=== PATIENT | female | born 1945 | race Caucasian/White ===

== ENCOUNTER 2016-04-01 20:46 | Inpatient (IN) | payer MEDICARE, MEDICAID ==
--- NOTE | 2016-04-01 21:03 | ED Physician Chart ---
Chief Complaint/HPI - Patient Information Date Seen:: 04/01/16 Time Seen:: 20:58 Chief Complaint:: Low grade fever this afternoon. History of Present Illness:: Brought in by ambulance from nursing facility for the above reason. Pt denies any bodily pain. No cough, dyspnea, or lightheadedness. Pt has h/o dementia and does not cooperate fully to provide adequate and reliable info. Thus, H & P are limited. Allergies:: Allergies Allergy/AdvReac Type Severity Reaction Status Date / Time Penicillins Allergy Verified 09/30/15 02:52 Vitals:: see Nurse Note. Historian:: Patient, Medical Records (from transferring facility.) Family MD/PCP:: Dr. Ch LMP:: Postmenopausal. Review:: Nurse's Note Reviewed, Transfer documents Reviewed Review of Systems - Review of Systems General/Constitutional: Fever, Other (Pt does not cooperate fully for ROS.) Past Medical History - Past Medical History Past Medical History: HTN, DM, Asthma/COPD, Dyslipidemia, Dementia, Other ( Chronic anemia) Family History: Other (Pt does not cooperate to provide reliable info on FHx.) Social History: Non Smoker, No Alcohol, No Drug Use, Care Facility, Other (Pt does not cooperate to provide reliable info on SHx.) Employment:: Retired. Surgical History: other (Pt does not cooperate to provide info on Surgical Hx.) Psychiatricy History: Depression, Dementia Medication: Reviewed Family Medical History - Family Member Father History Unknown: Yes Ethnicity: Non- Living Status: Hx Family Cancer: No Hx Family Coronary Artery Disease: Yes Hx Family Congestive Heart Failure: Yes Hx Family Hypertension: Yes Hx Family Stroke: No Hx Family Diabetes: No Hx Family Seizures: No Hx Family Dementia: No Hx Family AIDS: No Hx Family HIV: No Hx Family COPD: No Hx Family Hepatitis: No Hx Family Psychiatric Problems: (migraines) Hx Family Tuberculosis: No Mother History Unknown: Yes Ethnicity: Non- Living Status: Still Living Hx Family Cancer: No Hx Family Coronary Artery Disease: No Hx Family Congestive Heart Failure: No Hx Family Hypertension: Yes Hx Family Stroke: No Hx Family Diabetes: No Hx Family Seizures: No Hx Family Dementia: No Hx Family AIDS: No Hx Family HIV: No Hx Family COPD: No Hx Family Hepatitis: No Hx Family Psychiatric Problems: No Hx Family Tuberculosis: No Physical Exam - Physical Examination General/Constitutional: Awake, Well-developed, well-nourished, Alert, No distress, Non-toxic appearing Other Gen/Cons comments:: Breathes comfortably, speaks clearly, but is not fully cooperative. Head: Atraumatic Eyes: Lids, conjuctiva normal, PERRL, EOMI Skin: No rash, No ecchymosis, No lymphadenopathy Other Skin comments:: slight decrease in skin turgor. ENMT: External ears, nose nl, TM canals nl, Nasal exam nl, Oropharynx nl, Tonsils nl Other ENMT comments:: Mucous membrane is dry. Neck: Nontender, Full ROM w/o pain, No JVD, No nuchal rigidity, No bruit, No mass, No stridor Respiratory: Nl effort/Exclusion, Clear to Auscultation, No Wheeze/Rhonchi/Rales Cardio Vascular: RRR, No murmur, gallop, rubs GI: No tenderness/rebounding/guarding, No organomegaly, No hernia, Normal BS's, Nondistended, No mass/bruits, No McBurney tenderness Other GI comments:: Obese but soft. : No CVA tenderness Extremities: No edema Neuro/Psych: Alert/oriented (knows her name, that she is in hospital, and it is Saturday.) Other Neuro/Psych comments:: Spontaneous movements noticed in all 4 extremities. Pt does not cooperate for full neurological exam. Labs/Radiology/EKG Results - Lab Results Results: Laboratory Tests 04/01/16 04/01/16 04/01/16 21:25 21:25 21:25 WBC 5.2 RBC 3.42 L Hgb 8.7 L D Hct 25.6 L D MCV 74.8 L MCH 25.3 L MCHC Differential 33.9 RDW 16.9 Plt Count 117 L MPV 9.0 Neutrophils % 72.7 Lymphocytes % 12.8 L Monocytes % 14.2 H Eosinophils % 0.1 Basophils % 0.2 PT 11.8 H INR 1.18 PTT (Actin FS) 25.9 L Sodium 129 L Potassium 3.7 Chloride 100 Carbon Dioxide 20.9 L Anion Gap 11.8 BUN 28 H Creatinine 1.6 H Est GFR ( Amer) 41.0 Est GFR (Non-Af Amer) 33.9 BUN/Creatinine Ratio 17.5 Glucose 281 H Whole Bld Lactic Acid Calcium 8.9 Total Bilirubin 1.1 H AST 14 ALT 12 Alkaline Phosphatase 73 Creatine Kinase 166 Troponin I Total Protein 6.2 Albumin 3.5 L Globulin 2.7 Albumin/Globulin Ratio 1.3 Serum Ketones SMALL H 04/01/16 04/01/16 21:25 21:25 WBC RBC Hgb Hct MCV MCH MCHC Differential RDW Plt Count MPV Neutrophils % Lymphocytes % Monocytes % Eosinophils % Basophils % PT INR PTT (Actin FS) Sodium Potassium Chloride Carbon Dioxide Anion Gap BUN Creatinine Est GFR ( Amer) Est GFR (Non-Af Amer) BUN/Creatinine Ratio Glucose Whole Bld Lactic Acid 0.92 Calcium Total Bilirubin AST ALT Alkaline Phosphatase Creatine Kinase Troponin I 0.01 Total Protein Albumin Globulin Albumin/Globulin Ratio Serum Ketones Urinalysis is pending. - Radiology Results Results: PCXR: Based on my interpretation, poor inspiration; otherwise, no acute disease. Official report is pending. - EKG Interpretations EKG Time:: 22:36 Rhythm: NSR Rate: 97 Comments:: NSSTT changes. ED Septic Shock - . Is Septic Shock (SBP<90, OR Lactate>4 mmol\L) present?: No Reassessment (Disposition) - Reassessment Reassessment:: 2315 Pt remains stable. EKG, CXR, and available lab findings have been reviewed with pt. Management plan has been discussed. Nursing staff related that Dr. Ch had called earlier and reviewed lab findings, etc. He decided to admit pt to [facility] under his care. He already put in admission orders, including antibiotic therapy. He will follow on pending lab results. Reassessment Condition:: Improved - Diagnosis Diagnosis:: Fever by hx. Diabetes mellitus, poorly controlled. Dehydration with prerenal azotemia, stable. Chronic anemia. - Patient Disposition Admitting Medical Physician:: Leon Ch Time:: 23:20 Condition at Disposition:: Stable, Improved
[2016-04-01] MEDS ORDERED: Sodium Chloride 0.9% 500 ML IV ONE (21:11)
[2016-04-01 21:42] LABS: % BASOPHILS 0.2 % (0.0-2.0); % EOSINOPHILS 0.1 % (0.0-5.0); % LYMPHOCYTES 12.8 % (20.0-50.0); % MONOCYTES 14.2 % (2.0-10.0); % NEUTROPHILS 72.7 % (40.0-80.0); MEAN CELL VOLUME 74.8 fl (81-100); MEAN CORPUSCULAR HEMOGLOBIN 25.3 pg (27.0-31.0); MEAN CORPUSCULAR HGB CONC 33.9 pg (28.0-36.0); NEUTROPHILE ABSOLUTE 3.8 Th/cmm (1.8-8.0); PLATELET COUNT 117 Th/cmm (150-400); RED BLOOD COUNT 3.42 Mil/cmm (3.80-5.20); RED CELL DISTRIBUTION WIDTH 16.9 % (11.5-20.0); WHITE BLOOD COUNT 5.2 Th/cmm (4.8-10.8)
[2016-04-01 21:49] LABS: HEMATOCRIT 25.6 % (35.0-45.0); HEMOGLOBIN 8.7 gm/dL (11.7-16.1)
[2016-04-01 21:50] LABS: INR 1.18 (0.5-1.4); PROTHROMBIN TIME (TEST) 11.8 SECONDS (9.5-11.5)
[2016-04-01 21:53] LABS: ALB/GLOB RATIO 1.3 (1.0-1.8); ALKALINE PHOSPHATASE 73 U/L (34-104); ANION GAP 11.8 (7.0-16.0); BILIRUBIN,TOTAL 1.1 mg/dL (0.3-1.0); BUN - UREA NITROGEN 28 mg/dL (7-25); BUN/CREATININE RATIO 17.5; CALCIUM SERUM 8.9 mg/dL (8.6-10.3); CARBON DIOXIDE 20.9 mEq/L (21.0-31.0); CHLORIDE 100 mEq/L (98-107); CREATININE - SERUM 1.6 mg/dL (0.6-1.2); GLUCOSE 281 mg/dL (70-105); POTASSIUM SERUM 3.7 mEq/L (3.5-5.1); SGOT 14 U/L (13-39); SGPT/ALT 12 U/L (7-52); SODIUM SERUM 129 mEq/L (136-145)
[2016-04-01] MEDS ORDERED: Magnesium Hydroxide (MOM) 30 mL UDC PO PRN (23:04)
[2016-04-01] MEDS ORDERED: Maalox 30 mL Cup PO PRN (23:04)
[2016-04-01] MEDS ORDERED: Hydrocodone/APAP 5mg/325mg Tab PO PRN (23:04)
[2016-04-01] MEDS ORDERED: Albuterol/Ipratropium Neb 3 ML AERS HHN PRN (23:04)
[2016-04-01] MEDS ORDERED: guaiFENesin 200 MG/10 ML UDC PO PRN (23:09)
[2016-04-01] MEDS ORDERED: Albuterol Nebulizer 2.5mg/3mL HHN PRN (23:09)
[2016-04-01] MEDS ORDERED: Sodium Chloride 0.45% 1,000 ML IV SCH (23:15)
[2016-04-01] MEDS: Sodium Chloride 0.9% 1,000 ML IV SCH (23:27)
[2016-04-02 01:35] LABS: URINE BILIRUBIN SMALL (NEGATIVE); URINE BLOOD SMALL (NEGATIVE); URINE COLOR YELLOW; URINE GLUCOSE (UA) NEGATIVE (NEGATIVE); URINE KETONE TRACE mg/dL (NEGATIVE); URINE PROTEIN 100 mg/dL (NEGATIVE); URINE UROBILINOGEN 0.2 E.U./dL (0.2 - 1.0)
[2016-04-02 01:37] LABS: URINE BACTERIA MANY /hpf (NONE SEEN); URINE EPITHELIAL CELLS MODERATE /lpf (FEW); URINE WBC >100 /hpf (0-5)
[2016-04-02] MEDS ORDERED: INSULIN ASPART, RECOMBINANT 100 UNITS/ML SUBQ ONE (09:03)
[2016-04-02] MEDS: INSULIN ASPART SLIDING SCALE 100 UNITS/ML UNIT SUBQ SCH ×5 (09:08→23:01)
--- NOTE | 2016-04-02 12:08 | Diagnostic Imaging Report ---
Portable chest x-ray HISTORY: Fever The heart size is difficult to assess with portable technique in a poor inspiration, but appears generous. No acute focal pulmonary processes. No hilar or mediastinal abnormalities. IMPRESSION: 1. No acute focal pulmonary processes
--- NOTE | 2016-04-02 12:46 | Internal Medicine Prog Note ---
Internal Medicine Subjective - Subjective Service Date: 04/02/16 ([facility] [id number]) Internal Medicine Objective - Results Result Diagrams: 04/01/16 21:25 04/01/16 21: Recent Labs: Laboratory Last Values WBC 5.2 Th/cmm (4.8-10.8) 04/01/16 21: RBC 3.42 Mil/cmm (3.80-5.20) L 04/01/16 21:25 Hgb 8.7 gm/dL (11.7-16.1) L D 04/01/16 21:25 Hct 25.6 % (35.0-45.0) L D 04/01/16: MCV 74.8 fl (81-100) L 04/01/16: MCH 25.3 pg (27.0-31.0) L 04/01/16: MCHC Differential 33.9 pg (28.0-36.0) 04/01/16: RDW 16.9 % (11.5-20.0) 04/01/16: Plt Count 117 Th/cmm (150-400) L 04/01/16 21:25 MPV 9.0 fl 04/01/16 21:25 Neutrophils % 72.7 % (40.0-80.0) 04/01/16: Lymphocytes % 12.8 % (20.0-50.0) L 04/01/16: Monocytes % 14.2 % (2.0-10.0) H 04/01/16: Eosinophils % 0.1 % (0.0-5.0) 04/01/16: Basophils % 0.2 % (0.0-2.0) 04/01/16 21: PT 11.8 SECONDS (9.5-11.5) H 04/01/16 21: INR 1.18 (0.5-1.4) 04/01/16: PTT (Actin FS) 25.9 SECONDS (26.0-38.0) L 04/01/16 21:25 Sodium 129 mEq/L (136-145) L 04/01/16 21:25 Potassium 3.7 mEq/L (3.5-5.1) 04/01/16 21:25 Chloride 100 mEq/L (98-107) 04/01/16 21:25 Carbon Dioxide 20.9 mEq/L (21.0-31.0) L 04/01/16 21:25 Anion Gap 11.8 (7.0-16.0) 04/01/16 21:25 BUN 28 mg/dL (7-25) H 04/01/16 21:25 Creatinine 1.6 mg/dL (0.6-1.2) H 04/01/16 21:25 Est GFR ( Amer) 41.0 ml/min (>90) 04/01/16 21:25 Est GFR (Non-Af Amer) 33.9 ml/min 04/01/16 21:25 BUN/Creatinine Ratio 17.5 04/01/16 21:25 Glucose 281 mg/dL (70-105) H 04/01/16 21:25 POC Glucose 145 MG/DL (70 - 105) H 04/02/16 12:30 Hemoglobin A1c % 7.9 % (4.0-6.0) H 04/01/16 21:25 Whole Bld Lactic Acid 0.92 mmol/L (0.60-2.00) 04/01/16 21:25 Calcium 8.9 mg/dL (8.6-10.3) 04/01/16 21:25 Total Bilirubin 1.1 mg/dL (0.3-1.0) H 04/01/16 21:25 AST 14 U/L (13-39) 04/01/16 21:25 ALT 12 U/L (7-52) 04/01/16 21:25 Alkaline Phosphatase 73 U/L (34-104) 04/01/16 21:25 Creatine Kinase 166 U/L (30-223) 04/01/16 21:25 Troponin I 0.01 ng/mL (0.01-0.05) 04/01/16 21:25 Total Protein 6.2 gm/dL (6.0-8.3) 04/01/16 21:25 Albumin 3.5 gm/dL (3.7-5.3) L 04/01/16 21:25 Globulin 2.7 gm/dL 04/01/16 21:25 Albumin/Globulin Ratio 1.3 (1.0-1.8) 04/01/16 21:25 Urine Source CATH 04/02/16 01:15 Urine Color YELLOW 04/02/16 01:15 Urine Clarity HAZY (CLEAR) 04/02/16 01:15 Urine pH 5.0 04/02/16 01:15 Ur Specific [place] 1.59676 (1.005-1.030) H 04/02/16 01:15 Urine Protein 100 mg/dL (NEGATIVE) H 04/02/16 01:15 Urine Glucose (UA) NEGATIVE mg/dL (NEGATIVE) 04/02/16 01:15 Urine Ketones TRACE mg/dL (NEGATIVE) 04/02/16 01:15 Urine Blood SMALL (NEGATIVE) H 04/02/16 01:15 Urine Nitrate POSITIVE (NEGATIVE) H 04/02/16 01:15 Urine Bilirubin SMALL (NEGATIVE) H 04/02/16 01:15 Urine Ictotest NEGATIVE (NEGATIVE) 04/02/16 01:15 Urine Urobilinogen 0.2 E.U./dL (0.2 - 1.0) 04/02/16 01:15 Ur Leukocyte Esterase SMALL (NEGATIVE) H 04/02/16 01:15 Urine RBC 2-5 /hpf (0-5) 04/02/16 01:15 Urine WBC >100 /hpf (0-5) H 04/02/16 01:15 Ur Epithelial Cells MODERATE /lpf (FEW) 04/02/16 01:15 Urine Bacteria MANY /hpf (NONE SEEN) 04/02/16 01:15 Serum Ketones SMALL (NEGATIVE) H 04/01/16 21:25 - Physical Exam Vitals and I&O: Vital Signs Temp 99.1 F 04/02/16 12:26 Pulse 91 04/02/16 12:26 Resp 18 04/02/16 12:26 BP 109/47 04/02/16 12:26 Pulse Ox 93 04/02/16 12:26 Intake & Output 04/01/16 04/02/16 04/02/16 18:59 06:59 18:59 Intake Total 550 Balance 550 Intake: Intake, IV Amount 550 Cefepime 1 gm In Dextrose 50 5% 50 ml @ 100 mls/hr IV Q12H [facility] Rx#:[id number] Sodium Chloride 0.9% 500 500 ml @ Wide Open IV .Q0M ONE Rx#:[id number] Active Medications: Current Medications Acetaminophen (Tylenol) 650 mg PO Q4HR PRN PRN Reason: Pain or Fever >101 Stop: 05/31/16 23:03 Last Admin: 04/02/16 04:50 Dose: 650 mg Acetaminophen/Hydrocodone Bitart (Trufant 5mg/325mg) 1 tab PO DAILY PRN PRN Reason: Pain (Severe) Stop: 05/31/16 23:03 Al Hydrox/Mg Hydrox/Simethicone (Maalox) 30 ml PO Q4H PRN PRN Reason: GI DISTRESS Stop: 05/31/16 23:03 Albuterol Sulfate (Albuterol 2.5mg/3ml Neb Ud) 2.5 mg HHN Q2HR PRN PRN Reason: Shortness of Breath or Wheeze Stop: 05/31/16 23:08 Albuterol/Ipratropium (Duoneb Neb) 3 ml HHN Q6HR PRN PRN Reason: Shortness of Breath or Wheeze Stop: 05/31/16 23:03 Atorvastatin Calcium (Lipitor) 10 mg PO HS [facility] Stop: 06/01/16 20:59 Clonidine HCl (Catapres) 0.1 mg PO Q6HR PRN PRN Reason: SBP GREATER THAN 160 Stop: 05/31/16 23:08 Donepezil HCl (Aricept) 10 mg PO HS [facility] Stop: 06/01/16 20:59 Glipizide (Glucotrol) 10 mg PO BIDAC [facility] Stop: 06/01/16 07:29 Last Admin: 04/02/16 09:11 Dose: 10 mg Guaifenesin (Robitussin) 200 mg PO Q4HR PRN PRN Reason: Cough or Congestion Stop: 05/31/16 23:08 Heparin Sodium (Porcine) (Heparin) 5,000 units SUBQ Q12HR [facility] Stop: 06/01/16 08:59 Last Admin: 04/02/16 09:09 Dose: 5,000 units Sodium Chloride (Nacl 0.9%) 1,000 mls @ 80 mls/hr IV .[id number] [facility] Stop: 05/31/16 23:14 Last Admin: 04/01/16 23:27 Dose: 80 mls/hr Cefepime HCl 1 gm/ Dextrose 50 mls @ 100 mls/hr IV Q12H [facility] Stop: 05/31/16 23:14 Last Admin: 04/02/16 10:41 Dose: 100 mls/hr Insulin Aspart (Novolog Insulin Sliding Scale) 0 units SUBQ QPM [facility] PRN Reason: Protocol Stop: 06/01/16 16:59 Insulin Aspart (Novolog Insulin Sliding Scale) 0 units SUBQ ACHS [facility] PRN Reason: Protocol Stop: 06/01/16 07:29 Last Admin: 04/02/16 09:08 Dose: 6 units Lorazepam (Ativan) 1 mg PO Q12HR PRN; Protocol PRN Reason: Anxiety Stop: 05/31/16 23:03 Last Admin: 04/02/16 12:25 Dose: 1 mg Magnesium Hydroxide (Milk Of Magnesia) 30 ml PO HS PRN PRN Reason: Constipation Stop: 05/31/16 23:03 Metformin HCl (Glucophage) 500 mg PO BID [facility] Stop: 06/01/16 08:59 Ondansetron HCl (Zofran) 4 mg IV Q8H PRN PRN Reason: Nausea / Vomiting Stop: 05/31/16 23:08 Oxybutynin Chloride (Ditropan) 5 mg PO BID [facility] Stop: 06/01/16 08:59 Last Admin: 04/02/16 09:25 Dose: 5 mg Quetiapine Fumarate (Seroquel) 200 mg PO HS [facility] PRN Reason: Protocol Stop: 06/01/16 20:59 Temazepam (Restoril) 15 mg PO HS PRN; Protocol PRN Reason: Insomnia Stop: 05/31/16 23:03 - Procedures Procedures: Procedures Procedure Code Date INDIVID PSYCHOTHERAP NEC 94.39 07/05/04 INJECT/INFUSE NEC 99.29 03/18/13 OTHER GROUP THERAPY 94.44 12/18/13 RECREATIONAL THERAPY 93.81 07/05/04 Internal Medicine Assmt/Plan - Assessment Assessment: FEVER UTI HYPONATREMIA DM DEMENTIA COPD
--- NOTE | 2016-04-02 14:20 | History & Physical ---
CHIEF COMPLAINT: Clemente grade fever. HISTORY OF PRESENT ILLNESS: This is a 70-year-old female who is a resident of [facility] who was brought here to [facility] for low-grade fever. The patient denied any productive cough or any shortness of breath or any dizziness or any abdominal pain. The patient is a very poor historian. PAST MEDICAL HISTORY: Hypertension, diabetes, asthma, dyslipidemia, dementia, chronic anemia. FAMILY HISTORY: Noncontributory. SOCIAL HISTORY: The patient resides at [facility], requiring 24-hour nursing care. SURGICAL HISTORY: None per patient. MEDICATIONS: Please see medication reconciliation sheet. REVIEW OF SYSTEMS: GENERAL: Denies any fevers, any chills. CARDIOVASCULAR: Denies any chest pain. RESPIRATORY: Denies any shortness of breath. GASTROINTESTINAL: Denies any nausea, vomiting. GENITOURINARY: Denies any dysuria. All other systems are reviewed by me and are negative. PHYSICAL EXAMINATION: GENERAL: The patient is well developed, well nourished in no apparent distress. VITAL SIGNS: Temperature 99.1, heart rate 91, blood pressure 109/47, respirations 18, O2 93%. HEENT: Head; normocephalic, atraumatic. NECK: Supple. No mass. LUNGS: Few rhonchi bilaterally upon auscultation. HEART: Regular rate and rhythm. No murmurs or gallops. SKIN: Intact, warm and dry to touch. ABDOMEN: Soft, nontender, nondistended. Positive bowel sounds in all 4 quadrants. LABORATORY DATA: WBC 5.2, H and H 8.7 and 25.6, platelet of 117. Sodium 129, potassium 3.7, chloride 100, carbon dioxide 28.9, BUN 20, creatinine 1.6, hemoglobin A1c is 7.9%. The patient had a urinalysis done and it was positive for UTI. DIAGNOSTICS: The patient had a chest x-ray done and the impression is no acute pulmonary process. ASSESSMENT: Fever, urinary tract infection, hyponatremia, diabetes, dyslipidemia and dementia. PLAN: The patient will be admitted to the med/surg unit. The patient will be receiving IV antibiotics of Maxipime 1 gram, also IV fluids for hydration. We will monitor the patient's blood glucose level. We will continue to monitor the patient. JOB# [id number]
--- NOTE | 2016-04-02 17:45 | Admit Criteria Form ---
Admit Criteria Forms - Admit Criteria Diagnosis: FEVER Clinical Indications for Inpatient Care (Place 'X' for any and all applicable criteria): Ongoing inpatient care may be indicated for fever with ANY ONE of the following[ D] (5)(27)(28)(29)(30)(31): [ ]I. Bacteremia [X]II. Evidence of significant systemic illness as indicated by ANY ONE of the following: [ ]a) Persistently high temperatures greater than 103.1 degrees F ( 39.5 degrees C) (oral) [ ]b) New-onset hypoxia [ ]c) Hemodynamic instability [ ]d) Mental status changes [X]e) Decreased urine output due to developing renal insufficiency [ ]f) New focal neurologic deficit (eg, stroke) [ ]g) Seizures [ ]h) Rigors [X]i) Dehydration or hypovolemia [ ]j) Inadequate oral intake [ ]III. Patient in the immediate postoperative period with ANY ONE of the following (E)(23)(24): [ ]a) Evidence of specific localizing infection requiring ongoing inpatient evaluation or treatment (eg,abscess, severe pneumonia, wound infection ) [ ]b) Known or suspected cause of fever requiring ongoing inpatient evaluation or treatment (eg, DVT) [ ]c) Evidence of malignant hyperthermia (eg, unexplained tachycardia and muscle rigidity after depolarizing muscular blocking agent or inhaled anesthetic agent) [ ]IV. Suspected cause requiring acute care (eg, endocarditis, meningitis) [ ]V. High suspicion of bacteremia as indicated by severe constitutional symptoms in patient at high risk as indicated by ANY ONE of the following: [ ]a) Immunocompromised state [D](22) [ ]b) Age <3 years or >65 years [ ]c) Severe comorbidities (eg, poorly controlled diabetes, severe COPD) [ ]. High suspicion for fungal infection as indicated by ANY ONE of the following (22)(25): [ ]a) Febrile neutropenia (WBC <500/mm3 (0.5 X 109/L)) for >4 days despite broad spectrum antibiotics [ ]b) Imaging findings suggestive of fungal infection [ ]c) Immunocompromised state [ ]d) Immunocompromised patient colonized with Aspergillus species [ ]VII. Evidence of infection of medical devices such as implanted catheters or exposed hardware [ ]VIII. Suspected neuroleptic malignant syndrome as evidenced by ALL of the following (15): [ ]a) Recent use of neuroleptic medication (eg, haloperidol, prochlorperazine, metoclopramide) [ ]b) New-onset muscle rigidity Extended stay beyond goal length of stay for primary condition may be needed until ALL of the following are present(16)(17)(18)(19)(20)(21): [ ]a) Temperature status acceptable as indicated by ANY ONE of the following: [ ]i) Temp <38.1C (100.5 F) (oral) [ ]ii) Temp as expected for disease process and care performable at next level of care [ ]b) Hemodynamic stability [ ]c) Cultures negative or infection identified and under adequate treatment [ ]d) Behavior or mental status abnormalities absent or manageable at lower level of care (Also use Mental Status Change Criteria Form) for further information. [ ]e) Medical comorbidities absent or manageable at a lower level of care The original [facility] content created by [employer] has been revised. The portions of the content which have been revised are identified through the use of italic text or in bold, and [facility] has neither reviewed nor approved the modified material. All other unmodified content is copyright [facility] [employer]. Please see references footnoted in the original [facility] edition 2016 Admit Criteria Met?: Yes
[2016-04-02] MEDS: Sodium Chloride 0.9% 1,000 ML IV SCH (22:31)
[2016-04-02] MEDS: Atorvastatin Calcium 10 MG TAB PO SCH (22:32)
[2016-04-03 01:52] VITALS: BP 124/68
--- NOTE | 2016-04-03 05:19 | Consultation ---
The patient was seen, chart reviewed, discussed with staff. HISTORY OF PRESENT ILLNESS: The patient is a 70-year-old female known to myself on treatment during past hospitalization, also at her [facility] facility, has a history of schizoaffective disorder, has been somewhat anxious, restless, has been ____ isolative, now in the ER, she has been treated for infection. The patient has some confusion episodes, but she has been passively cooperative, over the past couple of months that she has been decompensated from psychiatric point of view and she has been refusing care at times and she tends to stay in her room often. PAST PSYCHIATRIC HISTORY: Multiple hospitalizations, chronic history of schizoaffective disorder, and dementia. PAST MEDICAL HISTORY: COPD, hypertension, hyperlipidemia, diabetes and sepsis, UTI. PSYCHOSOCIAL HISTORY: The patient resides at [facility]. She requires complete care. MENTAL STATUS EXAMINATION: The patient is cooperative for the most part, says she is disheveled, appears to be older than her stated age. Her speech is fluent, slightly fast. Affect is slightly guarded. The patient is oriented to person, knew she was in the hospital and knew her age, did not know the exact date. Some memory and calculation impairment. ASSESSMENT AND PLAN: Schizoaffective disorder and dementia, Alzheimer's type, mild. Medical as per medical history. At this time, would recommend continuation of medical supportive measures. We will follow the patient closely while in the hospital. Consider psychiatric hospitalization given the level of psychosis and decline in function. We will follow closely while in the hospital. Thank you for the consultation. [facility]# [id number]
[2016-04-03 06:26] LABS: HEMATOCRIT 24.3 % (35.0-45.0); HEMOGLOBIN 8.1 gm/dL (11.7-16.1); MEAN CELL VOLUME 75.6 fl (81-100); MEAN CORPUSCULAR HEMOGLOBIN 25.2 pg (27.0-31.0); MEAN CORPUSCULAR HGB CONC 33.3 pg (28.0-36.0); MEAN PLATELET VOLUME 8.5 fl; PLATELET COUNT 130 Th/cmm (150-400); RED BLOOD COUNT 3.21 Mil/cmm (3.80-5.20); RED CELL DISTRIBUTION WIDTH 17.3 % (11.5-20.0); WHITE BLOOD COUNT 3.3 Th/cmm (4.8-10.8)
[2016-04-03 06:44] LABS: ALB/GLOB RATIO 1.2 (1.0-1.8); ALKALINE PHOSPHATASE 64 U/L (34-104); ANION GAP 5.4 (7.0-16.0); BILIRUBIN,TOTAL 0.6 mg/dL (0.3-1.0); BUN - UREA NITROGEN 21 mg/dL (7-25); CALCIUM SERUM 8.5 mg/dL (8.6-10.3); CARBON DIOXIDE 23.2 mEq/L (21.0-31.0); CHLORIDE 109 mEq/L (98-107); GLUCOSE 136 mg/dL (70-105); POTASSIUM SERUM 3.6 mEq/L (3.5-5.1); SGOT 13 U/L (13-39); SGPT/ALT 14 U/L (7-52); SODIUM SERUM 134 mEq/L (136-145)
[2016-04-03] MEDS: INSULIN ASPART SLIDING SCALE 100 UNITS/ML UNIT SUBQ SCH ×5 (07:16→21:30)
[2016-04-03 10:06] LABS: ANISOCYTOSIS 1+; NEUTROPHILS 66 % (40-80); TOTAL CELLS COUNTED 100
[2016-04-03 10:07] LABS: MICROCYTOSIS 2+; PLATELET ESTIMATE DECREASED PLATELETS (NORMAL); PLATELET MORPHOLOGY NORMAL (NORMAL)
--- NOTE | 2016-04-03 11:45 | Internal Medicine Prog Note ---
Internal Medicine Subjective - Subjective Service Date: 04/03/16 Patient seen and examined:: with staff Patient is:: awake Internal Medicine Objective - Results Result Diagrams: 04/03/16 05:51 04/03/16 05:51 Recent Labs: Laboratory Last Values WBC 3.3 Th/cmm (4.8-10.8) L D 04/03/16 05:51 RBC 3.21 Mil/cmm (3.80-5.20) L 04/03/16 05:51 Hgb 8.1 gm/dL (11.7-16.1) L 04/03/16 05:51 Hct 24.3 % (35.0-45.0) L 04/03/16 05:51 MCV 75.6 fl (81-100) L 04/03/16 05:51 MCH 25.2 pg (27.0-31.0) L 04/03/16 05:51 MCHC Differential 33.3 pg (28.0-36.0) 04/03/16 05:51 RDW 17.3 % (11.5-20.0) 04/03/16 05:51 Plt Count 130 Th/cmm (150-400) L 04/03/16 05:51 MPV 8.5 fl 04/03/16 05:51 Neutrophils % 72.7 % (40.0-80.0) 04/01/16 21:25 Lymphocytes % 12.8 % (20.0-50.0) L 04/01/16 21:25 Monocytes % 14.2 % (2.0-10.0) H 04/01/16 21:25 Eosinophils % 0.1 % (0.0-5.0) 04/01/16 21:25 Basophils % 0.2 % (0.0-2.0) 04/01/16 21:25 Neutrophils (Manual) 66 % (40-80) 04/03/16 05:51 Lymphocytes 20 % (20-50) 04/03/16 05:51 Monocytes 14 % (2-10) H 04/03/16 05:51 Platelet Estimate DECREASED PLATELETS (NORMAL) 04/03/16 05:51 Platelet Morphology NORMAL (NORMAL) 04/03/16 05:51 Anisocytosis 1+ 04/03/16 05:51 Microcytosis 2+ 04/03/16 05:51 RBC Morph Micro Appear ABNORMAL (NORMAL) 04/03/16 05:51 PT 11.8 SECONDS (9.5-11.5) H 04/01/16 21:25 INR 1.18 (0.5-1.4) 04/01/16 21:25 PTT (Actin FS) 25.9 SECONDS (26.0-38.0) L 04/01/16 21:25 Sodium 134 mEq/L (136-145) L 04/03/16 05:51 Potassium 3.6 mEq/L (3.5-5.1) 04/03/16 05:51 Chloride 109 mEq/L (98-107) H 04/03/16 05:51 Carbon Dioxide 23.2 mEq/L (21.0-31.0) 04/03/16 05:51 Anion Gap 5.4 (7.0-16.0) L 04/03/16 05:51 BUN 21 mg/dL (7-25) 04/03/16 05:51 Creatinine 1.0 mg/dL (0.6-1.2) 04/03/16 05:51 Est GFR ( Amer) > 60.0 ml/min (>90) 04/03/16 05:51 Est GFR (Non-Af Amer) 58.3 ml/min 04/03/16 05:51 BUN/Creatinine Ratio 21.0 04/03/16 05:51 Glucose 136 mg/dL (70-105) H 04/03/16 05:51 POC Glucose 222 MG/DL (70 - 105) H 04/03/16 11:18 Hemoglobin A1c % 7.9 % (4.0-6.0) H 04/01/16 21:25 Whole Bld Lactic Acid 0.92 mmol/L (0.60-2.00) 04/01/16 21:25 Calcium 8.5 mg/dL (8.6-10.3) L 04/03/16 05:51 Total Bilirubin 0.6 mg/dL (0.3-1.0) 04/03/16 05:51 AST 13 U/L (13-39) 04/03/16 05:51 ALT 14 U/L (7-52) 04/03/16 05:51 Alkaline Phosphatase 64 U/L (34-104) 04/03/16 05:51 Ammonia 37 umol/L (16-53) 04/03/16 05:51 Creatine Kinase 166 U/L (30-223) 04/01/16 21:25 Troponin I 0.01 ng/mL (0.01-0.05) 04/01/16 21:25 B-Natriuretic Peptide 170.0 pg/mL (5.0-100.0) H 04/03/16 05:51 Total Protein 6.0 gm/dL (6.0-8.3) 04/03/16 05:51 Albumin 3.3 gm/dL (3.7-5.3) L 04/03/16 05:51 Globulin 2.7 gm/dL 04/03/16 05:51 Albumin/Globulin Ratio 1.2 (1.0-1.8) 04/03/16 05:51 Urine Source CATH 04/02/16 01:15 Urine Color YELLOW 04/02/16 01:15 Urine Clarity HAZY (CLEAR) 04/02/16 01:15 Urine pH 5.0 04/02/16 01:15 Ur Specific [place] 1.80248 (1.005-1.030) H 04/02/16 01:15 Urine Protein 100 mg/dL (NEGATIVE) H 04/02/16 01:15 Urine Glucose (UA) NEGATIVE mg/dL (NEGATIVE) 04/02/16 01:15 Urine Ketones TRACE mg/dL (NEGATIVE) 04/02/16 01:15 Urine Blood SMALL (NEGATIVE) H 04/02/16 01:15 Urine Nitrate POSITIVE (NEGATIVE) H 04/02/16 01:15 Urine Bilirubin SMALL (NEGATIVE) H 04/02/16 01:15 Urine Ictotest NEGATIVE (NEGATIVE) 04/02/16 01:15 Urine Urobilinogen 0.2 E.U./dL (0.2 - 1.0) 04/02/16 01:15 Ur Leukocyte Esterase SMALL (NEGATIVE) H 04/02/16 01:15 Urine RBC 2-5 /hpf (0-5) 04/02/16 01:15 Urine WBC >100 /hpf (0-5) H 04/02/16 01:15 Ur Epithelial Cells MODERATE /lpf (FEW) 04/02/16 01:15 Urine Bacteria MANY /hpf (NONE SEEN) 04/02/16 01:15 Serum Ketones SMALL (NEGATIVE) H 04/01/16 21:25 - Physical Exam Vitals and I&O: Vital Signs Temp 101.0 F 04/03/16 04:00 Pulse 102 04/03/16 04:00 Resp 19 04/03/16 04:00 BP 111/46 04/03/16 04:00 Pulse Ox 95 04/03/16 04:00 Intake & Output 04/02/16 04/03/16 04/03/16 18:59 06:59 18:59 Intake Total 1050 50 Balance 1050 50 Intake: Intake, IV Amount 1050 Cefepime 1 gm In Dextrose 50 5% 50 ml @ 100 mls/hr IV Q12H [facility] Rx#:[id number] Sodium Chloride 0.9% 1, 1000 000 ml @ 80 mls/hr IV . [id number] [facility] Rx#:[id number] Oral 50 Other: # Voids 2 Stool Characteristics Soft Formed Active Medications: Current Medications Acetaminophen (Tylenol) 650 mg PO Q4HR PRN PRN Reason: Pain or Fever >101 Stop: 05/31/16 23:03 Last Admin: 04/03/16 04:20 Dose: 650 mg Acetaminophen/Hydrocodone Bitart ([place] 5mg/325mg) 1 tab PO DAILY PRN PRN Reason: Pain (Severe) Stop: 05/31/16 23:03 Al Hydrox/Mg Hydrox/Simethicone (Maalox) 30 ml PO Q4H PRN PRN Reason: GI DISTRESS Stop: 05/31/16 23:03 Albuterol Sulfate (Albuterol 2.5mg/3ml Neb Ud) 2.5 mg HHN Q2HR PRN PRN Reason: Shortness of Breath or Wheeze Stop: 05/31/16 23:08 Albuterol/Ipratropium (Duoneb Neb) 3 ml HHN Q6HR PRN PRN Reason: Shortness of Breath or Wheeze Stop: 05/31/16 23:03 Atorvastatin Calcium (Lipitor) 10 mg PO [facility] Stop: 06/01/16 20:59 Last Admin: 04/02/16 22:32 Dose: 10 mg Clonidine HCl (Catapres) 0.1 mg PO Q6HR PRN PRN Reason: SBP GREATER THAN 160 Stop: 05/31/16 23:08 Donepezil HCl (Aricept) 10 mg PO [facility] Stop: 06/01/16 20:59 Last Admin: 04/02/16 22:32 Dose: 10 mg Glipizide (Glucotrol) 10 mg PO BIDAC [facility] Stop: 06/01/16 07:29 Last Admin: 04/03/16 07:18 Dose: 10 mg Guaifenesin (Robitussin) 200 mg PO Q4HR PRN PRN Reason: Cough or Congestion Stop: 05/31/16 23:08 Heparin Sodium (Porcine) (Heparin) 5,000 units SUBQ Q12HR [facility] Stop: 06/01/16 08:59 Last Admin: 04/03/16 08:13 Dose: 5,000 units Sodium Chloride (Nacl 0.9%) 1,000 mls @ 80 mls/hr IV .[id number] [facility] Stop: 05/31/16 23:14 Last Admin: 04/02/16 22:31 Dose: 80 mls/hr Cefepime HCl 1 gm/ Dextrose 50 mls @ 100 mls/hr IV Q12H [facility] Stop: 05/31/16 23:14 Last Admin: 04/02/16 22:32 Dose: 100 mls/hr Insulin Aspart (Novolog Insulin Sliding Scale) 0 units SUBQ QPM [facility] PRN Reason: Protocol Stop: 06/01/16 16:59 Last Admin: 04/02/16 17:54 Dose: Not Given Insulin Aspart (Novolog Insulin Sliding Scale) 0 units SUBQ ACHS [facility] PRN Reason: Protocol Stop: 06/01/16 07:29 Last Admin: 04/03/16 07:16 Dose: Not Given Lorazepam (Ativan) 1 mg PO Q12HR PRN; Protocol PRN Reason: Anxiety Stop: 05/31/16 23:03 Last Admin: 04/02/16 22:49 Dose: 1 mg Magnesium Hydroxide (Milk Of Magnesia) 30 ml PO HS PRN PRN Reason: Constipation Stop: 05/31/16 23:03 Ondansetron HCl (Zofran) 4 mg IV Q8H PRN PRN Reason: Nausea / Vomiting Stop: 05/31/16 23:08 Oxybutynin Chloride (Ditropan) 5 mg PO BID [facility] Stop: 06/01/16 08:59 Last Admin: 04/03/16 08:13 Dose: 5 mg Quetiapine Fumarate (Seroquel) 200 mg PO HS [facility] PRN Reason: Protocol Stop: 06/01/16 20:59 Last Admin: 04/02/16 22:32 Dose: 200 mg Temazepam (Restoril) 15 mg PO HS PRN; Protocol PRN Reason: Insomnia Stop: 05/31/16 23:03 General: alert, other (WITH CONFUSION) Neck: Supple Lungs: CTAB Cardiovascular: RRR, Normal S1, Normal S2, without murmur Abdomen: soft non-tender, non-distended - Procedures Procedures: Procedures Procedure Code Date INDIVID PSYCHOTHERAP NEC 94.39 07/05/04 INJECT/INFUSE NEC 99.29 03/18/13 OTHER GROUP THERAPY 94.44 12/18/13 RECREATIONAL THERAPY 93.81 07/05/04 Internal Medicine Assmt/Plan - Assessment Assessment: FEVER UTI HYPONATREMIA DM DEMENTIA COPD - Plan Plan: IVABX MONITOR FOR FEVER IVF FOR HYDRATION CBC.BMP IN AM
[2016-04-03] MEDS: Sodium Chloride 0.9% 1,000 ML IV SCH (15:15)
[2016-04-03] MEDS: Atorvastatin Calcium 10 MG TAB PO SCH (20:51)
[2016-04-04] MEDS: Sodium Chloride 0.9% 1,000 ML IV SCH (06:10)
[2016-04-04] MEDS: INSULIN ASPART SLIDING SCALE 100 UNITS/ML UNIT SUBQ SCH ×4 (07:00→16:59)
[2016-04-04 07:03] LABS: HEMOGLOBIN 8.1 gm/dL (11.7-16.1); MEAN CELL VOLUME 73.9 fl (81-100); MEAN CORPUSCULAR HEMOGLOBIN 25.3 pg (27.0-31.0); MEAN CORPUSCULAR HGB CONC 34.2 pg (28.0-36.0); MEAN PLATELET VOLUME 8.6 fl; PLATELET COUNT 147 Th/cmm (150-400); RED CELL DISTRIBUTION WIDTH 17.2 % (11.5-20.0); WHITE BLOOD COUNT 2.7 Th/cmm (4.8-10.8)
[2016-04-04 07:21] LABS: ANION GAP 8.6 (7.0-16.0); BUN - UREA NITROGEN 12 mg/dL (7-25); BUN/CREATININE RATIO 13.3; CHLORIDE 112 mEq/L (98-107); CREATININE - SERUM 0.9 mg/dL (0.6-1.2); GLUCOSE 131 mg/dL (70-105); POTASSIUM SERUM 3.6 mEq/L (3.5-5.1); SODIUM SERUM 139 mEq/L (136-145)
[2016-04-04 07:56] LABS: HEMATOCRIT 23.7 % (35.0-45.0)
[2016-04-04 08:36] LABS: TOTAL CELLS COUNTED 100
[2016-04-04 08:39] LABS: BAND NEUTROPHILE 0 % (0-10); NEUTROPHILS 62 % (40-80)
[2016-04-04 08:41] LABS: EOSINOPHIL 3 % (0-5)
[2016-04-04 08:42] LABS: PLATELET ESTIMATE ADEQUATE (NORMAL)
--- NOTE | 2016-04-04 12:18 | Internal Medicine Prog Note ---
Internal Medicine Subjective - Subjective Service Date: 04/04/16 Patient seen and examined:: with staff Patient is:: awake Per staff patient is:: no adverse event Internal Medicine Objective - Results Result Diagrams: 04/04/16 06:26 04/04/16 06:26 Recent Labs: Laboratory Last Values WBC 2.7 Th/cmm (4.8-10.8) L 04/04/16 06:26 RBC 3.20 Mil/cmm (3.80-5.20) L 04/04/16 06:26 Hgb 8.1 gm/dL (11.7-16.1) L 04/04/16 06:26 Hct 23.7 % (35.0-45.0) L* 04/04/16 06:26 MCV 73.9 fl (81-100) L 04/04/16 06:26 MCH 25.3 pg (27.0-31.0) L 04/04/16 06:26 MCHC Differential 34.2 pg (28.0-36.0) 04/04/16 06:26 RDW 17.2 % (11.5-20.0) 04/04/16 06:26 Plt Count 147 Th/cmm (150-400) L 04/04/16 06:26 MPV 8.6 fl 04/04/16 06:26 Neutrophils % 72.7 % (40.0-80.0) 04/01/16 21:25 Band Neutrophils % 0 % (0-10) 04/04/16 06:26 Lymphocytes % 12.8 % (20.0-50.0) L 04/01/16 21:25 Monocytes % 14.2 % (2.0-10.0) H 04/01/16 21:25 Eosinophils % 0.1 % (0.0-5.0) 04/01/16 21:25 Basophils % 0.2 % (0.0-2.0) 04/01/16 21:25 Neutrophils (Manual) 62 % (40-80) 04/04/16 06:26 Lymphocytes 18 % (20-50) L 04/04/16 06:26 Monocytes 17 % (2-10) H 04/04/16 06:26 Eosinophils 3 % (0-5) 04/04/16 06:26 Platelet Estimate ADEQUATE (NORMAL) 04/04/16 06:26 Platelet Morphology NORMAL (NORMAL) 04/03/16 05:51 Anisocytosis 1+ 04/03/16 05:51 Microcytosis 2+ 04/03/16 05:51 RBC Morph Micro Appear ABNORMAL (NORMAL) 04/03/16 05:51 PT 11.8 SECONDS (9.5-11.5) H 04/01/16 21:25 INR 1.18 (0.5-1.4) 04/01/16 21:25 PTT (Actin FS) 25.9 SECONDS (26.0-38.0) L 04/01/16 21:25 Sodium 139 mEq/L (136-145) 04/04/16 06:26 Potassium 3.6 mEq/L (3.5-5.1) 04/04/16 06:26 Chloride 112 mEq/L (98-107) H 04/04/16 06:26 Carbon Dioxide 22.0 mEq/L (21.0-31.0) 04/04/16 06:26 Anion Gap 8.6 (7.0-16.0) 04/04/16 06:26 BUN 12 mg/dL (7-25) 04/04/16 06:26 Creatinine 0.9 mg/dL (0.6-1.2) 04/04/16 06:26 Est GFR ( Amer) > 60.0 ml/min (>90) 04/04/16 06:26 Est GFR (Non-Af Amer) > 60.0 ml/min 04/04/16 06:26 BUN/Creatinine Ratio 13.3 04/04/16 06:26 Glucose 131 mg/dL (70-105) H 04/04/16 06:26 POC Glucose 136 MG/DL (70 - 105) H 04/04/16 06:08 Hemoglobin A1c % 7.9 % (4.0-6.0) H 04/01/16 21:25 Whole Bld Lactic Acid 0.92 mmol/L (0.60-2.00) 04/01/16 21:25 Calcium 8.0 mg/dL (8.6-10.3) L 04/04/16 06:26 Total Bilirubin 0.6 mg/dL (0.3-1.0) 04/03/16 05:51 AST 13 U/L (13-39) 04/03/16 05:51 ALT 14 U/L (7-52) 04/03/16 05:51 Alkaline Phosphatase 64 U/L (34-104) 04/03/16 05:51 Ammonia 37 umol/L (16-53) 04/03/16 05:51 Creatine Kinase 166 U/L (30-223) 04/01/16 21:25 Troponin I 0.01 ng/mL (0.01-0.05) 04/01/16 21:25 B-Natriuretic Peptide 170.0 pg/mL (5.0-100.0) H 04/03/16 05:51 Total Protein 6.0 gm/dL (6.0-8.3) 04/03/16 05:51 Albumin 3.3 gm/dL (3.7-5.3) L 04/03/16 05:51 Globulin 2.7 gm/dL 04/03/16 05:51 Albumin/Globulin Ratio 1.2 (1.0-1.8) 04/03/16 05:51 Urine Source CATH 04/02/16 01:15 Urine Color YELLOW 04/02/16 01:15 Urine Clarity HAZY (CLEAR) 04/02/16 01:15 Urine pH 5.0 04/02/16 01:15 Ur Specific [place] 1.60635 (1.005-1.030) H 04/02/16 01:15 Urine Protein 100 mg/dL (NEGATIVE) H 04/02/16 01:15 Urine Glucose (UA) NEGATIVE mg/dL (NEGATIVE) 04/02/16 01:15 Urine Ketones TRACE mg/dL (NEGATIVE) 04/02/16 01:15 Urine Blood SMALL (NEGATIVE) H 04/02/16 01:15 Urine Nitrate POSITIVE (NEGATIVE) H 04/02/16 01:15 Urine Bilirubin SMALL (NEGATIVE) H 04/02/16 01:15 Urine Ictotest NEGATIVE (NEGATIVE) 04/02/16 01:15 Urine Urobilinogen 0.2 E.U./dL (0.2 - 1.0) 04/02/16 01:15 Ur Leukocyte Esterase SMALL (NEGATIVE) H 04/02/16 01:15 Urine RBC 2-5 /hpf (0-5) 04/02/16 01:15 Urine WBC >100 /hpf (0-5) H 04/02/16 01:15 Ur Epithelial Cells MODERATE /lpf (FEW) 04/02/16 01:15 Urine Bacteria MANY /hpf (NONE SEEN) 04/02/16 01:15 Serum Ketones SMALL (NEGATIVE) H 04/01/16 21:25 - Physical Exam Vitals and I&O: Vital Signs Temp 99.8 F 04/04/16 04:06 Pulse 99 04/04/16 04:06 Resp 18 04/04/16 04:06 BP 133/62 04/04/16 04:06 Pulse Ox 95 04/04/16 04:06 Intake & Output 04/03/16 04/04/16 04/04/16 18:59 06:59 18:59 Intake Total 1300 1100 Balance 1300 1100 Weight (lbs) 191 lb 3.2 oz Intake: Intake, IV Amount 1300 1050 Cefepime 1 gm In Dextrose 50 50 5% 50 ml @ 100 mls/hr IV Q12H [facility] Rx#:[id number] Sodium Chloride 0.9% 1, 1000 1000 000 ml @ 80 mls/hr IV . [id number] [facility] Rx#:[id number] Vancomycin HCl 1.25 gm In 250 Sodium Chloride 0.9% 250 ml @ 165 mls/hr IV Q24HR @0900 [facility] Rx#:[id number] Oral 50 Other: # Voids 3 # Bowel Movements 1 Stool Characteristics Soft Formed Active Medications: Current Medications Acetaminophen (Tylenol) 650 mg PO Q4HR PRN PRN Reason: Pain or Fever >101 Stop: 05/31/16 23:03 Last Admin: 04/03/16 18:10 Dose: 650 mg Acetaminophen/Hydrocodone Bitart ([place] 5mg/325mg) 1 tab PO DAILY PRN PRN Reason: Pain (Severe) Stop: 05/31/16 23:03 Last Admin: 04/04/16 03:42 Dose: 1 tab Al Hydrox/Mg Hydrox/Simethicone (Maalox) 30 ml PO Q4H PRN PRN Reason: GI DISTRESS Stop: 05/31/16 23:03 Albuterol Sulfate (Albuterol 2.5mg/3ml Neb Ud) 2.5 mg HHN Q2HR PRN PRN Reason: Shortness of Breath or Wheeze Stop: 05/31/16 23:08 Albuterol/Ipratropium (Duoneb Neb) 3 ml HHN Q6HR PRN PRN Reason: Shortness of Breath or Wheeze Stop: 05/31/16 23:03 Atorvastatin Calcium (Lipitor) 10 mg PO HS [facility] Stop: 06/01/16 20:59 Last Admin: 04/03/16 20:51 Dose: 10 mg Clonidine HCl (Catapres) 0.1 mg PO Q6HR PRN PRN Reason: SBP GREATER THAN 160 Stop: 05/31/16 23:08 Donepezil HCl (Aricept) 10 mg PO HS [facility] Stop: 06/01/16 20:59 Last Admin: 04/03/16 20:51 Dose: 10 mg Glipizide (Glucotrol) 10 mg PO BIDAC [facility] Stop: 06/01/16 07:29 Last Admin: 04/04/16 06:34 Dose: 10 mg Guaifenesin (Robitussin) 200 mg PO Q4HR PRN PRN Reason: Cough or Congestion Stop: 05/31/16 23:08 Heparin Sodium (Porcine) (Heparin) 5,000 units SUBQ Q12HR [facility] Stop: 06/01/16 08:59 Last Admin: 04/04/16 09:37 Dose: 5,000 units Sodium Chloride (Nacl 0.9%) 1,000 mls @ 80 mls/hr IV .[id number] [facility] Stop: 05/31/16 23:14 Last Admin: 04/04/16 06:10 Dose: 80 mls/hr Cefepime HCl 1 gm/ Dextrose 50 mls @ 100 mls/hr IV Q12H [facility] Stop: 05/31/16 23:14 Last Admin: 04/04/16 11:57 Dose: 100 mls/hr Vancomycin HCl 1.25 gm/ Sodium (Chloride) 250 mls @ 165 mls/hr IV Q24HR@0900 [facility] Stop: 06/02/16 13:59 Last Admin: 04/04/16 10:11 Dose: 165 mls/hr Insulin Aspart (Novolog Insulin Sliding Scale) 0 units SUBQ QPM [facility] PRN Reason: Protocol Stop: 06/01/16 16:59 Last Admin: 04/03/16 18:18 Dose: Not Given Insulin Aspart (Novolog Insulin Sliding Scale) 0 units SUBQ ACHS [facility] PRN Reason: Protocol Stop: 06/01/16 07:29 Last Admin: 04/04/16 07:00 Dose: Not Given Lorazepam (Ativan) 1 mg PO Q12HR PRN; Protocol PRN Reason: Anxiety Stop: 05/31/16 23:03 Last Admin: 04/03/16 20:51 Dose: 1 mg Magnesium Hydroxide (Milk Of Magnesia) 30 ml PO HS PRN PRN Reason: Constipation Stop: 05/31/16 23:03 Miscellaneous (Vancomycin Iv Per Pharmacy) 1 ea [facility] PRN [facility] Stop: 06/02/16 13:14 Ondansetron HCl (Zofran) 4 mg IV Q8H PRN PRN Reason: Nausea / Vomiting Stop: 05/31/16 23:08 Oxybutynin Chloride (Ditropan) 5 mg PO BID [facility] Stop: 06/01/16 08:59 Last Admin: 04/04/16 09:37 Dose: 5 mg Quetiapine Fumarate (Seroquel) 200 mg PO HS [facility] PRN Reason: Protocol Stop: 06/01/16 20:59 Last Admin: 04/03/16 20:51 Dose: 200 mg Temazepam (Restoril) 15 mg PO HS PRN; Protocol PRN Reason: Insomnia Stop: 05/31/16 23:03 General: alert HEENT: NC/AT, PERRLA Neck: Supple Lungs: CTAB Cardiovascular: RRR, Normal S1, Normal S2, without murmur Abdomen: soft non-tender, non-distended, positive bowel sound Neurological: no change - Procedures Procedures: Procedures Procedure Code Date INDIVID PSYCHOTHERAP NEC 94.39 07/05/04 INJECT/INFUSE NEC 99.29 03/18/13 OTHER GROUP THERAPY 94.44 12/18/13 RECREATIONAL THERAPY 93.81 07/05/04 Internal Medicine Assmt/Plan - Assessment Assessment: FEVER UTI HYPONATREMIA DM DEMENTIA COPD - Plan Plan: F/U XR IN AM IVABX dc planning to [facility] tomorrow MONITOR FOR FEVER IVF FOR HYDRATION CBC.BMP IN AM
--- NOTE | 2016-04-04 14:54 | Diagnostic Imaging Report ---
CHEST X-RAY: AP view INDICATION: Cough COMPARISON: Chest x-ray 04/01/2016 FINDINGS: Chronic lung changes are seen with developing mild congestive changes. Cardiomegaly is noted with atherosclerosis. IMPRESSION: Developing mild congestive changes, right greater than left. Note, developing infiltrates of right lung base cannot be excluded. Cardiomegaly and atherosclerotic vascular disease.
[2016-04-04] MEDS: Atorvastatin Calcium 10 MG TAB PO SCH (21:01)
[2016-04-05 06:23] LABS: MEAN CELL VOLUME 75.1 fl (81-100); MEAN CORPUSCULAR HEMOGLOBIN 24.8 pg (27.0-31.0); MEAN PLATELET VOLUME 8.1 fl; PLATELET COUNT 157 Th/cmm (150-400); RED BLOOD COUNT 3.18 Mil/cmm (3.80-5.20); RED CELL DISTRIBUTION WIDTH 17.4 % (11.5-20.0); WHITE BLOOD COUNT 2.9 Th/cmm (4.8-10.8)
[2016-04-05 06:54] LABS: ANION GAP 6.8 (7.0-16.0); BUN - UREA NITROGEN 9 mg/dL (7-25); BUN/CREATININE RATIO 11.3; CALCIUM SERUM 7.9 mg/dL (8.6-10.3); CARBON DIOXIDE 21.8 mEq/L (21.0-31.0); CHLORIDE 113 mEq/L (98-107); CREATININE - SERUM 0.8 mg/dL (0.6-1.2); GLUCOSE 124 mg/dL (70-105); POTASSIUM SERUM 3.6 mEq/L (3.5-5.1); SODIUM SERUM 138 mEq/L (136-145)
[2016-04-05 07:50] LABS: HEMATOCRIT 23.9 % (35.0-45.0); HEMOGLOBIN 7.9 gm/dL (11.7-16.1)
[2016-04-05 08:18] LABS: BAND NEUTROPHILE 1 % (0-10); EOSINOPHIL 3 % (0-5); NEUTROPHILS 64 % (40-80); TOTAL CELLS COUNTED 100
[2016-04-05 08:19] LABS: ANISOCYTOSIS 1+; MICROCYTOSIS 2+; PLATELET ESTIMATE ADEQUATE (NORMAL); PLATELET MORPHOLOGY NORMAL (NORMAL)
[2016-04-05] MEDS: INSULIN ASPART SLIDING SCALE 100 UNITS/ML UNIT SUBQ SCH (08:57)
[2016-04-05] MEDS ORDERED: Vancomycin HCl 1.5 GM in Sodium Chloride 0.9% 500 ML IV SCH (10:00)
--- NOTE | 2016-04-05 12:52 | Internal Medicine Prog Note ---
Internal Medicine Subjective - Subjective Service Date: 04/05/16 (patient awake, noted with audible wheezes. ) Patient seen and examined:: with staff Patient is:: awake Internal Medicine Objective - Results Result Diagrams: 04/05/16 06:10 04/05/16 06:10 Recent Labs: Laboratory Last Values WBC 2.9 Th/cmm (4.8-10.8) L 04/05/16 06:10 RBC 3.18 Mil/cmm (3.80-5.20) L 04/05/16 06:10 Hgb 7.9 gm/dL (11.7-16.1) L* 04/05/16 06:10 Hct 23.9 % (35.0-45.0) L* 04/05/16 06:10 MCV 75.1 fl (81-100) L 04/05/16 06:10 MCH 24.8 pg (27.0-31.0) L 04/05/16 06:10 MCHC Differential 33.0 pg (28.0-36.0) 04/05/16 06:10 RDW 17.4 % (11.5-20.0) 04/05/16 06:10 Plt Count 157 Th/cmm (150-400) 04/05/16 06:10 MPV 8.1 fl 04/05/16 06:10 Neutrophils % 72.7 % (40.0-80.0) 04/01/16 21:25 Band Neutrophils % 1 % (0-10) 04/05/16 06:10 Lymphocytes % 12.8 % (20.0-50.0) L 04/01/16 21:25 Monocytes % 14.2 % (2.0-10.0) H 04/01/16 21:25 Eosinophils % 0.1 % (0.0-5.0) 04/01/16 21:25 Basophils % 0.2 % (0.0-2.0) 04/01/16 21:25 Neutrophils (Manual) 64 % (40-80) 04/05/16 06:10 Lymphocytes 18 % (20-50) L 04/05/16 06:10 Monocytes 14 % (2-10) H 04/05/16 06:10 Eosinophils 3 % (0-5) 04/05/16 06:10 Platelet Estimate ADEQUATE (NORMAL) 04/05/16 06:10 Platelet Morphology NORMAL (NORMAL) 04/05/16 06:10 Anisocytosis 1+ 04/05/16 06:10 Microcytosis 2+ 04/05/16 06:10 RBC Morph Micro Appear ABNORMAL (NORMAL) 04/05/16 06:10 PT 11.8 SECONDS (9.5-11.5) H 04/01/16 21:25 INR 1.18 (0.5-1.4) 04/01/16 21:25 PTT (Actin FS) 25.9 SECONDS (26.0-38.0) L 04/01/16 21:25 Sodium 138 mEq/L (136-145) 04/05/16 06:10 Potassium 3.6 mEq/L (3.5-5.1) 04/05/16 06:10 Chloride 113 mEq/L (98-107) H 04/05/16 06:10 Carbon Dioxide 21.8 mEq/L (21.0-31.0) 04/05/16 06:10 Anion Gap 6.8 (7.0-16.0) L 04/05/16 06:10 BUN 9 mg/dL (7-25) 04/05/16 06:10 Creatinine 0.8 mg/dL (0.6-1.2) 04/05/16 06:10 Est GFR ( Amer) > 60.0 ml/min (>90) 04/05/16 06:10 Est GFR (Non-Af Amer) > 60.0 ml/min 04/05/16 06:10 BUN/Creatinine Ratio 11.3 04/05/16 06:10 Glucose 124 mg/dL (70-105) H 04/05/16 06:10 POC Glucose 154 MG/DL (70 - 105) H 04/05/16 12:12 Hemoglobin A1c % 7.9 % (4.0-6.0) H 04/01/16 21:25 Whole Bld Lactic Acid 0.92 mmol/L (0.60-2.00) 04/01/16 21:25 Calcium 7.9 mg/dL (8.6-10.3) L 04/05/16 06:10 Total Bilirubin 0.6 mg/dL (0.3-1.0) 04/03/16 05:51 AST 13 U/L (13-39) 04/03/16 05:51 ALT 14 U/L (7-52) 04/03/16 05:51 Alkaline Phosphatase 64 U/L (34-104) 04/03/16 05:51 Ammonia 37 umol/L (16-53) 04/03/16 05:51 Creatine Kinase 166 U/L (30-223) 04/01/16 21:25 Troponin I 0.01 ng/mL (0.01-0.05) 04/01/16 21:25 B-Natriuretic Peptide 170.0 pg/mL (5.0-100.0) H 04/03/16 05:51 Total Protein 6.0 gm/dL (6.0-8.3) 04/03/16 05:51 Albumin 3.3 gm/dL (3.7-5.3) L 04/03/16 05:51 Globulin 2.7 gm/dL 04/03/16 05:51 Albumin/Globulin Ratio 1.2 (1.0-1.8) 04/03/16 05:51 Urine Source CATH 04/02/16 01:15 Urine Color YELLOW 04/02/16 01:15 Urine Clarity HAZY (CLEAR) 04/02/16 01:15 Urine pH 5.0 04/02/16 01:15 Ur Specific [place] 1.00219 (1.005-1.030) H 04/02/16 01:15 Urine Protein 100 mg/dL (NEGATIVE) H 04/02/16 01:15 Urine Glucose (UA) NEGATIVE mg/dL (NEGATIVE) 04/02/16 01:15 Urine Ketones TRACE mg/dL (NEGATIVE) 04/02/16 01:15 Urine Blood SMALL (NEGATIVE) H 04/02/16 01:15 Urine Nitrate POSITIVE (NEGATIVE) H 04/02/16 01:15 Urine Bilirubin SMALL (NEGATIVE) H 04/02/16 01:15 Urine Ictotest NEGATIVE (NEGATIVE) 04/02/16 01:15 Urine Urobilinogen 0.2 E.U./dL (0.2 - 1.0) 04/02/16 01:15 Ur Leukocyte Esterase SMALL (NEGATIVE) H 04/02/16 01:15 Urine RBC 2-5 /hpf (0-5) 04/02/16 01:15 Urine WBC >100 /hpf (0-5) H 04/02/16 01:15 Ur Epithelial Cells MODERATE /lpf (FEW) 04/02/16 01:15 Urine Bacteria MANY /hpf (NONE SEEN) 04/02/16 01:15 Vancomycin Trough 7.2 ug/mL (10-20) L 04/05/16 06:10 Serum Ketones SMALL (NEGATIVE) H 04/01/16 21:25 - Physical Exam Vitals and I&O: Vital Signs Temp 97.5 F 04/05/16 08:00 Pulse 93 04/05/16 08:00 Resp 18 04/05/16 08:00 BP 109/42 04/05/16 08:00 Pulse Ox 97 04/05/16 08:00 Intake & Output 04/04/16 04/05/16 04/05/16 18:59 06:59 18:59 Intake Total 265 326 8642 Balance 441 165 1579 Weight (lbs) 191 lb Intake: Intake, IV Amount 300 50 Cefepime 1 gm In Dextrose 50 50 5% 50 ml @ 100 mls/hr IV Q12H [facility] Rx#:[id number] Vancomycin HCl 1.25 gm In 250 Sodium Chloride 0.9% 250 ml @ 165 mls/hr IV Q24HR @0900 [facility] Rx#:[id number] Oral 100 1080 Other: # Voids 4 4 Stool Characteristics Soft Soft Formed Active Medications: Current Medications Acetaminophen (Tylenol) 650 mg PO Q4HR PRN PRN Reason: Pain or Fever >101 Stop: 05/31/16 23:03 Last Admin: 04/04/16 15:13 Dose: 650 mg Acetaminophen/Hydrocodone Bitart ([place] 5mg/325mg) 1 tab PO DAILY PRN PRN Reason: Pain (Severe) Stop: 05/31/16 23:03 Last Admin: 04/04/16 03:42 Dose: 1 tab Al Hydrox/Mg Hydrox/Simethicone (Maalox) 30 ml PO Q4H PRN PRN Reason: GI DISTRESS Stop: 05/31/16 23:03 Albuterol Sulfate (Albuterol 2.5mg/3ml Neb Ud) 2.5 mg HHN Q2HR PRN PRN Reason: Shortness of Breath or Wheeze Stop: 05/31/16 23:08 Albuterol/Ipratropium (Duoneb Neb) 3 ml HHN Q6HR PRN PRN Reason: Shortness of Breath or Wheeze Stop: 05/31/16 23:03 Atorvastatin Calcium (Lipitor) 10 mg PO HS [facility] Stop: 06/01/16 20:59 Last Admin: 04/04/16 21:01 Dose: 10 mg Clonidine HCl (Catapres) 0.1 mg PO Q6HR PRN PRN Reason: SBP GREATER THAN 160 Stop: 05/31/16 23:08 Donepezil HCl (Aricept) 10 mg PO HS [facility] Stop: 06/01/16 20:59 Last Admin: 04/04/16 21:01 Dose: 10 mg Glipizide (Glucotrol) 10 mg PO BIDAC [facility] Stop: 06/01/16 07:29 Last Admin: 04/05/16 08:56 Dose: 10 mg Guaifenesin (Robitussin) 200 mg PO Q4HR PRN PRN Reason: Cough or Congestion Stop: 05/31/16 23:08 Heparin Sodium (Porcine) (Heparin) 5,000 units SUBQ Q12HR [facility] Stop: 06/01/16 08:59 Last Admin: 04/05/16 08:56 Dose: 5,000 units Cefepime HCl 1 gm/ Dextrose 50 mls @ 100 mls/hr IV Q12H [facility] Stop: 05/31/16 23:14 Last Admin: 04/05/16 11:23 Dose: 100 mls/hr Vancomycin HCl 1.5 gm/ Sodium (Chloride) 500 mls @ 250 mls/hr IV Q24H [facility] Stop: 06/04/16 09:59 Insulin Aspart (Novolog Insulin Sliding Scale) 0 units SUBQ QPM [facility] PRN Reason: Protocol Stop: 06/01/16 16:59 Last Admin: 04/04/16 16:59 Dose: Not Given Insulin Aspart (Novolog Insulin Sliding Scale) 0 units SUBQ ACHS [facility] PRN Reason: Protocol Stop: 06/01/16 07:29 Last Admin: 04/05/16 08:57 Dose: Not Given Lorazepam (Ativan) 1 mg PO Q12HR PRN; Protocol PRN Reason: Anxiety Stop: 05/31/16 23:03 Last Admin: 04/05/16 11:42 Dose: 1 mg Magnesium Hydroxide (Milk Of Magnesia) 30 ml PO HS PRN PRN Reason: Constipation Stop: 05/31/16 23:03 Miscellaneous (Vancomycin Iv Per Pharmacy) 1 ea MC PRN [facility] Stop: 06/02/16 13:14 Ondansetron HCl (Zofran) 4 mg IV Q8H PRN PRN Reason: Nausea / Vomiting Stop: 05/31/16 23:08 Oxybutynin Chloride (Ditropan) 5 mg PO BID [facility] Stop: 06/01/16 08:59 Last Admin: 04/05/16 08:56 Dose: 5 mg Quetiapine Fumarate (Seroquel) 200 mg PO HS [facility] PRN Reason: Protocol Stop: 06/01/16 20:59 Last Admin: 04/04/16 21:02 Dose: 200 mg Temazepam (Restoril) 15 mg PO HS PRN; Protocol PRN Reason: Insomnia Stop: 05/31/16 23:03 General: congested, alert HEENT: NC/AT, PERRLA Neck: Supple Lungs: wheezing Cardiovascular: RRR, Normal S1, Normal S2 Abdomen: soft non-tender, non-distended Extremities: clear - Procedures Procedures: Procedures Procedure Code Date INDIVID PSYCHOTHERAP NEC 94.39 07/05/04 INJECT/INFUSE NEC 99.29 03/18/13 OTHER GROUP THERAPY 94.44 12/18/13 RECREATIONAL THERAPY 93.81 07/05/04 Internal Medicine Assmt/Plan - Assessment Assessment: FEVER UTI HYPONATREMIA DM DEMENTIA COPD - Plan Plan: SOLUMEDROL ADDED FALL PRECAUTIONS LTAC EVAL MONITOR FOR FEVER IVF FOR HYDRATION CBC.BMP IN AM
[2016-04-05] MEDS ORDERED: methylPREDNISolone SS 40 mg Vial IVP SCH (21:00)
--- NOTE | 2016-05-27 07:56 | Discharge Summary ---
Dictated for Dr. Leon Ch. FINAL DIAGNOSES: Urinary tract infection, hypernatremia, diabetes, dyslipidemia, and dementia. HISTORY OF PRESENT ILLNESS: This is a 70-year-old female resident of [facility] who was brought to [facility] with a low-grade fever. The patient denied any productive cough or any shortness of breath or any dizziness or any abdominal pain. PHYSICAL EXAMINATION: GENERAL: The patient is well developed, well nourished, in no acute distress. VITAL SIGNS: Stable. HEENT: Head is normocephalic and atraumatic. NECK: Supple. No mass. LUNGS: Clear bilaterally. ABDOMEN: Soft and nontender. HOSPITAL COURSE: During the hospital stay, the patient was admitted to med/surge unit. The patient was on IV antibiotics of Maxipime 1 g and also on IV fluids on admission. The patient had a consultation with Dr. Carey due to psychosis. Repeat chest x-ray was done on 04/04/2016, and the impression is developing mild congestive changes, right greater than left ____, developing right infiltrate. The patient had pneumonia. The patient needed extensive IV therapy. [facility]. CONDITION UPON DISCHARGE: Fair. DISPOSITION: [facility]. JOB# [id number]
== END 2016-04-05 18:40 | DRG 872 ==
LOC: ER 20:46 → MSI 23:07
PROVIDERS: ADMIT Internal Medicine; ATTEND Internal Medicine
DX: A41.9 Sepsis, unspecified organism (principal); N39.0 Urinary tract infection, site not specified; E87.1 Hypo-osmolality and hyponatremia; G30.9 Alzheimer's disease, unspecified; E11.9 Type 2 diabetes mellitus without complications; I10 Essential (primary) hypertension; D64.9 Anemia, unspecified; F02.80 Dementia in other diseases classified elsewhere, unspecified severity, without behavioral disturbance, psychotic disturbance, mood disturbance, and anxiety; J44.9 Chronic obstructive pulmonary disease, unspecified; E78.5 Hyperlipidemia, unspecified; F32.9 Major depressive disorder, single episode, unspecified; E86.0 Dehydration; J45.909 Unspecified asthma, uncomplicated; F25.9 Schizoaffective disorder, unspecified; Z88.0 Allergy status to penicillin; Z82.49 Family history of ischemic heart disease and other diseases of the circulatory system
CPT/HCPCS: 36415-UA; 71010-TC; 80048-TC; 80053-TC; 80202-TC; 81001-TC; 82010-TC; 82140-TC; 82550-TC; 82948-90; 83036-90; 83605; 83880-TC; 84484-TC; 85007-TC; 85025-TC; 85027-TC; 85610-TC; 87086-90; 93005; 94760; J0692; J1644; J1815; J3370; J7030; J7040; Z7610

== ENCOUNTER 2016-09-29 21:37 | Inpatient (IN) | payer MEDICARE, MEDICAID ==
[2016-09-29 22:10] LABS: % BASOPHILS 0.8 % (0.0-2.0); % EOSINOPHILS 1.8 % (0.0-5.0); % LYMPHOCYTES 20.9 % (20.0-50.0); % MONOCYTES 8.2 % (2.0-10.0); % NEUTROPHILS 68.3 % (40.0-80.0); MEAN CELL VOLUME 76.9 fl (81-100); MEAN CORPUSCULAR HEMOGLOBIN 26.5 pg (27.0-31.0); MEAN CORPUSCULAR HGB CONC 34.5 pg (28.0-36.0); MEAN PLATELET VOLUME 7.2 fl; NEUTROPHILE ABSOLUTE 4.2 Th/cmm (1.8-8.0); RED BLOOD COUNT 4.52 Mil/cmm (3.80-5.20)
--- NOTE | 2016-09-29 22:16 | ED Physician Chart ---
Chief Complaint/HPI - Patient Information Date Seen:: 09/29/16 Time Seen:: 22:00 Chief Complaint:: LEFT LEG PAIN History of Present Illness:: THIS IS A 71 YO FEMALE WITH LEFT LEG PAIN AND SWELLING WITH A POSITIVE DVT DOPPLER STUDY DONE YESTERDAY. SHE HAS A PASS HISTORY OF PE AND DVT. THIS IS A CHRONICALLY ILL FEMALE WITH COPD, DIABETES MELLITUS, GERD, ELEVATED LIPIDS, HYPERTENSION AND DEMENTIA. SHE [facility] SENT FROM A [facility] FOR TREATMENT AND EVALUATION. SHE IS A DNR. Allergies:: Allergies Allergy/AdvReac Type Severity Reaction Status Date / Time Penicillins Allergy Verified 09/29/16 21:49 Vitals:: Vital Signs - 8 hr 09/29/16 21:50 Temp 97.9 F HR 94 RR 18 BP 124/60 O2 Sat % 92 Historian:: Patient, Medical Records Review:: Nurse's Note Reviewed, Old Chart Reviewed, Transfer documents Reviewed Review of Systems - Review of Systems General/Constitutional: No fever, No chills, No weight loss, No weakness, No diaphoresis, No edema, No loss of appetite, Other (THIS PATIENT IS NOT ABLE TO GIVE A RELIABLE REVIEW OF SYSTEMS.) Skin: No skin lesions, No rash, No bruising Head: No headache, No light-headedness Eyes: No loss of vision, No pain, No diplopia ENT: No earache, No nasal drainage, No sore throat, No tinnitus Neck: No neck pain, No swelling, No thyromegaly, No stiffness, No mass noted Cardio Vascular: No chest pain, No palpitations, No PND, No orthopnea, No edema Pulmonary: No SOB, No cough, No sputum, No wheezing GI: No nausea, No vomiting, No diarrhea, No pain, No melena, No hematochezia, No constipation, No hematemesis G/U: No dysuria, No frequency, No hematuria Musculoskeletal: Bone or joint pain (RIGHT LEG PAIN), No back pain, No muscle pain Endocrine: No polyuria, No polydipsia Psychiatric: No prior psych history, No depression, No anxiety, No suicidal ideation Hematopoietic: No bruising, No lymphadenopathy Allergic/Immuno: No urticaria, No angioedema Neurological: No syncope, No focal symptoms, No weakness, No paresthesia, No headache, No seizure, No dizziness, No confusion, No vertigo Past Medical History - Past Medical History Obtainable: Yes Family History: None Social History: Non Smoker, No Alcohol, No Drug Use, Care Facility Psychiatricy History: Dementia Medication: Reviewed Family Medical History - Family Member Father History Unknown: Yes Ethnicity: Non- Living Status: Hx Family Cancer: No Hx Family Coronary Artery Disease: Yes Hx Family Congestive Heart Failure: Yes Hx Family Hypertension: Yes Hx Family Stroke: No Hx Family Diabetes: No Hx Family Seizures: No Hx Family Dementia: No Hx Family AIDS: No Hx Family HIV: No Hx Family COPD: No Hx Family Hepatitis: No Hx Family Psychiatric Problems: (migraines) Hx Family Tuberculosis: No Mother History Unknown: Yes Ethnicity: Non- Living Status: Still Living Hx Family Cancer: No Hx Family Coronary Artery Disease: No Hx Family Congestive Heart Failure: No Hx Family Hypertension: Yes Hx Family Stroke: No Hx Family Diabetes: No Hx Family Seizures: No Hx Family Dementia: No Hx Family AIDS: No Hx Family HIV: No Hx Family COPD: No Hx Family Hepatitis: No Hx Family Psychiatric Problems: No Hx Family Tuberculosis: No Physical Exam - Physical Examination General/Constitutional: Awake, Well-developed, well-nourished, Alert, No distress, GCS 15, Non-toxic appearing, Ambulatory Head: Atraumatic Eyes: Lids, conjuctiva normal, PERRL, EOMI Skin: Nl inspection, No rash, No skin lesions, No ecchymosis, Well hydrated, No lymphadenopathy ENMT: External ears, nose nl, Nasal exam nl, Lips, teeth, gums nl Neck: Nontender, Full ROM w/o pain, No JVD, No nuchal rigidity, No bruit, No mass, No stridor Respiratory: Nl effort/Exclusion, Clear to Auscultation, No Wheeze/Rhonchi/Rales Cardio Vascular: RRR, No murmur, gallop, rubs, NL S1 S2 GI: No tenderness/rebounding/guarding, No organomegaly, No hernia, Normal BS's, Nondistended, No mass/bruits, No McBurney tenderness : No CVA tenderness Extremities: No tenderness or effusion (LEFT UPPER AND LOWER LEG IS SWOLLEN AND TENDER TO TOUCH AND ROM), Full ROM, normal strength in all extremities, No edema, Normal digits & nails Neuro/Psych: Alert/oriented, DTR's symmetric, Normal sensory exam, Normal motor strength, Judgement/insight normal, Mood normal, Normal gait, No focal deficits Misc: normal gait, Normal back, No paraspinal tenderness Labs/Radiology/EKG Results - Lab Results Results: Abnormal Lab Results 09/29/16 09/29/16 09/29/16 22:04 22:04 22:04 WBC 6.1 D RBC 4.52 Hgb 12.0 D Hct 34.8 L D MCV 76.9 L MCH 26.5 L MCHC Differential 34.5 RDW 18.0 Plt Count 405 H D MPV 7.2 Neutrophils % 68.3 Lymphocytes % 20.9 Monocytes % 8.2 Eosinophils % 1.8 Basophils % 0.8 PT INR PTT (Actin FS) Sodium 134 L Potassium 3.8 Chloride 100 Carbon Dioxide 27.0 Anion Gap 10.8 BUN 16 Creatinine 0.8 Est GFR ( Amer) TNP Est GFR (Non-Af Amer) TNP BUN/Creatinine Ratio 20.0 Glucose 194 H Calcium 10.4 H Total Bilirubin 0.4 AST 12 L ALT 16 Alkaline Phosphatase 98 Troponin I Total Protein 6.6 Albumin 3.8 Globulin 2.8 Albumin/Globulin Ratio 1.4 Triglycerides 176 H Cholesterol 156 LDL Cholesterol Direct 93 HDL Cholesterol 33 09/29/16 09/29/16 22:04 22:04 WBC RBC Hgb Hct MCV MCH MCHC Differential RDW Plt Count MPV Neutrophils % Lymphocytes % Monocytes % Eosinophils % Basophils % PT 9.2 L INR 0.89 PTT (Actin FS) 22.5 L Sodium Potassium Chloride Carbon Dioxide Anion Gap BUN Creatinine Est GFR ( Amer) Est GFR (Non-Af Amer) BUN/Creatinine Ratio Glucose Calcium Total Bilirubin AST ALT Alkaline Phosphatase Troponin I < 0.01 L Total Protein Albumin Globulin Albumin/Globulin Ratio Triglycerides Cholesterol LDL Cholesterol Direct HDL Cholesterol - EKG Interpretations EKG Time:: 22:15 Rate & Rhythm: RATE =91, SINUS Gustavus: RIGHT AXIS Assessment - Assessment General Assessment: DEEP VEIN THROMBOSIS ED Septic Shock - . Is Septic Shock (SBP<90, OR Lactate>4 mmol\L) present?: No - <6hrs of presentation: Vital Signs: Vital Signs - 8 hr 09/29/16 21:50 Temp 97.9 F HR 94 RR 18 BP 124/60 O2 Sat % 92 Reassessment (Disposition) - Diagnosis Diagnosis:: DEEP VEIN THROMBOSIS OF THE LEFT LOWER LEG - Patient Disposition Discharge/Transfer:: Acute Care w/in this hosp Admitting Medical Physician:: Leon Ch Condition at Disposition:: Improved ED Discharge Plan - Patient Disposition Admit/Discharge/Transfer: Acute Care w/in this hosp Condition at Disposition: Improved
[2016-09-29 22:32] LABS: ALB/GLOB RATIO 1.4 (1.0-1.8); ALKALINE PHOSPHATASE 98 U/L (34-104); ANION GAP 10.8 (7.0-16.0); BILIRUBIN,TOTAL 0.4 mg/dL (0.3-1.0); BUN - UREA NITROGEN 16 mg/dL (7-25); CALCIUM SERUM 10.4 mg/dL (8.6-10.3); CHLORIDE 100 mEq/L (98-107); CREATININE - SERUM 0.8 mg/dL (0.6-1.2); GLUCOSE 194 mg/dL (70-105); POTASSIUM SERUM 3.8 mEq/L (3.5-5.1); SGOT 12 U/L (13-39); SGPT/ALT 16 U/L (7-52); SODIUM SERUM 134 mEq/L (136-145)
[2016-09-29 22:33] LABS: CHOLESTEROL 156 mg/dL (<200); TRIGLYCERIDES 176 mg/dL (<150)
[2016-09-29 22:34] LABS: HEMATOCRIT 34.8 % (35.0-45.0); WHITE BLOOD COUNT 6.1 Th/cmm (4.8-10.8)
[2016-09-29 22:35] LABS: PLATELET COUNT 405 Th/cmm (150-400)
[2016-09-29 22:40] LABS: INR 0.89 (0.5-1.4); PROTHROMBIN TIME (TEST) 9.2 SECONDS (9.5-11.5)
[2016-09-29] MEDS ORDERED: Enoxaparin 80 mg/0.8 mL 0.8mL Syr SUBQ STA (22:46)
[2016-09-29] MEDS ORDERED: Enoxaparin 80 mg/0.8 mL 0.8mL Syr SUBQ ONE (23:48)
[2016-09-30] MEDS ORDERED: Enoxaparin Subq per Pharmacy MC SCH (08:15)
--- NOTE | 2016-09-30 08:15 | Internal Medicine Prog Note ---
Internal Medicine Subjective - Subjective Service Date: 09/30/16 ([facility] dictated [id number]) Internal Medicine Objective - Results Result Diagrams: 09/29/16 22:04 09/29/16 22:04 Recent Labs: Laboratory Last Values WBC 6.1 Th/cmm (4.8-10.8) D 09/29/16 22:04 RBC 4.52 Mil/cmm (3.80-5.20) 09/29/16 22:04 Hgb 12.0 gm/dL (11.7-16.1) D 09/29/16 22:04 Hct 34.8 % (35.0-45.0) L D 09/29/16 22:04 MCV 76.9 fl (81-100) L 09/29/16 22:04 MCH 26.5 pg (27.0-31.0) L 09/29/16 22:04 MCHC Differential 34.5 pg (28.0-36.0) 09/29/16 22:04 RDW 18.0 % (11.5-20.0) 09/29/16 22:04 Plt Count 405 Th/cmm (150-400) H D 09/29/16 22:04 MPV 7.2 fl 09/29/16 22:04 Neutrophils % 68.3 % (40.0-80.0) 09/29/16 22:04 Lymphocytes % 20.9 % (20.0-50.0) 09/29/16 22:04 Monocytes % 8.2 % (2.0-10.0) 09/29/16 22:04 Eosinophils % 1.8 % (0.0-5.0) 09/29/16 22:04 Basophils % 0.8 % (0.0-2.0) 09/29/16 22:04 PT 9.2 SECONDS (9.5-11.5) L 09/29/16 22:04 INR 0.89 (0.5-1.4) 09/29/16 22:04 PTT (Actin FS) 22.5 SECONDS (26.0-38.0) L 09/29/16 22:04 Sodium 134 mEq/L (136-145) L 09/29/16 22:04 Potassium 3.8 mEq/L (3.5-5.1) 09/29/16 22:04 Chloride 100 mEq/L (98-107) 09/29/16 22:04 Carbon Dioxide 27.0 mEq/L (21.0-31.0) 09/29/16 22:04 Anion Gap 10.8 (7.0-16.0) 09/29/16 22:04 BUN 16 mg/dL (7-25) 09/29/16 22:04 Creatinine 0.8 mg/dL (0.6-1.2) 09/29/16 22:04 Est GFR ( Amer) TNP 09/29/16 22:04 Est GFR (Non-Af Amer) TNP 09/29/16 22:04 BUN/Creatinine Ratio 20.0 09/29/16 22:04 Glucose 194 mg/dL (70-105) H 09/29/16 22:04 Hemoglobin A1c % 6.3 % (4.0-6.0) H 09/29/16 22:04 Calcium 10.4 mg/dL (8.6-10.3) H 09/29/16 22:04 Total Bilirubin 0.4 mg/dL (0.3-1.0) 09/29/16 22:04 AST 12 U/L (13-39) L 09/29/16 22:04 ALT 16 U/L (7-52) 09/29/16 22:04 Alkaline Phosphatase 98 U/L (34-104) 09/29/16 22:04 Troponin I < 0.01 ng/mL (0.01-0.05) L 09/29/16 22:04 Total Protein 6.6 gm/dL (6.0-8.3) 09/29/16 22:04 Albumin 3.8 gm/dL (3.7-5.3) 09/29/16 22:04 Globulin 2.8 gm/dL 09/29/16 22:04 Albumin/Globulin Ratio 1.4 (1.0-1.8) 09/29/16 22:04 Triglycerides 176 mg/dL (<150) H 09/29/16 22:04 Cholesterol 156 mg/dL (<200) 09/29/16 22:04 LDL Cholesterol Direct 93 mg/dL (75-193) 09/29/16 22:04 HDL Cholesterol 33 mg/dL (23-92) 09/29/16 22:04 TSH 1.64 uIU/ml (0.34-5.60) 09/29/16 22:04 - Physical Exam Vitals and I&O: Vital Signs Temp 98.0 F 09/30/16 03:58 Pulse 86 09/30/16 03:58 Resp 19 09/30/16 03:58 BP 120/62 09/30/16 03:58 Pulse Ox 98 09/30/16 03:58 Intake & Output 09/29/16 09/30/16 09/30/16 18:59 06:59 18:59 Intake Total 300 Balance 300 Weight (lbs) 162 lb 8 oz Intake: Oral 300 Other: # Voids 2 Active Medications: Current Medications Acetaminophen (Tylenol) 650 mg PO Q4H PRN PRN Reason: pain Stop: 11/29/16 00:44 Last Admin: 09/30/16 05:51 Dose: 650 mg Miscellaneous (Lovenox Subq Per Pharmacy) 1 ea MC PRN CORINA PRN Reason: Protocol Stop: 11/29/16 08:14 Temazepam (Restoril) 15 mg PO HS PRN; Protocol PRN Reason: Insomnia Stop: 11/29/16 00:44 - Procedures Procedures: Procedures Procedure Code Date INDIVID PSYCHOTHERAP NEC 94.39 07/05/04 INJECT/INFUSE NEC 99.29 03/18/13 OTHER GROUP THERAPY 94.44 12/18/13 RECREATIONAL THERAPY 93.81 07/05/04 Internal Medicine Assmt/Plan - Assessment Assessment: left leg dvt asthma htn chronic anemia dyslipidemia dementia hyponatremia dm2
[2016-09-30] MEDS ORDERED: Albuterol/Ipratropium Neb 3 ML AERS HHN PRN (08:16)
[2016-09-30] MEDS ORDERED: GLUCAGON HCl 1 MG KIT IM PRN (08:16)
[2016-09-30] MEDS ORDERED: Maalox 30 mL Cup PO PRN (08:16)
[2016-09-30] MEDS ORDERED: Albuterol Nebulizer 2.5mg/3mL HHN PRN (08:16)
[2016-09-30] MEDS ORDERED: guaiFENesin 200 MG/10 ML UDC PO PRN (08:18)
[2016-09-30] MEDS ORDERED: Ipratropium Neb 0.5 mg/2.5 mL UD IH PRN (08:18)
[2016-09-30] MEDS ORDERED: Albuterol Nebulizer 2.5mg/3mL IH PRN (08:18)
--- NOTE | 2016-09-30 08:44 | Diagnostic Imaging Report ---
CHEST X-RAY: AP view INDICATION: Shortness of breath COMPARISON: 04/04/2016 FINDINGS: Right midlung linear density is noted. Mild chronic lung changes are noted. No focal consolidation or effusions. Heart size normal. Degenerative changes of the spine are noted. IMPRESSION: Right mid lung density favoring subsegmental atelectasis or scarring. Developing infiltrate is less likely. No focal consolidation identified.
[2016-09-30] MEDS ORDERED: Non-Formulary Item 1 EA (Dextran 70/Hypromellose [Artificial Tears] 1 DROP) EACH EYE SCH (09:00)
[2016-09-30] MEDS ORDERED: Non-Formulary Item 1 EA (Fluticasone/Salmeterol [Advair 250-50 Diskus] 1 PUFF) INH SCH (09:00)
[2016-09-30] MEDS: Hydrocodone/APAP 5mg/325mg Tab PO PRN (09:17)
[2016-09-30] MEDS: Sodium Chloride 0.9% 1,000 ML IV SCH (09:17)
[2016-09-30] MEDS: Enoxaparin 80 mg/0.8 mL 0.8mL Syr SUBQ SCH ×2 (09:18→21:22)
--- NOTE | 2016-09-30 09:43 | History & Physical ---
ADMIT DATE: 09/30/2016 CHIEF COMPLAINT: Left lower leg DVT. HISTORY OF PRESENT ILLNESS: This is a 71-year-old female who is a resident of [facility] who was brought here to [facility]. Two days ago, the patient at the long-term was complaining of left lower leg pain now is associated with swelling. I had ordered a stat venous Doppler done and the results are positive for DVT. For this reason, the patient is now admitted to the med/surg unit. PAST MEDICAL HISTORY: Hypertension, diabetes, asthma, dyslipidemia, dementia, chronic anemia. FAMILY HISTORY: Noncontributory. SOCIAL HISTORY: The patient is a long-term resident, requiring 24-hour nursing care. SURGICAL HISTORY: None per patient. MEDICATIONS: Please see medication reconciliation sheet. REVIEW OF SYSTEMS: GENERAL: Denies any fevers, any chills, but complains of left lower leg pain. CARDIOVASCULAR: Denies any chest pain. RESPIRATORY: Denies any shortness of breath. GASTROINTESTINAL: Denies nausea, vomiting, abdominal pain. GENITOURINARY: Denies dysuria. All other systems are reviewed by me and are negative. PHYSICAL EXAMINATION: GENERAL: The patient is well developed, well nourished, no acute distress. VITAL SIGNS: Temperature 98.0, heart rate 86, blood pressure 120/62, respirations 19, O2 98%. HEENT: Head; normocephalic, atraumatic. NECK: Supple. No mass. LUNGS: Clear bilaterally. HEART: Regular rhythm. ABDOMEN: Soft, nontender. LABORATORY DATA: WBC 6.1, H and H of 12.0 and 34.8, platelet of 405. PT 9.2, INR 0.89. PTT 22.5. Sodium 134, potassium 3.8, chloride 100, BUN 16, creatinine 0.8. Hemoglobin A1c of 6.3. Troponin 0.01. ASSESSMENT: Left leg deep venous thrombosis, hypertension, diabetes, asthma, dyslipidemia, dementia, chronic anemia. PLAN: We will get an ultrasound of the bilateral lower extremities. We will also obtain chest x-ray. The patient to receive Lovenox per pharmacy to dose. We will continue to monitor this patient. JOB# [id number]
[2016-09-30] MEDS: Polyvinyl Alcohol Ophth Soln 15 mL Bottle EACH EYE SCH ×2 (12:38→16:51)
[2016-09-30] MEDS: INSULIN ASPART SLIDING SCALE 100 UNITS/ML UNIT SUBQ SCH (16:23)
[2016-09-30] MEDS ORDERED: ATORVASTATIN CALCIUM 10 MG PO SCH (21:00)
[2016-09-30] MEDS: Atorvastatin Calcium 10 MG TAB PO SCH (21:22)
[2016-10-01] MEDS: Sodium Chloride 0.9% 1,000 ML IV SCH ×2 (02:26→23:59)
[2016-10-01 06:47] LABS: ALB/GLOB RATIO 1.3 (1.0-1.8); ALKALINE PHOSPHATASE 89 U/L (34-104); ANION GAP 8.9 (7.0-16.0); BILIRUBIN,TOTAL 0.4 mg/dL (0.3-1.0); BUN - UREA NITROGEN 11 mg/dL (7-25); CALCIUM SERUM 9.8 mg/dL (8.6-10.3); CARBON DIOXIDE 25.8 mEq/L (21.0-31.0); CHLORIDE 104 mEq/L (98-107); CREATININE - SERUM 0.5 mg/dL (0.6-1.2); GLUCOSE 148 mg/dL (70-105); POTASSIUM SERUM 3.7 mEq/L (3.5-5.1); SGOT 9 U/L (13-39); SGPT/ALT 13 U/L (7-52); SODIUM SERUM 135 mEq/L (136-145)
[2016-10-01 07:20] LABS: INR 1.01 (0.5-1.4); PROTHROMBIN TIME (TEST) 10.5 SECONDS (9.5-11.5)
[2016-10-01] MEDS: Polyvinyl Alcohol Ophth Soln 15 mL Bottle EACH EYE SCH ×2 (08:38→17:30)
[2016-10-01] MEDS: Enoxaparin 80 mg/0.8 mL 0.8mL Syr SUBQ SCH ×3 (08:38→20:41)
--- NOTE | 2016-10-01 10:40 | Diagnostic Imaging Report ---
Bilateral lower extremity DVT study HISTORY: Pain rule out DVT COMPARISON: None Technique: Longitudinal and transverse sonographic images of the bilateral lower extremity veins were obtained with doppler analysis. FINDINGS: There is normal compressibility, augmentation and phasicity of the right common femoral, superficial femoral, popliteal, and posterior tibial veins. No thrombus is visualized. Exam of the left side demonstrates diffuse deep venous thrombosis with thrombus visualized within the left common femoral, superficial femoral and popliteal veins. Thrombus is also seen within left greater saphenous vein. IMPRESSION: Diffuse thrombus within left lower extremity venous system. Clinical correlation and follow-up is recommended. Results were administered to the referring team following the examination.
--- NOTE | 2016-10-01 12:33 | Internal Medicine Prog Note ---
Internal Medicine Subjective - Subjective Service Date: 10/01/16 Patient seen and examined:: with staff Patient is:: awake Per staff patient has:: no adverse event Internal Medicine Objective - Results Result Diagrams: 09/29/16 22:04 10/01/16 06:00 Recent Labs: Laboratory Last Values WBC 6.1 Th/cmm (4.8-10.8) D 09/29/16 22:04 RBC 4.52 Mil/cmm (3.80-5.20) 09/29/16 22:04 Hgb 12.0 gm/dL (11.7-16.1) D 09/29/16 22:04 Hct 34.8 % (35.0-45.0) L D 09/29/16 22:04 MCV 76.9 fl (81-100) L 09/29/16 22:04 MCH 26.5 pg (27.0-31.0) L 09/29/16 22:04 MCHC Differential 34.5 pg (28.0-36.0) 09/29/16 22:04 RDW 18.0 % (11.5-20.0) 09/29/16 22:04 Plt Count 405 Th/cmm (150-400) H D 09/29/16 22:04 MPV 7.2 fl 09/29/16 22:04 Neutrophils % 68.3 % (40.0-80.0) 09/29/16 22:04 Lymphocytes % 20.9 % (20.0-50.0) 09/29/16 22:04 Monocytes % 8.2 % (2.0-10.0) 09/29/16 22:04 Eosinophils % 1.8 % (0.0-5.0) 09/29/16 22:04 Basophils % 0.8 % (0.0-2.0) 09/29/16 22:04 PT 10.5 SECONDS (9.5-11.5) 10/01/16 06:00 INR 1.01 (0.5-1.4) 10/01/16 06:00 PTT (Actin FS) 27.6 SECONDS (26.0-38.0) 10/01/16 06:00 D-Dimer 1450 ng/mL (100-400) H 09/30/16 09:13 Sodium 135 mEq/L (136-145) L 10/01/16 06:00 Potassium 3.7 mEq/L (3.5-5.1) 10/01/16 06:00 Chloride 104 mEq/L (98-107) 10/01/16 06:00 Carbon Dioxide 25.8 mEq/L (21.0-31.0) 10/01/16 06:00 Anion Gap 8.9 (7.0-16.0) 10/01/16 06:00 BUN 11 mg/dL (7-25) 10/01/16 06:00 Creatinine 0.5 mg/dL (0.6-1.2) L 10/01/16 06:00 Est GFR ( Amer) TNP 10/01/16 06:00 Est GFR (Non-Af Amer) TNP 10/01/16 06:00 BUN/Creatinine Ratio 22.0 10/01/16 06:00 Glucose 148 mg/dL (70-105) H 10/01/16 06:00 POC Glucose 166 MG/DL (70 - 105) H 09/30/16 16:21 Hemoglobin A1c % 6.3 % (4.0-6.0) H 09/29/16 22:04 Calcium 9.8 mg/dL (8.6-10.3) 10/01/16 06:00 Total Bilirubin 0.4 mg/dL (0.3-1.0) 10/01/16 06:00 AST 9 U/L (13-39) L 10/01/16 06:00 ALT 13 U/L (7-52) 10/01/16 06:00 Alkaline Phosphatase 89 U/L (34-104) 10/01/16 06:00 Troponin I < 0.01 ng/mL (0.01-0.05) L 09/29/16 22:04 Total Protein 6.2 gm/dL (6.0-8.3) 10/01/16 06:00 Albumin 3.5 gm/dL (3.7-5.3) L 10/01/16 06:00 Globulin 2.7 gm/dL 10/01/16 06:00 Albumin/Globulin Ratio 1.3 (1.0-1.8) 10/01/16 06:00 Triglycerides 176 mg/dL (<150) H 09/29/16 22:04 Cholesterol 156 mg/dL (<200) 09/29/16 22:04 LDL Cholesterol Direct 93 mg/dL (75-193) 09/29/16 22:04 HDL Cholesterol 33 mg/dL (23-92) 09/29/16 22:04 TSH 1.64 uIU/ml (0.34-5.60) 09/29/16 22:04 - Physical Exam Vitals and I&O: Vital Signs Temp 97.5 F 10/01/16 08:00 Pulse 76 10/01/16 08:17 Resp 18 10/01/16 08:17 BP 153/67 10/01/16 08:00 Pulse Ox 96 10/01/16 08:17 Intake & Output 09/30/16 10/01/16 10/01/16 18:59 06:59 18:59 Intake Total 1200 1200 Balance 1200 1200 Weight (lbs) 162 lb 8 oz 163 lb Intake: Intake, IV Amount 1000 Sodium Chloride 0.9% 1, 1000 000 ml @ 60 mls/hr IV . [id number] [facility] Rx#:[id number] Oral 1200 200 Other: # Voids 2 3 # Bowel Movements 1 Active Medications: Current Medications Acetaminophen (Tylenol) 650 mg PO Q4H PRN PRN Reason: pain Stop: 11/29/16 00:44 Last Admin: 10/01/16 10:35 Dose: 650 mg Acetaminophen/Hydrocodone Bitart (Christopher 5mg/325mg) 1 tab PO DAILY PRN PRN Reason: Pain (Severe) Stop: 11/29/16 08:15 Last Admin: 09/30/16 09:17 Dose: 1 tab Al Hydrox/Mg Hydrox/Simethicone (Maalox) 30 ml PO Q4H PRN PRN Reason: GI DISTRESS Stop: 11/29/16 08:15 Albuterol Sulfate (Albuterol 2.5mg/3ml Neb Ud) 2.5 mg IH Q2HR PRN PRN Reason: Shortness of Breath or Wheeze Stop: 11/29/16 08:17 Albuterol/Ipratropium (Duoneb Neb) 3 ml HHN Q6HR PRN PRN Reason: Shortness of Breath or Wheeze Stop: 11/29/16 08:15 Artificial Tears (Artificial Tears Ophth Soln) 1 drop EACH EYE BID [facility] Stop: 11/29/16 08:59 Last Admin: 10/01/16 08:38 Dose: 1 drop Ascorbic Acid (Vitamin C) 500 mg PO DAILY CORINA Stop: 11/29/16 08:59 Last Admin: 10/01/16 08:38 Dose: 500 mg Atorvastatin Calcium (Lipitor) 10 mg PO HS CORINA Stop: 11/29/16 20:59 Last Admin: 09/30/16 21:22 Dose: 10 mg Docusate Sodium (Colace) 100 mg PO DAILY CORINA Stop: 11/29/16 08:59 Last Admin: 10/01/16 08:38 Dose: 100 mg Donepezil HCl (Aricept) 10 mg PO HS [facility] Stop: 11/29/16 20:59 Last Admin: 09/30/16 21:22 Dose: 10 mg Enoxaparin Sodium (Lovenox) 70 mg SUBQ Q12HR [facility] PRN Reason: Protocol Stop: 11/29/16 08:59 Last Admin: 10/01/16 12:03 Dose: 70 mg Glucagon (Glucagen) 1 mg IM DAILY PRN PRN Reason: HYPOGLYCEMIA Stop: 11/29/16 08:15 Guaifenesin (Robitussin) 100 mg PO Q4H PRN PRN Reason: Cough or Congestion Stop: 11/29/16 08:17 Sodium Chloride (Nacl 0.9%) 1,000 mls @ 60 mls/hr IV .[id number] [facility] Stop: 11/29/16 08:29 Last Admin: 10/01/16 02:26 Dose: 60 mls/hr Insulin Aspart (Novolog Insulin Sliding Scale) 0 units SUBQ QPM CORINA PRN Reason: Protocol Stop: 11/29/16 16:59 Last Admin: 09/30/16 16:23 Dose: Not Given Ipratropium [place] (Atrovent Neb 0.5mg/2.5ml) 0.5 mg IH Q2HR PRN PRN Reason: Shortness of Breath or Wheeze Stop: 11/29/16 08:17 Miscellaneous (Lovenox Subq Per Pharmacy) 1 ea MC PRN [facility] PRN Reason: Protocol Stop: 11/29/16 08:14 Ondansetron HCl (Zofran) 4 mg IV Q8H PRN PRN Reason: Nausea / Vomiting Stop: 11/29/16 08:17 Temazepam (Restoril) 15 mg PO HS PRN; Protocol PRN Reason: Insomnia Stop: 11/29/16 00:44 Last Admin: 09/30/16 21:22 Dose: 15 mg General: weak, alert HEENT: NC/AT, PERRLA Neck: Supple Lungs: CTAB Cardiovascular: RRR, Normal S1, Normal S2 Abdomen: soft, non-tender, non-distended Extremities: excoriation Neurological: no change - Procedures Procedures: Procedures Procedure Code Date INDIVID PSYCHOTHERAP NEC 94.39 07/05/04 INJECT/INFUSE NEC 99.29 03/18/13 OTHER GROUP THERAPY 94.44 12/18/13 RECREATIONAL THERAPY 93.81 07/05/04 Internal Medicine Assmt/Plan - Assessment Assessment: left leg dvt asthma htn chronic anemia dyslipidemia dementia hyponatremia dm2 - Plan Plan: continue with lovenox am labs
[2016-10-01] MEDS: Hydrocodone/APAP 5mg/325mg Tab PO PRN (17:30)
[2016-10-01] MEDS: INSULIN ASPART SLIDING SCALE 100 UNITS/ML UNIT SUBQ SCH (17:33)
[2016-10-01] MEDS: Atorvastatin Calcium 10 MG TAB PO SCH (20:42)
[2016-10-02] MEDS: Hydrocodone/APAP 5mg/325mg Tab PO PRN ×2 (05:55→14:39)
[2016-10-02 07:09] LABS: % BASOPHILS 0.7 % (0.0-2.0); % EOSINOPHILS 3.7 % (0.0-5.0); % LYMPHOCYTES 26.3 % (20.0-50.0); % MONOCYTES 8.8 % (2.0-10.0); % NEUTROPHILS 60.5 % (40.0-80.0); HEMATOCRIT 35.7 % (35.0-45.0); HEMOGLOBIN 11.8 gm/dL (11.7-16.1); MEAN CELL VOLUME 77.8 fl (81-100); MEAN CORPUSCULAR HEMOGLOBIN 25.7 pg (27.0-31.0); MEAN PLATELET VOLUME 7.2 fl; NEUTROPHILE ABSOLUTE 2.4 Th/cmm (1.8-8.0); PLATELET COUNT 440 Th/cmm (150-400); RED BLOOD COUNT 4.59 Mil/cmm (3.80-5.20); RED CELL DISTRIBUTION WIDTH 17.7 % (11.5-20.0)
[2016-10-02 07:33] LABS: ANION GAP 6.8 (7.0-16.0); BUN - UREA NITROGEN 8 mg/dL (7-25); CALCIUM SERUM 9.7 mg/dL (8.6-10.3); CARBON DIOXIDE 25.8 mEq/L (21.0-31.0); CHLORIDE 107 mEq/L (98-107); CREATININE - SERUM 0.5 mg/dL (0.6-1.2); GLUCOSE 139 mg/dL (70-105); POTASSIUM SERUM 3.6 mEq/L (3.5-5.1); SODIUM SERUM 136 mEq/L (136-145); WHITE BLOOD COUNT 4.1 Th/cmm (4.8-10.8)
[2016-10-02] MEDS: Enoxaparin 80 mg/0.8 mL 0.8mL Syr SUBQ SCH ×2 (08:43→21:10)
[2016-10-02] MEDS: Polyvinyl Alcohol Ophth Soln 15 mL Bottle EACH EYE SCH ×2 (08:44→16:19)
--- NOTE | 2016-10-02 14:31 | Internal Medicine Prog Note ---
Internal Medicine Subjective - Subjective Service Date: 10/02/16 Patient is:: awake Per staff patient has:: no adverse event Internal Medicine Objective - Results Result Diagrams: 10/02/16 06:16 10/02/16 06:16 Recent Labs: Laboratory Last Values WBC 4.1 Th/cmm (4.8-10.8) L D 10/02/16 06:16 RBC 4.59 Mil/cmm (3.80-5.20) 10/02/16 06:16 Hgb 11.8 gm/dL (11.7-16.1) 10/02/16 06:16 Hct 35.7 % (35.0-45.0) 10/02/16 06:16 MCV 77.8 fl (81-100) L 10/02/16 06:16 MCH 25.7 pg (27.0-31.0) L 10/02/16 06:16 MCHC Differential 33.0 pg (28.0-36.0) 10/02/16 06:16 RDW 17.7 % (11.5-20.0) 10/02/16 06:16 Plt Count 440 Th/cmm (150-400) H 10/02/16 06:16 MPV 7.2 fl 10/02/16 06:16 Neutrophils % 60.5 % (40.0-80.0) 10/02/16 06:16 Lymphocytes % 26.3 % (20.0-50.0) 10/02/16 06:16 Monocytes % 8.8 % (2.0-10.0) 10/02/16 06:16 Eosinophils % 3.7 % (0.0-5.0) 10/02/16 06:16 Basophils % 0.7 % (0.0-2.0) 10/02/16 06:16 PT 10.5 SECONDS (9.5-11.5) 10/01/16 06:00 INR 1.01 (0.5-1.4) 10/01/16 06:00 PTT (Actin FS) 27.6 SECONDS (26.0-38.0) 10/01/16 06:00 D-Dimer 1450 ng/mL (100-400) H 09/30/16 09:13 Sodium 136 mEq/L (136-145) 10/02/16 06:16 Potassium 3.6 mEq/L (3.5-5.1) 10/02/16 06:16 Chloride 107 mEq/L (98-107) 10/02/16 06:16 Carbon Dioxide 25.8 mEq/L (21.0-31.0) 10/02/16 06:16 Anion Gap 6.8 (7.0-16.0) L 10/02/16 06:16 BUN 8 mg/dL (7-25) 10/02/16 06:16 Creatinine 0.5 mg/dL (0.6-1.2) L 10/02/16 06:16 Est GFR ( Amer) TNP 10/02/16 06:16 Est GFR (Non-Af Amer) TNP 10/02/16 06:16 BUN/Creatinine Ratio 16.0 10/02/16 06:16 Glucose 139 mg/dL (70-105) H 10/02/16 06:16 POC Glucose 127 MG/DL (70 - 105) H 10/01/16 17:33 Hemoglobin A1c % 6.3 % (4.0-6.0) H 09/29/16 22:04 Calcium 9.7 mg/dL (8.6-10.3) 10/02/16 06:16 Total Bilirubin 0.4 mg/dL (0.3-1.0) 10/01/16 06:00 AST 9 U/L (13-39) L 10/01/16 06:00 ALT 13 U/L (7-52) 10/01/16 06:00 Alkaline Phosphatase 89 U/L (34-104) 10/01/16 06:00 Troponin I < 0.01 ng/mL (0.01-0.05) L 09/29/16 22:04 Total Protein 6.2 gm/dL (6.0-8.3) 10/01/16 06:00 Albumin 3.5 gm/dL (3.7-5.3) L 10/01/16 06:00 Globulin 2.7 gm/dL 10/01/16 06:00 Albumin/Globulin Ratio 1.3 (1.0-1.8) 10/01/16 06:00 Triglycerides 176 mg/dL (<150) H 09/29/16 22:04 Cholesterol 156 mg/dL (<200) 09/29/16 22:04 LDL Cholesterol Direct 93 mg/dL (75-193) 09/29/16 22:04 HDL Cholesterol 33 mg/dL (23-92) 09/29/16 22:04 TSH 1.64 uIU/ml (0.34-5.60) 09/29/16 22:04 RPR NONREACTIVE (NONREACTIVE) 09/29/16 22:04 - Physical Exam Vitals and I&O: Vital Signs Temp 98.2 F 10/02/16 11:57 Pulse 67 10/02/16 11:57 Resp 17 10/02/16 11:57 BP 157/72 10/02/16 11:57 Pulse Ox 94 10/02/16 11:57 Intake & Output 10/01/16 10/02/16 10/02/16 18:59 06:59 18:59 Intake Total 1200 1450 Output Total 3 Balance 1200 1447 Weight (lbs) 163 lb 163 lb 6.4 oz Intake: Intake, IV Amount 1000 Sodium Chloride 0.9% 1, 1000 000 ml @ 60 mls/hr IV . [id number] [facility] Rx#:[id number] Oral 1200 450 Output: Urine 3 Other: # Voids 3 # Bowel Movements 0 Active Medications: Current Medications Acetaminophen (Tylenol) 650 mg PO Q4H PRN PRN Reason: pain Stop: 11/29/16 00:44 Last Admin: 10/02/16 11:46 Dose: 650 mg Acetaminophen/Hydrocodone Bitart ([place] 5mg/325mg) 1 tab PO DAILY PRN PRN Reason: Pain (Severe) Stop: 11/29/16 08:15 Last Admin: 10/02/16 05:55 Dose: 1 tab Al Hydrox/Mg Hydrox/Simethicone (Maalox) 30 ml PO Q4H PRN PRN Reason: GI DISTRESS Stop: 11/29/16 08:15 Albuterol Sulfate (Albuterol 2.5mg/3ml Neb Ud) 2.5 mg IH Q2HR PRN PRN Reason: Shortness of Breath or Wheeze Stop: 11/29/16 08:17 Albuterol/Ipratropium (Duoneb Neb) 3 ml HHN Q6HR PRN PRN Reason: Shortness of Breath or Wheeze Stop: 11/29/16 08:15 Artificial Tears (Artificial Tears Ophth Soln) 1 drop EACH EYE BID [place] Stop: 11/29/16 08:59 Last Admin: 10/02/16 08:44 Dose: 1 drop Ascorbic Acid (Vitamin C) 500 mg PO DAILY [place] Stop: 11/29/16 08:59 Last Admin: 10/02/16 08:44 Dose: 500 mg Atorvastatin Calcium (Lipitor) 10 mg PO HS [place] Stop: 11/29/16 20:59 Last Admin: 10/01/16 20:42 Dose: 10 mg Docusate Sodium (Colace) 100 mg PO DAILY [place] Stop: 11/29/16 08:59 Last Admin: 10/02/16 08:44 Dose: 100 mg Donepezil HCl (Aricept) 10 mg PO HS [facility] Stop: 11/29/16 20:59 Last Admin: 10/01/16 20:42 Dose: 10 mg Enoxaparin Sodium (Lovenox) 70 mg SUBQ Q12HR [place] PRN Reason: Protocol Stop: 11/29/16 08:59 Last Admin: 10/02/16 08:43 Dose: 70 mg Glucagon (Glucagen) 1 mg IM DAILY PRN PRN Reason: HYPOGLYCEMIA Stop: 11/29/16 08:15 Guaifenesin (Robitussin) 100 mg PO Q4H PRN PRN Reason: Cough or Congestion Stop: 11/29/16 08:17 Sodium Chloride (Nacl 0.9%) 1,000 mls @ 60 mls/hr IV .[id number] [facility] Stop: 11/29/16 08:29 Last Admin: 10/01/16 23:59 Dose: 60 mls/hr Insulin Aspart (Novolog Insulin Sliding Scale) 0 units SUBQ QPM [place] PRN Reason: Protocol Stop: 11/29/16 16:59 Last Admin: 10/01/16 17:33 Dose: Not Given Ipratropium [place] (Atrovent Neb 0.5mg/2.5ml) 0.5 mg IH Q2HR PRN PRN Reason: Shortness of Breath or Wheeze Stop: 11/29/16 08:17 Miscellaneous (Lovenox Subq Per Pharmacy) 1 ea MC PRN [place] PRN Reason: Protocol Stop: 11/29/16 08:14 Ondansetron HCl (Zofran) 4 mg IV Q8H PRN PRN Reason: Nausea / Vomiting Stop: 11/29/16 08:17 Temazepam (Restoril) 15 mg PO HS PRN; Protocol PRN Reason: Insomnia Stop: 11/29/16 00:44 Last Admin: 10/01/16 20:41 Dose: 15 mg General: weak, alert HEENT: NC/AT, PERRLA Neck: Supple Lungs: CTAB Cardiovascular: RRR, Normal S1, Normal S2 Abdomen: soft, non-tender, non-distended Extremities: excoriation Neurological: no change - Procedures Procedures: Procedures Procedure Code Date INDIVID PSYCHOTHERAP NEC 94.39 07/05/04 INJECT/INFUSE NEC 99.29 03/18/13 OTHER GROUP THERAPY 94.44 12/18/13 RECREATIONAL THERAPY 93.81 07/05/04 Internal Medicine Assmt/Plan - Assessment Assessment: left leg dvt asthma htn chronic anemia dyslipidemia dementia hyponatremia dm2 - Plan Plan: continue with lovenox am labs Nutritional Asmnt/Malnutr-PDOC - Dietary Evaluation Malnutrition Findings (Please click <Entered> for more info): Nutritional Asmnt/Malnutrition Start: 10/01/16 10: 55 Text: Status: Complete Freq: Document 10/01/16 17:33 [facility] (Rec: 10/01/16 17:51 [facility] [id number]) Nutritional Asmnt/Malnutrition Patient General Information Nutritional Screening Consult Diagnosis Left leg DVT Pertinent Medical Hx/Surgical Hx HTN, DM, asthma, dyslipidemia, dementia, chronic anemia Subjective Information Nutrition Consult for BG 194 received and completed. Pt is a 71-year-old female from [facility] admitted with chief complaint of left lower leg DVT. Pt was awake during time of visit, eating her lunch. Pt reports poor intake for 3 months prior to admit due to lack of hunger. Pt lost 40# as a result. Pt does not like Boost supplements but is willing to try Boost Breeze or pudding. Current Diet Order/ Nutrition Support Mechanical soft chopped, Boost Glucose Control TID Patient / S.O Can Pertinent Medications Vitamin C, Colace, Novolog, NaCl 0.9% Pertinent Labs (09/30) Glucose 194H, A1C 6.3H, Triglyceride 176H Nutritional Hx/Data Height 5 ft 2 in Height (Calculated Centimeters) 157.5 Current Weight (lbs) 163 lb Weight (Calculated Kilograms) 73.9 Weight (Calculated Grams) 13060.6 Usual body Weight (lbs) 203 % Usual Body Weight 80 [place] Body Weight 110 % [place] Body Weight 148 Recent Weight Change Yes Weight Status Overweight GI Symptoms GI Symptoms None Food Allergies No Cultural/Ethnic/Amish Belief Pt reports she does not eat meat, eggs, or any milk ( including soy and almond milk) Usual diet at home Mechanical soft, [place], cut food bite size, nonfat milk, Glucerna 1.2 PO once Skin Integrity/Comment: [place] 17. No skin breakdown. Current %PO Fair (50-74%) Estimated Nutritional Goals BEE in Kcals: Using Current wt Calories/Kcals/Kg Based on current wt 74 kg with consideration of wt loss Kcals Calculated 0640-6294 kcals/day ([place] x 1.3-1.5) Protein: Using Current wt Protein g/kg: Based on current wt 74 kg with consideration of wt loss Protein Calculated 74-96 gm/day (1-1.3 gm/day) Fluid: ml 3751-0336 ml/day (30-35 ml/kg) Nutritional Problem 1. Problem Problem Severe protein-calorie malnutrition related to Etiology lack of hunger cue, poor appetite and intake as evidenced by Signs/Symptoms: pt reports poor oral intake and significant wt loss of 20% body wt in 3 months. Malnutrition Alert Food and Nutrition Intake (Moderate) <75% est energy req 7days Interpretation of weight loss (Severe) >7.5% in 3 months Protein-Calorie Malnutrition Severe Is there a minimum of two criteria Yes selected? Query Text:Check all the applicable criteria. A minimum of two criteria are recommended for diagnosis of either severe or non-severe malnutrition. Malnutrition Related to Morbid Obesity Malnutrition related to morbid obesity No Intervention/Recommendation Recommendations by RD Protein supplementation Comments 1. Recommend mechanical soft chopped, vegetarian (no eggs, milk). 2. Recommend one Boost supplement pudding once daily to promote nutritional intake. Expected Outcomes/Goals Expected Outcomes/Goals Have pt meet at least 75% of estimated nutritional needs for stable wt. Physician Parameters for PEM Serum Albumin (g/dl) 3.5 - 5.0 (Normal)
[2016-10-02] MEDS: INSULIN ASPART SLIDING SCALE 100 UNITS/ML UNIT SUBQ SCH (16:25)
[2016-10-02] MEDS: Sodium Chloride 0.9% 1,000 ML IV SCH (17:34)
[2016-10-02] MEDS: Atorvastatin Calcium 10 MG TAB PO SCH (21:12)
[2016-10-03 07:17] LABS: % BASOPHILS 1.3 % (0.0-2.0); % EOSINOPHILS 2.6 % (0.0-5.0); % LYMPHOCYTES 27.3 % (20.0-50.0); % MONOCYTES 8.8 % (2.0-10.0); HEMATOCRIT 37.2 % (35.0-45.0); HEMOGLOBIN 12.6 gm/dL (11.7-16.1); MEAN CELL VOLUME 77.2 fl (81-100); MEAN CORPUSCULAR HEMOGLOBIN 26.2 pg (27.0-31.0); MEAN CORPUSCULAR HGB CONC 33.9 pg (28.0-36.0); NEUTROPHILE ABSOLUTE 3.1 Th/cmm (1.8-8.0); PLATELET COUNT 442 Th/cmm (150-400); RED BLOOD COUNT 4.81 Mil/cmm (3.80-5.20); RED CELL DISTRIBUTION WIDTH 17.5 % (11.5-20.0)
[2016-10-03 07:43] LABS: ANION GAP 10.1 (7.0-16.0); BUN - UREA NITROGEN 6 mg/dL (7-25); CALCIUM SERUM 9.7 mg/dL (8.6-10.3); CARBON DIOXIDE 25.6 mEq/L (21.0-31.0); CHLORIDE 106 mEq/L (98-107); CREATININE - SERUM 0.4 mg/dL (0.6-1.2); GLUCOSE 131 mg/dL (70-105); POTASSIUM SERUM 3.7 mEq/L (3.5-5.1); SODIUM SERUM 138 mEq/L (136-145)
[2016-10-03 08:09] LABS: WHITE BLOOD COUNT 5.1 Th/cmm (4.8-10.8)
[2016-10-03] MEDS: Enoxaparin 80 mg/0.8 mL 0.8mL Syr SUBQ SCH (08:30)
[2016-10-03] MEDS: Polyvinyl Alcohol Ophth Soln 15 mL Bottle EACH EYE SCH (08:37)
[2016-10-03] MEDS: Hydrocodone/APAP 5mg/325mg Tab PO PRN (12:53)
--- NOTE | 2016-10-03 13:29 | Internal Medicine Prog Note ---
Internal Medicine Subjective - Subjective Service Date: 10/03/16 (dc summary dictated) Patient is:: awake Per staff patient has:: no adverse event Internal Medicine Objective - Results Result Diagrams: 10/03/16 06:15 10/03/16 06:15 Recent Labs: Laboratory Last Values WBC 5.1 Th/cmm (4.8-10.8) D 10/03/16 06:15 RBC 4.81 Mil/cmm (3.80-5.20) 10/03/16 06:15 Hgb 12.6 gm/dL (11.7-16.1) 10/03/16 06:15 Hct 37.2 % (35.0-45.0) 10/03/16 06:15 MCV 77.2 fl (81-100) L 10/03/16 06:15 MCH 26.2 pg (27.0-31.0) L 10/03/16 06:15 MCHC Differential 33.9 pg (28.0-36.0) 10/03/16 06:15 RDW 17.5 % (11.5-20.0) 10/03/16 06:15 Plt Count 442 Th/cmm (150-400) H 10/03/16 06:15 MPV 7.0 fl 10/03/16 06:15 Neutrophils % 60.0 % (40.0-80.0) 10/03/16 06:15 Lymphocytes % 27.3 % (20.0-50.0) 10/03/16 06:15 Monocytes % 8.8 % (2.0-10.0) 10/03/16 06:15 Eosinophils % 2.6 % (0.0-5.0) 10/03/16 06:15 Basophils % 1.3 % (0.0-2.0) 10/03/16 06:15 PT 10.5 SECONDS (9.5-11.5) 10/01/16 06:00 INR 1.01 (0.5-1.4) 10/01/16 06:00 PTT (Actin FS) 27.6 SECONDS (26.0-38.0) 10/01/16 06:00 D-Dimer 1450 ng/mL (100-400) H 09/30/16 09:13 Sodium 138 mEq/L (136-145) 10/03/16 06:15 Potassium 3.7 mEq/L (3.5-5.1) 10/03/16 06:15 Chloride 106 mEq/L (98-107) 10/03/16 06:15 Carbon Dioxide 25.6 mEq/L (21.0-31.0) 10/03/16 06:15 Anion Gap 10.1 (7.0-16.0) 10/03/16 06:15 BUN 6 mg/dL (7-25) L 10/03/16 06:15 Creatinine 0.4 mg/dL (0.6-1.2) L 10/03/16 06:15 Est GFR ( Amer) TNP 10/03/16 06:15 Est GFR (Non-Af Amer) TNP 10/03/16 06:15 BUN/Creatinine Ratio 15.0 10/03/16 06:15 Glucose 131 mg/dL (70-105) H 10/03/16 06:15 POC Glucose 113 MG/DL (70 - 105) H 10/02/16 16:24 Hemoglobin A1c % 6.3 % (4.0-6.0) H 09/29/16 22:04 Calcium 9.7 mg/dL (8.6-10.3) 10/03/16 06:15 Total Bilirubin 0.4 mg/dL (0.3-1.0) 10/01/16 06:00 AST 9 U/L (13-39) L 10/01/16 06:00 ALT 13 U/L (7-52) 10/01/16 06:00 Alkaline Phosphatase 89 U/L (34-104) 10/01/16 06:00 Troponin I < 0.01 ng/mL (0.01-0.05) L 09/29/16 22:04 Total Protein 6.2 gm/dL (6.0-8.3) 10/01/16 06:00 Albumin 3.5 gm/dL (3.7-5.3) L 10/01/16 06:00 Globulin 2.7 gm/dL 10/01/16 06:00 Albumin/Globulin Ratio 1.3 (1.0-1.8) 10/01/16 06:00 Triglycerides 176 mg/dL (<150) H 09/29/16 22:04 Cholesterol 156 mg/dL (<200) 09/29/16 22:04 LDL Cholesterol Direct 93 mg/dL (75-193) 09/29/16 22:04 HDL Cholesterol 33 mg/dL (23-92) 09/29/16 22:04 TSH 1.64 uIU/ml (0.34-5.60) 09/29/16 22:04 RPR NONREACTIVE (NONREACTIVE) 09/29/16 22:04 - Physical Exam Vitals and I&O: Vital Signs Temp 97.5 F 10/03/16 12:20 Pulse 73 10/03/16 12:20 Resp 18 10/03/16 12:20 BP 159/70 10/03/16 12:20 Pulse Ox 94 10/03/16 12:20 Intake & Output 10/02/16 10/03/16 10/03/16 18:59 06:59 18:59 Intake Total 1000 500 Balance 1000 500 Weight (lbs) 164 lb 3.2 oz Intake: Intake, IV Amount 1000 Sodium Chloride 0.9% 1, 1000 000 ml @ 60 mls/hr IV . [id number] [facility] Rx#:[id number] Oral 500 Other: # Voids 3 Active Medications: Current Medications Acetaminophen/Hydrocodone Bitart ([place] 5mg/325mg) 1 tab PO DAILY PRN PRN Reason: Pain (Severe) Stop: 11/29/16 08:15 Last Admin: 10/03/16 12:53 Dose: 1 tab Al Hydrox/Mg Hydrox/Simethicone (Maalox) 30 ml PO Q4H PRN PRN Reason: GI DISTRESS Stop: 11/29/16 08:15 Albuterol/Ipratropium (Duoneb Neb) 3 ml HHN Q6HR PRN PRN Reason: Shortness of Breath or Wheeze Stop: 11/29/16 08:15 Ascorbic Acid (Vitamin C) 500 mg PO DAILY [facility] Stop: 11/29/16 08:59 Last Admin: 10/03/16 08:29 Dose: 500 mg Docusate Sodium (Colace) 100 mg PO DAILY [facility] Stop: 11/29/16 08:59 Last Admin: 10/03/16 08:29 Dose: 100 mg Donepezil HCl (Aricept) 10 mg PO HS [facility] Stop: 11/29/16 20:59 Last Admin: 10/02/16 21:10 Dose: 10 mg Glucagon (Glucagen) 1 mg IM DAILY PRN PRN Reason: HYPOGLYCEMIA Stop: 11/29/16 08:15 Insulin Aspart (Novolog Insulin Sliding Scale) 0 units SUBQ QPM [place] PRN Reason: Protocol Stop: 11/29/16 16:59 Last Admin: 10/02/16 16:25 Dose: Not Given General: weak, alert HEENT: NC/AT, PERRLA Neck: Supple Lungs: CTAB Cardiovascular: RRR, Normal S1, Normal S2 Abdomen: soft, non-tender, non-distended Extremities: excoriation Neurological: no change - Procedures Procedures: Procedures Procedure Code Date INDIVID PSYCHOTHERAP NEC 94.39 07/05/04 INJECT/INFUSE NEC 99.29 03/18/13 OTHER GROUP THERAPY 94.44 12/18/13 RECREATIONAL THERAPY 93.81 07/05/04 Internal Medicine Assmt/Plan - Assessment Assessment: left leg dvt asthma htn chronic anemia dyslipidemia dementia hyponatremia dm2 - Plan Plan: continue with lovenox am labs Nutritional Asmnt/Malnutr-PDOC - Dietary Evaluation Malnutrition Findings (Please click <Entered> for more info): Nutritional Asmnt/Malnutrition Start: 10/01/16 10: 55 Text: Status: Complete Freq: Document 10/01/16 17:33 [facility] (Rec: 10/01/16 17:51 [facility] [id number]) Nutritional Asmnt/Malnutrition Patient General Information Nutritional Screening Consult Diagnosis Left leg DVT Pertinent Medical Hx/Surgical Hx HTN, DM, asthma, dyslipidemia, dementia, chronic anemia Subjective Information Nutrition Consult for BG 194 received and completed. Pt is a 71-year-old female from [facility] admitted with chief complaint of left lower leg DVT. Pt was awake during time of visit, eating her lunch. Pt reports poor intake for 3 months prior to admit due to lack of hunger. Pt lost 40# as a result. Pt does not like Boost supplements but is willing to try Boost Breeze or pudding. Current Diet Order/ Nutrition Support Mechanical soft chopped, Boost Glucose Control TID Patient / S.O Can Pertinent Medications Vitamin C, Colace, Novolog, NaCl 0.9% Pertinent Labs (09/30) Glucose 194H, A1C 6.3H, Triglyceride 176H Nutritional Hx/Data Height 5 ft 2 in Height (Calculated Centimeters) 157.5 Current Weight (lbs) 163 lb Weight (Calculated Kilograms) 73.9 Weight (Calculated Grams) 02168.6 Usual body Weight (lbs) 203 % Usual Body Weight 80 [place] Body Weight 110 % [place] Body Weight 148 Recent Weight Change Yes Weight Status Overweight GI Symptoms GI Symptoms None Food Allergies No Cultural/Ethnic/Christianity Belief Pt reports she does not eat meat, eggs, or any milk ( including soy and almond milk) Usual diet at home Mechanical soft, [place], cut food bite size, nonfat milk, Glucerna 1.2 PO once Skin Integrity/Comment: [place] 17. No skin breakdown. Current %PO Fair (50-74%) Estimated Nutritional Goals BEE in Kcals: Using Current wt Calories/Kcals/Kg Based on current wt 74 kg with consideration of wt loss Kcals Calculated 0036-9058 kcals/day ([place] x 1.3-1.5) Protein: Using Current wt Protein g/kg: Based on current wt 74 kg with consideration of wt loss Protein Calculated 74-96 gm/day (1-1.3 gm/day) Fluid: ml 6195-4033 ml/day (30-35 ml/kg) Nutritional Problem 1. Problem Problem Severe protein-calorie malnutrition related to Etiology lack of hunger cue, poor appetite and intake as evidenced by Signs/Symptoms: pt reports poor oral intake and significant wt loss of 20% body wt in 3 months. Malnutrition Alert Food and Nutrition Intake (Moderate) <75% est energy req 7days Interpretation of weight loss (Severe) >7.5% in 3 months Protein-Calorie Malnutrition Severe Is there a minimum of two criteria Yes selected? Query Text:Check all the applicable criteria. A minimum of two criteria are recommended for diagnosis of either severe or non-severe malnutrition. Malnutrition Related to Morbid Obesity Malnutrition related to morbid obesity No Intervention/Recommendation Recommendations by RD Protein supplementation Comments 1. Recommend mechanical soft chopped, vegetarian (no eggs, milk). 2. Recommend one Boost supplement pudding once daily to promote nutritional intake. Expected Outcomes/Goals Expected Outcomes/Goals Have pt meet at least 75% of estimated nutritional needs for stable wt. Physician Parameters for PEM Serum Albumin (g/dl) 3.5 - 5.0 (Normal)
[2016-10-03] MEDS: INSULIN ASPART SLIDING SCALE 100 UNITS/ML UNIT SUBQ SCH (16:35)
--- NOTE | 2016-10-03 20:18 | Discharge Summary ---
DATE OF DISCHARGE: 10/03/[address] Leon Ch. DISCHARGE DIAGNOSES: Left leg deep venous thrombosis, hypertension, diabetes, asthma, dyslipidemia, dementia, and chronic anemia. HISTORY OF PRESENT ILLNESS: This is a 71-year-old female, a resident of [facility], who was brought to [facility]. Two days ago, the patient was at the alf complaining of left lower leg. The patient had a venous Doppler done and it was positive for DVT. PHYSICAL EXAMINATION: GENERAL: The patient is well developed, well nourished, in no acute distress. VITAL SIGNS: Stable. HEENT: Head is normocephalic and atraumatic. NECK: Supple. No mass. LUNGS: Clear bilaterally. CARDIOVASCULAR: Regular rate and rhythm. ABDOMEN: Soft and nontender. HOSPITAL COURSE: During the hospital stay, the patient was admitted to the Med/Surg unit. The patient was kept on Lovenox 1 mg per kilogram. The patient did not have any episodes of shortness of breath. The patient had a repeat of the lower extremity ultrasound done and the impression is diffuse thrombus within the left lower extremity. The patient was cleared for discharge. CONDITION UPON DISCHARGE: Fair. DISPOSITION: [facility]. JOB# [id number]
== END 2016-10-03 16:44 | disposition home or self-care (01) | DRG 300 ==
LOC: ER 21:37 → MSI 22:50
PROVIDERS: ADMIT Internal Medicine; ATTEND Internal Medicine
DX: I82.412 Acute embolism and thrombosis of left femoral vein (principal); E87.1 Hypo-osmolality and hyponatremia; I82.432 Acute embolism and thrombosis of left popliteal vein; F03.90 Unspecified dementia, unspecified severity, without behavioral disturbance, psychotic disturbance, mood disturbance, and anxiety; E11.9 Type 2 diabetes mellitus without complications; I10 Essential (primary) hypertension; D64.9 Anemia, unspecified; I82.492 Acute embolism and thrombosis of other specified deep vein of left lower extremity; J44.9 Chronic obstructive pulmonary disease, unspecified; K21.9 Gastro-esophageal reflux disease without esophagitis; E78.5 Hyperlipidemia, unspecified; Z66 Do not resuscitate; Z88.0 Allergy status to penicillin; Z86.711 Personal history of pulmonary embolism; Z82.49 Family history of ischemic heart disease and other diseases of the circulatory system
CPT/HCPCS: 36415-UA; 71010-TC; 80048-TC; 80053-TC; 80061-TC; 82948-90; 83036-90; 84443-TC; 84484-TC; 85025-TC; 85379-TC; 85610-TC; 86592-TC; 93005; 93970-TC-50; 94760; J1650; J1815; J7030; Z7610

== ENCOUNTER 2017-04-28 16:38 | Inpatient (IN) | payer MEDICARE, MEDICAID ==
[2017-04-28] MEDS ORDERED: Pantoprazole 80 MG in Sodium Chloride 0.9% 100 ML IV ONE (16:58)
[2017-04-28 17:33] LABS: % EOSINOPHILS 0.2 % (0.0-5.0); % LYMPHOCYTES 8.6 % (20.0-50.0); % MONOCYTES 8.4 % (2.0-10.0); % NEUTROPHILS 82.8 % (40.0-80.0); HEMATOCRIT 51.4 % (41.0-60); HEMOGLOBIN 17.2 gm/dL (12-16); MEAN CELL VOLUME 76.8 fl (81-100); MEAN CORPUSCULAR HEMOGLOBIN 25.8 pg (27.0-31.0); MEAN CORPUSCULAR HGB CONC 33.6 pg (28.0-36.0); MEAN PLATELET VOLUME 7.4 fl; MONOCYTE ABSOLUTE 0.9 Th/cmm (0.3-1.0); NEUTROPHILE ABSOLUTE 9.2 Th/cmm (1.8-8.0); PLATELET COUNT 273 Th/cmm (150-400); RED BLOOD COUNT 6.69 Mil/cmm (3.80-5.20); RED CELL DISTRIBUTION WIDTH 15.9 % (11.5-20.0); WHITE BLOOD COUNT 11.1 Th/cmm (4.8-10.8)
[2017-04-28 17:43] LABS: INR 1.09 (0.5-1.4); PROTHROMBIN TIME (TEST) 11.4 SECONDS (9.5-11.5)
[2017-04-28 17:47] LABS: ALB/GLOB RATIO 1.5 (1.0-1.8); ALBUMIN 4.7 gm/dL (3.7-5.3); ALKALINE PHOSPHATASE 106 U/L (34-104); ANION GAP 12.6 (7.0-16.0); BILIRUBIN,TOTAL 1.5 mg/dL (0.3-1.0); BUN - UREA NITROGEN 25 mg/dL (7-25); CALCIUM SERUM 10.9 mg/dL (8.6-10.3); CHLORIDE 89 mEq/L (98-107); CREATININE - SERUM 0.7 mg/dL (0.6-1.2); GLUCOSE 212 mg/dL (70-105); POTASSIUM SERUM 3.6 mEq/L (3.5-5.1); SGOT 34 U/L (13-39); SGPT/ALT 46 U/L (7-52); SODIUM SERUM 130 mEq/L (136-145); TOTAL PROTEIN,SERUM 7.8 gm/dL (6.0-8.3)
[2017-04-28 17:48] LABS: ALBUMIN 4.7 gm/dL (3.7-5.3); BILIRUBIN,DIRECT 0.29 mg/dL (0.0-0.2); BILIRUBIN,TOTAL 1.5 mg/dL (0.3-1.0); TOTAL PROTEIN,SERUM 7.1 gm/dL (6.0-8.3)
[2017-04-28] MEDS ORDERED: metroNIDAZOLE 500mg/NS 100mL 500 MG/100 ML BAG IV ONE ×2 (18:05→18:27)
[2017-04-28] MEDS ORDERED: GLUCAGON HCl 1 MG KIT IM PRN (19:16)
[2017-04-28] MEDS ORDERED: D5-0.45NS 1,000 ML IV SCH (19:17)
[2017-04-28] MEDS ORDERED: Ipratropium Neb 0.5 mg/2.5 mL UD IH PRN (19:21)
[2017-04-28] MEDS ORDERED: Albuterol Nebulizer 2.5mg/3mL HHN PRN (19:21)
[2017-04-28] MEDS ORDERED: Morphine Sulfate 2 mg/mL 1mL Syr ONE (20:26)
[2017-04-28] MEDS: Morphine Sulfate 2 mg/mL 1mL Syr IVP PRN (20:27)
[2017-04-28] MEDS ORDERED: Theophylline 200 mg ER Tab PO SCH (21:00)
[2017-04-28 21:31] LABS: A1C % 6.5 % (4.0-6.0)
--- NOTE | 2017-04-28 22:31 | ER Physician Documentation ---
DATE OF SERVICE: PATIENT OF: Dr. Ch. A 71-year-old male patient, full code patient. Body surface area is 1.76, 70 square cm, BMI 30.0 kilograms per square meter. This patient was triaged here at 1645 and around 15 minutes after that I saw the patient, the patient came, he is on bed #3, has coffee-ground vomitus, nausea for the past 3 weeks. Abdominal pain in the epigastric area. The patient was seen by the triage nurse who took the vital signs showing temperature to be 98.4, pulse 95, respirations 18, blood pressure 160/60, oxygen saturation 98%. The patient has nausea and vomiting according to the nurse that referred the patient over here and the patient had abdominal pain. Vital signs in the Emergency Room was 98.7, pulse 70, respirations 20, blood pressure 130/86, 97% saturation, height of 62 inches, weight 161 pounds. The patient is a DNR patient. HISTORY OF PRESENT ILLNESS: The patient also gives the same history and the patient has black colored stools and now vomited blood. The patient has been treated for this condition for 3 weeks and it increased today, so the patient was referred over here to be admitted. REVIEW OF SYSTEMS: EYES: No history of double vision, blindness. CONSTITUTIONAL: The patient has no history of any fever, chills or rigors. GI: Essentially has abdominal pain, nausea, vomiting. The patient has history of heavy alcohol intake in the past. She must have drank at least for 30 years and she quit drinking alcohol about 14 years ago. It is very likely the patient may be having cirrhotic liver. We will check it out by getting CT scan of the abdomen to be done tomorrow morning and we can check it out from there. The patient had obstructed colon for which she had surgery. She does not have any gallbladder disease. She has no history of any diarrhea or constipation at the present moment. HEART: The patient denies any angina pectoris, myocardial infarction, rheumatic fever, valvular heart disease, pericardial disease, cardiomyopathy. ENDOCRINE: The patient has diabetes mellitus without any complication. PULMONARY: The patient does not have any shortness of breath. No COPD at the present moment, but she has COPD by default and smoking. So by both ways she has it, but I doubt the patient does not have any lung problem to state for which she has come over here. The patient has acute embolism and thrombus, unspecified and deep vein thrombophlebitis. Otherwise, the patient also has hyperlipidemia that was present. PSYCHIATRIST: Kirit Carey M.D. NURSES DIRECTOR: Wilfredo Lopez DPM OPTOMETRICST: Dr. [facility]. DENTISTRY: [facility]: [facility]. PHYSICAL THERAPY: [facility]. The patient signed CPR for DNR form. The patient is DNR. The patient's other records, she is not a very good historian hence. Heart baeza, the patient has a history of hypertension, deep vein thrombophlebitis, asthma and dyslipidemia history is present. Around few weeks ago, the patient had lab results done. Let us see what date was it done, I believe it was 04/16/2017. White count was 5.29. Other lab results was normal. Hemoglobin was 14, hematocrit is 42.1. So when we compare, will know it how much drop occurred because of the vomiting. Platelet count is 171,000. Granulocyte is 68.9%. Glucose 145, BUN is 116, creatinine 0.5, albumin is 3.7, SGOT 12, SGPT 15, alkaline phosphatase is 87. Glycohemoglobin A1c is 6.9, which is slightly high. Cholesterol was 172, triglyceride 268, LDL is 79, high density lipoprotein 39. Cholesterol to HDL ratio is 4.5. Theophylline is 8.6 which is within normal limits. The patient has been on multiple medications which included Ditropan 5 mg p.o. b.i.d., magnesium oxide, Aricept, Lipitor, theophylline, Colace, multivitamin, vitamin C, Protonix, Cozaar, Eliquis 5 mg p.o. b.i.d. I am not sure that is given because of bleeding problems or not and I think Eliquis should be stopped immediately in view of the patient's bleeding. Seroquel is for depression 50 mg p.o. b.i.d. The patient has schizoaffective disorder M/B paranoid delusions, believing that other are stealing from her belongings. Informed consent obtained by MD for the use of antipsychotic after explanation of risks and benefits to the resident who are responsible constitution party . The patient also has anemia and has hypo-osmolality and hyponatremia. The patient has GERD without esophagitis, essential hypertension, unspecified asthma, type 2 diabetes mellitus, acute embolism and thrombosis, deep veins of the lower extremities, COPD. The patient's other physicians was taking care of. Alternative physician is Dr. Loki Liang. His phone number is [phone]. PHYSICAL EXAMINATION: On physical exam, the patient appears to be awake, alert, oriented, not in any acute distress. General exam benign and negative. Carotids are normal. Eyes are normal. No cyanosis, petechia, ecchymosis seen. CHEST: Clear. Trachea being central. Fairly good air entry in both lungs without any rales, rhonchi, or bronchial breathing. ABDOMEN: Obese, otherwise benign, negative. Mild tenderness noted in the epigastric area. EXTREMITIES: There is no cyanosis. There is no evidence of cirrhotic liver or any ascites is present or any prominent veins over the abdomen or signs of cirrhotic liver. The patient is taking Eliquis, which can give rise to bleeding and that is one thing should be kept in mind and to be stopped immediately. The patient was on [place] that was also stopped before. I am not sure why this was stopped. CHEST: Clear. HEART: Normal heart sounds, so fourth heart sounds. Second heart sounds physiologically split. Third heart sound is absent. CVA: Appears to be within normal limits. CLINICAL IMPRESSION: The patient came with upper GI bleeding for the past 3 weeks' duration. The patient is on Eliquis that should be discontinued. The patient does take Aleve from time to time that should be discontinued or any other nonsteroidal anti-inflammatory medication that should be discontinued. The patient would need GI consultation and upper endoscopy to be done and esophageal varices that might need to be ligated or cryopreservation, etc., that might need to be taken out. Other history why Eliquis has been given where the patient had DVT and for that, I believe the patient is bedbound, then one can easily give the patient heparin or Lovenox as best would be Lovenox if the patient is bedbound, that would be better than giving Eliquis, I believe because one can easily reverse that. The other diagnosis the patient has is: 1. Hypertension. 2. Deep vein thrombophlebitis. When this occurred, I cannot tell for sure. The patient had asthma history and the patient has dyslipidemia history. The patient in the past lab workup that was done showed that hemoglobin and hematocrit was normal, on 04/16/2017 the lab was normal and glucose was 145. Glycohemoglobin A1c 6.9, slightly high. The patient has hypertriglyceridemia for which we will give some medications. Theophylline level is slightly low 8.6, normal being 10-20. The patient has diabetes mellitus. The patient has hypercholesterolemia. The patient has anxiety disorder. The patient has COPD, emphysema. The patient has a history of heavy alcohol ingestion. The patient has depression. The patient is magnesium oxide 400 mg p.o. b.i.d. and that would increase the diarrhea. Aricept 10 mg at bedtime for dementia, Lipitor 10 mg at bedtime, theophylline tablet 24 hours 400 mg at bedtime. COPD, do not crush. Colace has been given. Multivitamin, vitamin C, Protonix. Cozaar for hypertension. Eliquis should be stopped. Seroquel for schizoaffective disorder 50 mg p.o. b.i.d. and will put that in the computer some of the medications. Once we get the results, we will notify Dr. Ch. The patient most likely will need admission. The patient has taken pneumococcal vaccination and theophylline level monthly has been ordered by Dr. Ch. The patient is ordered to get the antipsychotic medication. Other thing not last but not the least is patient is DNR patient. I cannot see what medication was taking for hypertension. Aricept for depression and multivitamin, vitamin C. Protonix was taking, Cozaar 25 mg that is the one the patient is taking. Seroquel 50 mg p.o. b.i.d., so we will give this medication. After he get the lab result, will decide about further . JOB# [id number]
[2017-04-28] MEDS ORDERED: Pneumococcal Vaccine 0.5 mL Vial IM ONE (23:47)
[2017-04-29] MEDS: Sodium Chloride 0.9% 1,000 ML IV SCH (00:34)
[2017-04-29] MEDS: Atorvastatin Calcium 10 MG TAB PO SCH ×2 (00:35→21:47)
[2017-04-29] MEDS: Morphine Sulfate 2 mg/mL 1mL Syr IVP PRN ×2 (01:41→06:01)
[2017-04-29 05:30] LABS: % BASOPHILS 0.7 % (0.0-2.0); % EOSINOPHILS 0.9 % (0.0-5.0); % LYMPHOCYTES 14.8 % (20.0-50.0); % MONOCYTES 11.8 % (2.0-10.0); % NEUTROPHILS 71.8 % (40.0-80.0); BASOPHILE ABSOLUTE 0.1 Th/cumm (0-0.2); EOSINOPHILE ABSOLUTE 0.1 Th/cmm (0.1-0.4); HEMATOCRIT 46.4 % (41.0-60); HEMOGLOBIN 15.8 gm/dL (12-16); LYMPHOCYTE ABSOLUTE 1.2 Th/cmm (1.5-3.0); MEAN CELL VOLUME 74.8 fl (81-100); MEAN CORPUSCULAR HEMOGLOBIN 25.5 pg (27.0-31.0); MEAN CORPUSCULAR HGB CONC 34.1 pg (28.0-36.0); MEAN PLATELET VOLUME 7.7 fl; PLATELET COUNT 264 Th/cmm (150-400); RED CELL DISTRIBUTION WIDTH 15.9 % (11.5-20.0); WHITE BLOOD COUNT 8.4 Th/cmm (4.8-10.8)
[2017-04-29 05:33] LABS: ALB/GLOB RATIO 1.5 (1.0-1.8); ALBUMIN 4.1 gm/dL (3.7-5.3); ALKALINE PHOSPHATASE 86 U/L (34-104); ANION GAP 11.6 (7.0-16.0); BILIRUBIN,TOTAL 1.5 mg/dL (0.3-1.0); BUN - UREA NITROGEN 27 mg/dL (7-25); CARBON DIOXIDE 32.1 mEq/L (21.0-31.0); CHLORIDE 91 mEq/L (98-107); CREATININE - SERUM 0.8 mg/dL (0.6-1.2); GLUCOSE 175 mg/dL (70-105); LIPASE 8 U/L (11-82); POTASSIUM SERUM 3.7 mEq/L (3.5-5.1); SGOT 25 U/L (13-39); SGPT/ALT 47 U/L (7-52); SODIUM SERUM 131 mEq/L (136-145); TOTAL PROTEIN,SERUM 6.8 gm/dL (6.0-8.3)
[2017-04-29] MEDS ORDERED: Pantoprazole 40 mg EC Tab PO SCH (07:30)
[2017-04-29] MEDS: Multivitamin Tab PO SCH (08:20)
[2017-04-29] MEDS: Maalox 30 mL Cup PO PRN ×2 (08:29→14:10)
[2017-04-29] MEDS ORDERED: Non-Formulary Item 1 EA (Fluticasone/Salmeterol [Advair 250-50 Diskus] 1 PUFF) INH SCH (09:00)
[2017-04-29] MEDS ORDERED: Morphine Sulfate 4 mg/mL 1mL Syr ONE (09:56)
--- NOTE | 2017-04-29 14:02 | Internal Medicine Prog Note ---
Internal Medicine Subjective - Subjective Service Date: 04/29/17 ([facility] dictated [id number]) Internal Medicine Objective - Results Result Diagrams: 04/29/17 04:55 04/29/17 04:55 Recent Labs: Laboratory Last Values WBC 8.4 Th/cmm (4.8-10.8) D 04/29/17 04:55 RBC 6.20 Mil/cmm (3.80-5.20) H 04/29/17 04:55 Hgb 15.8 gm/dL (12-16) 04/29/17 04:55 Hct 46.4 % (41.0-60) D 04/29/17 04:55 MCV 74.8 fl (81-100) L 04/29/17 04:55 MCH 25.5 pg (27.0-31.0) L 04/29/17 04:55 MCHC Differential 34.1 pg (28.0-36.0) 04/29/17 04:55 RDW 15.9 % (11.5-20.0) 04/29/17 04:55 Plt Count 264 Th/cmm (150-400) 04/29/17 04:55 MPV 7.7 fl 04/29/17 04:55 Neutrophils % 71.8 % (40.0-80.0) 04/29/17 04:55 Lymphocytes % 14.8 % (20.0-50.0) L 04/29/17 04:55 Monocytes % 11.8 % (2.0-10.0) H 04/29/17 04:55 Eosinophils % 0.9 % (0.0-5.0) 04/29/17 04:55 Basophils % 0.7 % (0.0-2.0) 04/29/17 04:55 PT 11.4 SECONDS (9.5-11.5) 04/28/17 17:22 INR 1.09 (0.5-1.4) 04/28/17 17:22 PTT (Actin FS) 25.1 SECONDS (26.0-38.0) L 04/28/17 17:22 Sodium 131 mEq/L (136-145) L 04/29/17 04:55 Potassium 3.7 mEq/L (3.5-5.1) 04/29/17 04:55 Chloride 91 mEq/L (98-107) L 04/29/17 04:55 Carbon Dioxide 32.1 mEq/L (21.0-31.0) H 04/29/17 04:55 Anion Gap 11.6 (7.0-16.0) 04/29/17 04:55 BUN 27 mg/dL (7-25) H 04/29/17 04:55 Creatinine 0.8 mg/dL (0.6-1.2) 04/29/17 04:55 Est GFR ( Amer) TNP 04/29/17 04:55 Est GFR (Non-Af Amer) TNP 04/29/17 04:55 BUN/Creatinine Ratio 33.8 04/29/17 04:55 Glucose 175 mg/dL (70-105) H 04/29/17 04:55 Hemoglobin A1c % 6.5 % (4.0-6.0) H 04/28/17 17:22 Calcium 10.0 mg/dL (8.6-10.3) 04/29/17 04:55 Total Bilirubin 1.5 mg/dL (0.3-1.0) H 04/29/17 04:55 Direct Bilirubin 0.29 mg/dL (0.0-0.2) H 04/28/17 17:22 AST 25 U/L (13-39) 04/29/17 04:55 ALT 47 U/L (7-52) 04/29/17 04:55 Alkaline Phosphatase 86 U/L (34-104) 04/29/17 04:55 C-Reactive Protein 5.1 mg/dL (0.0-0.9) H 04/28/17 17:22 Total Protein 6.8 gm/dL (6.0-8.3) 04/29/17 04:55 Albumin 4.1 gm/dL (3.7-5.3) 04/29/17 04:55 Globulin 2.7 gm/dL 04/29/17 04:55 Albumin/Globulin Ratio 1.5 (1.0-1.8) 04/29/17 04:55 Lipase 8 U/L (11-82) L 04/29/17 04:55 - Physical Exam Vitals and I&O: Vital Signs Temp 98.6 F 04/29/17 11:44 Pulse 85 04/29/17 11:44 Resp 18 04/29/17 11:44 BP 124/59 04/29/17 11:44 Pulse Ox 98 04/29/17 11:44 Intake & Output 04/28/17 04/29/17 04/29/17 18:59 06:59 18:59 Intake Total 240 Balance 240 Weight (lbs) 164 lb Intake: Oral 240 Other: # Voids 2 Active Medications: Current Medications Acetaminophen (Tylenol) 650 mg PO Q4H PRN PRN Reason: Pain Or Fever above 101 Stop: 06/27/17 19:20 Al Hydrox/Mg Hydrox/Simethicone (Maalox) 30 ml PO Q4H PRN PRN Reason: GI DISTRESS Stop: 06/27/17 19:15 Last Admin: 04/29/17 08:29 Dose: 30 ml Albuterol Sulfate (Albuterol 2.5mg/3ml Neb Ud) 2.5 mg HHN Q2HRT PRN PRN Reason: Shortness of Breath or Wheeze Stop: 06/27/17 19:20 Ascorbic Acid (Vitamin C) 500 mg PO DAILY [facility] Stop: 06/28/17 08:59 Last Admin: 04/29/17 08:20 Dose: 500 mg Atorvastatin Calcium (Lipitor) 10 mg PO HS [facility] PRN Reason: Protocol Stop: 06/27/17 20:59 Last Admin: 04/29/17 00:35 Dose: 10 mg Docusate Sodium (Colace) 100 mg PO DAILY [facility] Stop: 06/28/17 08:59 Last Admin: 04/29/17 08:20 Dose: 100 mg Donepezil HCl (Aricept) 10 mg PO HS [facility] Stop: 06/28/17 20:59 Glucagon (Glucagen) 1 mg IM DAILY PRN PRN Reason: HYPOGLYCEMIA Stop: 06/27/17 19:15 Sodium Chloride (Nacl 0.9%) 1,000 mls @ 80 mls/hr IV .[id number] [facility] Stop: 06/27/17 19:29 Last Admin: 04/29/17 00:34 Dose: 80 mls/hr Ipratropium Angela (Atrovent Neb 0.5mg/2.5ml) 0.5 mg IH Q2HRT PRN PRN Reason: Shortness of Breath or Wheeze Stop: 06/27/17 19:20 Lorazepam (Ativan) 1 mg PO Q6H PRN; Protocol PRN Reason: Anxiety Stop: 06/27/17 19:15 Losartan Potassium (Cozaar) 25 mg PO DAILY [facility] Stop: 06/28/17 08:59 Last Admin: 04/29/17 08:21 Dose: 25 mg Miscellaneous (Fluticasone/Salmeterol [Advair 250-50 Diskus]) 1 puff INH BID [facility] Stop: 06/28/17 08:59 Morphine Sulfate (Morphine) 2 mg IVP Q4H PRN PRN Reason: Abdominal Pain Stop: 06/27/17 19:20 Last Admin: 04/29/17 06:01 Dose: 2 mg Multivitamins/Vitamin C (Theragran) 1 tab PO DAILY [facility] Stop: 06/28/17 08:59 Last Admin: 04/29/17 08:20 Dose: 1 tab Ondansetron HCl (Zofran) 4 mg IV Q8H PRN PRN Reason: Nausea / Vomiting Stop: 06/27/17 19:20 Oxybutynin Chloride (Ditropan) 5 mg PO BID [facility] Stop: 06/28/17 08:59 Last Admin: 04/29/17 08:20 Dose: 5 mg Pantoprazole Sodium (Protonix) 40 mg IVP BID [facility] Stop: 06/28/17 10:59 Last Admin: 04/29/17 12:34 Dose: 40 mg Quetiapine Fumarate (Seroquel) 50 mg PO BID [facility] PRN Reason: Protocol Stop: 06/28/17 10:59 Last Admin: 04/29/17 12:33 Dose: 50 mg Theophylline (Nain-Dur) 400 mg PO HS [facility] Stop: 06/27/17 20:59 Last Admin: 04/29/17 00:35 Dose: Not Given Zolpidem Tartrate (Ambien) 5 mg PO HS PRN PRN Reason: Insomnia Stop: 06/27/17 19:15 - Procedures Procedures: Procedures Procedure Code Date INDIVID PSYCHOTHERAP NEC 94.39 07/05/04 INJECT/INFUSE NEC 99.29 03/18/13 OTHER GROUP THERAPY 94.44 12/18/13 RECREATIONAL THERAPY 93.81 07/05/04
--- NOTE | 2017-04-29 17:08 | History & Physical ---
ADMIT DATE: 04/29/[address] Leon Ch. HISTORY OF PRESENT ILLNESS: This is a 71-year-old female who is well known to me, resident of [facility]. The patient has been having a 1-day history of abdominal distention. Per nursing staff, the patient has had no BM for 3 days and the patient has been complaining of abdominal pain. The patient is now admitted to the MedSurg unit for further management. PAST MEDICAL HISTORY: Hypertension, diabetes, asthma, dyslipidemia, dementia, chronic anemia. FAMILY HISTORY: Noncontributory. SOCIAL HISTORY: The patient is a [facility] resident at [facility]. PAST SURGICAL HISTORY: None per patient. MEDICATIONS: Please see medication reconciliation. REVIEW OF SYSTEMS: GENERAL: Denies any fevers and chills. CARDIOVASCULAR: Denies chest pain. RESPIRATORY: Denies shortness of breath. GASTROINTESTINAL: Denies any nausea or vomiting, but complains of abdominal pain. GENITOURINARY: Denies increase frequency or dysuria. All other systems are reviewed and are negative. PHYSICAL EXAMINATION: GENERAL: This is an elderly female, awake, alert, at times with confusion, no apparent distress. VITAL SIGNS: Temperature 99.6, heart rate 85, blood pressure 124/59, respirations 18, and O2 98%. HEENT: Head; normocephalic, atraumatic. NECK: Supple. No mass. LUNGS: Clear bilaterally. HEART: Regular rhythm. ABDOMEN: Distended, nontender. LABORATORY DATA: WBC 8.4, H and H 15.8 and 46.4, and platelet of 264. Sodium 131, potassium 3.7, chloride 91, BUN 27, and creatinine 0.8. Hemoglobin A1c 6.5. Lipase of 8. ASSESSMENT: Abdominal pain, hyponatremia, hypertension, diabetes, asthma, dyslipidemia, dementia, and chronic anemia. PLAN: The patient to be admitted to the MedSurg unit. Keep the patient on IV fluids for hydration. Keep the patient on fluid, full liquid diet. Abdominal ultrasound and pelvic ultrasound. We will get GI on the case. Get the patient to followup labs for tomorrow. Have the patient on PPIs. Continue to monitor this patient. [facility]# [id number]
[2017-04-29] MEDS: Theophylline 100 mg ER Tab PO SCH (21:47)
[2017-04-30] MEDS: Morphine Sulfate 4 mg/mL 1mL Syr IVP PRN ×3 (03:15→23:53)
[2017-04-30 07:30] LABS: % BASOPHILS 0.6 % (0.0-2.0); % EOSINOPHILS 1.4 % (0.0-5.0); % MONOCYTES 11.9 % (2.0-10.0); % NEUTROPHILS 60.1 % (40.0-80.0); EOSINOPHILE ABSOLUTE 0.1 Th/cmm (0.1-0.4); HEMOGLOBIN 13.5 gm/dL (12-16); LYMPHOCYTE ABSOLUTE 1.4 Th/cmm (1.5-3.0); MEAN CELL VOLUME 75.2 fl (81-100); MEAN CORPUSCULAR HEMOGLOBIN 26.1 pg (27.0-31.0); MEAN CORPUSCULAR HGB CONC 34.7 pg (28.0-36.0); MEAN PLATELET VOLUME 7.3 fl; MONOCYTE ABSOLUTE 0.6 Th/cmm (0.3-1.0); NEUTROPHILE ABSOLUTE 3.2 Th/cmm (1.8-8.0); PLATELET COUNT 224 Th/cmm (150-400); RED BLOOD COUNT 5.19 Mil/cmm (3.80-5.20); WHITE BLOOD COUNT 5.3 Th/cmm (4.8-10.8)
[2017-04-30 07:39] LABS: ANION GAP 9.3 (7.0-16.0); BUN - UREA NITROGEN 24 mg/dL (7-25); CALCIUM SERUM 8.8 mg/dL (8.6-10.3); CARBON DIOXIDE 29.2 mEq/L (21.0-31.0); CHLORIDE 96 mEq/L (98-107); CREATININE - SERUM 0.8 mg/dL (0.6-1.2); GLUCOSE 135 mg/dL (70-105); POTASSIUM SERUM 3.5 mEq/L (3.5-5.1); SODIUM SERUM 131 mEq/L (136-145)
--- NOTE | 2017-04-30 08:05 | Diagnostic Imaging Report ---
Ultrasound pelvis, limited History: Postmenopausal female. Pelvic pain. No vaginal bleeding or spotting. Patient is incontinent. Comparison: None Technique/procedure: Sonography of the pelvis was performed transabdominally. Findings: The uterus and ovaries were not visualized. The urinary bladder is underdistended limiting its evaluation. The urinary bladder wall is borderline prominent. No free fluid identified. IMPRESSION: The ovaries and uterus were not visualized. Please correlate with patient's clinical history. Borderline prominent urinary bladder wall, nonspecific, inflammatory process cannot be excluded.
--- NOTE | 2017-04-30 08:11 | Diagnostic Imaging Report ---
Ultrasound abdomen HISTORY: Abdominal pain COMPARISON: None Technique: Sonography of the abdomen was performed in multiple planes. FINDINGS: Exam is limited due to bowel gas. The liver demonstrates normal echogenicity. The liver margins are not well-defined, however, no evidence of focal lesions. The liver measures 20.7 cm. The gallbladder is suboptimally distended, limiting its evaluation. No obvious gallstones identified. The gallbladder wall measures 3 mm. No pericholecystic fluid. The CBD measures 6 mm. Evaluation of the pancreas is limited due to bowel gas. The right kidney measures 9.6 x 4.3 cm. No evidence of focal lesions or hydronephrosis. The left kidney measures 12.2 x 3.8 cm. No evidence of focal lesions or hydronephrosis. The spleen measures 15.9 cm. The abdominal aorta was not well-visualized due to bowel gas IMPRESSION: Limited exam due to bowel gas. Hepatomegaly. Suboptimally distended gallbladder limiting its evaluation. No obvious gallstones identified. Borderline prominent gallbladder wall is noted which is nonspecific and may be due to a suboptimally distended gallbladder. Splenomegaly. No evidence of hydronephrosis.
[2017-04-30] MEDS: Maalox 30 mL Cup PO PRN (09:20)
[2017-04-30] MEDS: Multivitamin Tab PO SCH (09:20)
[2017-04-30] MEDS: Sodium Chloride 0.9% 1,000 ML IV SCH (11:13)
--- NOTE | 2017-04-30 15:04 | Diagnostic Imaging Report ---
CT abdomen and pelvis without intravenous contrast Indication: Abdominal pain, distention Comparison: Ultrasound abdomen on 04/29/2017, Technique: Axial images were obtained from the lung bases to the bilateral proximal femurs without IV contrast. Oral contrast was administered Coronal reconstructions were made. total DLP: 530, CTDI10.9 FINDINGS: Hypoventilatory changes of the lungs are noted which trace right pleural fluid. Assessment of solid organs is limited due to lack of IV contrast. Mild hepatomegaly is noted. No evidence of focal hepatic or splenic lesions. Mild splenomegaly is also noted. No focal pancreatic or adrenal lesions. No evidence of hydronephrosis or focal renal lesions. There is a moderate amount of stool throughout the colon. Multiple distended loops of bowel are noted with mild inflammatory changes and edema of the mesentery and. There is a small hiatal hernia with mild gastroesophageal reflux. Small free fluid is seen within the pelvis. No free air. Moderate atherosclerosis is noted. Degenerative changes of the spine and pelvis are noted. IMPRESSION: Multiple distended loops of small bowel. Findings are concerning for small bowel obstruction. There are ill-defined areas of small bowel and large bowel loops in the right lower quadrant with inflammatory changes. This may be the area of transition. Areas of edema and inflammatory changes are old seen within the mesentery with mildly prominent mesenteric lymph nodes. Clinical correlation and follow-up is recommended. Small hiatal hernia with mild gastroesophageal reflux noted. Mild hepatosplenomegaly. Atherosclerotic vascular disease.
--- NOTE | 2017-04-30 16:26 | Internal Medicine Prog Note ---
Internal Medicine Subjective - Subjective Service Date: 04/30/17 Patient seen and examined:: with staff Patient is:: awake, non-verbal Per staff patient has:: tolerating meds Internal Medicine Objective - Results Result Diagrams: 04/30/17 07:04 04/30/17 07:04 Recent Labs: Laboratory Last Values WBC 5.3 Th/cmm (4.8-10.8) 04/30/17 07:04 RBC 5.19 Mil/cmm (3.80-5.20) 04/30/17 07:04 Hgb 13.5 gm/dL (12-16) 04/30/17 07:04 Hct 39.0 % (41.0-60) L 04/30/17 07:04 MCV 75.2 fl (81-100) L 04/30/17 07:04 MCH 26.1 pg (27.0-31.0) L 04/30/17 07:04 MCHC Differential 34.7 pg (28.0-36.0) 04/30/17 07:04 RDW 16.0 % (11.5-20.0) 04/30/17 07:04 Plt Count 224 Th/cmm (150-400) 04/30/17 07:04 MPV 7.3 fl 04/30/17 07:04 Neutrophils % 60.1 % (40.0-80.0) 04/30/17 07:04 Lymphocytes % 26.0 % (20.0-50.0) 04/30/17 07:04 Monocytes % 11.9 % (2.0-10.0) H 04/30/17 07:04 Eosinophils % 1.4 % (0.0-5.0) 04/30/17 07:04 Basophils % 0.6 % (0.0-2.0) 04/30/17 07:04 PT 11.4 SECONDS (9.5-11.5) 04/28/17 17:22 INR 1.09 (0.5-1.4) 04/28/17 17:22 PTT (Actin FS) 25.1 SECONDS (26.0-38.0) L 04/28/17 17:22 Sodium 131 mEq/L (136-145) L 04/30/17 07:04 Potassium 3.5 mEq/L (3.5-5.1) 04/30/17 07:04 Chloride 96 mEq/L (98-107) L 04/30/17 07:04 Carbon Dioxide 29.2 mEq/L (21.0-31.0) 04/30/17 07:04 Anion Gap 9.3 (7.0-16.0) 04/30/17 07:04 BUN 24 mg/dL (7-25) 04/30/17 07:04 Creatinine 0.8 mg/dL (0.6-1.2) 04/30/17 07:04 Est GFR ( Amer) TNP 04/30/17 07:04 Est GFR (Non-Af Amer) TNP 04/30/17 07:04 BUN/Creatinine Ratio 30.0 04/30/17 07:04 Glucose 135 mg/dL (70-105) H 04/30/17 07:04 Hemoglobin A1c % 6.5 % (4.0-6.0) H 04/28/17 17:22 Calcium 8.8 mg/dL (8.6-10.3) 04/30/17 07:04 Total Bilirubin 1.5 mg/dL (0.3-1.0) H 04/29/17 04:55 Direct Bilirubin 0.29 mg/dL (0.0-0.2) H 04/28/17 17:22 AST 25 U/L (13-39) 04/29/17 04:55 ALT 47 U/L (7-52) 04/29/17 04:55 Alkaline Phosphatase 86 U/L (34-104) 04/29/17 04:55 C-Reactive Protein 5.1 mg/dL (0.0-0.9) H 04/28/17 17:22 Total Protein 6.8 gm/dL (6.0-8.3) 04/29/17 04:55 Albumin 4.1 gm/dL (3.7-5.3) 04/29/17 04:55 Globulin 2.7 gm/dL 04/29/17 04:55 Albumin/Globulin Ratio 1.5 (1.0-1.8) 04/29/17 04:55 Lipase 8 U/L (11-82) L 04/29/17 04:55 - Physical Exam Vitals and I&O: Vital Signs Temp 97.6 F 04/30/17 11:50 Pulse 65 04/30/17 11:50 Resp 17 04/30/17 11:50 BP 130/73 04/30/17 11:50 Pulse Ox 97 04/30/17 11:50 Intake & Output 04/29/17 04/30/17 04/30/17 18:59 06:59 18:59 Intake Total 1000 1999 Output Total 2 Balance 1000 1997 Weight (lbs) 164 lb Intake: Intake, IV Amount 1000 Sodium Chloride 0.9% 1, 1000 000 ml @ 80 mls/hr IV . [id number] [facility] Rx#:[id number] Oral 2000 Output: Urine 2 Other: # Voids 1 # Bowel Movements 1 Active Medications: Current Medications Acetaminophen (Tylenol) 650 mg PO Q4H PRN PRN Reason: Pain Or Fever above 101 Stop: 06/27/17 19:20 Al Hydrox/Mg Hydrox/Simethicone (Maalox) 30 ml PO Q4H PRN PRN Reason: GI DISTRESS Stop: 06/27/17 19:15 Last Admin: 04/30/17 09:20 Dose: 30 ml Albuterol Sulfate (Albuterol 2.5mg/3ml Neb Ud) 2.5 mg HHN Q2HRT PRN PRN Reason: Shortness of Breath or Wheeze Stop: 06/27/17 19:20 Ascorbic Acid (Vitamin C) 500 mg PO DAILY [facility] Stop: 06/28/17 08:59 Last Admin: 04/30/17 09:20 Dose: 500 mg Atorvastatin Calcium (Lipitor) 10 mg PO HS [facility] PRN Reason: Protocol Stop: 06/27/17 20:59 Last Admin: 04/29/17 21:47 Dose: 10 mg Docusate Sodium (Colace) 100 mg PO DAILY [facility] Stop: 06/28/17 08:59 Last Admin: 04/30/17 09:20 Dose: 100 mg Donepezil HCl (Aricept) 10 mg PO HS [facility] Stop: 06/28/17 20:59 Last Admin: 04/29/17 21:47 Dose: 10 mg Glucagon (Glucagen) 1 mg IM DAILY PRN PRN Reason: HYPOGLYCEMIA Stop: 06/27/17 19:15 Heparin Sodium (Porcine) (Heparin) 5,000 units SUBQ Q12HR [facility] Stop: 06/28/17 20:59 Last Admin: 04/30/17 09:19 Dose: 5,000 units Sodium Chloride (Nacl 0.9%) 1,000 mls @ 80 mls/hr IV .[id number] [facility] Stop: 06/27/17 19:29 Last Admin: 04/30/17 11:13 Dose: 80 mls/hr Ipratropium [place] (Atrovent Neb 0.5mg/2.5ml) 0.5 mg IH Q2HRT PRN PRN Reason: Shortness of Breath or Wheeze Stop: 06/27/17 19:20 Lorazepam (Ativan) 1 mg PO Q6H PRN; Protocol PRN Reason: Anxiety Stop: 06/27/17 19:15 Losartan Potassium (Cozaar) 25 mg PO DAILY [facility] Stop: 06/28/17 08:59 Last Admin: 04/30/17 09:28 Dose: Not Given Mineral Oil (Mineral Oil 30 Ml) 30 ml PO DAILY PRN PRN Reason: Constipation Stop: 06/29/17 12:31 Miscellaneous (Fluticasone/Salmeterol [Advair 250-50 Diskus]) 1 puff INH BID [facility] Stop: 06/28/17 08:59 Morphine Sulfate (Morphine) 2 mg IVP Q4H PRN PRN Reason: Abdominal Pain Stop: 06/28/17 16:34 Last Admin: 04/30/17 03:15 Dose: 2 mg Multivitamins/Vitamin C (Theragran) 1 tab PO DAILY [facility] Stop: 06/28/17 08:59 Last Admin: 04/30/17 09:20 Dose: 1 tab Mupirocin (Bactroban Oint) 1 appl TP BID [facility] Stop: 05/07/17 16:59 Ondansetron HCl (Zofran) 4 mg IV Q8H PRN PRN Reason: Nausea / Vomiting Stop: 06/27/17 19:20 Oxybutynin Chloride (Ditropan) 5 mg PO BID [facility] Stop: 06/28/17 08:59 Last Admin: 04/30/17 09:19 Dose: 5 mg Pantoprazole Sodium (Protonix) 40 mg IVP BID [facility] Stop: 06/28/17 10:59 Last Admin: 04/30/17 11:13 Dose: 40 mg Quetiapine Fumarate (Seroquel) 50 mg PO BID [facility] PRN Reason: Protocol Stop: 06/28/17 10:59 Last Admin: 04/30/17 09:19 Dose: 50 mg Theophylline (Nain-Dur) 400 mg PO HS [facility] Stop: 06/28/17 20:59 Last Admin: 04/29/17 21:47 Dose: 400 mg Zolpidem Tartrate (Ambien) 5 mg PO HS PRN PRN Reason: Insomnia Stop: 06/27/17 19:15 Last Admin: 04/29/17 21:50 Dose: 5 mg General: alert HEENT: NC/AT, PERRLA Neck: Supple Lungs: CTAB Cardiovascular: RRR, Normal S1, Normal S2 Abdomen: soft, non-tender, non-distended, positive bowel sound Neurological: alert - Procedures Procedures: Procedures Procedure Code Date INDIVID PSYCHOTHERAP NEC 94.39 07/05/04 INJECT/INFUSE NEC 99.29 03/18/13 OTHER GROUP THERAPY 94.44 12/18/13 RECREATIONAL THERAPY 93.81 07/05/04 Internal Medicine Assmt/Plan - Assessment Assessment: mrsa nares abdominal pain hyponatremia htn dm2 asthma dementia - Plan Plan: will add bactroban cbc/bmp in am continue current orders Nutritional Asmnt/Malnutr-PDOC - Dietary Evaluation Malnutrition Findings (Please click <Entered> for more info): Nutritional Asmnt/Malnutrition Start: 04/29/17 15: 55 Text: Status: Complete Freq: Document 04/29/17 15:55 LCHENG (Rec: 04/29/17 16:15 LCHENG [email or web address]) Nutritional Asmnt/Malnutrition Patient General Information Nutritional Screening High Risk Consult Diagnosis abd pain/vomiting Pertinent Medical Hx/Surgical Hx embolism and thrombus, DVT, hyperlipidemia Subjective Information Pt seen lying in bed at time of visit, denied N/V today but having stomachach. Observed lunch tray finished about 75%. Food preference provided. Current Diet Order/ Nutrition Support Full liquid Pertinent Medications vit C, colace, theragran, protonix, seroquel, nacl 0.9% Pertinent Labs 04/29 Na 131, Cl 91, BUN 27, Glucose 175, 04/28 A1c 6.5 Nutritional Hx/Data Height 5 ft 2 in Height (Calculated Centimeters) 157.5 Current Weight (lbs) 164 lb Weight (Calculated Kilograms) 74.4 Weight (Calculated Grams) 87718.1 [place] Body Weight 110 Body Mass Index (BMI) 29.9 Weight Status Overweight GI Symptoms GI Symptoms None Last BM no record Difficult in: None Skin Integrity/Comment: intact LEFT HAND FATTY TISSUE AND POSTERIOR THIGH FAT TISSUE, PINKISH BUTTOCKS Estimated Nutritional Goals BEE in Kcals: Adj wt of IBW Calories/Kcals/Kg 25-30 Kcals Calculated 5034-9116 Protein: Adj wt of IBW Protein g/k-1.2 Protein Calculated 56-67 Fluid: ml 1400-1680ml (1ml/kcal) Nutritional Problem 1. Problem Problem inadequate energy intake Etiology abd pain, N/V Signs/Symptoms: pt need for full liquid diet Malnutrition Alert Protein-Calorie Malnutrition N/A Is there a minimum of two criteria No selected? Query Text:Check all the applicable criteria. A minimum of two criteria are recommended for diagnosis of either severe or non-severe malnutrition. Intervention/Recommendation Comments 1. Continue with current diet as ordered. Diet profile updated. 2. Monitor PO intake, wt, labs and skin integrity 3. F/U as hig risk in 2-3 days , 05/01-05/02 Expected Outcomes/Goals Expected Outcomes/Goals 1. PO intake to meet at least 75% of nutritional needs. 2. Wt stability, skin to remain intact, labs to approach WNL.
--- NOTE | 2017-04-30 16:53 | Consultation ---
DATE OF CONSULTATION: 04/30/2017 INPATIENT GASTROINTESTINAL CONSULTATION REFERRING PHYSICIAN: Dr. Ch. REASON FOR CONSULTATION: Abdominal distention and constipation. HISTORY OF PRESENT ILLNESS: This is a 71-year-old female who had noticed increasing abdominal girth and distention over the last few days. States that she has not had a good bowel movement in over 2 weeks. She denies having any nausea or vomiting or GI bleeding. PAST MEDICAL HISTORY: Hypertension, diabetes, asthma, hyperlipidemia, dementia, and anemia. PAST SURGICAL HISTORY: None to add recently. The patient had a hysterectomy and colon surgery. FAMILY HISTORY: Noncontributory. SOCIAL HISTORY: Resident of [facility]. ALLERGIES: PENICILLIN. CURRENT MEDICATIONS: Tylenol, Maalox, albuterol, vitamin C, Lipitor, Colace, Aricept, glucagon, heparin, Ativan, Cozaar, morphine, Zofran, Protonix, and Seroquel. REVIEW OF SYSTEMS: Ten point review of system was performed and the pertinent positive was abdominal distention and constipation. All systems were otherwise negative. PHYSICAL EXAMINATION: VITAL SIGNS: Temperature 97.6, breathing 17, pulse 65, blood pressure 130/73, and satting 97%. GENERAL: In no apparent distress. EYES: Anicteric. Normal conjunctivae. HEENT: Normocephalic, atraumatic. Moist mucous membranes. NECK: Soft and supple. CHEST: Clear. No effort. CARDIOVASCULAR: Regular rate and rhythm. ABDOMEN: Soft, distended, nontender. SKIN: Warm and dry. EXTREMITIES: Reveal no cyanosis. PSYCHOLOGIC: Alert and oriented x3. LABORATORY DATA: Show white count 5.3, hemoglobin 13.5, and platelets of 224. INR is 1.09. Creatinine 0.8. DIAGNOSTIC DATA: Abdominal ultrasound showed hepatomegaly, slightly distended gallbladder, no obvious gallstones, splenomegaly. No hydronephrosis. IMPRESSION: A 71-year-old female with abdominal distention, cause could be from constipation, fecal impaction. Ultrasound showed hepatosplenomegaly and a prominent gallbladder. PLAN: 1. Check a CT scan. 2. Check a HIDA scan. 3. Provide the patient with laxatives. Thank you for allowing me to participate. Please call me if any questions. JOB# [id number]
[2017-04-30] MEDS: Atorvastatin Calcium 10 MG TAB PO SCH (21:43)
[2017-04-30] MEDS: Theophylline 100 mg ER Tab PO SCH (21:44)
[2017-05-01] MEDS: Sodium Chloride 0.9% 1,000 ML IV SCH ×2 (00:03)
[2017-05-01 08:11] LABS: ALB/GLOB RATIO 1.4 (1.0-1.8); ALBUMIN 3.3 gm/dL (3.7-5.3); ALKALINE PHOSPHATASE 76 U/L (34-104); ANION GAP 9.1 (7.0-16.0); BILIRUBIN,TOTAL 0.8 mg/dL (0.3-1.0); BUN - UREA NITROGEN 12 mg/dL (7-25); CALCIUM SERUM 8.5 mg/dL (8.6-10.3); CARBON DIOXIDE 24.4 mEq/L (21.0-31.0); CHLORIDE 102 mEq/L (98-107); CREATININE - SERUM 0.6 mg/dL (0.6-1.2); GLUCOSE 146 mg/dL (70-105); MAGNESIUM 2.5 mg/dL (1.9-2.7); POTASSIUM SERUM 3.5 mEq/L (3.5-5.1); SGOT 9 U/L (13-39); SGPT/ALT 18 U/L (7-52); SODIUM SERUM 132 mEq/L (136-145); TOTAL PROTEIN,SERUM 5.6 gm/dL (6.0-8.3)
[2017-05-01 08:16] LABS: % BASOPHILS 0.1 % (0.0-2.0); % EOSINOPHILS 1.1 % (0.0-5.0); % LYMPHOCYTES 22.6 % (20.0-50.0); % MONOCYTES 14.2 % (2.0-10.0); HEMATOCRIT 38.8 % (41.0-60); HEMOGLOBIN 13.3 gm/dL (12-16); LYMPHOCYTE ABSOLUTE 0.9 Th/cmm (1.5-3.0); MEAN CELL VOLUME 75.6 fl (81-100); MEAN CORPUSCULAR HEMOGLOBIN 25.9 pg (27.0-31.0); MEAN CORPUSCULAR HGB CONC 34.3 pg (28.0-36.0); MEAN PLATELET VOLUME 7.4 fl; MONOCYTE ABSOLUTE 0.6 Th/cmm (0.3-1.0); NEUTROPHILE ABSOLUTE 2.7 Th/cmm (1.8-8.0); PLATELET COUNT 221 Th/cmm (150-400); RED BLOOD COUNT 5.14 Mil/cmm (3.80-5.20); RED CELL DISTRIBUTION WIDTH 15.9 % (11.5-20.0); WHITE BLOOD COUNT 4.2 Th/cmm (4.8-10.8)
--- NOTE | 2017-05-01 09:59 | Internal Medicine Prog Note ---
Internal Medicine Subjective - Subjective Service Date: 05/01/17 Patient seen and examined:: with staff Patient is:: awake, non-verbal Per staff patient has:: tolerating meds Internal Medicine Objective - Results Result Diagrams: 05/01/17 07:30 05/01/17 07:30 Recent Labs: Laboratory Last Values WBC 4.2 Th/cmm (4.8-10.8) L 05/01/17 07:30 RBC 5.14 Mil/cmm (3.80-5.20) 05/01/17 07:30 Hgb 13.3 gm/dL (12-16) 05/01/17 07:30 Hct 38.8 % (41.0-60) L 05/01/17 07:30 MCV 75.6 fl (81-100) L 05/01/17 07:30 MCH 25.9 pg (27.0-31.0) L 05/01/17 07:30 MCHC Differential 34.3 pg (28.0-36.0) 05/01/17 07:30 RDW 15.9 % (11.5-20.0) 05/01/17 07:30 Plt Count 221 Th/cmm (150-400) 05/01/17 07:30 MPV 7.4 fl 05/01/17 07:30 Neutrophils % 62.0 % (40.0-80.0) 05/01/17 07:30 Lymphocytes % 22.6 % (20.0-50.0) 05/01/17 07:30 Monocytes % 14.2 % (2.0-10.0) H 05/01/17 07:30 Eosinophils % 1.1 % (0.0-5.0) 05/01/17 07:30 Basophils % 0.1 % (0.0-2.0) 05/01/17 07:30 PT 11.4 SECONDS (9.5-11.5) 04/28/17 17:22 INR 1.09 (0.5-1.4) 04/28/17 17:22 PTT (Actin FS) 25.1 SECONDS (26.0-38.0) L 04/28/17 17:22 Sodium 132 mEq/L (136-145) L 05/01/17 07:30 Potassium 3.5 mEq/L (3.5-5.1) 05/01/17 07:30 Chloride 102 mEq/L (98-107) 05/01/17 07:30 Carbon Dioxide 24.4 mEq/L (21.0-31.0) 05/01/17 07:30 Anion Gap 9.1 (7.0-16.0) 05/01/17 07:30 BUN 12 mg/dL (7-25) 05/01/17 07:30 Creatinine 0.6 mg/dL (0.6-1.2) 05/01/17 07:30 Est GFR ( Amer) TNP 05/01/17 07:30 Est GFR (Non-Af Amer) TNP 05/01/17 07:30 BUN/Creatinine Ratio 20.0 05/01/17 07:30 Glucose 146 mg/dL (70-105) H 05/01/17 07:30 POC Glucose 183 MG/DL (70-105) H 04/29/17 05:58 Hemoglobin A1c % 6.5 % (4.0-6.0) H 04/28/17 17:22 Calcium 8.5 mg/dL (8.6-10.3) L 05/01/17 07:30 Magnesium 2.5 mg/dL (1.9-2.7) 05/01/17 07:30 Total Bilirubin 0.8 mg/dL (0.3-1.0) 05/01/17 07:30 Direct Bilirubin 0.29 mg/dL (0.0-0.2) H 04/28/17 17:22 AST 9 U/L (13-39) L 05/01/17 07:30 ALT 18 U/L (7-52) 05/01/17 07:30 Alkaline Phosphatase 76 U/L (34-104) 05/01/17 07:30 C-Reactive Protein 5.1 mg/dL (0.0-0.9) H 04/28/17 17:22 Total Protein 5.6 gm/dL (6.0-8.3) L 05/01/17 07:30 Albumin 3.3 gm/dL (3.7-5.3) L 05/01/17 07:30 Globulin 2.3 gm/dL 05/01/17 07:30 Albumin/Globulin Ratio 1.4 (1.0-1.8) 05/01/17 07:30 Lipase 8 U/L (11-82) L 04/29/17 04:55 Stool Occult Blood POSITIVE (NEGATIVE) H 04/30/17 16:45 - Physical Exam Vitals and I&O: Vital Signs Temp 96.6 F 05/01/17 00:00 Pulse 85 05/01/17 07:58 Resp 18 05/01/17 09:12 BP 114/42 05/01/17 00:00 Pulse Ox 96 05/01/17 07:58 Intake & Output 04/30/17 05/01/17 05/01/17 18:59 06:59 18:59 Intake Total 500 1004 Balance 500 1004 Weight (lbs) 164 lb Intake: Intake, IV Amount 1004 Sodium Chloride 0.9% 1, 1004 000 ml @ 80 mls/hr IV . [id number] [facility] Rx#:[id number] Oral 500 Other: # Voids 4 # Bowel Movements 2 Stool Characteristics Liquid Liquid [place] Brown Active Medications: Current Medications Acetaminophen (Tylenol) 650 mg PO Q4H PRN PRN Reason: Pain Or Fever above 101 Stop: 06/27/17 19:20 Al Hydrox/Mg Hydrox/Simethicone (Maalox) 30 ml PO Q4H PRN PRN Reason: GI DISTRESS Stop: 06/27/17 19:15 Last Admin: 04/30/17 09:20 Dose: 30 ml Albuterol Sulfate (Albuterol 2.5mg/3ml Neb Ud) 2.5 mg HHN Q2HRT PRN PRN Reason: Shortness of Breath or Wheeze Stop: 06/27/17 19:20 Ascorbic Acid (Vitamin C) 500 mg PO DAILY [facility] Stop: 06/28/17 08:59 Last Admin: 04/30/17 09:20 Dose: 500 mg Atorvastatin Calcium (Lipitor) 10 mg PO [facility] PRN Reason: Protocol Stop: 06/27/17 20:59 Last Admin: 04/30/17 21:43 Dose: 10 mg Docusate Sodium (Colace) 100 mg PO DAILY [facility] Stop: 06/28/17 08:59 Last Admin: 04/30/17 09:20 Dose: 100 mg Donepezil HCl (Aricept) 10 mg PO [facility] Stop: 06/28/17 20:59 Last Admin: 04/30/17 21:43 Dose: 10 mg Glucagon (Glucagen) 1 mg IM DAILY PRN PRN Reason: HYPOGLYCEMIA Stop: 06/27/17 19:15 Heparin Sodium (Porcine) (Heparin) 5,000 units SUBQ Q12HR [facility] Stop: 06/28/17 20:59 Last Admin: 04/30/17 21:44 Dose: 5,000 units Sodium Chloride (Nacl 0.9%) 1,000 mls @ 80 mls/hr IV .[id number] [facility] Stop: 06/27/17 19:29 Last Admin: 05/01/17 00:03 Dose: 80 mls/hr Ipratropium [place] (Atrovent Neb 0.5mg/2.5ml) 0.5 mg IH Q2HRT PRN PRN Reason: Shortness of Breath or Wheeze Stop: 06/27/17 19:20 Lorazepam (Ativan) 1 mg PO Q6H PRN; Protocol PRN Reason: Anxiety Stop: 06/27/17 19:15 Losartan Potassium (Cozaar) 25 mg PO DAILY [facility] Stop: 06/28/17 08:59 Last Admin: 04/30/17 09:28 Dose: Not Given Mineral Oil (Mineral Oil 30 Ml) 30 ml PO DAILY PRN PRN Reason: Constipation Stop: 06/29/17 12:31 Miscellaneous (Fluticasone/Salmeterol [Advair 250-50 Diskus]) 1 puff INH BID [facility] Stop: 06/28/17 08:59 Morphine Sulfate (Morphine) 2 mg IVP Q4H PRN PRN Reason: Abdominal Pain Stop: 06/28/17 16:34 Last Admin: 04/30/17 23:53 Dose: 2 mg Multivitamins/Vitamin C (Theragran) 1 tab PO DAILY [facility] Stop: 06/28/17 08:59 Last Admin: 04/30/17 09:20 Dose: 1 tab Mupirocin (Bactroban Oint) 1 appl TP BID [facility] Stop: 05/07/17 16:59 Last Admin: 04/30/17 19:03 Dose: 1 appl Ondansetron HCl (Zofran) 4 mg IV Q8H PRN PRN Reason: Nausea / Vomiting Stop: 06/27/17 19:20 Oxybutynin Chloride (Ditropan) 5 mg PO BID [facility] Stop: 06/28/17 08:59 Last Admin: 04/30/17 17:13 Dose: 5 mg Pantoprazole Sodium (Protonix) 40 mg IVP BID [facility] Stop: 06/28/17 10:59 Last Admin: 04/30/17 17:13 Dose: 40 mg Quetiapine Fumarate (Seroquel) 50 mg PO BID [facility] PRN Reason: Protocol Stop: 06/28/17 10:59 Last Admin: 04/30/17 17:13 Dose: 50 mg Theophylline (Nain-Dur) 400 mg PO HS [facility] Stop: 06/28/17 20:59 Last Admin: 04/30/17 21:44 Dose: 400 mg Zolpidem Tartrate (Ambien) 5 mg PO HS PRN PRN Reason: Insomnia Stop: 06/27/17 19:15 Last Admin: 04/29/17 21:50 Dose: 5 mg General: alert HEENT: NC/AT, PERRLA Neck: Supple Lungs: CTAB Cardiovascular: RRR, Normal S1, Normal S2 Abdomen: soft, non-tender, non-distended, positive bowel sound Neurological: alert - Procedures Procedures: Procedures Procedure Code Date INDIVID PSYCHOTHERAP NEC 94.39 07/05/04 INJECT/INFUSE NEC 99.29 03/18/13 OTHER GROUP THERAPY 94.44 12/18/13 RECREATIONAL THERAPY 93.81 07/05/04 Internal Medicine Assmt/Plan - Assessment Assessment: mrsa nares abdominal pain hyponatremia htn dm2 asthma dementia - Plan Plan: cbc/bmp in am continue current orders Nutritional Asmnt/Malnutr-PDOC - Dietary Evaluation Malnutrition Findings (Please click <Entered> for more info): Nutritional Asmnt/Malnutrition Start: 04/29/17 15: 55 Text: Status: Complete Freq: Document 04/29/17 15:55 LCHENG (Rec: 04/29/17 16:15 LCHENG [email or web address]) Nutritional Asmnt/Malnutrition Patient General Information Nutritional Screening High Risk Consult Diagnosis abd pain/vomiting Pertinent Medical Hx/Surgical Hx embolism and thrombus, DVT, hyperlipidemia Subjective Information Pt seen lying in bed at time of visit, denied N/V today but having stomachach. Observed lunch tray finished about 75%. Food preference provided. Current Diet Order/ Nutrition Support Full liquid Pertinent Medications vit C, colace, theragran, protonix, seroquel, nacl 0.9% Pertinent Labs 04/29 Na 131, Cl 91, BUN 27, Glucose 175, 04/28 A1c 6.5 Nutritional Hx/Data Height 5 ft 2 in Height (Calculated Centimeters) 157.5 Current Weight (lbs) 164 lb Weight (Calculated Kilograms) 74.4 Weight (Calculated Grams) 54604.1 [place] Body Weight 110 Body Mass Index (BMI) 29.9 Weight Status Overweight GI Symptoms GI Symptoms None Last BM no record Difficult in: None Skin Integrity/Comment: intact LEFT HAND FATTY TISSUE AND POSTERIOR THIGH FAT TISSUE, PINKISH BUTTOCKS Estimated Nutritional Goals BEE in Kcals: Adj wt of IBW Calories/Kcals/Kg 25-30 Kcals Calculated 4330-1762 Protein: Adj wt of IBW Protein g/k-1.2 Protein Calculated 56-67 Fluid: ml 1400-1680ml (1ml/kcal) Nutritional Problem 1. Problem Problem inadequate energy intake Etiology abd pain, N/V Signs/Symptoms: pt need for full liquid diet Malnutrition Alert Protein-Calorie Malnutrition N/A Is there a minimum of two criteria No selected? Query Text:Check all the applicable criteria. A minimum of two criteria are recommended for diagnosis of either severe or non-severe malnutrition. Intervention/Recommendation Comments 1. Continue with current diet as ordered. Diet profile updated. 2. Monitor PO intake, wt, labs and skin integrity 3. F/U as hig risk in 2-3 days , 05/01-05/02 Expected Outcomes/Goals Expected Outcomes/Goals 1. PO intake to meet at least 75% of nutritional needs. 2. Wt stability, skin to remain intact, labs to approach WNL.
[2017-05-01] MEDS: Multivitamin Tab PO SCH (10:24)
--- NOTE | 2017-05-01 11:55 | Diagnostic Imaging Report ---
Nuclear medicine HIDA scan HISTORY: Prominent gallbladder, assess for possible cholecystitis COMPARISON: CT abdomen and pelvis on 04/30/2017 ultrasound abdomen on 04/29/2017 Technique/procedure: 5.2 mCi of technetium labeled Choletec was administered intravenously and multiple scintigraphic images were obtained for up to 1 hour. FINDINGS: Exam is limited due to technical factors. Prompt hepatic uptake is demonstrated. There is suggestion of faint gallbladder uptake at 15 minutes. Small bowel uptake is also seen in within the first hour. IMPRESSION: Limited exam. There is Suggestion of faint uptake in the region of the gallbladder. Suspicion for gallbladder disease/cholecystitis is considered less likely, however, correlation should be made with patient's clinical findings.
--- NOTE | 2017-05-01 13:15 | GI Progress Note ---
Subjective - Review of Systems Subjective: FEELS SAME WITH ABD PAIN AND DISTENSION Objective - Results Result Diagrams: 05/01/17 07:30 05/01/17 07:30 Recent Labs: Laboratory Last Values WBC 4.2 Th/cmm (4.8-10.8) L 05/01/17 07:30 RBC 5.14 Mil/cmm (3.80-5.20) 05/01/17 07:30 Hgb 13.3 gm/dL (12-16) 05/01/17 07:30 Hct 38.8 % (41.0-60) L 05/01/17 07:30 MCV 75.6 fl (81-100) L 05/01/17 07:30 MCH 25.9 pg (27.0-31.0) L 05/01/17 07:30 MCHC Differential 34.3 pg (28.0-36.0) 05/01/17 07:30 RDW 15.9 % (11.5-20.0) 05/01/17 07:30 Plt Count 221 Th/cmm (150-400) 05/01/17 07:30 MPV 7.4 fl 05/01/17 07:30 Neutrophils % 62.0 % (40.0-80.0) 05/01/17 07:30 Lymphocytes % 22.6 % (20.0-50.0) 05/01/17 07:30 Monocytes % 14.2 % (2.0-10.0) H 05/01/17 07:30 Eosinophils % 1.1 % (0.0-5.0) 05/01/17 07:30 Basophils % 0.1 % (0.0-2.0) 05/01/17 07:30 PT 11.4 SECONDS (9.5-11.5) 04/28/17 17:22 INR 1.09 (0.5-1.4) 04/28/17 17:22 PTT (Actin FS) 25.1 SECONDS (26.0-38.0) L 04/28/17 17:22 Sodium 132 mEq/L (136-145) L 05/01/17 07:30 Potassium 3.5 mEq/L (3.5-5.1) 05/01/17 07:30 Chloride 102 mEq/L (98-107) 05/01/17 07:30 Carbon Dioxide 24.4 mEq/L (21.0-31.0) 05/01/17 07:30 Anion Gap 9.1 (7.0-16.0) 05/01/17 07:30 BUN 12 mg/dL (7-25) 05/01/17 07:30 Creatinine 0.6 mg/dL (0.6-1.2) 05/01/17 07:30 Est GFR ( Amer) TNP 05/01/17 07:30 Est GFR (Non-Af Amer) TNP 05/01/17 07:30 BUN/Creatinine Ratio 20.0 05/01/17 07:30 Glucose 146 mg/dL (70-105) H 05/01/17 07:30 POC Glucose 183 MG/DL (70-105) H 04/29/17 05:58 Hemoglobin A1c % 6.5 % (4.0-6.0) H 04/28/17 17:22 Calcium 8.5 mg/dL (8.6-10.3) L 05/01/17 07:30 Magnesium 2.5 mg/dL (1.9-2.7) 05/01/17 07:30 Total Bilirubin 0.8 mg/dL (0.3-1.0) 05/01/17 07:30 Direct Bilirubin 0.29 mg/dL (0.0-0.2) H 04/28/17 17:22 AST 9 U/L (13-39) L 05/01/17 07:30 ALT 18 U/L (7-52) 05/01/17 07:30 Alkaline Phosphatase 76 U/L (34-104) 05/01/17 07:30 C-Reactive Protein 5.1 mg/dL (0.0-0.9) H 04/28/17 17:22 Total Protein 5.6 gm/dL (6.0-8.3) L 05/01/17 07:30 Albumin 3.3 gm/dL (3.7-5.3) L 05/01/17 07:30 Globulin 2.3 gm/dL 05/01/17 07:30 Albumin/Globulin Ratio 1.4 (1.0-1.8) 05/01/17 07:30 Lipase 8 U/L (11-82) L 04/29/17 04:55 Stool Occult Blood POSITIVE (NEGATIVE) H 04/30/17 16:45 - Physical Exam Vitals and I&O: Vital Signs Temp 96.6 F 05/01/17 00:00 Pulse 85 05/01/17 07:58 Resp 18 05/01/17 09:12 BP 114/42 05/01/17 00:00 Pulse Ox 96 05/01/17 07:58 Intake & Output 04/30/17 05/01/17 05/01/17 18:59 06:59 18:59 Intake Total 500 1004 Balance 500 1004 Weight (lbs) 74.389 kg Intake: Intake, IV Amount 1004 Sodium Chloride 0.9% 1, 1004 000 ml @ 80 mls/hr IV . [id number] [facility] Rx#:[id number] Oral 500 Other: # Voids 4 # Bowel Movements 2 Stool Characteristics Liquid Liquid Brown Brown Active Medications: Current Medications Acetaminophen (Tylenol) 650 mg PO Q4H PRN PRN Reason: Pain Or Fever above 101 Stop: 06/27/17 19:20 Al Hydrox/Mg Hydrox/Simethicone (Maalox) 30 ml PO Q4H PRN PRN Reason: GI DISTRESS Stop: 06/27/17 19:15 Last Admin: 04/30/17 09:20 Dose: 30 ml Albuterol Sulfate (Albuterol 2.5mg/3ml Neb Ud) 2.5 mg HHN Q2HRT PRN PRN Reason: Shortness of Breath or Wheeze Stop: 06/27/17 19:20 Ascorbic Acid (Vitamin C) 500 mg PO DAILY [facility] Stop: 06/28/17 08:59 Last Admin: 05/01/17 10:24 Dose: Not Given Atorvastatin Calcium (Lipitor) 10 mg PO [facility] PRN Reason: Protocol Stop: 06/27/17 20:59 Last Admin: 04/30/17 21:43 Dose: 10 mg Docusate Sodium (Colace) 100 mg PO DAILY [facility] Stop: 06/28/17 08:59 Last Admin: 05/01/17 10:24 Dose: Not Given Donepezil HCl (Aricept) 10 mg PO HS [facility] Stop: 06/28/17 20:59 Last Admin: 04/30/17 21:43 Dose: 10 mg Glucagon (Glucagen) 1 mg IM DAILY PRN PRN Reason: HYPOGLYCEMIA Stop: 06/27/17 19:15 Heparin Sodium (Porcine) (Heparin) 5,000 units SUBQ Q12HR [facility] Stop: 06/28/17 20:59 Last Admin: 05/01/17 10:23 Dose: Not Given Sodium Chloride (Nacl 0.9%) 1,000 mls @ 80 mls/hr IV .[id number] [facility] Stop: 06/27/17 19:29 Last Admin: 05/01/17 00:03 Dose: 80 mls/hr Ipratropium [place] (Atrovent Neb 0.5mg/2.5ml) 0.5 mg IH Q2HRT PRN PRN Reason: Shortness of Breath or Wheeze Stop: 06/27/17 19:20 Lorazepam (Ativan) 1 mg PO Q6H PRN; Protocol PRN Reason: Anxiety Stop: 06/27/17 19:15 Losartan Potassium (Cozaar) 25 mg PO DAILY [facility] Stop: 06/28/17 08:59 Last Admin: 04/30/17 09:28 Dose: Not Given Mineral Oil (Mineral Oil 30 Ml) 30 ml PO DAILY PRN PRN Reason: Constipation Stop: 06/29/17 12:31 Miscellaneous (Fluticasone/Salmeterol [Advair 250-50 Diskus]) 1 puff INH BID [facility] Stop: 06/28/17 08:59 Morphine Sulfate (Morphine) 2 mg IVP Q4H PRN PRN Reason: Abdominal Pain Stop: 06/28/17 16:34 Last Admin: 04/30/17 23:53 Dose: 2 mg Multivitamins/Vitamin C (Theragran) 1 tab PO DAILY [facility] Stop: 06/28/17 08:59 Last Admin: 05/01/17 10:24 Dose: Not Given Mupirocin (Bactroban Oint) 1 appl TP BID [facility] Stop: 05/07/17 16:59 Last Admin: 04/30/17 19:03 Dose: 1 appl Ondansetron HCl (Zofran) 4 mg IV Q8H PRN PRN Reason: Nausea / Vomiting Stop: 06/27/17 19:20 Oxybutynin Chloride (Ditropan) 5 mg PO BID [facility] Stop: 06/28/17 08:59 Last Admin: 05/01/17 10:24 Dose: Not Given Pantoprazole Sodium (Protonix) 40 mg IVP BID [facility] Stop: 06/28/17 10:59 Last Admin: 05/01/17 10:24 Dose: Not Given Quetiapine Fumarate (Seroquel) 50 mg PO BID [facility] PRN Reason: Protocol Stop: 06/28/17 10:59 Last Admin: 05/01/17 10:24 Dose: Not Given Theophylline (Nain-Dur) 400 mg PO HS [facility] Stop: 06/28/17 20:59 Last Admin: 04/30/17 21:44 Dose: 400 mg Zolpidem Tartrate (Ambien) 5 mg PO HS PRN PRN Reason: Insomnia Stop: 06/27/17 19:15 Last Admin: 04/29/17 21:50 Dose: 5 mg - Procedures Procedures: Procedures Procedure Code Date INDIVID PSYCHOTHERAP NEC 94.39 07/05/04 INJECT/INFUSE NEC 99.29 03/18/13 OTHER GROUP THERAPY 94.44 12/18/13 RECREATIONAL THERAPY 93.81 07/05/04 Assessment/Plan - Problem List Patient Problems: All Active Problems ABDOMINAL PAIN WITH N/V (Acute) - Assessment Assessment: 71 YO FEMALE WITH PRIOR ABD SURGERIES WITH ABD DISTENSION CT SUGGEST SBO AND SHOWED [place] LFTS NORMAL 1.AWAIT SBFT 2.SURGERY INPUT 3.NGT IF WORSEN 4.CONSIDER HIDA
--- NOTE | 2017-05-01 16:19 | Consultation ---
DATE OF CONSULTATION: 05/01/2017 SURGICAL CONSULTATION REFERRING PHYSICIAN: Dr. Ch. REASON FOR CONSULTATION: Abdominal pain. HISTORY OF PRESENT ILLNESS: This 71-year-old female from [facility] with a 1-day history of abdominal pain prior to admission. The patient apparently had had no bowel movement for 3 days prior and had nausea and vomiting on the day of admission. PAST MEDICAL HISTORY: Includes hypertension, diabetes, asthma, dyslipidemia, dementia and chronic anemia. LABORATORY STUDIES: On admission, the WBC slightly high at 11,100, hemoglobin was 17,200, no bands. Chemistry: Low chloride, glucose 212, bilirubin is elevated to 1.5 with also elevation of the alkaline phosphatase. DIAGNOSTIC DATA: She underwent studies including a CT scan of the abdomen, which showed distended loops of small bowel concerning for small-bowel obstruction. She has a history of colon surgery about 40 years ago if the patient is to be believed for what she said is bowel resection and hysterectomy. Ultrasound of the abdomen did not show any stones in the gallbladder. HIDA scan is indeterminate. PHYSICAL EXAMINATION: The patient is obese. Previous scar in the right paramedian location. There is minimal tenderness in the abdomen. PLAN: Small bowel series is ordered. JOB# [id number]
[2017-05-01] MEDS: Atorvastatin Calcium 10 MG TAB PO SCH (21:15)
[2017-05-01] MEDS: Theophylline 100 mg ER Tab PO SCH (21:15)
[2017-05-02] MEDS: Sodium Chloride 0.9% 1,000 ML IV SCH ×2 (06:48→18:50)
--- NOTE | 2017-05-02 08:38 | General Progress Note ---
Subjective - Review of Systems Service Date: 05/02/17 Events since last encounter: denies pain wants to eat SBO series no obstruction full liquids Objective - Results Result Diagrams: 05/01/17 07:30 05/01/17 07:30 Recent Labs: Laboratory Last Values WBC 4.2 Th/cmm (4.8-10.8) L 05/01/17 07:30 RBC 5.14 Mil/cmm (3.80-5.20) 05/01/17 07:30 Hgb 13.3 gm/dL (12-16) 05/01/17 07:30 Hct 38.8 % (41.0-60) L 05/01/17 07:30 MCV 75.6 fl (81-100) L 05/01/17 07:30 MCH 25.9 pg (27.0-31.0) L 05/01/17 07:30 MCHC Differential 34.3 pg (28.0-36.0) 05/01/17 07:30 RDW 15.9 % (11.5-20.0) 05/01/17 07:30 Plt Count 221 Th/cmm (150-400) 05/01/17 07:30 MPV 7.4 fl 05/01/17 07:30 Neutrophils % 62.0 % (40.0-80.0) 05/01/17 07:30 Lymphocytes % 22.6 % (20.0-50.0) 05/01/17 07:30 Monocytes % 14.2 % (2.0-10.0) H 05/01/17 07:30 Eosinophils % 1.1 % (0.0-5.0) 05/01/17 07:30 Basophils % 0.1 % (0.0-2.0) 05/01/17 07:30 PT 11.4 SECONDS (9.5-11.5) 04/28/17 17:22 INR 1.09 (0.5-1.4) 04/28/17 17:22 PTT (Actin FS) 25.1 SECONDS (26.0-38.0) L 04/28/17 17:22 Sodium 132 mEq/L (136-145) L 05/01/17 07:30 Potassium 3.5 mEq/L (3.5-5.1) 05/01/17 07:30 Chloride 102 mEq/L (98-107) 05/01/17 07:30 Carbon Dioxide 24.4 mEq/L (21.0-31.0) 05/01/17 07:30 Anion Gap 9.1 (7.0-16.0) 05/01/17 07:30 BUN 12 mg/dL (7-25) 05/01/17 07:30 Creatinine 0.6 mg/dL (0.6-1.2) 05/01/17 07:30 Est GFR ( Amer) TNP 05/01/17 07:30 Est GFR (Non-Af Amer) TNP 05/01/17 07:30 BUN/Creatinine Ratio 20.0 05/01/17 07:30 Glucose 146 mg/dL (70-105) H 05/01/17 07:30 POC Glucose 183 MG/DL (70-105) H 04/29/17 05:58 Hemoglobin A1c % 6.5 % (4.0-6.0) H 04/28/17 17:22 Calcium 8.5 mg/dL (8.6-10.3) L 05/01/17 07:30 Magnesium 2.5 mg/dL (1.9-2.7) 05/01/17 07:30 Total Bilirubin 0.8 mg/dL (0.3-1.0) 05/01/17 07:30 Direct Bilirubin 0.29 mg/dL (0.0-0.2) H 04/28/17 17:22 AST 9 U/L (13-39) L 05/01/17 07:30 ALT 18 U/L (7-52) 05/01/17 07:30 Alkaline Phosphatase 76 U/L (34-104) 05/01/17 07:30 C-Reactive Protein 5.1 mg/dL (0.0-0.9) H 04/28/17 17:22 Total Protein 5.6 gm/dL (6.0-8.3) L 05/01/17 07:30 Albumin 3.3 gm/dL (3.7-5.3) L 05/01/17 07:30 Globulin 2.3 gm/dL 05/01/17 07:30 Albumin/Globulin Ratio 1.4 (1.0-1.8) 05/01/17 07:30 Lipase 8 U/L (11-82) L 04/29/17 04:55 Stool Occult Blood POSITIVE (NEGATIVE) H 04/30/17 16:45 - Physical Exam Vitals and I&O: Vital Signs Temp 97.2 F 05/02/17 04:00 Pulse 89 05/02/17 08:10 Resp 18 05/02/17 08:10 BP 132/71 05/02/17 04:00 Pulse Ox 96 05/02/17 08:10 Intake & Output 05/01/17 05/02/17 05/02/17 18:59 06:59 18:59 Intake Total 1250 Output Total 2 Balance 1250 -2 Weight (lbs) 74.389 kg 74.389 kg Intake: Intake, IV Amount 1000 Sodium Chloride 0.9% 1, 1000 000 ml @ 80 mls/hr IV . [id number] [facility] Rx#:[id number] Oral 250 Output: Emesis 2 Other: # Voids 3 4 # Bowel Movements 1 0 Active Medications: Current Medications Acetaminophen (Tylenol) 650 mg PO Q4H PRN PRN Reason: Pain Or Fever above 101 Stop: 06/27/17 19:20 Al Hydrox/Mg Hydrox/Simethicone (Maalox) 30 ml PO Q4H PRN PRN Reason: GI DISTRESS Stop: 06/27/17 19:15 Last Admin: 04/30/17 09:20 Dose: 30 ml Albuterol Sulfate (Albuterol 2.5mg/3ml Neb Ud) 2.5 mg HHN Q2HRT PRN PRN Reason: Shortness of Breath or Wheeze Stop: 06/27/17 19:20 Ascorbic Acid (Vitamin C) 500 mg PO DAILY [facility] Stop: 06/28/17 08:59 Last Admin: 05/01/17 10:24 Dose: Not Given Atorvastatin Calcium (Lipitor) 10 mg PO [facility] PRN Reason: Protocol Stop: 06/27/17 20:59 Last Admin: 05/01/17 21:15 Dose: Not Given Docusate Sodium (Colace) 100 mg PO DAILY [facility] Stop: 06/28/17 08:59 Last Admin: 05/01/17 10:24 Dose: Not Given Donepezil HCl (Aricept) 10 mg PO [facility] Stop: 06/28/17 20:59 Last Admin: 05/01/17 21:15 Dose: Not Given Glucagon (Glucagen) 1 mg IM DAILY PRN PRN Reason: HYPOGLYCEMIA Stop: 06/27/17 19:15 Heparin Sodium (Porcine) (Heparin) 5,000 units SUBQ Q12HR [facility] Stop: 06/28/17 20:59 Last Admin: 05/01/17 21:16 Dose: 5,000 units Sodium Chloride (Nacl 0.9%) 1,000 mls @ 80 mls/hr IV .[id number] [facility] Stop: 06/27/17 19:29 Last Admin: 05/02/17 06:48 Dose: 80 mls/hr Ipratropium [place] (Atrovent Neb 0.5mg/2.5ml) 0.5 mg IH Q2HRT PRN PRN Reason: Shortness of Breath or Wheeze Stop: 06/27/17 19:20 Lorazepam (Ativan) 1 mg PO Q6H PRN; Protocol PRN Reason: Anxiety Stop: 06/27/17 19:15 Losartan Potassium (Cozaar) 25 mg PO DAILY [facility] Stop: 06/28/17 08:59 Last Admin: 05/01/17 15:54 Dose: Not Given Mineral Oil (Mineral Oil 30 Ml) 30 ml PO DAILY PRN PRN Reason: Constipation Stop: 06/29/17 12:31 Morphine Sulfate (Morphine) 2 mg IVP Q4H PRN PRN Reason: Abdominal Pain Stop: 06/28/17 16:34 Last Admin: 04/30/17 23:53 Dose: 2 mg Multivitamins/Vitamin C (Theragran) 1 tab PO DAILY [facility] Stop: 06/28/17 08:59 Last Admin: 05/01/17 10:24 Dose: Not Given Mupirocin (Bactroban Oint) 1 appl TP BID [facility] Stop: 05/07/17 16:59 Last Admin: 05/01/17 16:24 Dose: Not Given Ondansetron HCl (Zofran) 4 mg IV Q8H PRN PRN Reason: Nausea / Vomiting Stop: 06/27/17 19:20 Last Admin: 05/02/17 01:03 Dose: 4 mg Oxybutynin Chloride (Ditropan) 5 mg PO BID [facility] Stop: 06/28/17 08:59 Last Admin: 05/01/17 16:29 Dose: 5 mg Pantoprazole Sodium (Protonix) 40 mg IVP BID [facility] Stop: 06/28/17 10:59 Last Admin: 05/01/17 16:29 Dose: 40 mg Quetiapine Fumarate (Seroquel) 50 mg PO BID [facility] PRN Reason: Protocol Stop: 06/28/17 10:59 Last Admin: 05/01/17 16:29 Dose: 50 mg Theophylline (Nain-Dur) 400 mg PO HS [facility] Stop: 06/28/17 20:59 Last Admin: 05/01/17 21:15 Dose: Not Given Zolpidem Tartrate (Ambien) 5 mg PO HS PRN PRN Reason: Insomnia Stop: 06/27/17 19:15 Last Admin: 04/29/17 21:50 Dose: 5 mg - Procedures Procedures: Procedures Procedure Code Date INDIVID PSYCHOTHERAP NEC 94.39 07/05/04 INJECT/INFUSE NEC 99.29 03/18/13 OTHER GROUP THERAPY 94.44 12/18/13 RECREATIONAL THERAPY 93.81 07/05/04 Assessment/Plan - Problem List Patient Problems: All Active Problems ABDOMINAL PAIN WITH N/V (Acute) Nutritional Asmnt/Malnutr-PDOC - Dietary Evaluation Malnutrition Findings (Please click <Entered> for more info): Nutritional Asmnt/Malnutrition Start: 04/29/17 15: 55 Text: Status: Complete Freq: Document 04/29/17 15:55 LCHENG (Rec: 04/29/17 16:15 [email or web address] [id number]) Nutritional Asmnt/Malnutrition Patient General Information Nutritional Screening High Risk Consult Diagnosis abd pain/vomiting Pertinent Medical Hx/Surgical Hx embolism and thrombus, DVT, hyperlipidemia Subjective Information Pt seen lying in bed at time of visit, denied N/V today but having stomachach. Observed lunch tray finished about 75%. Food preference provided. Current Diet Order/ Nutrition Support Full liquid Pertinent Medications vit C, colace, theragran, protonix, seroquel, nacl 0.9% Pertinent Labs 04/29 Na 131, Cl 91, BUN 27, Glucose 175, 04/28 A1c 6.5 Nutritional Hx/Data Height 1.57 m Height (Calculated Centimeters) 157.5 Current Weight (lbs) 74.389 kg Weight (Calculated Kilograms) 74.4 Weight (Calculated Grams) 63758.1 [place] Body Weight 110 Body Mass Index (BMI) 29.9 Weight Status Overweight GI Symptoms GI Symptoms None Last BM no record Difficult in: None Skin Integrity/Comment: intact LEFT HAND FATTY TISSUE AND POSTERIOR THIGH FAT TISSUE, PINKISH BUTTOCKS Estimated Nutritional Goals BEE in Kcals: Adj wt of IBW Calories/Kcals/Kg 25-30 Kcals Calculated 6044-0970 Protein: Adj wt of IBW Protein g/k-1.2 Protein Calculated 56-67 Fluid: ml 1400-1680ml (1ml/kcal) Nutritional Problem 1. Problem Problem inadequate energy intake Etiology abd pain, N/V Signs/Symptoms: pt need for full liquid diet Malnutrition Alert Protein-Calorie Malnutrition N/A Is there a minimum of two criteria No selected? Query Text:Check all the applicable criteria. A minimum of two criteria are recommended for diagnosis of either severe or non-severe malnutrition. Intervention/Recommendation Comments 1. Continue with current diet as ordered. Diet profile updated. 2. Monitor PO intake, wt, labs and skin integrity 3. F/U as hig risk in 2-3 days , 05/01-05/02 Expected Outcomes/Goals Expected Outcomes/Goals 1. PO intake to meet at least 75% of nutritional needs. 2. Wt stability, skin to remain intact, labs to approach WNL.
--- NOTE | 2017-05-02 09:48 | Diagnostic Imaging Report ---
Small bowel follow-through HISTORY: Abdominal distention, pain The preliminary mandarin teacher radiograph demonstrates several loops of mildly dilated small bowel along with nondilated large bowel. There is delayed transit of radiopaque contrast from the stomach into the small bowel. Initial radiographs demonstrate mild dilatation of the small bowel. There is delayed transit of contrast to the colon which appears to exhibit a normal caliber. Changes associated with a partial small bowel obstruction cannot be excluded. IMPRESSION: 1. Findings as described above. A partial small bowel obstruction cannot be excluded. Clinical correlation is needed.
[2017-05-02 11:37] LABS: % BASOPHILS 0.4 % (0.0-2.0); % EOSINOPHILS 2.1 % (0.0-5.0); % LYMPHOCYTES 19.8 % (20.0-50.0); % MONOCYTES 9.9 % (2.0-10.0); % NEUTROPHILS 67.8 % (40.0-80.0); EOSINOPHILE ABSOLUTE 0.1 Th/cmm (0.1-0.4); HEMATOCRIT 38.3 % (41.0-60); HEMOGLOBIN 13.3 gm/dL (12-16); MEAN CELL VOLUME 74.9 fl (81-100); MEAN CORPUSCULAR HEMOGLOBIN 25.9 pg (27.0-31.0); MEAN CORPUSCULAR HGB CONC 34.6 pg (28.0-36.0); MEAN PLATELET VOLUME 7.2 fl; MONOCYTE ABSOLUTE 0.5 Th/cmm (0.3-1.0); NEUTROPHILE ABSOLUTE 3.3 Th/cmm (1.8-8.0); PLATELET COUNT 239 Th/cmm (150-400); RED BLOOD COUNT 5.11 Mil/cmm (3.80-5.20); RED CELL DISTRIBUTION WIDTH 15.2 % (11.5-20.0); WHITE BLOOD COUNT 4.9 Th/cmm (4.8-10.8)
[2017-05-02 11:48] LABS: ANION GAP 10.6 (7.0-16.0); BUN - UREA NITROGEN 16 mg/dL (7-25); CALCIUM SERUM 8.7 mg/dL (8.6-10.3); CHLORIDE 105 mEq/L (98-107); CREATININE - SERUM 0.6 mg/dL (0.6-1.2); GLUCOSE 146 mg/dL (70-105); POTASSIUM SERUM 3.6 mEq/L (3.5-5.1); SODIUM SERUM 136 mEq/L (136-145)
--- NOTE | 2017-05-02 14:13 | Internal Medicine Prog Note ---
Internal Medicine Subjective - Subjective Service Date: 05/02/17 Patient is:: awake, non-verbal Per staff patient has:: tolerating meds Internal Medicine Objective - Results Result Diagrams: 05/02/17 11:21 05/02/17 11:21 Recent Labs: Laboratory Last Values WBC 4.9 Th/cmm (4.8-10.8) 05/02/17 11:21 RBC 5.11 Mil/cmm (3.80-5.20) 05/02/17 11:21 Hgb 13.3 gm/dL (12-16) 05/02/17 11:21 Hct 38.3 % (41.0-60) L 05/02/17 11:21 MCV 74.9 fl (81-100) L 05/02/17 11:21 MCH 25.9 pg (27.0-31.0) L 05/02/17 11:21 MCHC Differential 34.6 pg (28.0-36.0) 05/02/17 11:21 RDW 15.2 % (11.5-20.0) 05/02/17 11:21 Plt Count 239 Th/cmm (150-400) 05/02/17 11:21 MPV 7.2 fl 05/02/17 11:21 Neutrophils % 67.8 % (40.0-80.0) 05/02/17 11:21 Lymphocytes % 19.8 % (20.0-50.0) L 05/02/17 11:21 Monocytes % 9.9 % (2.0-10.0) 05/02/17 11:21 Eosinophils % 2.1 % (0.0-5.0) 05/02/17 11:21 Basophils % 0.4 % (0.0-2.0) 05/02/17 11:21 PT 11.4 SECONDS (9.5-11.5) 04/28/17 17:22 INR 1.09 (0.5-1.4) 04/28/17 17: PTT (Actin FS) 25.1 SECONDS (26.0-38.0) L 04/28/17 17:22 Sodium 136 mEq/L (136-145) 05/02/17 11:21 Potassium 3.6 mEq/L (3.5-5.1) 05/02/17 11:21 Chloride 105 mEq/L (98-107) 05/02/17 11:21 Carbon Dioxide 24.0 mEq/L (21.0-31.0) 05/02/17 11:21 Anion Gap 10.6 (7.0-16.0) 05/02/17 11:21 BUN 16 mg/dL (7-25) 05/02/17 11:21 Creatinine 0.6 mg/dL (0.6-1.2) 05/02/17 11:21 Est GFR ( Amer) TNP 05/02/17 11:21 Est GFR (Non-Af Amer) TNP 05/02/17 11:21 BUN/Creatinine Ratio 26.7 05/02/17 11:21 Glucose 146 mg/dL (70-105) H 05/02/17 11:21 POC Glucose 183 MG/DL (70-105) H 04/29/17 05:58 Hemoglobin A1c % 6.5 % (4.0-6.0) H 04/28/17 17:22 Calcium 8.7 mg/dL (8.6-10.3) 05/02/17 11:21 Magnesium 2.5 mg/dL (1.9-2.7) 05/01/17 07:30 Total Bilirubin 0.8 mg/dL (0.3-1.0) 05/01/17 07:30 Direct Bilirubin 0.29 mg/dL (0.0-0.2) H 04/28/17 17:22 AST 9 U/L (13-39) L 05/01/17 07:30 ALT 18 U/L (7-52) 05/01/17 07:30 Alkaline Phosphatase 76 U/L (34-104) 05/01/17 07:30 C-Reactive Protein 5.1 mg/dL (0.0-0.9) H 04/28/17 17:22 Total Protein 5.6 gm/dL (6.0-8.3) L 05/01/17 07:30 Albumin 3.3 gm/dL (3.7-5.3) L 05/01/17 07:30 Globulin 2.3 gm/dL 05/01/17 07:30 Albumin/Globulin Ratio 1.4 (1.0-1.8) 05/01/17 07:30 Lipase 8 U/L (11-82) L 04/29/17 04:55 Stool Occult Blood POSITIVE (NEGATIVE) H 04/30/17 16:45 - Physical Exam Vitals and I&O: Vital Signs Temp 96.1 F 05/02/17 08:00 Pulse 89 05/02/17 08:10 Resp 18 05/02/17 08:10 BP 147/61 05/02/17 08:00 Pulse Ox 96 05/02/17 08:10 Intake & Output 05/01/17 05/02/17 05/02/17 18:59 06:59 18:59 Intake Total 1250 Output Total 2 Balance 1250 -2 Weight (lbs) 164 lb 164 lb Intake: Intake, IV Amount 1000 Sodium Chloride 0.9% 1, 1000 000 ml @ 80 mls/hr IV . [id number] [facility] Rx#:[id number] Oral 250 Output: Emesis 2 Other: # Voids 3 4 # Bowel Movements 1 0 Active Medications: Current Medications Acetaminophen (Tylenol) 650 mg PO Q4H PRN PRN Reason: Pain Or Fever above 101 Stop: 06/27/17 19:20 Al Hydrox/Mg Hydrox/Simethicone (Maalox) 30 ml PO Q4H PRN PRN Reason: GI DISTRESS Stop: 06/27/17 19:15 Last Admin: 04/30/17 09:20 Dose: 30 ml Albuterol Sulfate (Albuterol 2.5mg/3ml Neb Ud) 2.5 mg HHN Q2HRT PRN PRN Reason: Shortness of Breath or Wheeze Stop: 06/27/17 19:20 Ascorbic Acid (Vitamin C) 500 mg PO DAILY [facility] Stop: 06/28/17 08:59 Last Admin: 05/01/17 10:24 Dose: Not Given Atorvastatin Calcium (Lipitor) 10 mg PO HS [facility] PRN Reason: Protocol Stop: 06/27/17 20:59 Last Admin: 05/01/17 21:15 Dose: Not Given Docusate Sodium (Colace) 100 mg PO DAILY [facility] Stop: 06/28/17 08:59 Last Admin: 05/01/17 10:24 Dose: Not Given Donepezil HCl (Aricept) 10 mg PO HS [facility] Stop: 06/28/17 20:59 Last Admin: 05/01/17 21:15 Dose: Not Given Glucagon (Glucagen) 1 mg IM DAILY PRN PRN Reason: HYPOGLYCEMIA Stop: 06/27/17 19:15 Heparin Sodium (Porcine) (Heparin) 5,000 units SUBQ Q12HR [facility] Stop: 06/28/17 20:59 Last Admin: 05/01/17 21:16 Dose: 5,000 units Sodium Chloride (Nacl 0.9%) 1,000 mls @ 50 mls/hr IV .Q20H [facility] Stop: 07/01/17 12:06 Ipratropium [place] (Atrovent Neb 0.5mg/2.5ml) 0.5 mg IH Q2HRT PRN PRN Reason: Shortness of Breath or Wheeze Stop: 06/27/17 19:20 Lorazepam (Ativan) 1 mg PO Q6H PRN; Protocol PRN Reason: Anxiety Stop: 06/27/17 19:15 Losartan Potassium (Cozaar) 25 mg PO DAILY [facility] Stop: 06/28/17 08:59 Last Admin: 05/01/17 15:54 Dose: Not Given Mineral Oil (Mineral Oil 30 Ml) 30 ml PO DAILY PRN PRN Reason: Constipation Stop: 06/29/17 12:31 Morphine Sulfate (Morphine) 2 mg IVP Q4H PRN PRN Reason: Abdominal Pain Stop: 06/28/17 16:34 Last Admin: 04/30/17 23:53 Dose: 2 mg Multivitamins/Vitamin C (Theragran) 1 tab PO DAILY [facility] Stop: 06/28/17 08:59 Last Admin: 05/01/17 10:24 Dose: Not Given Mupirocin (Bactroban Oint) 1 appl TP BID [facility] Stop: 05/07/17 16:59 Last Admin: 05/01/17 16:24 Dose: Not Given Ondansetron HCl (Zofran) 4 mg IV Q8H PRN PRN Reason: Nausea / Vomiting Stop: 06/27/17 19:20 Last Admin: 05/02/17 01:03 Dose: 4 mg Oxybutynin Chloride (Ditropan) 5 mg PO BID [facility] Stop: 06/28/17 08:59 Last Admin: 05/01/17 16:29 Dose: 5 mg Pantoprazole Sodium (Protonix) 40 mg IVP BID [facility] Stop: 06/28/17 10:59 Last Admin: 05/01/17 16:29 Dose: 40 mg Quetiapine Fumarate (Seroquel) 50 mg PO BID [facility] PRN Reason: Protocol Stop: 06/28/17 10:59 Last Admin: 05/01/17 16:29 Dose: 50 mg Theophylline (Nain-Dur) 400 mg PO HS [facility] Stop: 06/28/17 20:59 Last Admin: 05/01/17 21:15 Dose: Not Given Zolpidem Tartrate (Ambien) 5 mg PO HS PRN PRN Reason: Insomnia Stop: 06/27/17 19:15 Last Admin: 04/29/17 21:50 Dose: 5 mg General: alert HEENT: NC/AT, PERRLA Neck: Supple Lungs: CTAB Cardiovascular: RRR, Normal S1, Normal S2 Abdomen: soft, non-tender, non-distended, positive bowel sound Neurological: alert - Procedures Procedures: Procedures Procedure Code Date INDIVID PSYCHOTHERAP NEC 94.39 07/05/04 INJECT/INFUSE NEC 99.29 03/18/13 OTHER GROUP THERAPY 94.44 12/18/13 RECREATIONAL THERAPY 93.81 07/05/04 Internal Medicine Assmt/Plan - Assessment Assessment: mrsa nares abdominal pain hyponatremia htn dm2 asthma dementia - Plan Plan: cbc/bmp in am continue current orders Nutritional Asmnt/Malnutr-PDOC - Dietary Evaluation Malnutrition Findings (Please click <Entered> for more info): Nutritional Asmnt/Malnutrition Start: 04/29/17 15: 55 Text: Status: Complete Freq: Document 04/29/17 15:55 ANNA (Rec: 04/29/17 16:15 [place] [id number]) Nutritional Asmnt/Malnutrition Patient General Information Nutritional Screening High Risk Consult Diagnosis abd pain/vomiting Pertinent Medical Hx/Surgical Hx embolism and thrombus, DVT, hyperlipidemia Subjective Information Pt seen lying in bed at time of visit, denied N/V today but having stomachach. Observed lunch tray finished about 75%. Food preference provided. Current Diet Order/ Nutrition Support Full liquid Pertinent Medications vit C, colace, theragran, protonix, seroquel, nacl 0.9% Pertinent Labs 04/29 Na 131, Cl 91, BUN 27, Glucose 175, 04/28 A1c 6.5 Nutritional Hx/Data Height 5 ft 2 in Height (Calculated Centimeters) 157.5 Current Weight (lbs) 164 lb Weight (Calculated Kilograms) 74.4 Weight (Calculated Grams) 82494.1 [place] Body Weight 110 Body Mass Index (BMI) 29.9 Weight Status Overweight GI Symptoms GI Symptoms None Last BM no record Difficult in: None Skin Integrity/Comment: intact LEFT HAND FATTY TISSUE AND POSTERIOR THIGH FAT TISSUE, PINKISH BUTTOCKS Estimated Nutritional Goals BEE in Kcals: Adj wt of IBW Calories/Kcals/Kg 25-30 Kcals Calculated [id number] Protein: Adj wt of IBW Protein g/k-1.2 Protein Calculated 56-67 Fluid: ml 1400-1680ml (1ml/kcal) Nutritional Problem 1. Problem Problem inadequate energy intake Etiology abd pain, N/V Signs/Symptoms: pt need for full liquid diet Malnutrition Alert Protein-Calorie Malnutrition N/A Is there a minimum of two criteria No selected? Query Text:Check all the applicable criteria. A minimum of two criteria are recommended for diagnosis of either severe or non-severe malnutrition. Intervention/Recommendation Comments 1. Continue with current diet as ordered. Diet profile updated. 2. Monitor PO intake, wt, labs and skin integrity 3. F/U as hig risk in 2-3 days , 05/01-05/02 Expected Outcomes/Goals Expected Outcomes/Goals 1. PO intake to meet at least 75% of nutritional needs. 2. Wt stability, skin to remain intact, labs to approach WNL.
--- NOTE | 2017-05-02 16:40 | GI Progress Note ---
Subjective - Review of Systems Subjective: FEELS MUCH BETTER ABLE TO RICKY PO HAD BM Objective - Results Result Diagrams: 05/02/17 11:21 05/02/17 11:21 Recent Labs: Laboratory Last Values WBC 4.9 Th/cmm (4.8-10.8) 05/02/17 11:21 RBC 5.11 Mil/cmm (3.80-5.20) 05/02/17 11:21 Hgb 13.3 gm/dL (12-16) 05/02/17 11:21 Hct 38.3 % (41.0-60) L 05/02/17 11:21 MCV 74.9 fl (81-100) L 05/02/17 11:21 MCH 25.9 pg (27.0-31.0) L 05/02/17 11:21 MCHC Differential 34.6 pg (28.0-36.0) 05/02/17 11:21 RDW 15.2 % (11.5-20.0) 05/02/17 11:21 Plt Count 239 Th/cmm (150-400) 05/02/17 11:21 MPV 7.2 fl 05/02/17 11:21 Neutrophils % 67.8 % (40.0-80.0) 05/02/17 11:21 Lymphocytes % 19.8 % (20.0-50.0) L 05/02/17 11:21 Monocytes % 9.9 % (2.0-10.0) 05/02/17 11:21 Eosinophils % 2.1 % (0.0-5.0) 05/02/17 11:21 Basophils % 0.4 % (0.0-2.0) 05/02/17 11:21 PT 11.4 SECONDS (9.5-11.5) 04/28/17 17:22 INR 1.09 (0.5-1.4) 04/28/17 17:22 PTT (Actin FS) 25.1 SECONDS (26.0-38.0) L 04/28/17 17:22 Sodium 136 mEq/L (136-145) 05/02/17 11:21 Potassium 3.6 mEq/L (3.5-5.1) 05/02/17 11:21 Chloride 105 mEq/L (98-107) 05/02/17 11:21 Carbon Dioxide 24.0 mEq/L (21.0-31.0) 05/02/17 11:21 Anion Gap 10.6 (7.0-16.0) 05/02/17 11:21 BUN 16 mg/dL (7-25) 05/02/17 11:21 Creatinine 0.6 mg/dL (0.6-1.2) 05/02/17 11:21 Est GFR ( Amer) TNP 05/02/17 11:21 Est GFR (Non-Af Amer) TNP 05/02/17 11:21 BUN/Creatinine Ratio 26.7 05/02/17 11:21 Glucose 146 mg/dL (70-105) H 05/02/17 11:21 POC Glucose 183 MG/DL (70-105) H 04/29/17 05:58 Hemoglobin A1c % 6.5 % (4.0-6.0) H 04/28/17 17:22 Calcium 8.7 mg/dL (8.6-10.3) 05/02/17 11:21 Magnesium 2.5 mg/dL (1.9-2.7) 05/01/17 07:30 Total Bilirubin 0.8 mg/dL (0.3-1.0) 05/01/17 07:30 Direct Bilirubin 0.29 mg/dL (0.0-0.2) H 04/28/17 17:22 AST 9 U/L (13-39) L 05/01/17 07:30 ALT 18 U/L (7-52) 05/01/17 07:30 Alkaline Phosphatase 76 U/L (34-104) 05/01/17 07:30 C-Reactive Protein 5.1 mg/dL (0.0-0.9) H 04/28/17 17:22 Total Protein 5.6 gm/dL (6.0-8.3) L 05/01/17 07:30 Albumin 3.3 gm/dL (3.7-5.3) L 05/01/17 07:30 Globulin 2.3 gm/dL 05/01/17 07:30 Albumin/Globulin Ratio 1.4 (1.0-1.8) 05/01/17 07:30 Lipase 8 U/L (11-82) L 04/29/17 04:55 Stool Occult Blood POSITIVE (NEGATIVE) H 04/30/17 16:45 - Physical Exam Vitals and I&O: Vital Signs Temp 96.1 F 05/02/17 08:00 Pulse 89 05/02/17 08:10 Resp 18 05/02/17 08:10 BP 147/61 05/02/17 08:00 Pulse Ox 96 05/02/17 08:10 Intake & Output 05/01/17 05/02/17 05/02/17 18:59 06:59 18:59 Intake Total 1250 Output Total 2 Balance 1250 -2 Weight (lbs) 74.389 kg 74.389 kg Intake: Intake, IV Amount 1000 Sodium Chloride 0.9% 1, 1000 000 ml @ 80 mls/hr IV . [id number] [facility] Rx#:[id number] Oral 250 Output: Emesis 2 Other: # Voids 3 4 # Bowel Movements 1 0 Active Medications: Current Medications Acetaminophen (Tylenol) 650 mg PO Q4H PRN PRN Reason: Pain Or Fever above 101 Stop: 06/27/17 19:20 Al Hydrox/Mg Hydrox/Simethicone (Maalox) 30 ml PO Q4H PRN PRN Reason: GI DISTRESS Stop: 06/27/17 19:15 Last Admin: 04/30/17 09:20 Dose: 30 ml Albuterol Sulfate (Albuterol 2.5mg/3ml Neb Ud) 2.5 mg HHN Q2HRT PRN PRN Reason: Shortness of Breath or Wheeze Stop: 06/27/17 19:20 Ascorbic Acid (Vitamin C) 500 mg PO DAILY [facility] Stop: 06/28/17 08:59 Last Admin: 05/01/17 10:24 Dose: Not Given Atorvastatin Calcium (Lipitor) 10 mg PO [facility] PRN Reason: Protocol Stop: 06/27/17 20:59 Last Admin: 05/01/17 21:15 Dose: Not Given Docusate Sodium (Colace) 100 mg PO DAILY [facility] Stop: 06/28/17 08:59 Last Admin: 05/01/17 10:24 Dose: Not Given Donepezil HCl (Aricept) 10 mg PO [facility] Stop: 06/28/17 20:59 Last Admin: 05/01/17 21:15 Dose: Not Given Glucagon (Glucagen) 1 mg IM DAILY PRN PRN Reason: HYPOGLYCEMIA Stop: 06/27/17 19:15 Heparin Sodium (Porcine) (Heparin) 5,000 units SUBQ Q12HR [facility] Stop: 06/28/17 20:59 Last Admin: 05/01/17 21:16 Dose: 5,000 units Sodium Chloride (Nacl 0.9%) 1,000 mls @ 50 mls/hr IV .Q20H [facility] Stop: 07/01/17 12:06 Ipratropium [place] (Atrovent Neb 0.5mg/2.5ml) 0.5 mg IH Q2HRT PRN PRN Reason: Shortness of Breath or Wheeze Stop: 06/27/17 19:20 Lorazepam (Ativan) 1 mg PO Q6H PRN; Protocol PRN Reason: Anxiety Stop: 06/27/17 19:15 Losartan Potassium (Cozaar) 25 mg PO DAILY [facility] Stop: 06/28/17 08:59 Last Admin: 05/01/17 15:54 Dose: Not Given Mineral Oil (Mineral Oil 30 Ml) 30 ml PO DAILY PRN PRN Reason: Constipation Stop: 06/29/17 12:31 Morphine Sulfate (Morphine) 2 mg IVP Q4H PRN PRN Reason: Abdominal Pain Stop: 06/28/17 16:34 Last Admin: 04/30/17 23:53 Dose: 2 mg Multivitamins/Vitamin C (Theragran) 1 tab PO DAILY [facility] Stop: 06/28/17 08:59 Last Admin: 05/01/17 10:24 Dose: Not Given Mupirocin (Bactroban Oint) 1 appl TP BID [facility] Stop: 05/07/17 16:59 Last Admin: 05/01/17 16:24 Dose: Not Given Ondansetron HCl (Zofran) 4 mg IV Q8H PRN PRN Reason: Nausea / Vomiting Stop: 06/27/17 19:20 Last Admin: 05/02/17 01:03 Dose: 4 mg Oxybutynin Chloride (Ditropan) 5 mg PO BID [facility] Stop: 06/28/17 08:59 Last Admin: 05/01/17 16:29 Dose: 5 mg Pantoprazole Sodium (Protonix) 40 mg IVP BID [facility] Stop: 06/28/17 10:59 Last Admin: 05/01/17 16:29 Dose: 40 mg Quetiapine Fumarate (Seroquel) 50 mg PO BID [facility] PRN Reason: Protocol Stop: 06/28/17 10:59 Last Admin: 05/01/17 16:29 Dose: 50 mg Theophylline (Nain-Dur) 400 mg PO HS [facility] Stop: 06/28/17 20:59 Last Admin: 05/01/17 21:15 Dose: Not Given Zolpidem Tartrate (Ambien) 5 mg PO HS PRN PRN Reason: Insomnia Stop: 06/27/17 19:15 Last Admin: 04/29/17 21:50 Dose: 5 mg - Procedures Procedures: Procedures Procedure Code Date INDIVID PSYCHOTHERAP NEC 94.39 07/05/04 INJECT/INFUSE NEC 99.29 03/18/13 OTHER GROUP THERAPY 94.44 12/18/13 RECREATIONAL THERAPY 93.81 07/05/04 Assessment/Plan - Problem List Patient Problems: All Active Problems ABDOMINAL PAIN WITH N/V (Acute) - Assessment Assessment: 71 YO FEMALE WITH PRIOR ABD SURGERIES WITH ABD DISTENSION CT SUGGEST SBO AND SHOWED [place] LFTS NORMAL HIDA WAS NONDIAGNOSTIC SBFT SUGGEST PARTIAL SBO CLINICALLY IMPROVED 1.SURGERY INPUT 2.CONT SUPP CARE 3.F/U PCP 4.AKHIL IF SYMPTOMATIC
[2017-05-02] MEDS: Multivitamin Tab PO SCH (17:33)
[2017-05-02] MEDS: Theophylline 100 mg ER Tab PO SCH (21:32)
[2017-05-02] MEDS: Atorvastatin Calcium 10 MG TAB PO SCH (21:33)
[2017-05-03] MEDS: Morphine Sulfate 4 mg/mL 1mL Syr IVP PRN (01:25)
--- NOTE | 2017-05-03 09:24 | GI Progress Note ---
Subjective - Review of Systems Service Date: 05/03/17 Subjective: Pt reports tolerating her liquid diet well Objective - Results Result Diagrams: 05/02/17 11:21 05/02/17 11:21 Recent Labs: Laboratory Last Values WBC 4.9 Th/cmm (4.8-10.8) 05/02/17 11:21 RBC 5.11 Mil/cmm (3.80-5.20) 05/02/17 11:21 Hgb 13.3 gm/dL (12-16) 05/02/17 11:21 Hct 38.3 % (41.0-60) L 05/02/17 11:21 MCV 74.9 fl (81-100) L 05/02/17 11:21 MCH 25.9 pg (27.0-31.0) L 05/02/17 11:21 MCHC Differential 34.6 pg (28.0-36.0) 05/02/17 11:21 RDW 15.2 % (11.5-20.0) 05/02/17 11: Plt Count 239 Th/cmm (150-400) 05/02/17 11:21 MPV 7.2 fl 05/02/17 11:21 Neutrophils % 67.8 % (40.0-80.0) 05/02/17 11:21 Lymphocytes % 19.8 % (20.0-50.0) L 05/02/17 11:21 Monocytes % 9.9 % (2.0-10.0) 05/02/17 11:21 Eosinophils % 2.1 % (0.0-5.0) 05/02/17 11: Basophils % 0.4 % (0.0-2.0) 05/02/17 11:21 PT 11.4 SECONDS (9.5-11.5) 04/28/17 17:22 INR 1.09 (0.5-1.4) 04/28/17 17:22 PTT (Actin FS) 25.1 SECONDS (26.0-38.0) L 04/28/17 17:22 Sodium 136 mEq/L (136-145) 05/02/17 11:21 Potassium 3.6 mEq/L (3.5-5.1) 05/02/17 11:21 Chloride 105 mEq/L (98-107) 05/02/17 11:21 Carbon Dioxide 24.0 mEq/L (21.0-31.0) 05/02/17 11:21 Anion Gap 10.6 (7.0-16.0) 05/02/17 11:21 BUN 16 mg/dL (7-25) 05/02/17 11:21 Creatinine 0.6 mg/dL (0.6-1.2) 05/02/17 11:21 Est GFR ( Amer) TNP 05/02/17 11:21 Est GFR (Non-Af Amer) TNP 05/02/17 11:21 BUN/Creatinine Ratio 26.7 05/02/17 11:21 Glucose 146 mg/dL (70-105) H 05/02/17 11:21 POC Glucose 183 MG/DL (70-105) H 04/29/17 05:58 Hemoglobin A1c % 6.5 % (4.0-6.0) H 04/28/17 17:22 Calcium 8.7 mg/dL (8.6-10.3) 05/02/17 11:21 Magnesium 2.5 mg/dL (1.9-2.7) 05/01/17 07:30 Total Bilirubin 0.8 mg/dL (0.3-1.0) 05/01/17 07:30 Direct Bilirubin 0.29 mg/dL (0.0-0.2) H 04/28/17 17:22 AST 9 U/L (13-39) L 05/01/17 07:30 ALT 18 U/L (7-52) 05/01/17 07:30 Alkaline Phosphatase 76 U/L (34-104) 05/01/17 07:30 C-Reactive Protein 5.1 mg/dL (0.0-0.9) H 04/28/17 17:22 Total Protein 5.6 gm/dL (6.0-8.3) L 05/01/17 07:30 Albumin 3.3 gm/dL (3.7-5.3) L 05/01/17 07:30 Globulin 2.3 gm/dL 05/01/17 07:30 Albumin/Globulin Ratio 1.4 (1.0-1.8) 05/01/17 07:30 Lipase 8 U/L (11-82) L 04/29/17 04:55 Stool Occult Blood POSITIVE (NEGATIVE) H 04/30/17 16:45 - Physical Exam Vitals and I&O: Vital Signs Temp 97.6 F 05/03/17 04:00 Pulse 69 05/03/17 04:00 Resp 18 05/03/17 04:00 BP 112/52 05/03/17 04:00 Pulse Ox 97 05/03/17 04:00 Intake & Output 05/02/17 05/03/17 05/03/17 18:59 06:59 18:59 Intake Total 500 557.5 Balance 500 557.5 Weight (lbs) 74.389 kg 74.389 kg Intake: Intake, IV Amount 557.5 Sodium Chloride 0.9% 1, 557.5 000 ml @ 50 mls/hr IV . Q20H [facility] Rx#:[id number] Oral 500 Other: # Voids 3 3 # Bowel Movements 2 3 Active Medications: Current Medications Acetaminophen (Tylenol) 650 mg PO Q4H PRN PRN Reason: Pain Or Fever above 101 Stop: 06/27/17 19:20 Last Admin: 05/03/17 03:40 Dose: 650 mg Al Hydrox/Mg Hydrox/Simethicone (Maalox) 30 ml PO Q4H PRN PRN Reason: GI DISTRESS Stop: 06/27/17 19:15 Last Admin: 04/30/17 09:20 Dose: 30 ml Albuterol Sulfate (Albuterol 2.5mg/3ml Neb Ud) 2.5 mg HHN Q2HRT PRN PRN Reason: Shortness of Breath or Wheeze Stop: 06/27/17 19:20 Ascorbic Acid (Vitamin C) 500 mg PO DAILY [facility] Stop: 06/28/17 08:59 Last Admin: 05/02/17 17:33 Dose: Not Given Atorvastatin Calcium (Lipitor) 10 mg PO HS [facility] PRN Reason: Protocol Stop: 06/27/17 20:59 Last Admin: 05/02/17 21:33 Dose: 10 mg Docusate Sodium (Colace) 100 mg PO DAILY [facility] Stop: 06/28/17 08:59 Last Admin: 05/02/17 17:33 Dose: Not Given Donepezil HCl (Aricept) 10 mg PO HS [facility] Stop: 06/28/17 20:59 Last Admin: 05/02/17 21:33 Dose: 10 mg Glucagon (Glucagen) 1 mg IM DAILY PRN PRN Reason: HYPOGLYCEMIA Stop: 06/27/17 19:15 Heparin Sodium (Porcine) (Heparin) 5,000 units SUBQ Q12HR [facility] Stop: 06/28/17 20:59 Last Admin: 05/02/17 21:33 Dose: 5,000 units Sodium Chloride (Nacl 0.9%) 1,000 mls @ 50 mls/hr IV .Q20H [facility] Stop: 07/01/17 12:06 Last Infusion: 05/03/17 05:59 Dose: 50 mls/hr Ipratropium [place] (Atrovent Neb 0.5mg/2.5ml) 0.5 mg IH Q2HRT PRN PRN Reason: Shortness of Breath or Wheeze Stop: 06/27/17 19:20 Lorazepam (Ativan) 1 mg PO Q6H PRN; Protocol PRN Reason: Anxiety Stop: 06/27/17 19:15 Losartan Potassium (Cozaar) 25 mg PO DAILY [facility] Stop: 06/28/17 08:59 Last Admin: 05/02/17 17:33 Dose: Not Given Mineral Oil (Mineral Oil 30 Ml) 30 ml PO DAILY PRN PRN Reason: Constipation Stop: 06/29/17 12:31 Morphine Sulfate (Morphine) 2 mg IVP Q4H PRN PRN Reason: Abdominal Pain Stop: 06/28/17 16:34 Last Admin: 05/03/17 01:25 Dose: 2 mg Multivitamins/Vitamin C (Theragran) 1 tab PO DAILY CORINA Stop: 06/28/17 08:59 Last Admin: 05/02/17 17:33 Dose: Not Given Mupirocin (Bactroban Oint) 1 appl TP BID CORINA Stop: 05/07/17 16:59 Last Admin: 05/02/17 18:43 Dose: 1 appl Ondansetron HCl (Zofran) 4 mg IV Q8H PRN PRN Reason: Nausea / Vomiting Stop: 06/27/17 19:20 Last Admin: 05/02/17 01:03 Dose: 4 mg Oxybutynin Chloride (Ditropan) 5 mg PO BID CORINA Stop: 06/28/17 08:59 Last Admin: 05/02/17 17:34 Dose: Not Given Pantoprazole Sodium (Protonix) 40 mg IVP BID CORINA Stop: 06/28/17 10:59 Last Admin: 05/02/17 18:46 Dose: 40 mg Quetiapine Fumarate (Seroquel) 50 mg PO BID CORINA PRN Reason: Protocol Stop: 06/28/17 10:59 Last Admin: 05/02/17 18:43 Dose: 50 mg Theophylline (Nain-Dur) 400 mg PO HS CORINA Stop: 06/28/17 20:59 Last Admin: 05/02/17 21:32 Dose: 400 mg Zolpidem Tartrate (Ambien) 5 mg PO HS PRN PRN Reason: Insomnia Stop: 06/27/17 19:15 Last Admin: 04/29/17 21:50 Dose: 5 mg General: Alert, Oriented x3 HEENT: Atraumatic Abdomen: Bowel sounds, Soft, Obese, no Tender, no Distended, no Mass, no Guarding Psych/Mental Status: Mental status NL - Procedures Procedures: Procedures Procedure Code Date INDIVID PSYCHOTHERAP NEC 94.39 07/05/04 INJECT/INFUSE NEC 99.29 03/18/13 OTHER GROUP THERAPY 94.44 12/18/13 RECREATIONAL THERAPY 93.81 07/05/04 Assessment/Plan - Problem List Patient Problems: All Active Problems ABDOMINAL PAIN WITH N/V (Acute) - Assessment Assessment: 71 YO FEMALE WITH PRIOR ABD SURGERIES WITH ABD DISTENSION CT SUGGEST pSBO AND SHOWED [place] LFTS NORMAL HIDA WAS NONDIAGNOSTIC SBFT SUGGEST PARTIAL SBO CLINICALLY IMPROVED 1.Appreciate Dr Sifuentes's recommendations. Diet advancement as per surgery 2.CONT SUPP CARE 3.F/U PCP 4.AKHIL IF SYMPTOMATIC
[2017-05-03] MEDS: Multivitamin Tab PO SCH (09:51)
--- NOTE | 2017-05-03 10:23 | General Progress Note ---
Subjective - Review of Systems Service Date: 05/03/17 Objective - Results Result Diagrams: 05/02/17 11:21 05/02/17 11:21 Recent Labs: Laboratory Last Values WBC 4.9 Th/cmm (4.8-10.8) 05/02/17 11:21 RBC 5.11 Mil/cmm (3.80-5.20) 05/02/17 11:21 Hgb 13.3 gm/dL (12-16) 05/02/17 11:21 Hct 38.3 % (41.0-60) L 05/02/17 11:21 MCV 74.9 fl (81-100) L 05/02/17 11:21 MCH 25.9 pg (27.0-31.0) L 05/02/17 11:21 MCHC Differential 34.6 pg (28.0-36.0) 05/02/17 11:21 RDW 15.2 % (11.5-20.0) 05/02/17 11:21 Plt Count 239 Th/cmm (150-400) 05/02/17 11:21 MPV 7.2 fl 05/02/17 11:21 Neutrophils % 67.8 % (40.0-80.0) 05/02/17 11:21 Lymphocytes % 19.8 % (20.0-50.0) L 05/02/17 11:21 Monocytes % 9.9 % (2.0-10.0) 05/02/17 11:21 Eosinophils % 2.1 % (0.0-5.0) 05/02/17 11:21 Basophils % 0.4 % (0.0-2.0) 05/02/17 11:21 PT 11.4 SECONDS (9.5-11.5) 04/28/17 17:22 INR 1.09 (0.5-1.4) 04/28/17 17:22 PTT (Actin FS) 25.1 SECONDS (26.0-38.0) L 04/28/17 17:22 Sodium 136 mEq/L (136-145) 05/02/17 11:21 Potassium 3.6 mEq/L (3.5-5.1) 05/02/17 11:21 Chloride 105 mEq/L (98-107) 05/02/17 11:21 Carbon Dioxide 24.0 mEq/L (21.0-31.0) 05/02/17 11:21 Anion Gap 10.6 (7.0-16.0) 05/02/17 11:21 BUN 16 mg/dL (7-25) 05/02/17 11:21 Creatinine 0.6 mg/dL (0.6-1.2) 05/02/17 11:21 Est GFR ( Amer) TNP 05/02/17 11:21 Est GFR (Non-Af Amer) TNP 05/02/17 11:21 BUN/Creatinine Ratio 26.7 05/02/17 11:21 Glucose 146 mg/dL (70-105) H 05/02/17 11:21 POC Glucose 183 MG/DL (70-105) H 04/29/17 05:58 Hemoglobin A1c % 6.5 % (4.0-6.0) H 04/28/17 17:22 Calcium 8.7 mg/dL (8.6-10.3) 05/02/17 11:21 Magnesium 2.5 mg/dL (1.9-2.7) 05/01/17 07:30 Total Bilirubin 0.8 mg/dL (0.3-1.0) 05/01/17 07:30 Direct Bilirubin 0.29 mg/dL (0.0-0.2) H 04/28/17 17:22 AST 9 U/L (13-39) L 05/01/17 07:30 ALT 18 U/L (7-52) 05/01/17 07:30 Alkaline Phosphatase 76 U/L (34-104) 05/01/17 07:30 C-Reactive Protein 5.1 mg/dL (0.0-0.9) H 04/28/17 17:22 Total Protein 5.6 gm/dL (6.0-8.3) L 05/01/17 07:30 Albumin 3.3 gm/dL (3.7-5.3) L 05/01/17 07:30 Globulin 2.3 gm/dL 05/01/17 07:30 Albumin/Globulin Ratio 1.4 (1.0-1.8) 05/01/17 07:30 Lipase 8 U/L (11-82) L 04/29/17 04:55 Stool Occult Blood POSITIVE (NEGATIVE) H 04/30/17 16:45 - Physical Exam Vitals and I&O: Vital Signs Temp 97.6 F 05/03/17 04:00 Pulse 73 05/03/17 09:49 Resp 18 05/03/17 04:00 BP 125/54 05/03/17 09:49 Pulse Ox 97 05/03/17 04:00 Intake & Output 05/02/17 05/03/17 05/03/17 18:59 06:59 18:59 Intake Total 500 557.5 Balance 500 557.5 Weight (lbs) 74.389 kg 74.389 kg Intake: Intake, IV Amount 557.5 Sodium Chloride 0.9% 1, 557.5 000 ml @ 50 mls/hr IV . Q20H COUNTS INCLUDE 234 BEDS AT THE [facility] Rx#:[id number] Oral 500 Other: # Voids 3 3 # Bowel Movements 2 3 Active Medications: Current Medications Acetaminophen (Tylenol) 650 mg PO Q4H PRN PRN Reason: Pain Or Fever above 101 Stop: 06/27/17 19:20 Last Admin: 05/03/17 09:48 Dose: 650 mg Al Hydrox/Mg Hydrox/Simethicone (Maalox) 30 ml PO Q4H PRN PRN Reason: GI DISTRESS Stop: 06/27/17 19:15 Last Admin: 04/30/17 09:20 Dose: 30 ml Albuterol Sulfate (Albuterol 2.5mg/3ml Neb Ud) 2.5 mg HHN Q2HRT PRN PRN Reason: Shortness of Breath or Wheeze Stop: 06/27/17 19:20 Ascorbic Acid (Vitamin C) 500 mg PO DAILY COUNTS INCLUDE 234 BEDS AT THE [facility] Stop: 06/28/17 08:59 Last Admin: 05/03/17 09:49 Dose: 500 mg Atorvastatin Calcium (Lipitor) 10 mg PO HS COUNTS INCLUDE 234 BEDS AT THE [facility] PRN Reason: Protocol Stop: 06/27/17 20:59 Last Admin: 05/02/17 21:33 Dose: 10 mg Docusate Sodium (Colace) 100 mg PO DAILY COUNTS INCLUDE 234 BEDS AT THE [facility] Stop: 06/28/17 08:59 Last Admin: 05/02/17 17:33 Dose: Not Given Donepezil HCl (Aricept) 10 mg PO HS COUNTS INCLUDE 234 BEDS AT THE [facility] Stop: 06/28/17 20:59 Last Admin: 05/02/17 21:33 Dose: 10 mg Glucagon (Glucagen) 1 mg IM DAILY PRN PRN Reason: HYPOGLYCEMIA Stop: 06/27/17 19:15 Heparin Sodium (Porcine) (Heparin) 5,000 units SUBQ Q12HR [facility] Stop: 06/28/17 20:59 Last Admin: 05/03/17 09:49 Dose: 5,000 units Sodium Chloride (Nacl 0.9%) 1,000 mls @ 50 mls/hr IV .Q20H [facility] Stop: 07/01/17 12:06 Last Infusion: 05/03/17 05:59 Dose: 50 mls/hr Ipratropium [place] (Atrovent Neb 0.5mg/2.5ml) 0.5 mg IH Q2HRT PRN PRN Reason: Shortness of Breath or Wheeze Stop: 06/27/17 19:20 Lorazepam (Ativan) 1 mg PO Q6H PRN; Protocol PRN Reason: Anxiety Stop: 06/27/17 19:15 Losartan Potassium (Cozaar) 25 mg PO DAILY [facility] Stop: 06/28/17 08:59 Last Admin: 05/03/17 09:49 Dose: 25 mg Mineral Oil (Mineral Oil 30 Ml) 30 ml PO DAILY PRN PRN Reason: Constipation Stop: 06/29/17 12:31 Morphine Sulfate (Morphine) 2 mg IVP Q4H PRN PRN Reason: Abdominal Pain Stop: 06/28/17 16:34 Last Admin: 05/03/17 01:25 Dose: 2 mg Multivitamins/Vitamin C (Theragran) 1 tab PO DAILY [facility] Stop: 06/28/17 08:59 Last Admin: 05/03/17 09:51 Dose: 1 tab Mupirocin (Bactroban Oint) 1 appl TP BID [facility] Stop: 05/07/17 16:59 Last Admin: 05/03/17 09:48 Dose: 1 appl Ondansetron HCl (Zofran) 4 mg IV Q8H PRN PRN Reason: Nausea / Vomiting Stop: 06/27/17 19:20 Last Admin: 05/02/17 01:03 Dose: 4 mg Oxybutynin Chloride (Ditropan) 5 mg PO BID [facility] Stop: 06/28/17 08:59 Last Admin: 05/03/17 09:50 Dose: 5 mg Pantoprazole Sodium (Protonix) 40 mg IVP BID COUNTS INCLUDE 234 BEDS AT THE [facility] Stop: 06/28/17 10:59 Last Admin: 05/03/17 09:52 Dose: 40 mg Quetiapine Fumarate (Seroquel) 50 mg PO BID [facility] PRN Reason: Protocol Stop: 06/28/17 10:59 Last Admin: 05/03/17 09:51 Dose: 50 mg Theophylline (Nain-Dur) 400 mg PO HS [facility] Stop: 06/28/17 20:59 Last Admin: 05/02/17 21:32 Dose: 400 mg Zolpidem Tartrate (Ambien) 5 mg PO HS PRN PRN Reason: Insomnia Stop: 06/27/17 19:15 Last Admin: 04/29/17 21:50 Dose: 5 mg General: Alert, Oriented x3 HEENT: Atraumatic Abdomen: Bowel sounds, Soft, Obese, no Tender, no Distended, no Mass, no Guarding Psych/Mental Status: Mental status NL - Procedures Procedures: Procedures Procedure Code Date INDIVID PSYCHOTHERAP NEC 94.39 07/05/04 INJECT/INFUSE NEC 99.29 03/18/13 OTHER GROUP THERAPY 94.44 12/18/13 RECREATIONAL THERAPY 93.81 07/05/04 Assessment/Plan - Problem List Patient Problems: All Active Problems ABDOMINAL PAIN WITH N/V (Acute) Nutritional Asmnt/Malnutr-PDOC - Dietary Evaluation Malnutrition Findings (Please click <Entered> for more info): Nutritional Asmnt/Malnutrition Start: 04/29/17 15: 55 Text: Status: Complete Freq: Document 04/29/17 15:55 LESLIE (Rec: 04/29/17 16:15 [facility] Nutritional Asmnt/Malnutrition Patient General Information Nutritional Screening High Risk Consult Diagnosis abd pain/vomiting Pertinent Medical Hx/Surgical Hx embolism and thrombus, DVT, hyperlipidemia Subjective Information Pt seen lying in bed at time of visit, denied N/V today but having stomachach. Observed lunch tray finished about 75%. Food preference provided. Current Diet Order/ Nutrition Support Full liquid Pertinent Medications vit C, colace, theragran, protonix, seroquel, nacl 0.9% Pertinent Labs 04/29 Na 131, Cl 91, BUN 27, Glucose 175, 04/28 A1c 6.5 Nutritional Hx/Data Height 1.57 m Height (Calculated Centimeters) 157.5 Current Weight (lbs) 74.389 kg Weight (Calculated Kilograms) 74.4 Weight (Calculated Grams) 60348.1 [place] Body Weight 110 Body Mass Index (BMI) 29.9 Weight Status Overweight GI Symptoms GI Symptoms None Last BM no record Difficult in: None Skin Integrity/Comment: intact LEFT HAND FATTY TISSUE AND POSTERIOR THIGH FAT TISSUE, PINKISH BUTTOCKS Estimated Nutritional Goals BEE in Kcals: Adj wt of IBW Calories/Kcals/Kg 25-30 Kcals Calculated 4570-3409 Protein: Adj wt of IBW Protein g/k-1.2 Protein Calculated 56-67 Fluid: ml 1400-1680ml (1ml/kcal) Nutritional Problem 1. Problem Problem inadequate energy intake Etiology abd pain, N/V Signs/Symptoms: pt need for full liquid diet Malnutrition Alert Protein-Calorie Malnutrition N/A Is there a minimum of two criteria No selected? Query Text:Check all the applicable criteria. A minimum of two criteria are recommended for diagnosis of either severe or non-severe malnutrition. Intervention/Recommendation Comments 1. Continue with current diet as ordered. Diet profile updated. 2. Monitor PO intake, wt, labs and skin integrity 3. F/U as hig risk in 2-3 days , 05/01-05/02 Expected Outcomes/Goals Expected Outcomes/Goals 1. PO intake to meet at least 75% of nutritional needs. 2. Wt stability, skin to remain intact, labs to approach WNL.
[2017-05-03] MEDS: Sodium Chloride 0.9% 1,000 ML IV SCH (10:58)
--- NOTE | 2017-05-03 12:32 | Internal Medicine Prog Note ---
Internal Medicine Subjective - Subjective Service Date: 05/03/17 Patient seen and examined:: with staff Patient is:: awake, non-verbal Per staff patient has:: tolerating meds Internal Medicine Objective - Results Result Diagrams: 05/02/17 11:21 05/02/17 11:21 Recent Labs: Laboratory Last Values WBC 4.9 Th/cmm (4.8-10.8) 05/02/17 11:21 RBC 5.11 Mil/cmm (3.80-5.20) 05/02/17 11:21 Hgb 13.3 gm/dL (12-16) 05/02/17 11:21 Hct 38.3 % (41.0-60) L 05/02/17 11:21 MCV 74.9 fl (81-100) L 05/02/17 11:21 MCH 25.9 pg (27.0-31.0) L 05/02/17 11: MCHC Differential 34.6 pg (28.0-36.0) 05/02/17 11:21 RDW 15.2 % (11.5-20.0) 05/02/17 11:21 Plt Count 239 Th/cmm (150-400) 05/02/17 11:21 MPV 7.2 fl 05/02/17 11:21 Neutrophils % 67.8 % (40.0-80.0) 05/02/17 11:21 Lymphocytes % 19.8 % (20.0-50.0) L 05/02/17 11:21 Monocytes % 9.9 % (2.0-10.0) 05/02/17 11:21 Eosinophils % 2.1 % (0.0-5.0) 05/02/17 11:21 Basophils % 0.4 % (0.0-2.0) 05/02/17 11:21 PT 11.4 SECONDS (9.5-11.5) 04/28/17 17:22 INR 1.09 (0.5-1.4) 04/28/17 17: PTT (Actin FS) 25.1 SECONDS (26.0-38.0) L 04/28/17 17:22 Sodium 136 mEq/L (136-145) 05/02/17 11:21 Potassium 3.6 mEq/L (3.5-5.1) 05/02/17 11:21 Chloride 105 mEq/L (98-107) 05/02/17 11:21 Carbon Dioxide 24.0 mEq/L (21.0-31.0) 05/02/17 11:21 Anion Gap 10.6 (7.0-16.0) 05/02/17 11:21 BUN 16 mg/dL (7-25) 05/02/17 11:21 Creatinine 0.6 mg/dL (0.6-1.2) 05/02/17 11:21 Est GFR ( Amer) TNP 05/02/17 11:21 Est GFR (Non-Af Amer) TNP 05/02/17 11:21 BUN/Creatinine Ratio 26.7 05/02/17 11:21 Glucose 146 mg/dL (70-105) H 05/02/17 11:21 POC Glucose 183 MG/DL (70-105) H 04/29/17 05:58 Hemoglobin A1c % 6.5 % (4.0-6.0) H 04/28/17 17:22 Calcium 8.7 mg/dL (8.6-10.3) 05/02/17 11:21 Magnesium 2.5 mg/dL (1.9-2.7) 05/01/17 07:30 Total Bilirubin 0.8 mg/dL (0.3-1.0) 05/01/17 07:30 Direct Bilirubin 0.29 mg/dL (0.0-0.2) H 04/28/17 17:22 AST 9 U/L (13-39) L 05/01/17 07:30 ALT 18 U/L (7-52) 05/01/17 07:30 Alkaline Phosphatase 76 U/L (34-104) 05/01/17 07:30 C-Reactive Protein 5.1 mg/dL (0.0-0.9) H 04/28/17 17:22 Total Protein 5.6 gm/dL (6.0-8.3) L 05/01/17 07:30 Albumin 3.3 gm/dL (3.7-5.3) L 05/01/17 07:30 Globulin 2.3 gm/dL 05/01/17 07:30 Albumin/Globulin Ratio 1.4 (1.0-1.8) 05/01/17 07:30 Lipase 8 U/L (11-82) L 04/29/17 04:55 Stool Occult Blood POSITIVE (NEGATIVE) H 04/30/17 16:45 - Physical Exam Vitals and I&O: Vital Signs Temp 97.6 F 05/03/17 04:00 Pulse 73 05/03/17 09:49 Resp 18 05/03/17 04:00 BP 125/54 05/03/17 09:49 Pulse Ox 97 05/03/17 04:00 Intake & Output 05/02/17 05/03/17 05/03/17 18:59 06:59 18:59 Intake Total 500 557.5 249.167 Balance 500 557.5 249.167 Weight (lbs) 164 lb 164 lb Intake: Intake, IV Amount 557.5 249.167 Sodium Chloride 0.9% 1, 557.5 249.167 000 ml @ 50 mls/hr IV . Q20H [facility] Rx#:[id number] Oral 500 Other: # Voids 3 3 # Bowel Movements 2 3 Active Medications: Current Medications Acetaminophen (Tylenol) 650 mg PO Q4H PRN PRN Reason: Pain Or Fever above 101 Stop: 06/27/17 19:20 Last Admin: 05/03/17 09:48 Dose: 650 mg Al Hydrox/Mg Hydrox/Simethicone (Maalox) 30 ml PO Q4H PRN PRN Reason: GI DISTRESS Stop: 06/27/17 19:15 Last Admin: 04/30/17 09:20 Dose: 30 ml Albuterol Sulfate (Albuterol 2.5mg/3ml Neb Ud) 2.5 mg HHN Q2HRT PRN PRN Reason: Shortness of Breath or Wheeze Stop: 06/27/17 19:20 Ascorbic Acid (Vitamin C) 500 mg PO DAILY [facility] Stop: 06/28/17 08:59 Last Admin: 05/03/17 09:49 Dose: 500 mg Atorvastatin Calcium (Lipitor) 10 mg PO HS [facility] PRN Reason: Protocol Stop: 06/27/17 20:59 Last Admin: 05/02/17 21:33 Dose: 10 mg Docusate Sodium (Colace) 100 mg PO DAILY [facility] Stop: 06/28/17 08:59 Last Admin: 05/03/17 10:58 Dose: 100 mg Donepezil HCl (Aricept) 10 mg PO HS [facility] Stop: 06/28/17 20:59 Last Admin: 05/02/17 21:33 Dose: 10 mg Glucagon (Glucagen) 1 mg IM DAILY PRN PRN Reason: HYPOGLYCEMIA Stop: 06/27/17 19:15 Heparin Sodium (Porcine) (Heparin) 5,000 units SUBQ Q12HR [facility] Stop: 06/28/17 20:59 Last Admin: 05/03/17 09:49 Dose: 5,000 units Sodium Chloride (Nacl 0.9%) 1,000 mls @ 50 mls/hr IV .Q20H [facility] Stop: 07/01/17 12:06 Last Admin: 05/03/17 10:58 Dose: 50 mls/hr Ipratropium [place] (Atrovent Neb 0.5mg/2.5ml) 0.5 mg IH Q2HRT PRN PRN Reason: Shortness of Breath or Wheeze Stop: 06/27/17 19:20 Lorazepam (Ativan) 1 mg PO Q6H PRN; Protocol PRN Reason: Anxiety Stop: 06/27/17 19:15 Losartan Potassium (Cozaar) 25 mg PO DAILY [facility] Stop: 06/28/17 08:59 Last Admin: 05/03/17 09:49 Dose: 25 mg Mineral Oil (Mineral Oil 30 Ml) 30 ml PO DAILY PRN PRN Reason: Constipation Stop: 06/29/17 12:31 Morphine Sulfate (Morphine) 2 mg IVP Q4H PRN PRN Reason: Abdominal Pain Stop: 06/28/17 16:34 Last Admin: 05/03/17 01:25 Dose: 2 mg Multivitamins/Vitamin C (Theragran) 1 tab PO DAILY [facility] Stop: 06/28/17 08:59 Last Admin: 05/03/17 09:51 Dose: 1 tab Mupirocin (Bactroban Oint) 1 appl TP BID [facility] Stop: 05/07/17 16:59 Last Admin: 05/03/17 09:48 Dose: 1 appl Ondansetron HCl (Zofran) 4 mg IV Q8H PRN PRN Reason: Nausea / Vomiting Stop: 06/27/17 19:20 Last Admin: 05/02/17 01:03 Dose: 4 mg Oxybutynin Chloride (Ditropan) 5 mg PO BID [facility] Stop: 06/28/17 08:59 Last Admin: 05/03/17 09:50 Dose: 5 mg Pantoprazole Sodium (Protonix) 40 mg IVP BID [facility] Stop: 06/28/17 10:59 Last Admin: 05/03/17 09:52 Dose: 40 mg Quetiapine Fumarate (Seroquel) 50 mg PO BID [facility] PRN Reason: Protocol Stop: 06/28/17 10:59 Last Admin: 05/03/17 09:51 Dose: 50 mg Theophylline (Nain-Dur) 400 mg PO HS [facility] Stop: 06/28/17 20:59 Last Admin: 05/02/17 21:32 Dose: 400 mg Zolpidem Tartrate (Ambien) 5 mg PO HS PRN PRN Reason: Insomnia Stop: 06/27/17 19:15 Last Admin: 04/29/17 21:50 Dose: 5 mg General: alert HEENT: NC/AT, PERRLA Neck: Supple Lungs: CTAB Cardiovascular: RRR, Normal S1, Normal S2 Abdomen: soft, non-tender, non-distended, positive bowel sound Neurological: alert - Procedures Procedures: Procedures Procedure Code Date INDIVID PSYCHOTHERAP NEC 94.39 07/05/04 INJECT/INFUSE NEC 99.29 03/18/13 OTHER GROUP THERAPY 94.44 12/18/13 RECREATIONAL THERAPY 93.81 07/05/04 Internal Medicine Assmt/Plan - Assessment Assessment: mrsa nares abdominal pain hyponatremia htn dm2 asthma dementia - Plan Plan: dc planning if cleared by Dr. Sifuentes cbc/bmp in am continue current orders Nutritional Asmnt/Malnutr-PDOC - Dietary Evaluation Malnutrition Findings (Please click <Entered> for more info): Nutritional Asmnt/Malnutrition Start: 04/29/17 15: 55 Text: Status: Complete Freq: Document 04/29/17 15:55 LESLIE (Rec: 04/29/17 16:15 [email or web address]) Nutritional Asmnt/Malnutrition Patient General Information Nutritional Screening High Risk Consult Diagnosis abd pain/vomiting Pertinent Medical Hx/Surgical Hx embolism and thrombus, DVT, hyperlipidemia Subjective Information Pt seen lying in bed at time of visit, denied N/V today but having stomachach. Observed lunch tray finished about 75%. Food preference provided. Current Diet Order/ Nutrition Support Full liquid Pertinent Medications vit C, colace, theragran, protonix, seroquel, nacl 0.9% Pertinent Labs 04/29 Na 131, Cl 91, BUN 27, Glucose 175, 04/28 A1c 6.5 Nutritional Hx/Data Height 5 ft 2 in Height (Calculated Centimeters) 157.5 Current Weight (lbs) 164 lb Weight (Calculated Kilograms) 74.4 Weight (Calculated Grams) 66102.1 [place] Body Weight 110 Body Mass Index (BMI) 29.9 Weight Status Overweight GI Symptoms GI Symptoms None Last BM no record Difficult in: None Skin Integrity/Comment: intact LEFT HAND FATTY TISSUE AND POSTERIOR THIGH FAT TISSUE, PINKISH BUTTOCKS Estimated Nutritional Goals BEE in Kcals: Adj wt of IBW Calories/Kcals/Kg 25-30 Kcals Calculated 2362-7165 Protein: Adj wt of IBW Protein g/k-1.2 Protein Calculated 56-67 Fluid: ml 1400-1680ml (1ml/kcal) Nutritional Problem 1. Problem Problem inadequate energy intake Etiology abd pain, N/V Signs/Symptoms: pt need for full liquid diet Malnutrition Alert Protein-Calorie Malnutrition N/A Is there a minimum of two criteria No selected? Query Text:Check all the applicable criteria. A minimum of two criteria are recommended for diagnosis of either severe or non-severe malnutrition. Intervention/Recommendation Comments 1. Continue with current diet as ordered. Diet profile updated. 2. Monitor PO intake, wt, labs and skin integrity 3. F/U as hig risk in 2-3 days , 05/01-05/02 Expected Outcomes/Goals Expected Outcomes/Goals 1. PO intake to meet at least 75% of nutritional needs. 2. Wt stability, skin to remain intact, labs to approach WNL.
[2017-05-03] MEDS: Theophylline 100 mg ER Tab PO SCH (20:59)
[2017-05-03] MEDS: Atorvastatin Calcium 10 MG TAB PO SCH (21:00)
[2017-05-04] MEDS: Sodium Chloride 0.9% 1,000 ML IV SCH (05:34)
[2017-05-04 07:08] LABS: % BASOPHILS 0.7 % (0.0-2.0); % EOSINOPHILS 4.3 % (0.0-5.0); % LYMPHOCYTES 22.8 % (20.0-50.0); % MONOCYTES 9.2 % (2.0-10.0); EOSINOPHILE ABSOLUTE 0.2 Th/cmm (0.1-0.4); HEMATOCRIT 37.5 % (41.0-60); HEMOGLOBIN 12.8 gm/dL (12-16); MEAN CORPUSCULAR HEMOGLOBIN 25.5 pg (27.0-31.0); MEAN PLATELET VOLUME 7.2 fl; MONOCYTE ABSOLUTE 0.4 Th/cmm (0.3-1.0); NEUTROPHILE ABSOLUTE 2.8 Th/cmm (1.8-8.0); PLATELET COUNT 229 Th/cmm (150-400); RED CELL DISTRIBUTION WIDTH 15.7 % (11.5-20.0); WHITE BLOOD COUNT 4.4 Th/cmm (4.8-10.8)
[2017-05-04 07:31] LABS: ANION GAP 7.7 (7.0-16.0); BUN - UREA NITROGEN 9 mg/dL (7-25); CALCIUM SERUM 8.6 mg/dL (8.6-10.3); CARBON DIOXIDE 23.6 mEq/L (21.0-31.0); CHLORIDE 111 mEq/L (98-107); CREATININE - SERUM 0.5 mg/dL (0.6-1.2); GLUCOSE 116 mg/dL (70-105); POTASSIUM SERUM 3.3 mEq/L (3.5-5.1); SODIUM SERUM 139 mEq/L (136-145)
--- NOTE | 2017-05-04 07:58 | GI Progress Note ---
Subjective - Review of Systems Service Date: 05/04/17 Subjective: No new events, had a BM Objective - Results Result Diagrams: 05/04/17 06:40 05/04/17 06:40 Recent Labs: Laboratory Last Values WBC 4.4 Th/cmm (4.8-10.8) L 05/04/17 06:40 RBC 5.00 Mil/cmm (3.80-5.20) 05/04/17 06:40 Hgb 12.8 gm/dL (12-16) 05/04/17 06:40 Hct 37.5 % (41.0-60) L 05/04/17 06:40 MCV 75.0 fl (81-100) L 05/04/17 06:40 MCH 25.5 pg (27.0-31.0) L 05/04/17 06:40 MCHC Differential 34.0 pg (28.0-36.0) 05/04/17 06:40 RDW 15.7 % (11.5-20.0) 05/04/17 06:40 Plt Count 229 Th/cmm (150-400) 05/04/17 06:40 MPV 7.2 fl 05/04/17 06:40 Neutrophils % 63.0 % (40.0-80.0) 05/04/17 06:40 Lymphocytes % 22.8 % (20.0-50.0) 05/04/17 06:40 Monocytes % 9.2 % (2.0-10.0) 05/04/17 06:40 Eosinophils % 4.3 % (0.0-5.0) 05/04/17 06:40 Basophils % 0.7 % (0.0-2.0) 05/04/17 06:40 PT 11.4 SECONDS (9.5-11.5) 04/28/17 17:22 INR 1.09 (0.5-1.4) 04/28/17 17:22 PTT (Actin FS) 25.1 SECONDS (26.0-38.0) L 04/28/17 17:22 Sodium 139 mEq/L (136-145) 05/04/17 06:40 Potassium 3.3 mEq/L (3.5-5.1) L 05/04/17 06:40 Chloride 111 mEq/L (98-107) H 05/04/17 06:40 Carbon Dioxide 23.6 mEq/L (21.0-31.0) 05/04/17 06:40 Anion Gap 7.7 (7.0-16.0) 05/04/17 06:40 BUN 9 mg/dL (7-25) 05/04/17 06:40 Creatinine 0.5 mg/dL (0.6-1.2) L 05/04/17 06:40 Est GFR ( Amer) TNP 05/04/17 06:40 Est GFR (Non-Af Amer) TNP 05/04/17 06:40 BUN/Creatinine Ratio 18.0 05/04/17 06:40 Glucose 116 mg/dL (70-105) H 05/04/17 06:40 POC Glucose 183 MG/DL (70-105) H 04/29/17 05:58 Hemoglobin A1c % 6.5 % (4.0-6.0) H 04/28/17 17:22 Calcium 8.6 mg/dL (8.6-10.3) 05/04/17 06:40 Magnesium 2.5 mg/dL (1.9-2.7) 05/01/17 07:30 Total Bilirubin 0.8 mg/dL (0.3-1.0) 05/01/17 07:30 Direct Bilirubin 0.29 mg/dL (0.0-0.2) H 04/28/17 17:22 AST 9 U/L (13-39) L 05/01/17 07:30 ALT 18 U/L (7-52) 05/01/17 07:30 Alkaline Phosphatase 76 U/L (34-104) 05/01/17 07:30 C-Reactive Protein 5.1 mg/dL (0.0-0.9) H 04/28/17 17:22 Total Protein 5.6 gm/dL (6.0-8.3) L 05/01/17 07:30 Albumin 3.3 gm/dL (3.7-5.3) L 05/01/17 07:30 Globulin 2.3 gm/dL 05/01/17 07:30 Albumin/Globulin Ratio 1.4 (1.0-1.8) 05/01/17 07:30 Lipase 8 U/L (11-82) L 04/29/17 04:55 Stool Occult Blood POSITIVE (NEGATIVE) H 04/30/17 16:45 - Physical Exam Vitals and I&O: Vital Signs Temp 97.7 F 05/04/17 04:00 Pulse 82 05/04/17 07:42 Resp 18 05/04/17 07:42 BP 123/60 05/04/17 04:00 Pulse Ox 93 05/04/17 07:42 Intake & Output 05/03/17 05/04/17 05/04/17 18:59 06:59 18:59 Intake Total 249.167 930 Balance 249.167 930 Weight (lbs) 74.389 kg Intake: Intake, IV Amount 249.167 930 Sodium Chloride 0.9% 1, 249.167 930 000 ml @ 50 mls/hr IV . Q20H [facility] Rx#:[id number] Other: # Voids 3 # Bowel Movements 1 Stool Characteristics Soft Active Medications: Current Medications Acetaminophen (Tylenol) 650 mg PO Q4H PRN PRN Reason: Pain Or Fever above 101 Stop: 06/27/17 19:20 Last Admin: 05/03/17 09:48 Dose: 650 mg Al Hydrox/Mg Hydrox/Simethicone (Maalox) 30 ml PO Q4H PRN PRN Reason: GI DISTRESS Stop: 06/27/17 19:15 Last Admin: 04/30/17 09:20 Dose: 30 ml Albuterol Sulfate (Albuterol 2.5mg/3ml Neb Ud) 2.5 mg HHN Q2HRT PRN PRN Reason: Shortness of Breath or Wheeze Stop: 06/27/17 19:20 Ascorbic Acid (Vitamin C) 500 mg PO DAILY [facility] Stop: 06/28/17 08:59 Last Admin: 05/03/17 09:49 Dose: 500 mg Atorvastatin Calcium (Lipitor) 10 mg PO [facility] PRN Reason: Protocol Stop: 06/27/17 20:59 Last Admin: 05/03/17 21:00 Dose: 10 mg Docusate Sodium (Colace) 100 mg PO DAILY [facility] Stop: 06/28/17 08:59 Last Admin: 05/03/17 10:58 Dose: 100 mg Donepezil HCl (Aricept) 10 mg PO [facility] Stop: 06/28/17 20:59 Last Admin: 05/03/17 21:00 Dose: 10 mg Glucagon (Glucagen) 1 mg IM DAILY PRN PRN Reason: HYPOGLYCEMIA Stop: 06/27/17 19:15 Heparin Sodium (Porcine) (Heparin) 5,000 units SUBQ Q12HR [facility] Stop: 06/28/17 20:59 Last Admin: 05/03/17 21:00 Dose: 5,000 units Sodium Chloride (Nacl 0.9%) 1,000 mls @ 50 mls/hr IV .Q20H [facility] Stop: 07/01/17 12:06 Last Admin: 05/04/17 05:34 Dose: 50 mls/hr Ipratropium [place] (Atrovent Neb 0.5mg/2.5ml) 0.5 mg IH Q2HRT PRN PRN Reason: Shortness of Breath or Wheeze Stop: 06/27/17 19:20 Lorazepam (Ativan) 1 mg PO Q6H PRN; Protocol PRN Reason: Anxiety Stop: 06/27/17 19:15 Losartan Potassium (Cozaar) 25 mg PO DAILY [facility] Stop: 06/28/17 08:59 Last Admin: 05/03/17 09:49 Dose: 25 mg Mineral Oil (Mineral Oil 30 Ml) 30 ml PO DAILY PRN PRN Reason: Constipation Stop: 06/29/17 12:31 Morphine Sulfate (Morphine) 2 mg IVP Q4H PRN PRN Reason: Abdominal Pain Stop: 06/28/17 16:34 Last Admin: 05/03/17 01:25 Dose: 2 mg Multivitamins/Vitamin C (Theragran) 1 tab PO DAILY [facility] Stop: 06/28/17 08:59 Last Admin: 05/03/17 09:51 Dose: 1 tab Mupirocin (Bactroban Oint) 1 appl TP BID [facility] Stop: 05/07/17 16:59 Last Admin: 05/03/17 18:11 Dose: 1 appl Ondansetron HCl (Zofran) 4 mg IV Q8H PRN PRN Reason: Nausea / Vomiting Stop: 06/27/17 19:20 Last Admin: 05/02/17 01:03 Dose: 4 mg Oxybutynin Chloride (Ditropan) 5 mg PO BID [facility] Stop: 06/28/17 08:59 Last Admin: 05/03/17 18:12 Dose: 5 mg Pantoprazole Sodium (Protonix) 40 mg IVP BID [facility] Stop: 06/28/17 10:59 Last Admin: 05/03/17 18:14 Dose: 40 mg Quetiapine Fumarate (Seroquel) 50 mg PO BID [facility] PRN Reason: Protocol Stop: 06/28/17 10:59 Last Admin: 05/03/17 18:13 Dose: 50 mg Theophylline (Nain-Dur) 400 mg PO HS [facility] Stop: 06/28/17 20:59 Last Admin: 05/03/17 20:59 Dose: 400 mg Zolpidem Tartrate (Ambien) 5 mg PO HS PRN PRN Reason: Insomnia Stop: 06/27/17 19:15 Last Admin: 04/29/17 21:50 Dose: 5 mg General: Alert, Oriented x3 HEENT: Atraumatic Abdomen: Bowel sounds, Soft, Obese, no Tender, no Distended, no Mass, no Guarding Psych/Mental Status: Mental status NL - Procedures Procedures: Procedures Procedure Code Date INDIVID PSYCHOTHERAP NEC 94.39 07/05/04 INJECT/INFUSE NEC 99.29 03/18/13 OTHER GROUP THERAPY 94.44 12/18/13 RECREATIONAL THERAPY 93.81 07/05/04 Assessment/Plan - Problem List Patient Problems: All Active Problems ABDOMINAL PAIN WITH N/V (Acute) - Assessment Assessment: 71 YO FEMALE WITH PRIOR ABD SURGERIES WITH ABD DISTENSION CT SUGGEST pSBO AND SHOWED [place] LFTS NORMAL HIDA WAS NONDIAGNOSTIC SBFT SUGGEST PARTIAL SBO CLINICALLY IMPROVED 1.Appreciate Dr Sifuentes's recommendations. Diet advancement as per surgery 2.CONT SUPP CARE 3.F/U PCP 4.AKHIL IF SYMPTOMATIC 5. Ok for dc planning from a GI standpoint as long as eating and having BMs
[2017-05-04] MEDS: Multivitamin Tab PO SCH (09:38)
--- NOTE | 2017-05-04 10:18 | General Progress Note ---
Subjective - Review of Systems Service Date: 05/04/17 Events since last encounter: tolerating diet, wants solids had BM yesterday Objective - Results Result Diagrams: 05/04/17 06:40 05/04/17 06:40 Recent Labs: Laboratory Last Values WBC 4.4 Th/cmm (4.8-10.8) L 05/04/17 06:40 RBC 5.00 Mil/cmm (3.80-5.20) 05/04/17 06:40 Hgb 12.8 gm/dL (12-16) 05/04/17 06:40 Hct 37.5 % (41.0-60) L 05/04/17 06:40 MCV 75.0 fl (81-100) L 05/04/17 06:40 MCH 25.5 pg (27.0-31.0) L 05/04/17 06:40 MCHC Differential 34.0 pg (28.0-36.0) 05/04/17 06:40 RDW 15.7 % (11.5-20.0) 05/04/17 06:40 Plt Count 229 Th/cmm (150-400) 05/04/17 06:40 MPV 7.2 fl 05/04/17 06:40 Neutrophils % 63.0 % (40.0-80.0) 05/04/17 06:40 Lymphocytes % 22.8 % (20.0-50.0) 05/04/17 06:40 Monocytes % 9.2 % (2.0-10.0) 05/04/17 06:40 Eosinophils % 4.3 % (0.0-5.0) 05/04/17 06:40 Basophils % 0.7 % (0.0-2.0) 05/04/17 06:40 PT 11.4 SECONDS (9.5-11.5) 04/28/17 17:22 INR 1.09 (0.5-1.4) 04/28/17 17:22 PTT (Actin FS) 25.1 SECONDS (26.0-38.0) L 04/28/17 17:22 Sodium 139 mEq/L (136-145) 05/04/17 06:40 Potassium 3.3 mEq/L (3.5-5.1) L 05/04/17 06:40 Chloride 111 mEq/L (98-107) H 05/04/17 06:40 Carbon Dioxide 23.6 mEq/L (21.0-31.0) 05/04/17 06:40 Anion Gap 7.7 (7.0-16.0) 05/04/17 06:40 BUN 9 mg/dL (7-25) 05/04/17 06:40 Creatinine 0.5 mg/dL (0.6-1.2) L 05/04/17 06:40 Est GFR ( Amer) TNP 05/04/17 06:40 Est GFR (Non-Af Amer) TNP 05/04/17 06:40 BUN/Creatinine Ratio 18.0 05/04/17 06:40 Glucose 116 mg/dL (70-105) H 05/04/17 06:40 POC Glucose 183 MG/DL (70-105) H 04/29/17 05:58 Hemoglobin A1c % 6.5 % (4.0-6.0) H 04/28/17 17:22 Calcium 8.6 mg/dL (8.6-10.3) 05/04/17 06:40 Magnesium 2.5 mg/dL (1.9-2.7) 05/01/17 07:30 Total Bilirubin 0.8 mg/dL (0.3-1.0) 05/01/17 07:30 Direct Bilirubin 0.29 mg/dL (0.0-0.2) H 04/28/17 17:22 AST 9 U/L (13-39) L 05/01/17 07:30 ALT 18 U/L (7-52) 05/01/17 07:30 Alkaline Phosphatase 76 U/L (34-104) 05/01/17 07:30 C-Reactive Protein 5.1 mg/dL (0.0-0.9) H 04/28/17 17:22 Total Protein 5.6 gm/dL (6.0-8.3) L 05/01/17 07:30 Albumin 3.3 gm/dL (3.7-5.3) L 05/01/17 07:30 Globulin 2.3 gm/dL 05/01/17 07:30 Albumin/Globulin Ratio 1.4 (1.0-1.8) 05/01/17 07:30 Lipase 8 U/L (11-82) L 04/29/17 04:55 Stool Occult Blood POSITIVE (NEGATIVE) H 04/30/17 16:45 - Physical Exam Vitals and I&O: Vital Signs Temp 97.2 F 05/04/17 08:32 Pulse 70 05/04/17 09:38 Resp 18 05/04/17 08:32 BP 126/51 05/04/17 09:38 Pulse Ox 95 05/04/17 08:32 Intake & Output 05/03/17 05/04/17 05/04/17 18:59 06:59 18:59 Intake Total 249.167 930 Balance 249.167 930 Weight (lbs) 74.389 kg Intake: Intake, IV Amount 249.167 930 Sodium Chloride 0.9% 1, 249.167 930 000 ml @ 50 mls/hr IV . Q20H COUNT INCLUDES THE [facility] Rx#:[id number] Other: # Voids 3 # Bowel Movements 1 Stool Characteristics Soft Active Medications: Current Medications Acetaminophen (Tylenol) 650 mg PO Q4H PRN PRN Reason: Pain Or Fever above 101 Stop: 06/27/17 19:20 Last Admin: 05/03/17 09:48 Dose: 650 mg Al Hydrox/Mg Hydrox/Simethicone (Maalox) 30 ml PO Q4H PRN PRN Reason: GI DISTRESS Stop: 06/27/17 19:15 Last Admin: 04/30/17 09:20 Dose: 30 ml Albuterol Sulfate (Albuterol 2.5mg/3ml Neb Ud) 2.5 mg HHN Q2HRT PRN PRN Reason: Shortness of Breath or Wheeze Stop: 06/27/17 19:20 Ascorbic Acid (Vitamin C) 500 mg PO DAILY [facility] Stop: 06/28/17 08:59 Last Admin: 05/04/17 09:38 Dose: 500 mg Atorvastatin Calcium (Lipitor) 10 mg PO [facility] PRN Reason: Protocol Stop: 06/27/17 20:59 Last Admin: 05/03/17 21:00 Dose: 10 mg Docusate Sodium (Colace) 100 mg PO DAILY [facility] Stop: 06/28/17 08:59 Last Admin: 05/04/17 09:37 Dose: 100 mg Donepezil HCl (Aricept) 10 mg PO [facility] Stop: 06/28/17 20:59 Last Admin: 05/03/17 21:00 Dose: 10 mg Glucagon (Glucagen) 1 mg IM DAILY PRN PRN Reason: HYPOGLYCEMIA Stop: 06/27/17 19:15 Heparin Sodium (Porcine) (Heparin) 5,000 units SUBQ Q12HR [facility] Stop: 06/28/17 20:59 Last Admin: 05/04/17 09:39 Dose: 5,000 units Sodium Chloride (Nacl 0.9%) 1,000 mls @ 50 mls/hr IV .Q20H [facility] Stop: 07/01/17 12:06 Last Admin: 05/04/17 05:34 Dose: 50 mls/hr Ipratropium [place] (Atrovent Neb 0.5mg/2.5ml) 0.5 mg IH Q2HRT PRN PRN Reason: Shortness of Breath or Wheeze Stop: 06/27/17 19:20 Lorazepam (Ativan) 1 mg PO Q6H PRN; Protocol PRN Reason: Anxiety Stop: 06/27/17 19:15 Losartan Potassium (Cozaar) 25 mg PO DAILY [facility] Stop: 06/28/17 08:59 Last Admin: 05/04/17 09:38 Dose: 25 mg Mineral Oil (Mineral Oil 30 Ml) 30 ml PO DAILY PRN PRN Reason: Constipation Stop: 06/29/17 12:31 Morphine Sulfate (Morphine) 2 mg IVP Q4H PRN PRN Reason: Abdominal Pain Stop: 06/28/17 16:34 Last Admin: 05/03/17 01:25 Dose: 2 mg Multivitamins/Vitamin C (Theragran) 1 tab PO DAILY [facility] Stop: 06/28/17 08:59 Last Admin: 05/04/17 09:38 Dose: 1 tab Mupirocin (Bactroban Oint) 1 appl TP BID [facility] Stop: 05/07/17 16:59 Last Admin: 05/04/17 09:37 Dose: 1 appl Ondansetron HCl (Zofran) 4 mg IV Q8H PRN PRN Reason: Nausea / Vomiting Stop: 06/27/17 19:20 Last Admin: 05/02/17 01:03 Dose: 4 mg Oxybutynin Chloride (Ditropan) 5 mg PO BID [facility] Stop: 06/28/17 08:59 Last Admin: 05/04/17 09:39 Dose: 5 mg Pantoprazole Sodium (Protonix) 40 mg IVP BID [facility] Stop: 06/28/17 10:59 Last Admin: 05/04/17 09:37 Dose: 40 mg Quetiapine Fumarate (Seroquel) 50 mg PO BID [facility] PRN Reason: Protocol Stop: 06/28/17 10:59 Last Admin: 05/04/17 09:38 Dose: 50 mg Theophylline (Nain-Dur) 400 mg PO HS [facility] Stop: 06/28/17 20:59 Last Admin: 05/03/17 20:59 Dose: 400 mg Zolpidem Tartrate (Ambien) 5 mg PO HS PRN PRN Reason: Insomnia Stop: 06/27/17 19:15 Last Admin: 04/29/17 21:50 Dose: 5 mg General: Alert, Oriented x3 HEENT: Atraumatic Abdomen: Bowel sounds, Soft, Obese, no Tender, no Distended, no Mass, no Guarding Psych/Mental Status: Mental status NL - Procedures Procedures: Procedures Procedure Code Date INDIVID PSYCHOTHERAP NEC 94.39 07/05/04 INJECT/INFUSE NEC 99.29 03/18/13 OTHER GROUP THERAPY 94.44 12/18/13 RECREATIONAL THERAPY 93.81 07/05/04 Assessment/Plan - Problem List Patient Problems: All Active Problems ABDOMINAL PAIN WITH N/V (Acute) Nutritional Asmnt/Malnutr-PDOC - Dietary Evaluation Malnutrition Findings (Please click <Entered> for more info): Nutritional Asmnt/Malnutrition Start: 04/29/17 15: 55 Text: Status: Complete Freq: Document 04/29/17 15:55 ANNA (Rec: 04/29/17 16:15 [email or web address]) Nutritional Asmnt/Malnutrition Patient General Information Nutritional Screening High Risk Consult Diagnosis abd pain/vomiting Pertinent Medical Hx/Surgical Hx embolism and thrombus, DVT, hyperlipidemia Subjective Information Pt seen lying in bed at time of visit, denied N/V today but having stomachach. Observed lunch tray finished about 75%. Food preference provided. Current Diet Order/ Nutrition Support Full liquid Pertinent Medications vit C, colace, theragran, protonix, seroquel, nacl 0.9% Pertinent Labs 04/29 Na 131, Cl 91, BUN 27, Glucose 175, 04/28 A1c 6.5 Nutritional Hx/Data Height 1.57 m Height (Calculated Centimeters) 157.5 Current Weight (lbs) 74.389 kg Weight (Calculated Kilograms) 74.4 Weight (Calculated Grams) 49467.1 [place] Body Weight 110 Body Mass Index (BMI) 29.9 Weight Status Overweight GI Symptoms GI Symptoms None Last BM no record Difficult in: None Skin Integrity/Comment: intact LEFT HAND FATTY TISSUE AND POSTERIOR THIGH FAT TISSUE, PINKISH BUTTOCKS Estimated Nutritional Goals BEE in Kcals: Adj wt of IBW Calories/Kcals/Kg 25-30 Kcals Calculated 3322-5222 Protein: Adj wt of IBW Protein g/k-1.2 Protein Calculated 56-67 Fluid: ml 1400-1680ml (1ml/kcal) Nutritional Problem 1. Problem Problem inadequate energy intake Etiology abd pain, N/V Signs/Symptoms: pt need for full liquid diet Malnutrition Alert Protein-Calorie Malnutrition N/A Is there a minimum of two criteria No selected? Query Text:Check all the applicable criteria. A minimum of two criteria are recommended for diagnosis of either severe or non-severe malnutrition. Intervention/Recommendation Comments 1. Continue with current diet as ordered. Diet profile updated. 2. Monitor PO intake, wt, labs and skin integrity 3. F/U as hig risk in 2-3 days , 05/01-05/02 Expected Outcomes/Goals Expected Outcomes/Goals 1. PO intake to meet at least 75% of nutritional needs. 2. Wt stability, skin to remain intact, labs to approach WNL.
[2017-05-04] MEDS ORDERED: Potassium Chloride 20 mEq ER Tab PO ONE (13:07)
--- NOTE | 2017-05-04 15:08 | Internal Medicine Prog Note ---
Internal Medicine Subjective - Subjective Patient seen and examined:: with staff, chart reviewed Patient is:: awake, verbal, interactive, in bed Per staff patient has:: no adverse event, poor appetite, poor oral intake, tolerating meds Internal Medicine Objective - Results Result Diagrams: 05/04/17 06:40 05/04/17 06:40 Recent Labs: Laboratory Last Values WBC 4.4 Th/cmm (4.8-10.8) L 05/04/17 06:40 RBC 5.00 Mil/cmm (3.80-5.20) 05/04/17 06:40 Hgb 12.8 gm/dL (12-16) 05/04/17 06:40 Hct 37.5 % (41.0-60) L 05/04/17 06:40 MCV 75.0 fl (81-100) L 05/04/17 06:40 MCH 25.5 pg (27.0-31.0) L 05/04/17 06:40 MCHC Differential 34.0 pg (28.0-36.0) 05/04/17 06:40 RDW 15.7 % (11.5-20.0) 05/04/17 06:40 Plt Count 229 Th/cmm (150-400) 05/04/17 06:40 MPV 7.2 fl 05/04/17 06:40 Neutrophils % 63.0 % (40.0-80.0) 05/04/17 06:40 Lymphocytes % 22.8 % (20.0-50.0) 05/04/17 06:40 Monocytes % 9.2 % (2.0-10.0) 05/04/17 06:40 Eosinophils % 4.3 % (0.0-5.0) 05/04/17 06:40 Basophils % 0.7 % (0.0-2.0) 05/04/17 06:40 PT 11.4 SECONDS (9.5-11.5) 04/28/17 17:22 INR 1.09 (0.5-1.4) 04/28/17 17:22 PTT (Actin FS) 25.1 SECONDS (26.0-38.0) L 04/28/17 17:22 Sodium 139 mEq/L (136-145) 05/04/17 06:40 Potassium 3.3 mEq/L (3.5-5.1) L 05/04/17 06:40 Chloride 111 mEq/L (98-107) H 05/04/17 06:40 Carbon Dioxide 23.6 mEq/L (21.0-31.0) 05/04/17 06:40 Anion Gap 7.7 (7.0-16.0) 05/04/17 06:40 BUN 9 mg/dL (7-25) 05/04/17 06:40 Creatinine 0.5 mg/dL (0.6-1.2) L 05/04/17 06:40 Est GFR ( Amer) TNP 05/04/17 06:40 Est GFR (Non-Af Amer) TNP 05/04/17 06:40 BUN/Creatinine Ratio 18.0 05/04/17 06:40 Glucose 116 mg/dL (70-105) H 05/04/17 06:40 POC Glucose 183 MG/DL (70-105) H 04/29/17 05:58 Hemoglobin A1c % 6.5 % (4.0-6.0) H 04/28/17 17:22 Calcium 8.6 mg/dL (8.6-10.3) 05/04/17 06:40 Magnesium 2.5 mg/dL (1.9-2.7) 05/01/17 07:30 Total Bilirubin 0.8 mg/dL (0.3-1.0) 05/01/17 07:30 Direct Bilirubin 0.29 mg/dL (0.0-0.2) H 04/28/17 17:22 AST 9 U/L (13-39) L 05/01/17 07:30 ALT 18 U/L (7-52) 05/01/17 07:30 Alkaline Phosphatase 76 U/L (34-104) 05/01/17 07:30 C-Reactive Protein 5.1 mg/dL (0.0-0.9) H 04/28/17 17:22 Total Protein 5.6 gm/dL (6.0-8.3) L 05/01/17 07:30 Albumin 3.3 gm/dL (3.7-5.3) L 05/01/17 07:30 Globulin 2.3 gm/dL 05/01/17 07:30 Albumin/Globulin Ratio 1.4 (1.0-1.8) 05/01/17 07:30 Lipase 8 U/L (11-82) L 04/29/17 04:55 Stool Occult Blood POSITIVE (NEGATIVE) H 04/30/17 16:45 - Physical Exam Vitals and I&O: Vital Signs Temp 97.2 F 05/04/17 08:32 Pulse 70 05/04/17 09:38 Resp 18 05/04/17 08:32 BP 126/51 05/04/17 09:38 Pulse Ox 95 05/04/17 08:32 Intake & Output 05/03/17 05/04/17 05/04/17 18:59 06:59 18:59 Intake Total 249.167 930 Balance 249.167 930 Weight (lbs) 74.389 kg Intake: Intake, IV Amount 249.167 930 Sodium Chloride 0.9% 1, 249.167 930 000 ml @ 50 mls/hr IV . Q20H [facility] Rx#:[id number] Other: # Voids 3 # Bowel Movements 1 Stool Characteristics Soft Active Medications: Current Medications Acetaminophen (Tylenol) 650 mg PO Q4H PRN PRN Reason: Pain Or Fever above 101 Stop: 06/27/17 19:20 Last Admin: 05/03/17 09:48 Dose: 650 mg Al Hydrox/Mg Hydrox/Simethicone (Maalox) 30 ml PO Q4H PRN PRN Reason: GI DISTRESS Stop: 06/27/17 19:15 Last Admin: 04/30/17 09:20 Dose: 30 ml Albuterol Sulfate (Albuterol 2.5mg/3ml Neb Ud) 2.5 mg HHN Q2HRT PRN PRN Reason: Shortness of Breath or Wheeze Stop: 06/27/17 19:20 Ascorbic Acid (Vitamin C) 500 mg PO DAILY [facility] Stop: 06/28/17 08:59 Last Admin: 05/04/17 09:38 Dose: 500 mg Atorvastatin Calcium (Lipitor) 10 mg PO HS [facility] PRN Reason: Protocol Stop: 06/27/17 20:59 Last Admin: 05/03/17 21:00 Dose: 10 mg Docusate Sodium (Colace) 100 mg PO DAILY [facility] Stop: 06/28/17 08:59 Last Admin: 05/04/17 09:37 Dose: 100 mg Donepezil HCl (Aricept) 10 mg PO HS [facility] Stop: 06/28/17 20:59 Last Admin: 05/03/17 21:00 Dose: 10 mg Glucagon (Glucagen) 1 mg IM DAILY PRN PRN Reason: HYPOGLYCEMIA Stop: 06/27/17 19:15 Heparin Sodium (Porcine) (Heparin) 5,000 units SUBQ Q12HR [facility] Stop: 06/28/17 20:59 Last Admin: 05/04/17 09:39 Dose: 5,000 units Sodium Chloride (Nacl 0.9%) 1,000 mls @ 50 mls/hr IV .Q20H [facility] Stop: 07/01/17 12:06 Last Admin: 05/04/17 05:34 Dose: 50 mls/hr Ipratropium [place] (Atrovent Neb 0.5mg/2.5ml) 0.5 mg IH Q2HRT PRN PRN Reason: Shortness of Breath or Wheeze Stop: 06/27/17 19:20 Lorazepam (Ativan) 1 mg PO Q6H PRN; Protocol PRN Reason: Anxiety Stop: 06/27/17 19:15 Losartan Potassium (Cozaar) 25 mg PO DAILY [facility] Stop: 06/28/17 08:59 Last Admin: 05/04/17 09:38 Dose: 25 mg Mineral Oil (Mineral Oil 30 Ml) 30 ml PO DAILY PRN PRN Reason: Constipation Stop: 06/29/17 12:31 Morphine Sulfate (Morphine) 2 mg IVP Q4H PRN PRN Reason: Abdominal Pain Stop: 06/28/17 16:34 Last Admin: 05/03/17 01:25 Dose: 2 mg Multivitamins/Vitamin C (Theragran) 1 tab PO DAILY [facility] Stop: 06/28/17 08:59 Last Admin: 05/04/17 09:38 Dose: 1 tab Mupirocin (Bactroban Oint) 1 appl TP BID [facility] Stop: 05/07/17 16:59 Last Admin: 05/04/17 09:37 Dose: 1 appl Ondansetron HCl (Zofran) 4 mg IV Q8H PRN PRN Reason: Nausea / Vomiting Stop: 06/27/17 19:20 Last Admin: 05/02/17 01:03 Dose: 4 mg Oxybutynin Chloride (Ditropan) 5 mg PO BID [facility] Stop: 06/28/17 08:59 Last Admin: 05/04/17 09:39 Dose: 5 mg Pantoprazole Sodium (Protonix) 40 mg IVP BID [facility] Stop: 06/28/17 10:59 Last Admin: 05/04/17 09:37 Dose: 40 mg Quetiapine Fumarate (Seroquel) 50 mg PO BID [facility] PRN Reason: Protocol Stop: 06/28/17 10:59 Last Admin: 05/04/17 09:38 Dose: 50 mg Theophylline (Nain-Dur) 400 mg PO HS [facility] Stop: 06/28/17 20:59 Last Admin: 05/03/17 20:59 Dose: 400 mg Zolpidem Tartrate (Ambien) 5 mg PO HS PRN PRN Reason: Insomnia Stop: 06/27/17 19:15 Last Admin: 04/29/17 21:50 Dose: 5 mg General: alert HEENT: NC/AT, PERRLA Neck: Supple Lungs: CTAB Cardiovascular: RRR, Normal S1, Normal S2 Abdomen: soft, non-tender, non-distended, positive bowel sound Neurological: alert - Procedures Procedures: Procedures Procedure Code Date INDIVID PSYCHOTHERAP NEC 94.39 07/05/04 INJECT/INFUSE NEC 99.29 03/18/13 OTHER GROUP THERAPY 94.44 12/18/13 RECREATIONAL THERAPY 93.81 07/05/04 Internal Medicine Assmt/Plan - Assessment Assessment: - Assessment Assessment: mrsa nares abdominal pain hyponatremia htn dm2 asthma dementia - Plan Plan: will advance diet will confer w gi and surgery ivf and ppi holly rn Nutritional Asmnt/Malnutr-PDOC - Dietary Evaluation Malnutrition Findings (Please click <Entered> for more info): Nutritional Asmnt/Malnutrition Start: 04/29/17 15: 55 Text: Status: Complete Freq: Document 04/29/17 15:55 LESLIE (Rec: 04/29/17 16:15 [email or web address]) Nutritional Asmnt/Malnutrition Patient General Information Nutritional Screening High Risk Consult Diagnosis abd pain/vomiting Pertinent Medical Hx/Surgical Hx embolism and thrombus, DVT, hyperlipidemia Subjective Information Pt seen lying in bed at time of visit, denied N/V today but having stomachach. Observed lunch tray finished about 75%. Food preference provided. Current Diet Order/ Nutrition Support Full liquid Pertinent Medications vit C, colace, theragran, protonix, seroquel, nacl 0.9% Pertinent Labs 04/29 Na 131, Cl 91, BUN 27, Glucose 175, 04/28 A1c 6.5 Nutritional Hx/Data Height 1.57 m Height (Calculated Centimeters) 157.5 Current Weight (lbs) 74.389 kg Weight (Calculated Kilograms) 74.4 Weight (Calculated Grams) 98819.1 [place] Body Weight 110 Body Mass Index (BMI) 29.9 Weight Status Overweight GI Symptoms GI Symptoms None Last BM no record Difficult in: None Skin Integrity/Comment: intact LEFT HAND FATTY TISSUE AND POSTERIOR THIGH FAT TISSUE, PINKISH BUTTOCKS Estimated Nutritional Goals BEE in Kcals: Adj wt of IBW Calories/Kcals/Kg 25-30 Kcals Calculated 1008-6630 Protein: Adj wt of IBW Protein g/k-1.2 Protein Calculated 56-67 Fluid: ml 1400-1680ml (1ml/kcal) Nutritional Problem 1. Problem Problem inadequate energy intake Etiology abd pain, N/V Signs/Symptoms: pt need for full liquid diet Malnutrition Alert Protein-Calorie Malnutrition N/A Is there a minimum of two criteria No selected? Query Text:Check all the applicable criteria. A minimum of two criteria are recommended for diagnosis of either severe or non-severe malnutrition. Intervention/Recommendation Comments 1. Continue with current diet as ordered. Diet profile updated. 2. Monitor PO intake, wt, labs and skin integrity 3. F/U as hig risk in 2-3 days , 05/01-05/02 Expected Outcomes/Goals Expected Outcomes/Goals 1. PO intake to meet at least 75% of nutritional needs. 2. Wt stability, skin to remain intact, labs to approach WNL.
[2017-05-04] MEDS: Theophylline 100 mg ER Tab PO SCH (20:29)
[2017-05-04] MEDS: Atorvastatin Calcium 10 MG TAB PO SCH (20:30)
[2017-05-05 07:48] LABS: ANION GAP 10.7 (7.0-16.0); BUN - UREA NITROGEN 7 mg/dL (7-25); CALCIUM SERUM 8.3 mg/dL (8.6-10.3); CARBON DIOXIDE 19.7 mEq/L (21.0-31.0); CHLORIDE 114 mEq/L (98-107); CREATININE - SERUM 0.7 mg/dL (0.6-1.2); GLUCOSE 137 mg/dL (70-105); MAGNESIUM 1.8 mg/dL (1.9-2.7); POTASSIUM SERUM 3.4 mEq/L (3.5-5.1); SODIUM SERUM 141 mEq/L (136-145)
[2017-05-05] MEDS: Multivitamin Tab PO SCH (09:03)
[2017-05-05] MEDS ORDERED: Mag Sulfate 2gm/50mL Premix 2 GM/50 ML BAG IV ONE (10:14)
[2017-05-05] MEDS ORDERED: Potassium Chloride 20 mEq ER Tab PO ONE (10:14)
--- NOTE | 2017-05-05 11:50 | GI Progress Note ---
Subjective - Review of Systems Service Date: 05/05/17 Subjective: No new events Objective - Results Result Diagrams: 05/04/17 06:40 05/05/17 06:39 Recent Labs: Laboratory Last Values WBC 4.4 Th/cmm (4.8-10.8) L 05/04/17 06:40 RBC 5.00 Mil/cmm (3.80-5.20) 05/04/17 06:40 Hgb 12.8 gm/dL (12-16) 05/04/17 06:40 Hct 37.5 % (41.0-60) L 05/04/17 06:40 MCV 75.0 fl (81-100) L 05/04/17 06:40 MCH 25.5 pg (27.0-31.0) L 05/04/17 06:40 MCHC Differential 34.0 pg (28.0-36.0) 05/04/17 06:40 RDW 15.7 % (11.5-20.0) 05/04/17 06:40 Plt Count 229 Th/cmm (150-400) 05/04/17 06:40 MPV 7.2 fl 05/04/17 06:40 Neutrophils % 63.0 % (40.0-80.0) 05/04/17 06:40 Lymphocytes % 22.8 % (20.0-50.0) 05/04/17 06:40 Monocytes % 9.2 % (2.0-10.0) 05/04/17 06:40 Eosinophils % 4.3 % (0.0-5.0) 05/04/17 06:40 Basophils % 0.7 % (0.0-2.0) 05/04/17 06:40 PT 11.4 SECONDS (9.5-11.5) 04/28/17 17:22 INR 1.09 (0.5-1.4) 04/28/17 17:22 PTT (Actin FS) 25.1 SECONDS (26.0-38.0) L 04/28/17 17:22 Sodium 141 mEq/L (136-145) 05/05/17 06:39 Potassium 3.4 mEq/L (3.5-5.1) L 05/05/17 06:39 Chloride 114 mEq/L (98-107) H 05/05/17 06:39 Carbon Dioxide 19.7 mEq/L (21.0-31.0) L 05/05/17 06:39 Anion Gap 10.7 (7.0-16.0) 05/05/17 06:39 BUN 7 mg/dL (7-25) 05/05/17 06:39 Creatinine 0.7 mg/dL (0.6-1.2) 03 06:39 Est GFR ( Amer) TNP 05/05/17 06:39 Est GFR (Non-Af Amer) TNP 05/05/17 06:39 BUN/Creatinine Ratio 10.0 05/05/17 06:39 Glucose 137 mg/dL (70-105) H 05/05/17 06:39 POC Glucose 183 MG/DL (70-105) H 04/29/17 05:58 Hemoglobin A1c % 6.5 % (4.0-6.0) H 04/28/17 17:22 Calcium 8.3 mg/dL (8.6-10.3) L 05/05/17 06:39 Magnesium 1.8 mg/dL (1.9-2.7) L 05/05/17 06:39 Total Bilirubin 0.8 mg/dL (0.3-1.0) 05/01/17 07:30 Direct Bilirubin 0.29 mg/dL (0.0-0.2) H 04/28/17 17:22 AST 9 U/L (13-39) L 05/01/17 07:30 ALT 18 U/L (7-52) 05/01/17 07:30 Alkaline Phosphatase 76 U/L (34-104) 05/01/17 07:30 C-Reactive Protein 5.1 mg/dL (0.0-0.9) H 04/28/17 17:22 Total Protein 5.6 gm/dL (6.0-8.3) L 05/01/17 07:30 Albumin 3.3 gm/dL (3.7-5.3) L 05/01/17 07:30 Globulin 2.3 gm/dL 05/01/17 07:30 Albumin/Globulin Ratio 1.4 (1.0-1.8) 05/01/17 07:30 Lipase 8 U/L (11-82) L 04/29/17 04:55 Stool Occult Blood POSITIVE (NEGATIVE) H 04/30/17 16:45 - Physical Exam Vitals and I&O: Vital Signs Temp 97.8 F 05/05/17 07:47 Pulse 78 05/05/17 09:04 Resp 17 05/05/17 07:47 BP 117/40 05/05/17 09:04 Pulse Ox 96 05/05/17 07:47 Intake & Output 05/04/17 05/05/17 05/05/17 18:59 06:59 18:59 Intake Total 360 Balance 360 Weight (lbs) 74.389 kg 42.184 kg Intake: Oral 360 Other: # Voids 3 # Bowel Movements 0 Stool Characteristics Soft Soft Soft Active Medications: Current Medications Acetaminophen (Tylenol) 650 mg PO Q4H PRN PRN Reason: Pain Or Fever above 101 Stop: 06/27/17 19:20 Last Admin: 05/03/17 09:48 Dose: 650 mg Al Hydrox/Mg Hydrox/Simethicone (Maalox) 30 ml PO Q4H PRN PRN Reason: GI DISTRESS Stop: 06/27/17 19:15 Last Admin: 04/30/17 09:20 Dose: 30 ml Albuterol Sulfate (Albuterol 2.5mg/3ml Neb Ud) 2.5 mg HHN Q2HRT PRN PRN Reason: Shortness of Breath or Wheeze Stop: 06/27/17 19:20 Ascorbic Acid (Vitamin C) 500 mg PO DAILY [facility] Stop: 06/28/17 08:59 Last Admin: 05/05/17 09:03 Dose: 500 mg Atorvastatin Calcium (Lipitor) 10 mg PO HS [facility] PRN Reason: Protocol Stop: 06/27/17 20:59 Last Admin: 05/04/17 20:30 Dose: 10 mg Docusate Sodium (Colace) 100 mg PO DAILY [facility] Stop: 06/28/17 08:59 Last Admin: 05/05/17 09:04 Dose: 100 mg Donepezil HCl (Aricept) 10 mg PO HS [facility] Stop: 06/28/17 20:59 Last Admin: 05/04/17 20:30 Dose: 10 mg Glucagon (Glucagen) 1 mg IM DAILY PRN PRN Reason: HYPOGLYCEMIA Stop: 06/27/17 19:15 Heparin Sodium (Porcine) (Heparin) 5,000 units SUBQ Q12HR [facility] Stop: 06/28/17 20:59 Last Admin: 05/05/17 09:03 Dose: 5,000 units Magnesium Sulfate (Magnesium Sulfate Premix) 2 gm in 50 mls @ 25 mls/hr IV X1 ONE Stop: 05/05/17 12:13 Last Admin: 05/05/17 11:27 Dose: 25 mls/hr Ipratropium [place] (Atrovent Neb 0.5mg/2.5ml) 0.5 mg IH Q2HRT PRN PRN Reason: Shortness of Breath or Wheeze Stop: 06/27/17 19:20 Lorazepam (Ativan) 1 mg PO Q6H PRN; Protocol PRN Reason: Anxiety Stop: 06/27/17 19:15 Losartan Potassium (Cozaar) 25 mg PO DAILY [facility] Stop: 06/28/17 08:59 Last Admin: 05/05/17 09:04 Dose: Not Given Mineral Oil (Mineral Oil 30 Ml) 30 ml PO DAILY PRN PRN Reason: Constipation Stop: 06/29/17 12:31 Morphine Sulfate (Morphine) 2 mg IVP Q4H PRN PRN Reason: Abdominal Pain Stop: 06/28/17 16:34 Last Admin: 05/03/17 01:25 Dose: 2 mg Multivitamins/Vitamin C (Theragran) 1 tab PO DAILY [facility] Stop: 06/28/17 08:59 Last Admin: 05/05/17 09:03 Dose: 1 tab Mupirocin (Bactroban Oint) 1 appl TP BID [facility] Stop: 05/07/17 16:59 Last Admin: 05/05/17 10:39 Dose: 1 appl Ondansetron HCl (Zofran) 4 mg IV Q8H PRN PRN Reason: Nausea / Vomiting Stop: 06/27/17 19:20 Last Admin: 05/02/17 01:03 Dose: 4 mg Oxybutynin Chloride (Ditropan) 5 mg PO BID [facility] Stop: 06/28/17 08:59 Last Admin: 05/05/17 09:04 Dose: 5 mg Pantoprazole Sodium (Protonix) 40 mg PO BID [facility] Stop: 07/04/17 16:59 Quetiapine Fumarate (Seroquel) 50 mg PO BID [facility] PRN Reason: Protocol Stop: 06/28/17 10:59 Last Admin: 05/05/17 09:04 Dose: 50 mg Theophylline (Nain-Dur) 400 mg PO HS [facility] Stop: 06/28/17 20:59 Last Admin: 05/04/17 20:29 Dose: 400 mg Zolpidem Tartrate (Ambien) 5 mg PO HS PRN PRN Reason: Insomnia Stop: 06/27/17 19:15 Last Admin: 04/29/17 21:50 Dose: 5 mg General: Alert, Oriented x3 HEENT: Atraumatic Abdomen: Bowel sounds, Soft, Obese, no Tender, no Distended, no Mass, no Guarding Psych/Mental Status: Mental status NL - Procedures Procedures: Procedures Procedure Code Date INDIVID PSYCHOTHERAP NEC 94.39 07/05/04 INJECT/INFUSE NEC 99.29 03/18/13 OTHER GROUP THERAPY 94.44 12/18/13 RECREATIONAL THERAPY 93.81 07/05/04 Assessment/Plan - Problem List Patient Problems: All Active Problems ABDOMINAL PAIN WITH N/V (Acute) - Assessment Assessment: 71 YO FEMALE WITH PRIOR ABD SURGERIES WITH ABD DISTENSION CT SUGGEST pSBO AND SHOWED [place] LFTS NORMAL HIDA WAS NONDIAGNOSTIC SBFT SUGGEST PARTIAL SBO CLINICALLY IMPROVED 1.Appreciate Dr Sifuentes's recommendations. Diet advancement as per surgery 2.CONT SUPP CARE 3.F/U PCP 4.AKHIL IF SYMPTOMATIC 5. Ok for dc planning from a GI standpoint as long as eating and having BMs
--- NOTE | 2017-05-05 12:51 | Discharge Summary ---
DATE OF DISCHARGE: 05/05/2017 CHIEF COMPLAINT: Abdominal pain. FINAL DIAGNOSIS: Abdominal pain, partial small bowel obstructions, persistent nausea and vomiting in the last 7 years, diabetes, hypertension, hyponatremia, asthma, dementia, and obesity. HISTORY: This is a 38-gbiiy-oxa [place] female with history of hypertension, diabetes, admitted from ____ secondary to worsening abdominal pain, distention and no movement. The patient was admitted for further management. PHYSICAL EXAMINATION: VITAL SIGNS: Blood pressure 141/40, respirations 17, pulse 75, temperature 97.8. GENERAL: Elderly female, mildly obese. NECK: Supple. No mass. LUNGS: Breath sounds, few rhonchi. HEART: Regular rate and rhythm with systolic ejection murmur. ABDOMEN: Soft, globular. EXTREMITIES: Positive excoriation atrophy. HOSPITAL COURSE: She was admitted to Medical floor, continue IV hydration and IV proton pump inhibitor. CT of the abdomen and pelvis were done, which showed partial and small-bowel obstruction. The patient was seen by, Dr. Hagen, for GI and Dr. Galindo and refer the patient to surgery was in with Dr. Sifuentes. The patient was ____ treated conservatively. The patient's condition improved and tolerating p.o. diet. CONDITION ON DISCHARGE: Fair. DISCHARGE INSTRUCTIONS: The patient to continue from inhibitor and will follow with GI on an outpatient basis. JOB# [id number]
[2017-05-05] MEDS ORDERED: Pantoprazole 40 mg EC Tab PO SCH (17:00)
[2017-05-06 07:32] LABS: HEP DELTA VIRUS AB SEE REF. LAB REPORT
== END 2017-05-05 15:50 | disposition home or self-care (01) | DRG 389 ==
LOC: ER 16:38 → MSI 21:49
PROVIDERS: ADMIT Internal Medicine; ATTEND Internal Medicine
DX: K56.600 Partial intestinal obstruction, unspecified as to cause (principal); E87.1 Hypo-osmolality and hyponatremia; K92.2 Gastrointestinal hemorrhage, unspecified; F25.9 Schizoaffective disorder, unspecified; J43.9 Emphysema, unspecified; R16.2 Hepatomegaly with splenomegaly, not elsewhere classified; B95.61 Methicillin susceptible Staphylococcus aureus infection as the cause of diseases classified elsewhere; D64.9 Anemia, unspecified; E11.9 Type 2 diabetes mellitus without complications; E78.5 Hyperlipidemia, unspecified; F03.90 Unspecified dementia, unspecified severity, without behavioral disturbance, psychotic disturbance, mood disturbance, and anxiety; I10 Essential (primary) hypertension; Z66 Do not resuscitate; F17.210 Nicotine dependence, cigarettes, uncomplicated; E78.00 Pure hypercholesterolemia, unspecified; E78.1 Pure hyperglyceridemia; R14.0 Abdominal distension (gaseous); K80.80 Other cholelithiasis without obstruction; R11.2 Nausea with vomiting, unspecified; Z74.01 Bed confinement status; Z90.710 Acquired absence of both cervix and uterus
CPT/HCPCS: 36415-UA; 74250-TC; 76700-TC; 76856-TC; 78226-TC; 80048-TC; 80053-TC; 80076-TC; 82270-TC; 82948-90; 83036-90; 83690-TC; 83735-TC; 85025-TC; 85610-TC; 86141-TC; 87086-90; 87380-90; 90799; 94760; 96375; A9537; C9113; J0696; J1644; J2270; J2405; J3475; J7030; Z7610

== ENCOUNTER 2017-12-17 11:40 | Inpatient (IN) | payer MEDICARE, MEDICAID ==
[2017-12-17] MEDS ORDERED: Sodium Chloride 0.9% 1,000 ML IV ONE (12:02)
[2017-12-17 12:21] LABS: HEMATOCRIT 44.9 % (41.0-60); HEMOGLOBIN 14.7 gm/dL (12-16); MEAN CELL VOLUME 76.4 fl (81-100); MEAN CORPUSCULAR HEMOGLOBIN 25.1 pg (27.0-31.0); MEAN CORPUSCULAR HGB CONC 32.8 pg (28.0-36.0); MEAN PLATELET VOLUME 7.8 fl; PLATELET COUNT 180 Th/cmm (150-400); RED BLOOD COUNT 5.87 Mil/cmm (3.80-5.20); RED CELL DISTRIBUTION WIDTH 14.7 % (11.5-20.0)
[2017-12-17 12:32] LABS: INR 0.96 (0.5-1.4)
[2017-12-17 12:35] LABS: URINE SOURCE CLEAN C
[2017-12-17 12:37] LABS: URINE BILIRUBIN NEGATIVE (NEGATIVE); URINE BLOOD TRACE (NEGATIVE); URINE GLUCOSE (UA) 500 mg/dL (NEGATIVE); URINE KETONE NEGATIVE (NEGATIVE); URINE LEUKOCYTE ESTERASE NEGATIVE (NEGATIVE); URINE MICROSCOPIC INDICATED? YES; URINE NITRATE NEGATIVE (NEGATIVE); URINE PROTEIN 30 mg/dL (NEGATIVE); URINE UROBILINOGEN 0.2 E.U./dL (0.2 - 1.0)
[2017-12-17 12:38] LABS: ALB/GLOB RATIO 1.8 (1.0-1.8); ALBUMIN 3.9 gm/dL (3.7-5.3); ALKALINE PHOSPHATASE 111 U/L (34-104); AMYLASE SERUM 15 U/L (29-103); ANION GAP 15.8 (7.0-16.0); BILIRUBIN,TOTAL 0.9 mg/dL (0.3-1.0); BUN - UREA NITROGEN 19 mg/dL (7-25); CALCIUM SERUM 9.5 mg/dL (8.6-10.3); CARBON DIOXIDE 25.5 mEq/L (21.0-31.0); CHLORIDE 96 mEq/L (98-107); CHOLESTEROL 184 mg/dL (<200); CREATININE - SERUM 0.6 mg/dL (0.6-1.2); CREATININE KINASE 21 U/L (30-223); GLUCOSE 272 mg/dL (70-105); HDL -HIGH DENSITY LIPOPROTEIN 40 mg/dL (23-92); LIPASE 11 U/L (11-82); POTASSIUM SERUM 4.3 mEq/L (3.5-5.1); SGOT 9 U/L (13-39); SGPT/ALT 16 U/L (7-52); SODIUM SERUM 133 mEq/L (136-145); TOTAL PROTEIN,SERUM 6.1 gm/dL (6.0-8.3); TRIGLYCERIDES 196 mg/dL (<150)
[2017-12-17 12:46] LABS: URINE CLARITY CLEAR (CLEAR); URINE COLOR YELLOW
[2017-12-17 12:47] LABS: URINE EPITHELIAL CELLS MODERATE /lpf (FEW); URINE RBC 0-2 /hpf (0-5)
[2017-12-17 12:48] LABS: URINE BACTERIA MODERATE /hpf (NONE SEEN)
--- NOTE | 2017-12-17 12:53 | Diagnostic Imaging Report ---
CHEST X-RAY: AP view INDICATION: pain COMPARISON: Chest x-ray 09/29/2016 FINDINGS: There is mild thickening and probable minimal fluid in the right minor fissure. Increased left basal lung markings are noted. Chronic lung changes are noted. No pleural effusions. Heart size normal. Degenerative changes spine are noted. IMPRESSION: Density along the minor fissure. This may be due to retained pleural fluid in this region. Infiltrate or other mass lesion is considered less likely. If indicated short-term follow CT would further clarify. Increase left basal lung markings, likely chronic. Faint infiltrate is less likely.
[2017-12-17] MEDS ORDERED: INSULIN HUMAN REGULAR 100 UNITS/ML UNIT SUBQ ONE (12:59)
--- NOTE | 2017-12-17 12:59 | ED Physician Chart ---
ED Chief Complaint/HPI - Patient Information Date Seen:: 12/17/17 Time Seen:: 12:30 Chief Complaint:: Vomiting History of Present Illness:: onset x one day of intermittent, diffuse, crampy abd. pain, N/V, and hematemesis , no report of trauma, H/As, S/T, neck pain, C/P, SOB, A/D/C, melena, hematochezia, fever, chills, or urinary s/s Allergies:: Allergies Allergy/AdvReac Type Severity Reaction Status Date / Time Penicillins Allergy Verified 12/17/17 12:02 Vitals:: Vital Signs - 8 hr 12/17/17 12/17/17 12:30 12:33 Temp 98.6 F 98.6 F HR 89 83 RR 16 18 BP 134/59 133/46 O2 Sat % 98 95 Historian:: Patient, EMS Review:: Nurse's Note Reviewed, Old Chart Reviewed, EMS run form Reviewed ED Review of Systems - Review of Systems General/Constitutional: No fever, No chills, No weight loss, No weakness, No diaphoresis, No edema, No loss of appetite Skin: No skin lesions, No rash, No bruising Head: No headache, No light-headedness Eyes: No loss of vision, No pain, No diplopia ENT: No earache, No nasal drainage, No sore throat, No tinnitus Neck: No neck pain, No swelling, No thyromegaly, No stiffness, No mass noted Cardio Vascular: No chest pain, No palpitations, No PND, No orthopnea, No edema Pulmonary: No SOB, No cough, No sputum, No wheezing GI: Nausea, Vomiting, Diarrhea, Pain, Melena, No hematochezia, No constipation, Hematemesis G/U: No dysuria, No frequency, No hematuria, No nacturia Food Beverage Server: No vaginal discharge, No abnormal vaginal bleed, No contraction Musculoskeletal: No bone or joint pain, No back pain, No muscle pain Endocrine: No polyuria, No polydipsia Psychiatric: No prior psych history, No depression, No anxiety, No suicidal ideation, No homicidal ideation, No auditory hallucination, No visual hallucination Hematopoietic: No bruising, No lymphadenopathy Allergic/Immuno: No urticaria, No angioedema Neurological: No syncope, No focal symptoms, No weakness, No paresthesia, No headache, No seizure, No dizziness, No confusion, No vertigo ED Past Medical History - Past Medical History Obtainable: Yes Past Medical History: HTN, DM, Asthma/COPD, Dyslipidemia, PUD/GERD Family History: Diabetes Melitus, HTN Social History: Non Smoker, No Alcohol, No Drug Use, , Care Facility Surgical History: None Psychiatricy History: None Medication: Reviewed Family Medical History - Family Member Father History Unknown: Yes Ethnicity: Non- Living Status: Hx Family Cancer: No Hx Family Coronary Artery Disease: Yes Hx Family Congestive Heart Failure: Yes Hx Family Hypertension: Yes Hx Family Stroke: No Hx Family Diabetes: No Hx Family Seizures: No Hx Family Dementia: No Hx Family AIDS: No Hx Family HIV: No Hx Family COPD: No Hx Family Hepatitis: No Hx Family Psychiatric Problems: (migraines) Hx Family Tuberculosis: No Mother History Unknown: Yes Ethnicity: Non- Living Status: Hx Family Cancer: No Hx Family Coronary Artery Disease: No Hx Family Congestive Heart Failure: No Hx Family Hypertension: Yes Hx Family Stroke: No Hx Family Diabetes: No Hx Family Seizures: No Hx Family Dementia: No Hx Family AIDS: No Hx Family HIV: No Hx Family COPD: No Hx Family Hepatitis: No Hx Family Psychiatric Problems: No Hx Family Tuberculosis: No ED Physical Exam - Physical Examination General/Constitutional: Awake, Well-developed, well-nourished, Alert, No distress, GCS 15, Non-toxic appearing, Ambulatory Head: Atraumatic Eyes: Lids, conjuctiva normal, PERRL, EOMI Skin: Nl inspection, No rash, No skin lesions, No ecchymosis, Well hydrated, No lymphadenopathy ENMT: External ears, nose nl, TM canals nl, Nasal exam nl, Lips, teeth, gums nl , Oropharynx nl, Tonsils nl Neck: Nontender, Full ROM w/o pain, No JVD, No nuchal rigidity, No bruit, No mass, No stridor Respiratory: Nl effort/Exclusion, Clear to Auscultation, No Wheeze/Rhonchi/Rales Cardio Vascular: RRR, No murmur, gallop, rubs, NL S1 S2, Carotid/Femoral/Distal pulses equal bilaterally GI: No tenderness/rebounding/guarding, No organomegaly, No hernia, Normal BS's, Nondistended, No mass/bruits, No McBurney tenderness : No CVA tenderness Extremities: No tenderness or effusion, Full ROM, normal strength in all extremities, No edema, Normal digits & nails Neuro/Psych: Alert/oriented, DTR's symmetric, Normal sensory exam, Normal motor strength, Judgement/insight normal, Mood normal, Normal gait, No focal deficits Misc: Normal back, No paraspinal tenderness ED Labs/Radiology/EKG Results - Lab Results Results: Laboratory Tests 12/17/17 12/17/17 12/17/17 12:00 12:07 12:07 WBC 6.0 RBC 5.87 H Hgb 14.7 Hct 44.9 MCV 76.4 L MCH 25.1 L MCHC Differential 32.8 RDW 14.7 Plt Count 180 MPV 7.8 Neutrophils % 70.4 Lymphocytes % 16.4 L Monocytes % 12.1 H Eosinophils % 0.8 Basophils % 0.3 PT 10.0 INR 0.96 Sodium Potassium Chloride Carbon Dioxide Anion Gap BUN Creatinine Est GFR ( Amer) Est GFR (Non-Af Amer) BUN/Creatinine Ratio Glucose Calcium Total Bilirubin AST ALT Alkaline Phosphatase Creatine Kinase B-Natriuretic Peptide Total Protein Albumin Globulin Albumin/Globulin Ratio Triglycerides Cholesterol LDL Cholesterol Direct HDL Cholesterol Amylase Lipase Urine Source CLEAN C Urine Color YELLOW Urine Clarity CLEAR Urine pH 6.0 Ur Specific [place] >= 1.030 Urine Protein 30 H Urine Glucose (UA) 500 H Urine Ketones NEGATIVE Urine Blood TRACE Urine Nitrate NEGATIVE Urine Bilirubin NEGATIVE Urine Urobilinogen 0.2 Ur Leukocyte Esterase NEGATIVE Urine RBC 0-2 Urine WBC 6-10 H Ur Epithelial Cells MODERATE Urine Bacteria MODERATE H 12/17/17 12/17/17 12:07 12:07 WBC RBC Hgb Hct MCV MCH MCHC Differential RDW Plt Count MPV Neutrophils % Lymphocytes % Monocytes % Eosinophils % Basophils % PT INR Sodium 133 L Potassium 4.3 Chloride 96 L Carbon Dioxide 25.5 Anion Gap 15.8 BUN 19 Creatinine 0.6 Est GFR ( Amer) TNP Est GFR (Non-Af Amer) TNP BUN/Creatinine Ratio 31.7 Glucose 272 H Calcium 9.5 Total Bilirubin 0.9 AST 9 L ALT 16 Alkaline Phosphatase 111 H Creatine Kinase 21 L B-Natriuretic Peptide 37.2 Total Protein 6.1 Albumin 3.9 Globulin 2.2 Albumin/Globulin Ratio 1.8 Triglycerides 196 H Cholesterol 184 LDL Cholesterol Direct 122 HDL Cholesterol 40 Amylase 15 L Lipase 11 Urine Source Urine Color Urine Clarity Urine pH Ur Specific [place] Urine Protein Urine Glucose (UA) Urine Ketones Urine Blood Urine Nitrate Urine Bilirubin Urine Urobilinogen Ur Leukocyte Esterase Urine RBC Urine WBC Ur Epithelial Cells Urine Bacteria Comments:: Reviewed - Radiology Results Comments:: NAD - EKG Interpretations EKG Time:: 12:29 Rate & Rhythm: 84; NSR Comments:: T-Wave Inversions in V1 and V2; otherwise non-specific st-t changes ED Septic Shock - . Is Septic Shock (SBP<90, OR Lactate>4 mmol\L) present?: No - <6hrs of presentation: Vital Signs: Vital Signs - 8 hr 12/17/17 12/17/17 12:30 12:33 Temp 98.6 F 98.6 F HR 89 83 RR 16 18 BP 134/59 133/46 O2 Sat % 98 95 ED Reassessment (Disposition) - Reassessment Reassessment Condition:: Improved - Diagnosis Diagnosis:: Vomiting; Abdominal Pain; Hematemesis; GI Bleed; UTI; Hyponatremia; DM; Hyperglycemia - Aftercare/Follow up Instructions Aftercare/Follow-Up Instructions:: Counseled pt regarding lab results/diagnosis & need follow up, Counseled pt & family regarding lab results/diagnosis & need follow up - Patient Disposition Discharge/Transfer:: Acute Care w/in this hosp Accepting Physician:: Dr. Ch Time Called:: 1300 Time Responded:: 13:00 Admitted to:: Med/Surg Spoke to:: Dr. Ch Admitting Medical Physician:: Dr. Ch Condition at Disposition:: Stable, Improved
[2017-12-17] MEDS ORDERED: Levofloxacin 500mg/100mL 500 MG/100 ML BAG IV ONE ×2 (13:00→13:15)
[2017-12-17] MEDS ORDERED: INSULIN ASPART, RECOMBINANT 100 UNITS/ML SUBQ ONE ×2 (13:17→13:18)
--- NOTE | 2017-12-17 13:39 | Internal Medicine Prog Note ---
Internal Medicine Subjective - Subjective Service Date: 12/17/17 ([facility] [id number]) Internal Medicine Objective - Results Result Diagrams: 12/17/17 12:07 12/17/17 12:07 Recent Labs: Laboratory Last Values WBC 6.0 Th/cmm (4.8-10.8) 12/17/17 12:07 RBC 5.87 Mil/cmm (3.80-5.20) H 12/17/17 12:07 Hgb 14.7 gm/dL (12-16) 12/17/17 12:07 Hct 44.9 % (41.0-60) 12/17/17 12:07 MCV 76.4 fl (81-100) L 12/17/17 12:07 MCH 25.1 pg (27.0-31.0) L 12/17/17 12:07 MCHC Differential 32.8 pg (28.0-36.0) 12/17/17 12:07 RDW 14.7 % (11.5-20.0) 12/17/17 12:07 Plt Count 180 Th/cmm (150-400) 12/17/17 12:07 MPV 7.8 fl 12/17/17 12:07 Neutrophils % 70.4 % (40.0-80.0) 12/17/17 12:07 Lymphocytes % 16.4 % (20.0-50.0) L 12/17/17 12:07 Monocytes % 12.1 % (2.0-10.0) H 12/17/17 12:07 Eosinophils % 0.8 % (0.0-5.0) 12/17/17 12:07 Basophils % 0.3 % (0.0-2.0) 12/17/17 12:07 PT 10.0 SECONDS (9.5-11.5) 12/17/17 12:07 INR 0.96 (0.5-1.4) 12/17/17 12:07 Sodium 133 mEq/L (136-145) L 12/17/17 12:07 Potassium 4.3 mEq/L (3.5-5.1) 12/17/17 12:07 Chloride 96 mEq/L (98-107) L 12/17/17 12:07 Carbon Dioxide 25.5 mEq/L (21.0-31.0) 12/17/17 12:07 Anion Gap 15.8 (7.0-16.0) 12/17/17 12:07 BUN 19 mg/dL (7-25) 12/17/17 12:07 Creatinine 0.6 mg/dL (0.6-1.2) 12/17/17 12:07 Est GFR ( Amer) TNP 12/17/17 12:07 Est GFR (Non-Af Amer) TNP 12/17/17 12:07 BUN/Creatinine Ratio 31.7 12/17/17 12:07 Glucose 272 mg/dL (70-105) H 12/17/17 12:07 Calcium 9.5 mg/dL (8.6-10.3) 12/17/17 12:07 Total Bilirubin 0.9 mg/dL (0.3-1.0) 12/17/17 12:07 AST 9 U/L (13-39) L 12/17/17 12:07 ALT 16 U/L (7-52) 12/17/17 12:07 Alkaline Phosphatase 111 U/L (34-104) H 12/17/17 12:07 Creatine Kinase 21 U/L (30-223) L 12/17/17 12:07 B-Natriuretic Peptide 37.2 pg/mL (5.0-100.0) 12/17/17 12:07 Total Protein 6.1 gm/dL (6.0-8.3) 12/17/17 12:07 Albumin 3.9 gm/dL (3.7-5.3) 12/17/17 12:07 Globulin 2.2 gm/dL 12/17/17 12:07 Albumin/Globulin Ratio 1.8 (1.0-1.8) 12/17/17 12:07 Triglycerides 196 mg/dL (<150) H 12/17/17 12:07 Cholesterol 184 mg/dL (<200) 12/17/17 12:07 LDL Cholesterol Direct 122 mg/dL (75-193) 12/17/17 12:07 HDL Cholesterol 40 mg/dL (23-92) 12/17/17 12:07 Amylase 15 U/L (29-103) L 12/17/17 12:07 Lipase 11 U/L (11-82) 12/17/17 12:07 Urine Source CLEAN C 12/17/17 12:00 Urine Color YELLOW 12/17/17 12:00 Urine Clarity CLEAR (CLEAR) 12/17/17 12:00 Urine pH 6.0 (4.6 - 8.0) 12/17/17 12:00 Ur Specific [place] >= 1.030 (1.005-1.030) 12/17/17 12:00 Urine Protein 30 mg/dL (NEGATIVE) H 12/17/17 12:00 Urine Glucose (UA) 500 mg/dL (NEGATIVE) H 12/17/17 12:00 Urine Ketones NEGATIVE mg/dL (NEGATIVE) 12/17/17 12:00 Urine Blood TRACE (NEGATIVE) 12/17/17 12:00 Urine Nitrate NEGATIVE (NEGATIVE) 12/17/17 12:00 Urine Bilirubin NEGATIVE (NEGATIVE) 12/17/17 12:00 Urine Urobilinogen 0.2 E.U./dL (0.2 - 1.0) 12/17/17 12:00 Ur Leukocyte Esterase NEGATIVE (NEGATIVE) 12/17/17 12:00 Urine RBC 0-2 /hpf (0-5) 12/17/17 12:00 Urine WBC 6-10 /hpf (0-5) H 12/17/17 12:00 Ur Epithelial Cells MODERATE /lpf (FEW) 12/17/17 12:00 Urine Bacteria MODERATE /hpf (NONE SEEN) H 12/17/17 12:00 - Physical Exam Vitals and I&O: Vital Signs Temp 98.6 F 12/17/17 12:33 Pulse 83 12/17/17 12:33 Resp 18 12/17/17 12:33 BP 133/46 12/17/17 12:33 Pulse Ox 95 12/17/17 12:33 Intake & Output 12/16/17 12/17/17 12/17/17 18:59 06:59 18:59 Weight (lbs) 175 lb Other: Weight Source Patient stated Active Medications: Current Medications Sodium Chloride (Nacl 0.9%) 1,000 mls @ 100 mls/hr IV .Q10H ONE Stop: 12/17/17 22:01 Last Admin: 12/17/17 12:21 Dose: 100 mls/hr Levofloxacin (Levaquin Pb) 500 mg in 100 mls @ 100 mls/hr IV X1 ONE Stop: 12/17/17 13:59 Last Admin: 12/17/17 13:19 Dose: 100 mls/hr - Procedures Procedures: Procedures Procedure Code Date INDIVID PSYCHOTHERAP NEC 94.39 07/05/04 INJECT/INFUSE NEC 99.29 03/18/13 OTHER GROUP THERAPY 94.44 12/18/13 RECREATIONAL THERAPY 93.81 07/05/04
[2017-12-17] MEDS ORDERED: GLUCAGON HCl 1 MG KIT IM PRN (13:40)
[2017-12-17 13:41] LABS: LYMPHOCYTE 23 % (20-50); MONOCYTE 6 % (2-10); NEUTROPHILS 71 % (40-80)
[2017-12-17] MEDS ORDERED: Albuterol Nebulizer 2.5mg/3mL IH PRN (13:41)
[2017-12-17] MEDS ORDERED: Ipratropium Neb 0.5 mg/2.5 mL UD IH PRN (13:41)
[2017-12-17] MEDS ORDERED: guaiFENesin 200 MG/10 ML UDC PO PRN (13:41)
[2017-12-17 16:01] VITALS: BP 105/88
--- NOTE | 2017-12-17 16:06 | History & Physical ---
ADMIT DATE: 12/17/2017 CHIEF COMPLAINT: Vomiting and abdominal pain. HISTORY OF PRESENT ILLNESS: This is a 72-year-old female well known to me from [facility], who will be admitted to the med/surg unit due to 1-day history of intermittent, crampy abdominal pain associated with nausea. Upon examining the patient in the ER, the patient denies any nausea at this time. The patient describes her abdominal pain as more centered towards umbilical area, nonradiating. The patient was also admitted to this hospital on 04/29/2017 for the same reasons. The patient had a surgical consultation done at this hospital. The patient had a HIDA scan, it was indeterminate and abdominal ultrasound did not have any stones in the gallbladder. The patient was also seen and evaluated by GI specialist here at [place] and no further surgical treatment was needed per patient since the patient has been having normal bowel movements. PAST MEDICAL HISTORY: Hypertension, diabetes, asthma, dyslipidemia, dementia, chronic anemia. FAMILY HISTORY: Noncontributory. SOCIAL HISTORY: The patient is a alf resident, requiring 24-hour nursing care. SURGICAL HISTORY: None per patient. MEDICATIONS: Please see medication list. REVIEW OF SYSTEMS: GENERAL: Denies any fever and chills. CARDIOVASCULAR: Denies chest pain. RESPIRATORY: Denies shortness of breath. GASTROINTESTINAL: The patient complains of off and on abdominal pain. Denies any nausea at this time. GENITOURINARY: Denies any dysuria. MUSCULOSKELETAL: Denies any joint pain. All other systems are reviewed and are negative. PHYSICAL EXAMINATION: GENERAL: The patient is an obese female, awake, alert, in no apparent distress. VITAL SIGNS: Temperature 98.6, heart rate 83, blood pressure 133/46, respiration 18 and O2 95%. HEENT: Head; normocephalic and atraumatic. NECK: Supple. No mass. LUNGS: Clear bilaterally. HEART: Regular rhythm. ABDOMEN: Distended and nontender. EXTREMITIES: No edema noted. LABORATORY DATA: WBC 6.0, H and H 14.7 and 44.9 and platelets of 180. Sodium 133, potassium 4.3, chloride 96, BUN 19, creatinine 0.6, glucose 272, AST 9, ALT 16, alkaline phosphatase 111, creatinine kinase 21 and triglycerides 196. The patient had a urinalysis done, positive for UTI. DIAGNOSTICS: The patient had a chest x-ray done, impression is density along the minor fissure. This may be due to retained pleural effusion region, infiltrate or other mass lesion is considered less likely. ASSESSMENT: Abdominal pain with abdominal distention, intractable nausea, hypertension, diabetes, obesity, asthma, dyslipidemia, dementia, chronic anemia and acute urinary tract infection. PLAN: We will admit the patient to the med/surg unit. Again, GI consultation on the case. Keep patient on IV fluids for hydration. We will keep the patient on a clear liquid diet. We will get followup labs for tomorrow morning. We will continue to monitor this patient. JOB# [id number]
[2017-12-17] MEDS ORDERED: Pneumococcal Vaccine 0.5 mL Vial IM ONE (16:21)
[2017-12-17] MEDS ORDERED: Influenza Vaccine (65 yr & older) 0.5 ml Syr IM ONE (16:21)
[2017-12-17] MEDS ORDERED: Non-Formulary Item 1 EA (Apixaban [Eliquis] 2.5 MG) PO SCH (17:00)
[2017-12-17] MEDS ORDERED: Non-Formulary Item 1 EA (Fluticasone/Salmeterol [Advair 250-50 Diskus] 1 PUFF) INH SCH (17:00)
[2017-12-17] MEDS: INSULIN ASPART SLIDING SCALE 100 UNITS/ML UNIT SUBQ SCH ×2 (17:05→20:41)
[2017-12-17] MEDS: Sodium Chloride 0.9% 1,000 ML IV SCH (17:06)
[2017-12-17] MEDS: Budesonide 0.5 Mg/2 mL Ud HHN SCH (19:10)
--- NOTE | 2017-12-17 20:03 | Consultation ---
DATE OF CONSULTATION: 12/17/2017 PSYCHIATRIC CONSULTATION REQUESTING PHYSICIAN: Dr. Ch. REASON FOR CONSULTATION: History of mood swings. HISTORY OF PRESENT ILLNESS: This patient is a 72-year-old known to me from the previous treatments on an outpatient basis. The patient has been diagnosed to have bipolar disorder and was maintained on Depakote and Seroquel, but the patient is reporting that she has gained too much of weight with the Depakote and hence it was stopped. Currently, she is on Seroquel and has been doing fairly well. The patient is reporting that she came in here because of the abdominal pain. She thinks it is the pasta that she ate made all the problems. PAST PSYCHIATRIC HISTORY: The patient had been diagnosed to have the bipolar disorder with psychotic symptoms and has been maintained on Depakote and Seroquel for a long time. Currently, she is on Seroquel. MEDICAL HISTORY: The patient at this time has been admitted for abdominal pain. The patient has a history of abdominal pain and then history of partial bowel obstructions in the past. SOCIAL HISTORY: The patient is a resident of the [facility]. SUBSTANCE ABUSE HISTORY: None. PHYSICAL OR SEXUAL ABUSE HISTORY: None. LEGAL PROBLEMS: None at this time. STRENGTHS AND ASSETS: The patient is motivated. MENTAL EXAMINATION: The patient is a 72-year-old woman, cooperative. Eye contact is fair. Mood is noted to be anxious and depressed. Affect is constricted. The patient's insight and judgment at this time are noted to be fair. Impulse control seems to be fair. The patient is motivated for treatment. The patient is denying any auditory hallucinations. No delusions are noted. The patient is apprehensive about her abdominal condition. The patient is alert and oriented x 3. Short and long-term are noted to be intact. DIAGNOSTIC IMPRESSION: Bipolar disorder, depressed. PLAN: To continue the patient on the Seroquel and follow the patient up. The patient is able to be coping with the stress at this time. Thank you, Dr. Ch for allowing me to participate in the care of the patient. [facility]# [id number]
[2017-12-17] MEDS: Atorvastatin Calcium 10 MG TAB PO SCH (20:43)
[2017-12-18 05:47] LABS: % BASOPHILS 0.6 % (0.0-2.0); % EOSINOPHILS 2.8 % (0.0-5.0); % LYMPHOCYTES 23.6 % (20.0-50.0); % MONOCYTES 12.5 % (2.0-10.0); % NEUTROPHILS 60.5 % (40.0-80.0); EOSINOPHILE ABSOLUTE 0.1 Th/cmm (0.1-0.4); HEMOGLOBIN 13.6 gm/dL (12-16); LYMPHOCYTE ABSOLUTE 0.9 Th/cmm (1.5-3.0); MEAN CELL VOLUME 75.9 fl (81-100); MEAN CORPUSCULAR HGB CONC 34.2 pg (28.0-36.0); MEAN PLATELET VOLUME 7.2 fl; MONOCYTE ABSOLUTE 0.5 Th/cmm (0.3-1.0); NEUTROPHILE ABSOLUTE 2.4 Th/cmm (1.8-8.0); PLATELET COUNT 144 Th/cmm (150-400); RED BLOOD COUNT 5.22 Mil/cmm (3.80-5.20); RED CELL DISTRIBUTION WIDTH 14.9 % (11.5-20.0)
[2017-12-18 05:52] LABS: HEMATOCRIT 39.7 % (41.0-60); WHITE BLOOD COUNT 3.9 Th/cmm (4.8-10.8)
[2017-12-18 05:57] LABS: ANION GAP 12.3 (7.0-16.0); BUN - UREA NITROGEN 13 mg/dL (7-25); CALCIUM SERUM 8.5 mg/dL (8.6-10.3); CARBON DIOXIDE 24.8 mEq/L (21.0-31.0); CHLORIDE 103 mEq/L (98-107); CREATININE - SERUM 0.7 mg/dL (0.6-1.2); GLUCOSE 188 mg/dL (70-105); POTASSIUM SERUM 4.1 mEq/L (3.5-5.1); SODIUM SERUM 136 mEq/L (136-145)
[2017-12-18] MEDS: Pantoprazole 40 mg EC Tab PO SCH (06:35)
[2017-12-18] MEDS: Budesonide 0.5 Mg/2 mL Ud HHN SCH ×2 (06:42→19:07)
[2017-12-18] MEDS: INSULIN ASPART SLIDING SCALE 100 UNITS/ML UNIT SUBQ SCH ×4 (07:47→20:47)
[2017-12-18] MEDS: Multivitamin Tab PO SCH (09:11)
[2017-12-18] MEDS: Levofloxacin 500mg/100mL 500 MG/100 ML BAG IV SCH (09:14)
--- NOTE | 2017-12-18 10:16 | Progress Notes ---
DATE: 12/18/2017 SUBJECTIVE: Staff was spoken to. The patient is interviewed. Mood is noted to be anxious. The patient is stating that she has been trying to sleep and the patient is reporting that she had some pasta past and then did not go well and then that is about the reason why she accounts for her abdominal pain. The patient is stating that when she had vomiting, she was feeling a little bit better, but the patient at this time is being closely monitored for her mood swings at this time. The patient is currently on Seroquel and is able to tolerate. PLAN: To follow the patient up with the supportive therapy. JOB# [id number]
--- NOTE | 2017-12-18 11:48 | Internal Medicine Prog Note ---
Internal Medicine Subjective - Subjective Service Date: 12/18/17 (denies any abdominal pain or nausea states she feels much better) Patient seen and examined:: with staff Patient is:: awake, verbal Per staff patient has:: eating well, tolerating meds Internal Medicine Objective - Results Result Diagrams: 12/18/17 05:20 12/18/17 05:20 Recent Labs: Laboratory Last Values WBC 3.9 Th/cmm (4.8-10.8) L D 12/18/17 05:20 RBC 5.22 Mil/cmm (3.80-5.20) H 12/18/17 05:20 Hgb 13.6 gm/dL (12-16) 12/18/17 05:20 Hct 39.7 % (41.0-60) L D 12/18/17 05:20 MCV 75.9 fl (81-100) L 12/18/17 05:20 MCH 26.0 pg (27.0-31.0) L 12/18/17 05:20 MCHC Differential 34.2 pg (28.0-36.0) 12/18/17 05:20 RDW 14.9 % (11.5-20.0) 12/18/17 05:20 Plt Count 144 Th/cmm (150-400) L 12/18/17 05:20 MPV 7.2 fl 12/18/17 05:20 Add Manual Diff YES 12/17/17 12:07 Neutrophils % 60.5 % (40.0-80.0) 12/18/17 05:20 Lymphocytes % 23.6 % (20.0-50.0) 12/18/17 05:20 Monocytes % 12.5 % (2.0-10.0) H 12/18/17 05:20 Eosinophils % 2.8 % (0.0-5.0) 12/18/17 05:20 Basophils % 0.6 % (0.0-2.0) 12/18/17 05:20 Neutrophils (Manual) 71 % (40-80) 12/17/17 12:07 Lymphocytes 23 % (20-50) 12/17/17 12:07 Monocytes 6 % (2-10) 12/17/17 12:07 PT 10.0 SECONDS (9.5-11.5) 12/17/17 12:07 INR 0.96 (0.5-1.4) 12/17/17 12:07 Sodium 136 mEq/L (136-145) 12/18/17 05:20 Potassium 4.1 mEq/L (3.5-5.1) 12/18/17 05:20 Chloride 103 mEq/L (98-107) 12/18/17 05:20 Carbon Dioxide 24.8 mEq/L (21.0-31.0) 12/18/17 05:20 Anion Gap 12.3 (7.0-16.0) 12/18/17 05:20 BUN 13 mg/dL (7-25) 12/18/17 05:20 Creatinine 0.7 mg/dL (0.6-1.2) 12/18/17 05:20 Est GFR ( Amer) TNP 12/18/17 05:20 Est GFR (Non-Af Amer) TNP 12/18/17 05:20 BUN/Creatinine Ratio 18.6 12/18/17 05:20 Glucose 188 mg/dL (70-105) H 12/18/17 05:20 POC Glucose 187 MG/DL (70 - 105) H 12/18/17 11:16 Calcium 8.5 mg/dL (8.6-10.3) L 12/18/17 05:20 Total Bilirubin 0.9 mg/dL (0.3-1.0) 12/17/17 12:07 AST 9 U/L (13-39) L 12/17/17 12:07 ALT 16 U/L (7-52) 12/17/17 12:07 Alkaline Phosphatase 111 U/L (34-104) H 12/17/17 12:07 Creatine Kinase 21 U/L (30-223) L 12/17/17 12:07 Troponin I 0.01 ng/mL (0.01-0.05) 12/17/17 12:07 B-Natriuretic Peptide 37.2 pg/mL (5.0-100.0) 12/17/17 12:07 Total Protein 6.1 gm/dL (6.0-8.3) 12/17/17 12:07 Albumin 3.9 gm/dL (3.7-5.3) 12/17/17 12:07 Globulin 2.2 gm/dL 12/17/17 12:07 Albumin/Globulin Ratio 1.8 (1.0-1.8) 12/17/17 12:07 Triglycerides 196 mg/dL (<150) H 12/17/17 12:07 Cholesterol 184 mg/dL (<200) 12/17/17 12:07 LDL Cholesterol Direct 122 mg/dL (75-193) 12/17/17 12:07 HDL Cholesterol 40 mg/dL (23-92) 12/17/17 12:07 Amylase 15 U/L (29-103) L 12/17/17 12:07 Lipase 11 U/L (11-82) 12/17/17 12:07 Urine Source CLEAN C 12/17/17 12:00 Urine Color YELLOW 12/17/17 12:00 Urine Clarity CLEAR (CLEAR) 12/17/17 12:00 Urine pH 6.0 (4.6 - 8.0) 12/17/17 12:00 Ur Specific [place] >= 1.030 (1.005-1.030) 12/17/17 12:00 Urine Protein 30 mg/dL (NEGATIVE) H 12/17/17 12:00 Urine Glucose (UA) 500 mg/dL (NEGATIVE) H 12/17/17 12:00 Urine Ketones NEGATIVE mg/dL (NEGATIVE) 12/17/17 12:00 Urine Blood TRACE (NEGATIVE) 12/17/17 12:00 Urine Nitrate NEGATIVE (NEGATIVE) 12/17/17 12:00 Urine Bilirubin NEGATIVE (NEGATIVE) 12/17/17 12:00 Urine Urobilinogen 0.2 E.U./dL (0.2 - 1.0) 12/17/17 12:00 Ur Leukocyte Esterase NEGATIVE (NEGATIVE) 12/17/17 12:00 Urine RBC 0-2 /hpf (0-5) 12/17/17 12:00 Urine WBC 6-10 /hpf (0-5) H 12/17/17 12:00 Ur Epithelial Cells MODERATE /lpf (FEW) 12/17/17 12:00 Urine Bacteria MODERATE /hpf (NONE SEEN) H 12/17/17 12:00 - Physical Exam Vitals and I&O: Vital Signs Temp 97.4 F 12/18/17 07:47 Pulse 82 12/18/17 07:47 Resp 18 12/18/17 08:00 BP 103/47 12/18/17 07:47 Pulse Ox 94 12/18/17 07:47 Intake & Output 12/17/17 12/18/17 12/18/17 18:59 06:59 18:59 Intake Total 1250 800 Balance 1250 800 Weight (lbs) 175 lb 168 lb Intake: Oral 1250 800 Other: # Voids 2 3 # Bowel Movements 0 0 Weight Source Bedscale Bedscale Active Medications: Current Medications Acetaminophen (Tylenol) 650 mg PO Q4HR PRN PRN Reason: Pain Or Fever above 101 Stop: 02/15/18 13:40 Albuterol Sulfate (Albuterol 2.5mg/3ml Neb Ud) 2.5 mg IH Q2HR PRN PRN Reason: Shortness of Breath or Wheeze Stop: 02/15/18 13:40 Ascorbic Acid (Vitamin C) 500 mg PO DAILY [facility] Stop: 02/16/18 08:59 Last Admin: 12/18/17 09:11 Dose: Not Given Atorvastatin Calcium (Lipitor) 10 mg PO HS [facility]; Protocol Stop: 02/15/18 20:59 Last Admin: 12/17/17 20:43 Dose: 10 mg Budesonide (Pulmicort) 0.5 mg HHN BIDRT [facility] Stop: 02/15/18 18:59 Last Admin: 12/18/17 06:42 Dose: Not Given Docusate Sodium (Colace) 100 mg PO DAILY [facility] Stop: 02/16/18 08:59 Last Admin: 12/18/17 09:11 Dose: Not Given Donepezil HCl (Aricept) 10 mg PO HS [facility] Stop: 02/15/18 20:59 Last Admin: 12/17/17 20:43 Dose: 10 mg Glucagon (Glucagen) 1 mg IM DAILY PRN PRN Reason: BELOW 70/NOT TOLERATE PO Stop: 02/15/18 13:39 Guaifenesin (Robitussin) 100 mg PO Q4H PRN PRN Reason: Cough or Congestion Stop: 02/15/18 13:40 Levofloxacin (Levaquin Pb) 500 mg in 100 mls @ 100 mls/hr IV Q24HR [facility] Stop: 02/16/18 08:59 Last Admin: 12/18/17 09:14 Dose: 100 mls/hr Sodium Chloride (Nacl 0.9%) 1,000 mls @ 60 mls/hr IV .[id number] [facility] Stop: 02/15/18 13:44 Last Admin: 12/17/17 17:06 Dose: 60 mls/hr Insulin Aspart (Novolog Insulin Sliding Scale) 0 units SUBQ ACHS [facility]; Protocol Stop: 02/15/18 16:29 Last Admin: 12/18/17 07:47 Dose: 3 units Ipratropium [place] (Atrovent Neb 0.5mg/2.5ml) 0.5 mg IH Q2HR PRN PRN Reason: Shortness of Breath or Wheeze Stop: 02/15/18 13:40 Losartan Potassium (Cozaar) 25 mg PO DAILY [facility] Stop: 02/16/18 08:59 Last Admin: 12/18/17 09:11 Dose: Not Given Magnesium Oxide (Mag-Oxide) 400 mg PO BID [facility] Stop: 02/15/18 16:59 Last Admin: 12/18/17 09:11 Dose: Not Given Multivitamins/Vitamin C (Theragran) 1 tab PO DAILY [facility] Stop: 02/16/18 08:59 Last Admin: 12/18/17 09:11 Dose: Not Given Ondansetron HCl (Zofran) 4 mg IV Q8H PRN PRN Reason: Nausea / Vomiting Stop: 02/15/18 13:40 Oxybutynin Chloride (Ditropan) 5 mg PO BID [facility] Stop: 02/15/18 16:59 Last Admin: 12/18/17 09:11 Dose: Not Given Pantoprazole Sodium (Protonix) 40 mg PO QDAC [facility] Stop: 02/16/18 07:29 Last Admin: 12/18/17 06:35 Dose: 40 mg Quetiapine Fumarate (Seroquel) 50 mg PO BID [facility]; Protocol Stop: 02/15/18 16:59 Last Admin: 12/18/17 09:11 Dose: Not Given Rivaroxaban (Xarelto) 10 mg PO DAILY [facility] Stop: 02/16/18 08:59 Last Admin: 12/18/17 09:11 Dose: Not Given General: weak, alert HEENT: NC/AT, PERRLA Neck: Supple Lungs: CTAB Cardiovascular: RRR, Normal S1, Normal S2, without murmur Abdomen: soft, non-tender, non-distended Neurological: alert - Procedures Procedures: Procedures Procedure Code Date INDIVID PSYCHOTHERAP NEC 94.39 07/05/04 INJECT/INFUSE NEC 99.29 03/18/13 OTHER GROUP THERAPY 94.44 12/18/13 RECREATIONAL THERAPY 93.81 07/05/04 Internal Medicine Assmt/Plan - Assessment Assessment: abdominal pain with abdominal distention-better intractable nausea-improved Acute UTI htn dm obesity asthma dyslipidemia dementia chronic anemia - Plan Plan: abdominal u/s as ordered by gi follow up labs in am ivf for hydration await for urine culture continue ivabx continue current plan of care
[2017-12-18] MEDS: Sodium Chloride 0.9% 1,000 ML IV SCH (16:04)
[2017-12-18] MEDS: Atorvastatin Calcium 10 MG TAB PO SCH (20:40)
--- NOTE | 2017-12-18 23:02 | Consultation ---
DATE OF CONSULTATION: 12/18/2017 REQUESTING PHYSICIAN: Dr. Leon Ch. REASON FOR CONSULTATION: Abdominal pain with nausea and vomiting. HISTORY OF PRESENT ILLNESS: A 72-year-old female with history of diabetes mellitus type 2, hypertension, hyperlipidemia, possible dementia, obesity and previous total abdominal hysterectomy. She may also have chronic atrial fibrillation for which she takes Xarelto. She was admitted for a 1-day history of vague periumbilical and epigastric abdominal pain with nausea and vomiting. She reports eating some bad spaghetti that may have caused these symptoms. Her pain has now subsided. She denies any diarrhea or constipation. She does have chronic constipation, but this is controlled with the stool softeners as an outpatient. She had an upper endoscopy perhaps many years ago. She has never had a previous colonoscopy. She denies any overt GI bleeding. PAST MEDICAL HISTORY: As above. MEDICATIONS: Here are Tylenol, albuterol nebulizer, vitamin C, Lipitor, Pulmicort, Colace, Aricept, Robitussin p.r.n., insulin sliding scale, Atrovent p.r.n., Levaquin, Cozaar, mag oxide, multivitamin with vitamin C, Zofran p.r.n., oxybutynin, Protonix 40 mg once daily, Seroquel, Xarelto and IV fluids. ALLERGIES: PENICILLIN. SOCIAL HISTORY: No recent tobacco, alcohol or drugs. She is a [facility] resident. FAMILY HISTORY: Noncontributory. REVIEW OF SYSTEMS: A comprehensive 12-point review of system was conducted and is only positive for those signs and symptoms present in history of present illness. PHYSICAL EXAMINATION: VITAL SIGNS: Temperature 97.4, blood pressure 103/47, pulse of 82, respirations 18, O2 sat is 94%. GENERAL: The patient is well-developed, well-nourished female in no acute distress. HEENT: Sclerae nonicteric. Oropharynx is clear. CARDIOVASCULAR: Regular rate and rhythm. LUNGS: Clear to auscultation bilaterally. ABDOMEN: Soft, nontender, slightly distended, obese habitus. EXTREMITIES: No clubbing, cyanosis or edema. RECTAL: Deferred. LABORATORY DATA AND IMAGING: WBC 3.9, hemoglobin 13.6, platelet count 144. INR is normal at 0.96, creatinine is normal. Liver enzymes normal. Amylase and lipase normal. Albumin 3.9. Urine shows mild protein, 6-10 wbc's, and moderate bacteria. IMPRESSION: 1. Abdominal pain with nausea and vomiting, rule out acute gastroenteritis versus food poisoning versus urinary tract infection versus gastroesophageal reflux disease or gastroparesis versus constipation or ileus or partial bowel obstruction. Symptoms have not improved. 2. History of diabetes mellitus, hypertension, hyperlipidemia, dementia, obesity and hysterectomy. RECOMMENDATIONS: 1. Upper endoscopy and colonoscopy offered to the patient, but she refuses. 2. Check abdominal ultrasound. 3. Protonix. 4. Zofran. 5. Advance diet as tolerated. 6. Consider CT imaging to rule out bowel obstruction if symptoms persist or recur. 7. Antibiotics for UTI to be continued. Thank you, Dr. Leon Ch for involving us in the care of your patient. If you have any further questions, please call us. JOB# [id number]
[2017-12-19] MEDS: Pantoprazole 40 mg EC Tab PO SCH (06:31)
[2017-12-19 06:50] LABS: % BASOPHILS 0.4 % (0.0-2.0); % EOSINOPHILS 2.2 % (0.0-5.0); % LYMPHOCYTES 21.8 % (20.0-50.0); % NEUTROPHILS 62.6 % (40.0-80.0); EOSINOPHILE ABSOLUTE 0.1 Th/cmm (0.1-0.4); HEMATOCRIT 37.5 % (41.0-60); HEMOGLOBIN 12.3 gm/dL (12-16); LYMPHOCYTE ABSOLUTE 0.8 Th/cmm (1.5-3.0); MEAN CELL VOLUME 77.1 fl (81-100); MEAN CORPUSCULAR HEMOGLOBIN 25.3 pg (27.0-31.0); MEAN CORPUSCULAR HGB CONC 32.8 pg (28.0-36.0); MEAN PLATELET VOLUME 7.3 fl; MONOCYTE ABSOLUTE 0.5 Th/cmm (0.3-1.0); NEUTROPHILE ABSOLUTE 2.3 Th/cmm (1.8-8.0); PLATELET COUNT 138 Th/cmm (150-400); RED BLOOD COUNT 4.87 Mil/cmm (3.80-5.20); RED CELL DISTRIBUTION WIDTH 14.4 % (11.5-20.0)
[2017-12-19] MEDS: Budesonide 0.5 Mg/2 mL Ud HHN SCH ×3 (06:54→18:30)
[2017-12-19 07:02] LABS: ANION GAP 11.6 (7.0-16.0); BUN - UREA NITROGEN 7 mg/dL (7-25); CALCIUM SERUM 8.4 mg/dL (8.6-10.3); CARBON DIOXIDE 27.3 mEq/L (21.0-31.0); CHLORIDE 106 mEq/L (98-107); CREATININE - SERUM 0.6 mg/dL (0.6-1.2); GLUCOSE 194 mg/dL (70-105); POTASSIUM SERUM 3.9 mEq/L (3.5-5.1); SODIUM SERUM 141 mEq/L (136-145)
[2017-12-19 07:04] LABS: WHITE BLOOD COUNT 3.7 Th/cmm (4.8-10.8)
[2017-12-19] MEDS: Sodium Chloride 0.9% 1,000 ML IV SCH (09:11)
--- NOTE | 2017-12-19 10:30 | Diagnostic Imaging Report ---
Ultrasound abdomen HISTORY: Abdominal pain Comparison: ultrasound abdomen on 04/29/2017, nuclear medicine HIDA scan on 05/01/2017, and CT abdomen and pelvis on 04/30/2017 Technique: Sonography of the abdomen was performed in multiple planes. FINDINGS: The liver demonstrates normal echogenicity and measures 18.8 cm. No evidence of focal lesions. Low-level echoes are seen within the gallbladder. The gallbladder wall measures 3 mm. The common bile duct measures 5 mm. No pericholecystic fluid. The right kidney measures 9.2 x 3.4 cm. The left kidney measures 11.9 x 4.1 cm. No hydronephrosis of hydronephrosis of focal lesions. The spleen measures 19.4 cm. The visualized portions of the abdominal aorta within normal limits in size. IMPRESSION: Low level echoes within the gallbladder suggestive of a small amount of gallbladder sludge. Tiny gallstones cannot be excluded. The gallbladder wall is 3 mm at the upper limits of normal. No pericholecystic fluid. Please correlate with clinical findings. Mild hepatomegaly Splenomegaly.
[2017-12-19] MEDS: INSULIN ASPART SLIDING SCALE 100 UNITS/ML UNIT SUBQ SCH ×6 (10:53→22:39)
--- NOTE | 2017-12-19 10:55 | Internal Medicine Prog Note ---
Internal Medicine Subjective - Subjective Service Date: 12/19/17 Patient is:: awake, verbal Per staff patient has:: eating well, tolerating meds Internal Medicine Objective - Results Result Diagrams: 12/19/17 06:05 12/19/17 06:05 Recent Labs: Laboratory Last Values WBC 3.7 Th/cmm (4.8-10.8) L 12/19/17 06:05 RBC 4.87 Mil/cmm (3.80-5.20) 12/19/17 06:05 Hgb 12.3 gm/dL (12-16) 12/19/17 06:05 Hct 37.5 % (41.0-60) L 12/19/17 06:05 MCV 77.1 fl (81-100) L 12/19/17 06:05 MCH 25.3 pg (27.0-31.0) L 12/19/17 06:05 MCHC Differential 32.8 pg (28.0-36.0) 12/19/17 06:05 RDW 14.4 % (11.5-20.0) 12/19/17 06:05 Plt Count 138 Th/cmm (150-400) L 12/19/17 06:05 MPV 7.3 fl 12/19/17 06:05 Add Manual Diff YES 12/17/17 12:07 Neutrophils % 62.6 % (40.0-80.0) 12/19/17 06:05 Lymphocytes % 21.8 % (20.0-50.0) 12/19/17 06:05 Monocytes % 13.0 % (2.0-10.0) H 12/19/17 06:05 Eosinophils % 2.2 % (0.0-5.0) 12/19/17 06:05 Basophils % 0.4 % (0.0-2.0) 12/19/17 06:05 Neutrophils (Manual) 71 % (40-80) 12/17/17 12:07 Lymphocytes 23 % (20-50) 12/17/17 12:07 Monocytes 6 % (2-10) 12/17/17 12:07 PT 10.0 SECONDS (9.5-11.5) 12/17/17 12:07 INR 0.96 (0.5-1.4) 12/17/17 12:07 Sodium 141 mEq/L (136-145) 12/19/17 06:05 Potassium 3.9 mEq/L (3.5-5.1) 12/19/17 06:05 Chloride 106 mEq/L (98-107) 12/19/17 06:05 Carbon Dioxide 27.3 mEq/L (21.0-31.0) 12/19/17 06:05 Anion Gap 11.6 (7.0-16.0) 12/19/17 06:05 BUN 7 mg/dL (7-25) 12/19/17 06:05 Creatinine 0.6 mg/dL (0.6-1.2) 12/19/17 06:05 Est GFR ( Amer) TNP 12/19/17 06:05 Est GFR (Non-Af Amer) TNP 12/19/17 06:05 BUN/Creatinine Ratio 11.7 12/19/17 06:05 Glucose 194 mg/dL (70-105) H 12/19/17 06:05 POC Glucose 185 MG/DL (70 - 105) H 12/19/17 08:20 Calcium 8.4 mg/dL (8.6-10.3) L 12/19/17 06:05 Total Bilirubin 0.9 mg/dL (0.3-1.0) 12/17/17 12:07 AST 9 U/L (13-39) L 12/17/17 12:07 ALT 16 U/L (7-52) 12/17/17 12:07 Alkaline Phosphatase 111 U/L (34-104) H 12/17/17 12:07 Creatine Kinase 21 U/L (30-223) L 12/17/17 12:07 Troponin I 0.01 ng/mL (0.01-0.05) 12/17/17 12:07 B-Natriuretic Peptide 37.2 pg/mL (5.0-100.0) 12/17/17 12:07 Total Protein 6.1 gm/dL (6.0-8.3) 12/17/17 12:07 Albumin 3.9 gm/dL (3.7-5.3) 12/17/17 12:07 Globulin 2.2 gm/dL 12/17/17 12:07 Albumin/Globulin Ratio 1.8 (1.0-1.8) 12/17/17 12:07 Triglycerides 196 mg/dL (<150) H 12/17/17 12:07 Cholesterol 184 mg/dL (<200) 12/17/17 12:07 LDL Cholesterol Direct 122 mg/dL (75-193) 12/17/17 12:07 HDL Cholesterol 40 mg/dL (23-92) 12/17/17 12:07 Amylase 15 U/L (29-103) L 12/17/17 12:07 Lipase 11 U/L (11-82) 12/17/17 12:07 Urine Source CLEAN C 12/17/17 12:00 Urine Color YELLOW 12/17/17 12:00 Urine Clarity CLEAR (CLEAR) 12/17/17 12:00 Urine pH 6.0 (4.6 - 8.0) 12/17/17 12:00 Ur Specific [place] >= 1.030 (1.005-1.030) 12/17/17 12:00 Urine Protein 30 mg/dL (NEGATIVE) H 12/17/17 12:00 Urine Glucose (UA) 500 mg/dL (NEGATIVE) H 12/17/17 12:00 Urine Ketones NEGATIVE mg/dL (NEGATIVE) 12/17/17 12:00 Urine Blood TRACE (NEGATIVE) 12/17/17 12:00 Urine Nitrate NEGATIVE (NEGATIVE) 12/17/17 12:00 Urine Bilirubin NEGATIVE (NEGATIVE) 12/17/17 12:00 Urine Urobilinogen 0.2 E.U./dL (0.2 - 1.0) 12/17/17 12:00 Ur Leukocyte Esterase NEGATIVE (NEGATIVE) 12/17/17 12:00 Urine RBC 0-2 /hpf (0-5) 12/17/17 12:00 Urine WBC 6-10 /hpf (0-5) H 12/17/17 12:00 Ur Epithelial Cells MODERATE /lpf (FEW) 12/17/17 12:00 Urine Bacteria MODERATE /hpf (NONE SEEN) H 12/17/17 12:00 - Physical Exam Vitals and I&O: Vital Signs Temp 96.5 F 12/19/17 08:09 Pulse 80 12/19/17 08:09 Resp 18 12/19/17 08:09 BP 151/38 12/19/17 08:09 Pulse Ox 95 12/19/17 08:09 Intake & Output 12/18/17 12/19/1712/19/18 18:59 06:59 18:59 Intake Total 2926 839 0390 Balance 5012 153 9847 Weight (lbs) 170 lb 165 lb 8 oz Intake: Intake, IV Amount 1000 1000 Sodium Chloride 0.9% 1, 1000 1000 000 ml @ 60 mls/hr IV . [id number] [facility] Rx#:[id number] Oral 800 300 Other: # Voids 4 3 # Bowel Movements 1 1 Weight Source Bedscale Bedscale Active Medications: Current Medications Acetaminophen (Tylenol) 650 mg PO Q4HR PRN PRN Reason: Pain Or Fever above 101 Stop: 02/15/18 13:40 Albuterol Sulfate (Albuterol 2.5mg/3ml Neb Ud) 2.5 mg IH Q2HR PRN PRN Reason: Shortness of Breath or Wheeze Stop: 02/15/18 13:40 Ascorbic Acid (Vitamin C) 500 mg PO DAILY [facility] Stop: 02/16/18 08:59 Last Admin: 12/18/17 09:11 Dose: Not Given Atorvastatin Calcium (Lipitor) 10 mg PO [facility]; Protocol Stop: 02/15/18 20:59 Last Admin: 12/18/17 20:40 Dose: 10 mg Budesonide (Pulmicort) 0.5 mg HHN BIDRT [facility] Stop: 02/15/18 18:59 Last Admin: 12/18/17 19:07 Dose: Not Given Docusate Sodium (Colace) 100 mg PO DAILY [facility] Stop: 02/16/18 08:59 Last Admin: 12/18/17 09:11 Dose: Not Given Donepezil HCl (Aricept) 10 mg PO [facility] Stop: 02/15/18 20:59 Last Admin: 12/18/17 20:40 Dose: 10 mg Glucagon (Glucagen) 1 mg IM DAILY PRN PRN Reason: BELOW 70/NOT TOLERATE PO Stop: 02/15/18 13:39 Guaifenesin (Robitussin) 100 mg PO Q4H PRN PRN Reason: Cough or Congestion Stop: 02/15/18 13:40 Levofloxacin (Levaquin Pb) 500 mg in 100 mls @ 100 mls/hr IV Q24HR [facility] Stop: 02/16/18 08:59 Last Admin: 12/18/17 09:14 Dose: 100 mls/hr Sodium Chloride (Nacl 0.9%) 1,000 mls @ 60 mls/hr IV .[id number] [facility] Stop: 02/15/18 13:44 Last Admin: 12/19/17 09:11 Dose: 60 mls/hr Insulin Aspart (Novolog Insulin Sliding Scale) 0 units SUBQ ACHS [facility]; Protocol Stop: 02/15/18 16:29 Last Admin: 12/18/17 20:47 Dose: 5 units Ipratropium [place] (Atrovent Neb 0.5mg/2.5ml) 0.5 mg IH Q2HR PRN PRN Reason: Shortness of Breath or Wheeze Stop: 02/15/18 13:40 Losartan Potassium (Cozaar) 25 mg PO DAILY [facility] Stop: 02/16/18 08:59 Last Admin: 12/18/17 09:11 Dose: Not Given Magnesium Oxide (Mag-Oxide) 400 mg PO BID [facility] Stop: 02/15/18 16:59 Last Admin: 12/18/17 16:03 Dose: 400 mg Multivitamins/Vitamin C (Theragran) 1 tab PO DAILY [facility] Stop: 02/16/18 08:59 Last Admin: 12/18/17 09:11 Dose: Not Given Ondansetron HCl (Zofran) 4 mg IV Q8H PRN PRN Reason: Nausea / Vomiting Stop: 02/15/18 13:40 Oxybutynin Chloride (Ditropan) 5 mg PO BID [facility] Stop: 02/15/18 16:59 Last Admin: 12/18/17 16:03 Dose: 5 mg Pantoprazole Sodium (Protonix) 40 mg PO QDAC [facility] Stop: 02/16/18 07:29 Last Admin: 12/19/17 06:31 Dose: Not Given Quetiapine Fumarate (Seroquel) 50 mg PO BID [facility]; Protocol Stop: 02/15/18 16:59 Last Admin: 12/18/17 16:03 Dose: 50 mg Rivaroxaban (Xarelto) 10 mg PO DAILY [facility] Stop: 02/16/18 08:59 Last Admin: 12/18/17 09:11 Dose: Not Given General: weak, alert HEENT: NC/AT, PERRLA Neck: Supple Lungs: CTAB Cardiovascular: RRR, Normal S1, Normal S2, without murmur Abdomen: soft, non-tender, non-distended Neurological: alert - Procedures Procedures: Procedures Procedure Code Date INDIVID PSYCHOTHERAP NEC 94.39 07/05/04 INJECT/INFUSE NEC 99.29 03/18/13 OTHER GROUP THERAPY 94.44 12/18/13 RECREATIONAL THERAPY 93.81 07/05/04 Internal Medicine Assmt/Plan - Assessment Assessment: abdominal pain with abdominal distention-better intractable nausea-improved Acute UTI htn dm obesity asthma dyslipidemia dementia chronic anemia - Plan Plan: dc planning to ul[facility]es tomorrow once stable. follow up labs in am continue ivabx continue current plan of care Nutritional Asmnt/Malnutr-PDOC - Dietary Evaluation Malnutrition Findings (Please click <Entered> for more info): Nutritional Asmnt/Malnutrition Start: 12/18/17 14: 28 Text: Status: Complete Freq: Protocol: Document 12/18/17 14:28 SULTANA (Rec: 12/18/17 15:00 SULTANA PATRICIA) Nutritional Asmnt/Malnutrition Patient General Information Nutritional Screening High Risk Consult Diagnosis abdominal pain Pertinent Medical Hx/Surgical Hx HTN, DM, asthma, COPD, dyslipidemia, PUD/GERD, dementia, chronic anemia Subjective Information Received diet consult for bs 272 upon admission. Pt sleeping at time of visit. Per EMR, PO intake 100% of meals yesterday. Pt appears to be on liquid diet d/t pending abdominal u/s per nurse note. Current Diet Order/ Nutrition Support full liquid, ccho Pertinent Medications Vit C, lipitor, colace, glucagen, novolog, levaquin, mag-oxide, theragran, zofran, protonix, seroquel, xarelto, Nacl 0.9% Pertinent Labs 12/18: glucose 188, POC 183- 187, Ca 8.5 12/17: glucose 272, POC 213- 286, triglycerides 196 Nutritional Hx/Data Height 5 ft 2 in Height (Calculated Centimeters) 157.5 Current Weight (lbs) 168 lb Weight (Calculated Kilograms) 76.2 Weight (Calculated Grams) 53028.5 [place] Body Weight 110 lb Body Mass Index (BMI) 30.7 Weight Status Obese GI Symptoms GI Symptoms None Last BM none noted Difficult in: None Food Allergies No Skin Integrity/Comment: potential rash to parietal and left buttocks, hypertropic tisue to left hand, karen 14 Current %PO Good (75-100%) Estimated Nutritional Goals BEE in Kcals: Adj wt of IBW Calories/Kcals/Kg 25-30 (based on adj wt 56.6 kg ) Kcals Calculated 9446-6241 Protein: Adj wt of IBW Protein g/k.0 Protein Calculated 57 g Fluid: ml 7302-1866 (1 ml/kcal) Nutritional Problem 1. Problem Problem Altered nutrition related lab values Etiology hyperglycemia, hx of DM Signs/Symptoms: glucose 188, POC 183-187 Malnutrition Alert Is there a minimum of two criteria No selected? Query Text:Check all the applicable criteria. A minimum of two criteria are recommended for diagnosis of either severe or non-severe malnutrition. Malnutrition Related to Morbid Obesity Malnutrition related to morbid obesity No Intervention/Recommendation Comments 1. Continue with full liquid, ccho diet as ordered. Will provide diabetic education when pt available at next visit. 2. Once pt's able to advance PO intake, recommend to start CCHO 60 g diet with appropriate texture d/t altered bs and hx of DM 3. Monitor PO intake, wt, labs and skin integrity 4. F/U as high risk in 2-3 days, 12/20-12/21 Expected Outcomes/Goals Expected Outcomes/Goals 1. PO intake to continue meet at least 75% of all meals 2. Wt stability, skin to remain intact, labs to approach normal limits Reviewed by Traci Cobian RD
[2017-12-19] MEDS: Multivitamin Tab PO SCH (10:56)
[2017-12-19] MEDS: Levofloxacin 500mg/100mL 500 MG/100 ML BAG IV SCH (10:59)
--- NOTE | 2017-12-19 13:00 | GI Progress Note ---
Subjective - Review of Systems Service Date: 12/19/17 Events since last encounter: Patient screaming at me "you are the devil!" She is happy about diet advancement, no current abdominal pain Objective - Results Result Diagrams: 12/19/17 06:05 12/19/17 06:05 Recent Labs: Laboratory Last Values WBC 3.7 Th/cmm (4.8-10.8) L 12/19/17 06:05 RBC 4.87 Mil/cmm (3.80-5.20) 12/19/17 06:05 Hgb 12.3 gm/dL (12-16) 12/19/17 06:05 Hct 37.5 % (41.0-60) L 12/19/17 06:05 MCV 77.1 fl (81-100) L 12/19/17 06:05 MCH 25.3 pg (27.0-31.0) L 12/19/17 06:05 MCHC Differential 32.8 pg (28.0-36.0) 12/19/17 06:05 RDW 14.4 % (11.5-20.0) 12/19/17 06:05 Plt Count 138 Th/cmm (150-400) L 12/19/17 06:05 MPV 7.3 fl 12/19/17 06:05 Add Manual Diff YES 12/17/17 12:07 Neutrophils % 62.6 % (40.0-80.0) 12/19/17 06:05 Lymphocytes % 21.8 % (20.0-50.0) 12/19/17 06:05 Monocytes % 13.0 % (2.0-10.0) H 12/19/17 06:05 Eosinophils % 2.2 % (0.0-5.0) 12/19/17 06:05 Basophils % 0.4 % (0.0-2.0) 12/19/17 06:05 Neutrophils (Manual) 71 % (40-80) 12/17/17 12:07 Lymphocytes 23 % (20-50) 12/17/17 12:07 Monocytes 6 % (2-10) 12/17/17 12:07 PT 10.0 SECONDS (9.5-11.5) 12/17/17 12:07 INR 0.96 (0.5-1.4) 12/17/17 12:07 Sodium 141 mEq/L (136-145) 12/19/17 06:05 Potassium 3.9 mEq/L (3.5-5.1) 12/19/17 06:05 Chloride 106 mEq/L (98-107) 12/19/17 06:05 Carbon Dioxide 27.3 mEq/L (21.0-31.0) 12/19/17 06:05 Anion Gap 11.6 (7.0-16.0) 12/19/17 06:05 BUN 7 mg/dL (7-25) 12/19/17 06:05 Creatinine 0.6 mg/dL (0.6-1.2) 12/19/17 06:05 Est GFR ( Amer) TNP 12/19/17 06:05 Est GFR (Non-Af Amer) TNP 12/19/17 06:05 BUN/Creatinine Ratio 11.7 12/19/17 06:05 Glucose 194 mg/dL (70-105) H 12/19/17 06:05 POC Glucose 202 MG/DL (70 - 105) H 12/19/17 11:49 Calcium 8.4 mg/dL (8.6-10.3) L 12/19/17 06:05 Total Bilirubin 0.9 mg/dL (0.3-1.0) 12/17/17 12:07 AST 9 U/L (13-39) L 12/17/17 12:07 ALT 16 U/L (7-52) 12/17/17 12:07 Alkaline Phosphatase 111 U/L (34-104) H 12/17/17 12:07 Creatine Kinase 21 U/L (30-223) L 12/17/17 12:07 Troponin I 0.01 ng/mL (0.01-0.05) 12/17/17 12:07 B-Natriuretic Peptide 37.2 pg/mL (5.0-100.0) 12/17/17 12:07 Total Protein 6.1 gm/dL (6.0-8.3) 12/17/17 12:07 Albumin 3.9 gm/dL (3.7-5.3) 12/17/17 12:07 Globulin 2.2 gm/dL 12/17/17 12:07 Albumin/Globulin Ratio 1.8 (1.0-1.8) 12/17/17 12:07 Triglycerides 196 mg/dL (<150) H 12/17/17 12:07 Cholesterol 184 mg/dL (<200) 12/17/17 12:07 LDL Cholesterol Direct 122 mg/dL (75-193) 12/17/17 12:07 HDL Cholesterol 40 mg/dL (23-92) 12/17/17 12:07 Amylase 15 U/L (29-103) L 12/17/17 12:07 Lipase 11 U/L (11-82) 12/17/17 12:07 Urine Source CLEAN C 12/17/17 12:00 Urine Color YELLOW 12/17/17 12:00 Urine Clarity CLEAR (CLEAR) 12/17/17 12:00 Urine pH 6.0 (4.6 - 8.0) 12/17/17 12:00 Ur Specific [place] >= 1.030 (1.005-1.030) 12/17/17 12:00 Urine Protein 30 mg/dL (NEGATIVE) H 12/17/17 12:00 Urine Glucose (UA) 500 mg/dL (NEGATIVE) H 12/17/17 12:00 Urine Ketones NEGATIVE mg/dL (NEGATIVE) 12/17/17 12:00 Urine Blood TRACE (NEGATIVE) 12/17/17 12:00 Urine Nitrate NEGATIVE (NEGATIVE) 12/17/17 12:00 Urine Bilirubin NEGATIVE (NEGATIVE) 12/17/17 12:00 Urine Urobilinogen 0.2 E.U./dL (0.2 - 1.0) 12/17/17 12:00 Ur Leukocyte Esterase NEGATIVE (NEGATIVE) 12/17/17 12:00 Urine RBC 0-2 /hpf (0-5) 12/17/17 12:00 Urine WBC 6-10 /hpf (0-5) H 12/17/17 12:00 Ur Epithelial Cells MODERATE /lpf (FEW) 12/17/17 12:00 Urine Bacteria MODERATE /hpf (NONE SEEN) H 12/17/17 12:00 - Physical Exam Vitals and I&O: Vital Signs Temp 96.5 F 12/19/17 08:09 Pulse 80 12/19/17 08:09 Resp 18 12/19/17 08:09 BP 151/38 12/19/17 08:09 Pulse Ox 95 12/19/17 08:09 Intake & Output 12/18/17 12/19/17 12/19/17 18:59 06:59 18:59 Intake Total 8399 655 2961 Balance 1545 381 5444 Weight (lbs) 77.111 kg 75.07 kg Intake: Intake, IV Amount 1100 1000 Levofloxacin 500mg/100mL 100 500 mg In 100 ml @ 100 mls/hr IV Q24HR COUNTS INCLUDE 234 BEDS AT THE [facility] Rx#: [id number] Sodium Chloride 0.9% 1, 1000 1000 000 ml @ 60 mls/hr IV . [id number] COUNTS INCLUDE 234 BEDS AT THE [facility] Rx#:[id number] Oral 800 300 Other: # Voids 4 3 # Bowel Movements 1 1 Weight Source Bedscale Bedscale Active Medications: Current Medications Acetaminophen (Tylenol) 650 mg PO Q4HR PRN PRN Reason: Pain Or Fever above 101 Stop: 02/15/18 13:40 Albuterol Sulfate (Albuterol 2.5mg/3ml Neb Ud) 2.5 mg IH Q2HR PRN PRN Reason: Shortness of Breath or Wheeze Stop: 02/15/18 13:40 Ascorbic Acid (Vitamin C) 500 mg PO DAILY COUNTS INCLUDE 234 BEDS AT THE [facility] Stop: 02/16/18 08:59 Last Admin: 12/19/17 10:55 Dose: Not Given Atorvastatin Calcium (Lipitor) 10 mg PO HS COUNTS INCLUDE 234 BEDS AT THE [facility]; Protocol Stop: 02/15/18 20:59 Last Admin: 12/18/17 20:40 Dose: 10 mg Budesonide (Pulmicort) 0.5 mg HHN BIDRT COUNTS INCLUDE 234 BEDS AT THE [facility] Stop: 02/15/18 18:59 Last Admin: 12/18/17 19:07 Dose: Not Given Docusate Sodium (Colace) 100 mg PO DAILY COUNTS INCLUDE 234 BEDS AT THE [facility] Stop: 02/16/18 08:59 Last Admin: 12/19/17 10:55 Dose: Not Given Donepezil HCl (Aricept) 10 mg PO HS COUNTS INCLUDE 234 BEDS AT THE [facility] Stop: 02/15/18 20:59 Last Admin: 12/18/17 20:40 Dose: 10 mg Glucagon (Glucagen) 1 mg IM DAILY PRN PRN Reason: BELOW 70/NOT TOLERATE PO Stop: 02/15/18 13:39 Guaifenesin (Robitussin) 100 mg PO Q4H PRN PRN Reason: Cough or Congestion Stop: 02/15/18 13:40 Levofloxacin (Levaquin Pb) 500 mg in 100 mls @ 100 mls/hr IV Q24HR COUNTS INCLUDE 234 BEDS AT THE [facility] Stop: 02/16/18 08:59 Last Admin: 12/19/17 10:59 Dose: 100 mls/hr Sodium Chloride (Nacl 0.9%) 1,000 mls @ 60 mls/hr IV .[id number] COUNTS INCLUDE 234 BEDS AT THE [facility] Stop: 02/15/18 13:44 Last Admin: 12/19/17 09:11 Dose: 60 mls/hr Insulin Aspart (Novolog Insulin Sliding Scale) 0 units SUBQ ACHS COUNTS INCLUDE 234 BEDS AT THE [facility]; Protocol Stop: 02/15/18 16:29 Last Admin: 12/19/17 12:19 Dose: Not Given Ipratropium [place] (Atrovent Neb 0.5mg/2.5ml) 0.5 mg IH Q2HR PRN PRN Reason: Shortness of Breath or Wheeze Stop: 02/15/18 13:40 Losartan Potassium (Cozaar) 25 mg PO DAILY COUNTS INCLUDE 234 BEDS AT THE [facility] Stop: 02/16/18 08:59 Last Admin: 12/19/17 10:55 Dose: Not Given Magnesium Oxide (Mag-Oxide) 400 mg PO BID COUNTS INCLUDE 234 BEDS AT THE [facility] Stop: 02/15/18 16:59 Last Admin: 12/19/17 10:56 Dose: Not Given Multivitamins/Vitamin C (Theragran) 1 tab PO DAILY COUNTS INCLUDE 234 BEDS AT THE [facility] Stop: 02/16/18 08:59 Last Admin: 12/19/17 10:56 Dose: Not Given Ondansetron HCl (Zofran) 4 mg IV Q8H PRN PRN Reason: Nausea / Vomiting Stop: 02/15/18 13:40 Oxybutynin Chloride (Ditropan) 5 mg PO BID COUNTS INCLUDE 234 BEDS AT THE [facility] Stop: 02/15/18 16:59 Last Admin: 12/19/17 10:56 Dose: Not Given Pantoprazole Sodium (Protonix) 40 mg PO QDAC COUNTS INCLUDE 234 BEDS AT THE [facility] Stop: 02/16/18 07:29 Last Admin: 12/19/17 06:31 Dose: Not Given Quetiapine Fumarate (Seroquel) 50 mg PO BID COUNTS INCLUDE 234 BEDS AT THE [facility]; Protocol Stop: 02/15/18 16:59 Last Admin: 12/19/17 10:56 Dose: Not Given Rivaroxaban (Xarelto) 10 mg PO DAILY COUNTS INCLUDE 234 BEDS AT THE [facility] Stop: 02/16/18 08:59 Last Admin: 12/19/17 10:56 Dose: Not Given General: Mild distress HEENT: Atraumatic, PERRLA Neck: Supple Cardiovascular: Regular rate, Normal S1, Normal S2 Lungs: Clear to auscultation Abdomen: Bowel sounds, Soft Extremities: no Clubbing, no Cyanosis, no Edema, no Pulses, no Tender, no Other - Procedures Procedures: Procedures Procedure Code Date INDIVID PSYCHOTHERAP NEC 94.39 07/05/04 INJECT/INFUSE NEC 99.29 03/18/13 OTHER GROUP THERAPY 94.44 12/18/13 RECREATIONAL THERAPY 93.81 07/05/04 Assessment/Plan - Assessment Assessment: 1. Acute nausea and vomiting 2. Abdominal pain transient 3. GB sludge 4. severe psych disorder -Patient refused egd/colonoscopy as advised -Very advanced psych disorder -Okay to advance diet -Will follow
[2017-12-19] MEDS: Atorvastatin Calcium 10 MG TAB PO SCH (21:28)
[2017-12-20] MEDS: Sodium Chloride 0.9% 1,000 ML IV SCH (02:55)
[2017-12-20] MEDS: Budesonide 0.5 Mg/2 mL Ud HHN SCH (06:58)
[2017-12-20] MEDS: INSULIN ASPART SLIDING SCALE 100 UNITS/ML UNIT SUBQ SCH ×3 (06:58→16:48)
[2017-12-20] MEDS: Pantoprazole 40 mg EC Tab PO SCH (06:58)
[2017-12-20] MEDS: Multivitamin Tab PO SCH ×2 (08:35→08:52)
[2017-12-20] MEDS: Levofloxacin 500mg/100mL 500 MG/100 ML BAG IV SCH (08:37)
--- NOTE | 2017-12-20 12:04 | Internal Medicine Prog Note ---
Internal Medicine Subjective - Subjective Service Date: 12/20/17 (patient is awake, alert, confused hallucinating stating the devil is next to her ) Patient is:: awake, verbal Per staff patient has:: eating well, tolerating meds Internal Medicine Objective - Results Result Diagrams: 12/19/17 06:05 12/19/17 06:05 Recent Labs: Laboratory Last Values WBC 3.7 Th/cmm (4.8-10.8) L 12/19/17 06:05 RBC 4.87 Mil/cmm (3.80-5.20) 12/19/17 06:05 Hgb 12.3 gm/dL (12-16) 12/19/17 06:05 Hct 37.5 % (41.0-60) L 12/19/17 06:05 MCV 77.1 fl (81-100) L 12/19/17 06:05 MCH 25.3 pg (27.0-31.0) L 12/19/17 06:05 MCHC Differential 32.8 pg (28.0-36.0) 12/19/17 06:05 RDW 14.4 % (11.5-20.0) 12/19/17 06:05 Plt Count 138 Th/cmm (150-400) L 12/19/17 06:05 MPV 7.3 fl 12/19/17 06:05 Add Manual Diff YES 12/17/17 12:07 Neutrophils % 62.6 % (40.0-80.0) 12/19/17 06:05 Lymphocytes % 21.8 % (20.0-50.0) 12/19/17 06:05 Monocytes % 13.0 % (2.0-10.0) H 12/19/17 06:05 Eosinophils % 2.2 % (0.0-5.0) 12/19/17 06:05 Basophils % 0.4 % (0.0-2.0) 12/19/17 06:05 Neutrophils (Manual) 71 % (40-80) 12/17/17 12:07 Lymphocytes 23 % (20-50) 12/17/17 12:07 Monocytes 6 % (2-10) 12/17/17 12:07 PT 10.0 SECONDS (9.5-11.5) 12/17/17 12:07 INR 0.96 (0.5-1.4) 12/17/17 12:07 Sodium 141 mEq/L (136-145) 12/19/17 06:05 Potassium 3.9 mEq/L (3.5-5.1) 12/19/17 06:05 Chloride 106 mEq/L (98-107) 12/19/17 06:05 Carbon Dioxide 27.3 mEq/L (21.0-31.0) 12/19/17 06:05 Anion Gap 11.6 (7.0-16.0) 12/19/17 06:05 BUN 7 mg/dL (7-25) 12/19/17 06:05 Creatinine 0.6 mg/dL (0.6-1.2) 12/19/17 06:05 Est GFR ( Amer) TNP 12/19/17 06:05 Est GFR (Non-Af Amer) TNP 12/19/17 06:05 BUN/Creatinine Ratio 11.7 12/19/17 06:05 Glucose 194 mg/dL (70-105) H 12/19/17 06:05 POC Glucose 195 MG/DL (70 - 105) H 12/20/17 11:10 Calcium 8.4 mg/dL (8.6-10.3) L 12/19/17 06:05 Total Bilirubin 0.9 mg/dL (0.3-1.0) 12/17/17 12:07 AST 9 U/L (13-39) L 12/17/17 12:07 ALT 16 U/L (7-52) 12/17/17 12:07 Alkaline Phosphatase 111 U/L (34-104) H 12/17/17 12:07 Creatine Kinase 21 U/L (30-223) L 12/17/17 12:07 Troponin I 0.01 ng/mL (0.01-0.05) 12/17/17 12:07 B-Natriuretic Peptide 37.2 pg/mL (5.0-100.0) 12/17/17 12:07 Total Protein 6.1 gm/dL (6.0-8.3) 12/17/17 12:07 Albumin 3.9 gm/dL (3.7-5.3) 12/17/17 12:07 Globulin 2.2 gm/dL 12/17/17 12:07 Albumin/Globulin Ratio 1.8 (1.0-1.8) 12/17/17 12:07 Triglycerides 196 mg/dL (<150) H 12/17/17 12:07 Cholesterol 184 mg/dL (<200) 12/17/17 12:07 LDL Cholesterol Direct 122 mg/dL (75-193) 12/17/17 12:07 HDL Cholesterol 40 mg/dL (23-92) 12/17/17 12:07 Amylase 15 U/L (29-103) L 12/17/17 12:07 Lipase 11 U/L (11-82) 12/17/17 12:07 Urine Source CLEAN C 12/17/17 12:00 Urine Color YELLOW 12/17/17 12:00 Urine Clarity CLEAR (CLEAR) 12/17/17 12:00 Urine pH 6.0 (4.6 - 8.0) 12/17/17 12:00 Ur Specific [place] >= 1.030 (1.005-1.030) 12/17/17 12:00 Urine Protein 30 mg/dL (NEGATIVE) H 12/17/17 12:00 Urine Glucose (UA) 500 mg/dL (NEGATIVE) H 12/17/17 12:00 Urine Ketones NEGATIVE mg/dL (NEGATIVE) 12/17/17 12:00 Urine Blood TRACE (NEGATIVE) 12/17/17 12:00 Urine Nitrate NEGATIVE (NEGATIVE) 12/17/17 12:00 Urine Bilirubin NEGATIVE (NEGATIVE) 12/17/17 12:00 Urine Urobilinogen 0.2 E.U./dL (0.2 - 1.0) 12/17/17 12:00 Ur Leukocyte Esterase NEGATIVE (NEGATIVE) 12/17/17 12:00 Urine RBC 0-2 /hpf (0-5) 12/17/17 12:00 Urine WBC 6-10 /hpf (0-5) H 12/17/17 12:00 Ur Epithelial Cells MODERATE /lpf (FEW) 12/17/17 12:00 Urine Bacteria MODERATE /hpf (NONE SEEN) H 12/17/17 12:00 - Physical Exam Vitals and I&O: Vital Signs Temp 97 F 12/20/17 08:00 Pulse 87 12/20/17 08:51 Resp 18 12/20/17 08:00 BP 145/45 12/20/17 08:51 Pulse Ox 95 12/20/17 08:00 Intake & Output 12/19/17 12/20/17 12/20/17 18:59 06:59 18:59 Intake Total 1100 1720 Balance 1100 1720 Weight (lbs) 165 lb Intake: Intake, IV Amount 1100 1000 Levofloxacin 500mg/100mL 100 500 mg In 100 ml @ 100 mls/hr IV Q24HR [facility] Rx#: [id number] Sodium Chloride 0.9% 1, 1000 1000 000 ml @ 60 mls/hr IV . [id number] [facility] Rx#:[id number] Oral 720 Other: # Voids 3 # Bowel Movements 0 Weight Source Estimated Active Medications: Current Medications Acetaminophen (Tylenol) 650 mg PO Q4HR PRN PRN Reason: Pain Or Fever above 101 Stop: 02/15/18 13:40 Albuterol Sulfate (Albuterol 2.5mg/3ml Neb Ud) 2.5 mg IH Q2HR PRN PRN Reason: Shortness of Breath or Wheeze Stop: 02/15/18 13:40 Ascorbic Acid (Vitamin C) 500 mg PO DAILY [facility] Stop: 02/16/18 08:59 Last Admin: 12/20/17 08:51 Dose: Not Given Atorvastatin Calcium (Lipitor) 10 mg PO [facility]; Protocol Stop: 02/15/18 20:59 Last Admin: 12/19/17 21:28 Dose: Not Given Budesonide (Pulmicort) 0.5 mg HHN BIDRT [facility] Stop: 02/15/18 18:59 Last Admin: 12/20/17 06:58 Dose: Not Given Docusate Sodium (Colace) 100 mg PO DAILY [facility] Stop: 02/16/18 08:59 Last Admin: 12/20/17 08:51 Dose: Not Given Donepezil HCl (Aricept) 10 mg PO HS [facility] Stop: 02/15/18 20:59 Last Admin: 12/19/17 21:25 Dose: 10 mg Glucagon (Glucagen) 1 mg IM DAILY PRN PRN Reason: BELOW 70/NOT TOLERATE PO Stop: 02/15/18 13:39 Guaifenesin (Robitussin) 100 mg PO Q4H PRN PRN Reason: Cough or Congestion Stop: 02/15/18 13:40 Levofloxacin (Levaquin Pb) 500 mg in 100 mls @ 100 mls/hr IV Q24HR [facility] Stop: 02/16/18 08:59 Last Admin: 12/20/17 08:37 Dose: 100 mls/hr Sodium Chloride (Nacl 0.9%) 1,000 mls @ 60 mls/hr IV .[id number] [facility] Stop: 02/15/18 13:44 Last Admin: 12/20/17 02:55 Dose: 60 mls/hr Insulin Aspart (Novolog Insulin Sliding Scale) 0 units SUBQ ACHS [facility]; Protocol Stop: 02/15/18 16:29 Last Admin: 12/20/17 06:58 Dose: 7 units Ipratropium [place] (Atrovent Neb 0.5mg/2.5ml) 0.5 mg IH Q2HR PRN PRN Reason: Shortness of Breath or Wheeze Stop: 02/15/18 13:40 Lorazepam (Ativan) 1 mg PO Q4H PRN; Protocol PRN Reason: Agitation Stop: 02/17/18 20:58 Last Admin: 12/20/17 08:41 Dose: 1 mg Losartan Potassium (Cozaar) 25 mg PO DAILY [facility] Stop: 02/16/18 08:59 Last Admin: 12/20/17 08:51 Dose: Not Given Magnesium Oxide (Mag-Oxide) 400 mg PO BID [facility] Stop: 02/15/18 16:59 Last Admin: 12/20/17 08:52 Dose: Not Given Multivitamins/Vitamin C (Theragran) 1 tab PO DAILY [facility] Stop: 02/16/18 08:59 Last Admin: 12/20/17 08:52 Dose: Not Given Ondansetron HCl (Zofran) 4 mg IV Q8H PRN PRN Reason: Nausea / Vomiting Stop: 02/15/18 13:40 Oxybutynin Chloride (Ditropan) 5 mg PO BID [facility] Stop: 02/15/18 16:59 Last Admin: 12/20/17 08:52 Dose: Not Given Pantoprazole Sodium (Protonix) 40 mg PO QDAC [facility] Stop: 02/16/18 07:29 Last Admin: 12/20/17 06:58 Dose: 40 mg Quetiapine Fumarate (Seroquel) 50 mg PO BID [facility]; Protocol Stop: 02/15/18 16:59 Last Admin: 12/20/17 08:37 Dose: 50 mg Rivaroxaban (Xarelto) 10 mg PO DAILY [facility] Stop: 02/16/18 08:59 Last Admin: 12/20/17 08:50 Dose: Not Given General: weak, alert HEENT: NC/AT, PERRLA Neck: Supple Lungs: CTAB Cardiovascular: RRR, Normal S1, Normal S2, without murmur Abdomen: soft, non-tender, non-distended Neurological: alert - Procedures Procedures: Procedures Procedure Code Date INDIVID PSYCHOTHERAP NEC 94.39 07/05/04 INJECT/INFUSE NEC 99.29 03/18/13 OTHER GROUP THERAPY 94.44 12/18/13 RECREATIONAL THERAPY 93.81 07/05/04 Internal Medicine Assmt/Plan - Assessment Assessment: abdominal pain with abdominal distention-resolved intractable nausea-resolved Acute UTI htn dm obesity asthma dyslipidemia dementia non-compliant chronic anemia - Plan [facility] advance diet as per gi follow up labs in am continue ivabx continue current plan of care Nutritional Asmnt/Malnutr-PDOC - Dietary Evaluation Malnutrition Findings (Please click <Entered> for more info): Nutritional Asmnt/Malnutrition Start: 12/18/17 14: 28 Text: Status: Complete Freq: Protocol: Document 12/18/17 14:28 SULTANA (Rec: 12/18/17 15:00 SULTANA PATRICIA) Nutritional Asmnt/Malnutrition Patient General Information Nutritional Screening High Risk Consult Diagnosis abdominal pain Pertinent Medical Hx/Surgical Hx HTN, DM, asthma, COPD, dyslipidemia, PUD/GERD, dementia, chronic anemia Subjective Information Received diet consult for bs 272 upon admission. Pt sleeping at time of visit. Per EMR, PO intake 100% of meals yesterday. Pt appears to be on liquid diet d/t pending abdominal u/s per nurse note. Current Diet Order/ Nutrition Support full liquid, ccho Pertinent Medications Vit C, lipitor, colace, glucagen, novolog, levaquin, mag-oxide, theragran, zofran, protonix, seroquel, xarelto, Nacl 0.9% Pertinent Labs 12/18: glucose 188, POC 183- 187, Ca 8.5 12/17: glucose 272, POC 213- 286, triglycerides 196 Nutritional Hx/Data Height 5 ft 2 in Height (Calculated Centimeters) 157.5 Current Weight (lbs) 168 lb Weight (Calculated Kilograms) 76.2 Weight (Calculated Grams) 31125.5 [place] Body Weight 110 lb Body Mass Index (BMI) 30.7 Weight Status Obese GI Symptoms GI Symptoms None Last BM none noted Difficult in: None Food Allergies No Skin Integrity/Comment: potential rash to parietal and left buttocks, hypertropic tisue to left hand, karen 14 Current %PO Good (75-100%) Estimated Nutritional Goals BEE in Kcals: Adj wt of IBW Calories/Kcals/Kg 25-30 (based on adj wt 56.6 kg ) Kcals Calculated 3414-9137 Protein: Adj wt of IBW Protein g/k.0 Protein Calculated 57 g Fluid: ml 2151-7115 (1 ml/kcal) Nutritional Problem 1. Problem Problem Altered nutrition related lab values Etiology hyperglycemia, hx of DM Signs/Symptoms: glucose 188, POC 183-187 Malnutrition Alert Is there a minimum of two criteria No selected? Query Text:Check all the applicable criteria. A minimum of two criteria are recommended for diagnosis of either severe or non-severe malnutrition. Malnutrition Related to Morbid Obesity Malnutrition related to morbid obesity No Intervention/Recommendation Comments 1. Continue with full liquid, ccho diet as ordered. Will provide diabetic education when pt available at next visit. 2. Once pt's able to advance PO intake, recommend to start CCHO 60 g diet with appropriate texture d/t altered bs and hx of DM 3. Monitor PO intake, wt, labs and skin integrity 4. F/U as high risk in 2-3 days, 12/20-12/21 Expected Outcomes/Goals Expected Outcomes/Goals 1. PO intake to continue meet at least 75% of all meals 2. Wt stability, skin to remain intact, labs to approach normal limits Reviewed by Traci Cobian RD
--- NOTE | 2017-12-20 12:48 | GI Progress Note ---
Subjective - Review of Systems Service Date: 12/20/17 Events since last encounter: No events Objective - Results Result Diagrams: 12/19/17 06:05 12/19/17 06:05 Recent Labs: Laboratory Last Values WBC 3.7 Th/cmm (4.8-10.8) L 12/19/17 06:05 RBC 4.87 Mil/cmm (3.80-5.20) 12/19/17 06:05 Hgb 12.3 gm/dL (12-16) 12/19/17 06:05 Hct 37.5 % (41.0-60) L 12/19/17 06:05 MCV 77.1 fl (81-100) L 12/19/17 06:05 MCH 25.3 pg (27.0-31.0) L 12/19/17 06:05 MCHC Differential 32.8 pg (28.0-36.0) 12/19/17 06:05 RDW 14.4 % (11.5-20.0) 12/19/17 06:05 Plt Count 138 Th/cmm (150-400) L 12/19/17 06:05 MPV 7.3 fl 12/19/17 06:05 Add Manual Diff YES 12/17/17 12:07 Neutrophils % 62.6 % (40.0-80.0) 12/19/17 06:05 Lymphocytes % 21.8 % (20.0-50.0) 12/19/17 06:05 Monocytes % 13.0 % (2.0-10.0) H 12/19/17 06:05 Eosinophils % 2.2 % (0.0-5.0) 12/19/17 06:05 Basophils % 0.4 % (0.0-2.0) 12/19/17 06:05 Neutrophils (Manual) 71 % (40-80) 12/17/17 12:07 Lymphocytes 23 % (20-50) 12/17/17 12:07 Monocytes 6 % (2-10) 12/17/17 12:07 PT 10.0 SECONDS (9.5-11.5) 12/17/17 12:07 INR 0.96 (0.5-1.4) 12/17/17 12:07 Sodium 141 mEq/L (136-145) 12/19/17 06:05 Potassium 3.9 mEq/L (3.5-5.1) 12/19/17 06:05 Chloride 106 mEq/L (98-107) 12/19/17 06:05 Carbon Dioxide 27.3 mEq/L (21.0-31.0) 12/19/17 06:05 Anion Gap 11.6 (7.0-16.0) 12/19/17 06:05 BUN 7 mg/dL (7-25) 12/19/17 06:05 Creatinine 0.6 mg/dL (0.6-1.2) 12/19/17 06:05 Est GFR ( Amer) TNP 12/19/17 06:05 Est GFR (Non-Af Amer) TNP 12/19/17 06:05 BUN/Creatinine Ratio 11.7 12/19/17 06:05 Glucose 194 mg/dL (70-105) H 12/19/17 06:05 POC Glucose 195 MG/DL (70 - 105) H 12/20/17 11:10 Calcium 8.4 mg/dL (8.6-10.3) L 12/19/17 06:05 Total Bilirubin 0.9 mg/dL (0.3-1.0) 12/17/17 12:07 AST 9 U/L (13-39) L 12/17/17 12:07 ALT 16 U/L (7-52) 12/17/17 12:07 Alkaline Phosphatase 111 U/L (34-104) H 12/17/17 12:07 Creatine Kinase 21 U/L (30-223) L 12/17/17 12:07 Troponin I 0.01 ng/mL (0.01-0.05) 12/17/17 12:07 B-Natriuretic Peptide 37.2 pg/mL (5.0-100.0) 12/17/17 12:07 Total Protein 6.1 gm/dL (6.0-8.3) 12/17/17 12:07 Albumin 3.9 gm/dL (3.7-5.3) 12/17/17 12:07 Globulin 2.2 gm/dL 12/17/17 12:07 Albumin/Globulin Ratio 1.8 (1.0-1.8) 12/17/17 12:07 Triglycerides 196 mg/dL (<150) H 12/17/17 12:07 Cholesterol 184 mg/dL (<200) 12/17/17 12:07 LDL Cholesterol Direct 122 mg/dL (75-193) 12/17/17 12:07 HDL Cholesterol 40 mg/dL (23-92) 12/17/17 12:07 Amylase 15 U/L (29-103) L 12/17/17 12:07 Lipase 11 U/L (11-82) 12/17/17 12:07 Urine Source CLEAN C 12/17/17 12:00 Urine Color YELLOW 12/17/17 12:00 Urine Clarity CLEAR (CLEAR) 12/17/17 12:00 Urine pH 6.0 (4.6 - 8.0) 12/17/17 12:00 Ur Specific [place] >= 1.030 (1.005-1.030) 12/17/17 12:00 Urine Protein 30 mg/dL (NEGATIVE) H 12/17/17 12:00 Urine Glucose (UA) 500 mg/dL (NEGATIVE) H 12/17/17 12:00 Urine Ketones NEGATIVE mg/dL (NEGATIVE) 12/17/17 12:00 Urine Blood TRACE (NEGATIVE) 12/17/17 12:00 Urine Nitrate NEGATIVE (NEGATIVE) 12/17/17 12:00 Urine Bilirubin NEGATIVE (NEGATIVE) 12/17/17 12:00 Urine Urobilinogen 0.2 E.U./dL (0.2 - 1.0) 12/17/17 12:00 Ur Leukocyte Esterase NEGATIVE (NEGATIVE) 12/17/17 12:00 Urine RBC 0-2 /hpf (0-5) 12/17/17 12:00 Urine WBC 6-10 /hpf (0-5) H 12/17/17 12:00 Ur Epithelial Cells MODERATE /lpf (FEW) 12/17/17 12:00 Urine Bacteria MODERATE /hpf (NONE SEEN) H 12/17/17 12:00 - Physical Exam Vitals and I&O: Vital Signs Temp 97.8 F 12/20/17 12:00 Pulse 74 12/20/17 12:00 Resp 18 12/20/17 12:00 BP 123/57 12/20/17 12:00 Pulse Ox 97 12/20/17 12:00 Intake & Output 12/19/17 12/20/17 12/20/17 18:59 06:59 18:59 Intake Total 1100 1720 Balance 1100 1720 Weight (lbs) 74.843 kg Intake: Intake, IV Amount 1100 1000 Levofloxacin 500mg/100mL 100 500 mg In 100 ml @ 100 mls/hr IV Q24HR [facility] Rx#: [id number] Sodium Chloride 0.9% 1, 1000 1000 000 ml @ 60 mls/hr IV . [id number] [facility] Rx#:[id number] Oral 720 Other: # Voids 3 # Bowel Movements 0 Weight Source Estimated Active Medications: Current Medications Acetaminophen (Tylenol) 650 mg PO Q4HR PRN PRN Reason: Pain Or Fever above 101 Stop: 02/15/18 13:40 Albuterol Sulfate (Albuterol 2.5mg/3ml Neb Ud) 2.5 mg IH Q2HR PRN PRN Reason: Shortness of Breath or Wheeze Stop: 02/15/18 13:40 Ascorbic Acid (Vitamin C) 500 mg PO DAILY [facility] Stop: 02/16/18 08:59 Last Admin: 12/20/17 08:51 Dose: Not Given Atorvastatin Calcium (Lipitor) 10 mg PO HS [facility]; Protocol Stop: 02/15/18 20:59 Last Admin: 12/19/17 21:28 Dose: Not Given Budesonide (Pulmicort) 0.5 mg HHN BIDRT [facility] Stop: 02/15/18 18:59 Last Admin: 12/20/17 06:58 Dose: Not Given Docusate Sodium (Colace) 100 mg PO DAILY [facility] Stop: 02/16/18 08:59 Last Admin: 12/20/17 08:51 Dose: Not Given Donepezil HCl (Aricept) 10 mg PO HS [facility] Stop: 02/15/18 20:59 Last Admin: 12/19/17 21:25 Dose: 10 mg Glucagon (Glucagen) 1 mg IM DAILY PRN PRN Reason: BELOW 70/NOT TOLERATE PO Stop: 02/15/18 13:39 Guaifenesin (Robitussin) 100 mg PO Q4H PRN PRN Reason: Cough or Congestion Stop: 02/15/18 13:40 Insulin Aspart (Novolog Insulin Sliding Scale) 0 units SUBQ ACHS [facility]; Protocol Stop: 02/15/18 16:29 Last Admin: 12/20/17 06:58 Dose: 7 units Ipratropium [place] (Atrovent Neb 0.5mg/2.5ml) 0.5 mg IH Q2HR PRN PRN Reason: Shortness of Breath or Wheeze Stop: 02/15/18 13:40 Levofloxacin (Levaquin) 500 mg PO DAILY [facility] Stop: 12/24/17 08:59 Lorazepam (Ativan) 1 mg PO Q4H PRN; Protocol PRN Reason: Agitation Stop: 02/17/18 20:58 Last Admin: 12/20/17 08:41 Dose: 1 mg Losartan Potassium (Cozaar) 25 mg PO DAILY [facility] Stop: 02/16/18 08:59 Last Admin: 12/20/17 08:51 Dose: Not Given Magnesium Oxide (Mag-Oxide) 400 mg PO BID [facility] Stop: 02/15/18 16:59 Last Admin: 12/20/17 08:52 Dose: Not Given Multivitamins/Vitamin C (Theragran) 1 tab PO DAILY [facility] Stop: 02/16/18 08:59 Last Admin: 12/20/17 08:52 Dose: Not Given Ondansetron HCl (Zofran) 4 mg IV Q8H PRN PRN Reason: Nausea / Vomiting Stop: 02/15/18 13:40 Oxybutynin Chloride (Ditropan) 5 mg PO BID [facility] Stop: 02/15/18 16:59 Last Admin: 12/20/17 08:52 Dose: Not Given Pantoprazole Sodium (Protonix) 40 mg PO QDAC [facility] Stop: 02/16/18 07:29 Last Admin: 12/20/17 06:58 Dose: 40 mg Quetiapine Fumarate (Seroquel) 50 mg PO BID [facility]; Protocol Stop: 02/15/18 16:59 Last Admin: 12/20/17 08:37 Dose: 50 mg Rivaroxaban (Xarelto) 10 mg PO DAILY [facility] Stop: 02/16/18 08:59 Last Admin: 12/20/17 08:50 Dose: Not Given General: Mild distress HEENT: Atraumatic, PERRLA Neck: Supple Cardiovascular: Regular rate, Normal S1, Normal S2 Lungs: Clear to auscultation Abdomen: Bowel sounds, Soft Extremities: no Clubbing, no Cyanosis, no Edema, no Pulses, no Tender, no Other - Procedures Procedures: Procedures Procedure Code Date INDIVID PSYCHOTHERAP NEC 94.39 07/05/04 INJECT/INFUSE NEC 99.29 03/18/13 OTHER GROUP THERAPY 94.44 12/18/13 RECREATIONAL THERAPY 93.81 07/05/04 Assessment/Plan - Assessment Assessment: 1. Acute nausea and vomiting 2. Abdominal pain transient 3. GB sludge 4. severe psych disorder -Patient refused egd/colonoscopy as advised -Very advanced psych disorder -Continue with diet -Dispo noted
== END 2017-12-20 17:24 | DRG 378 ==
LOC: ER 11:40 → MSI 13:35
PROVIDERS: ADMIT Internal Medicine; ATTEND Internal Medicine
DX: K92.2 Gastrointestinal hemorrhage, unspecified (principal); N39.0 Urinary tract infection, site not specified; E87.1 Hypo-osmolality and hyponatremia; E66.9 Obesity, unspecified; F03.90 Unspecified dementia, unspecified severity, without behavioral disturbance, psychotic disturbance, mood disturbance, and anxiety; E78.5 Hyperlipidemia, unspecified; I10 Essential (primary) hypertension; D64.9 Anemia, unspecified; J44.9 Chronic obstructive pulmonary disease, unspecified; K21.9 Gastro-esophageal reflux disease without esophagitis; E11.65 Type 2 diabetes mellitus with hyperglycemia; F31.9 Bipolar disorder, unspecified; I48.2 Chronic atrial fibrillation; K59.09 Other constipation; R11.2 Nausea with vomiting, unspecified; R14.0 Abdominal distension (gaseous); F29 Unspecified psychosis not due to a substance or known physiological condition; Z88.0 Allergy status to penicillin; Z68.30 Body mass index [BMI] 30.0-30.9, adult; Z83.3 Family history of diabetes mellitus; Z79.4 Long term (current) use of insulin; Z82.49 Family history of ischemic heart disease and other diseases of the circulatory system; Z90.710 Acquired absence of both cervix and uterus; Z91.14 Patient's other noncompliance with medication regimen; Z79.01 Long term (current) use of anticoagulants
CPT/HCPCS: 36415-UA; 71045-TC; 76700-TC; 80048-TC; 80053-TC; 80061-TC; 81001-TC; 82150-TC; 82550-TC; 82948-90; 83036-90; 83690-TC; 83880-TC; 84484-TC; 85007-TC; 85025-TC; 85610-TC; 87086-90; 93005; 94760; 96375; C9113; J1815; J1956; J2405; J7030; Z7610

== ENCOUNTER 2018-08-12 20:05 | Emergency (ER) | payer MEDICARE, MEDICAID ==
--- NOTE | 2018-08-12 20:32 | ED Physician Chart ---
ED Chief Complaint/HPI - Patient Information Date Seen:: 08/12/18 Time Seen:: 20:26 Chief Complaint:: Bilateral hip pain History of Present Illness:: 72 yo female was brought from SNF to ER for evaluation of bilateral hip pain, left worse than right, for 9 months worsening for 3 months. Pt had bilateral knee pain, right worse than left for 9 months. She also had left shoulder pain and neck pain for 1 week. Pt had numbness of bilateral feet for 6 months. Pt has been bed bound for 9 months. Allergies:: Allergies Allergy/AdvReac Type Severity Reaction Status Date / Time Penicillins Allergy Verified 08/12/18 20:15 Vitals:: Vital Signs - 8 hr 08/12/18 20:05 Temp 98.1 F HR 99 RR 18 BP 148/67 O2 Sat % 92 ED Review of Systems - Review of Systems General/Constitutional: No fever, No chills Skin: No rash Head: No headache Eyes: No pain ENT: No earache Neck: Neck pain Cardio Vascular: No chest pain Pulmonary: No SOB GI: No nausea, No vomiting, No pain G/U: Other (urinary incontinent ) Musculoskeletal: Bone or joint pain Neurological: Weakness ED Past Medical History - Past Medical History Past Medical History: HTN, DM, Asthma/COPD, Dyslipidemia, Other (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, insomnia) Social History: Non Smoker (former), No Alcohol, No Drug Use Surgical History: other (colon surgery for obstruction due to lack of mesentery tissue) Family Medical History - Family Member Father History Unknown: Yes Ethnicity: Non- Living Status: Hx Family Cancer: No Hx Family Coronary Artery Disease: Yes Hx Family Congestive Heart Failure: Yes Hx Family Hypertension: Yes Hx Family Stroke: No Hx Family Diabetes: No Hx Family Seizures: No Hx Family Dementia: No Hx Family AIDS: No Hx Family HIV: No Hx Family COPD: No Hx Family Hepatitis: No Hx Family Psychiatric Problems: (migraines) Hx Family Tuberculosis: No Mother History Unknown: Yes Ethnicity: Non- Living Status: Hx Family Cancer: No Hx Family Coronary Artery Disease: No Hx Family Congestive Heart Failure: No Hx Family Hypertension: Yes Hx Family Stroke: No Hx Family Diabetes: No Hx Family Seizures: No Hx Family Dementia: No Hx Family AIDS: No Hx Family HIV: No Hx Family COPD: No Hx Family Hepatitis: No Hx Family Psychiatric Problems: No Hx Family Tuberculosis: No ED Physical Exam - Physical Examination General/Constitutional: Awake, Alert Head: Atraumatic Eyes: PERRL, EOMI Skin: No skin lesions ENMT: Nasal exam nl Neck: No nuchal rigidity Respiratory: Clear to Auscultation Cardio Vascular: RRR, No murmur, gallop, rubs, NL S1 S2 GI: No tenderness/rebounding/guarding Other Extremities comments:: Tenderness of left groin. Painful ROM of bilateral hips Neuro/Psych: Alert/oriented Other Neuro/Psych comments:: Move all 4 extremities, motor 4/5 ED Labs/Radiology/EKG Results - Lab Results Results: Laboratory Last Values WBC 5.8 Th/cmm (4.8-10.8) 08/12/18 20:55 RBC 5.02 Mil/cmm (3.80-5.20) 08/12/18 20:55 Hgb 12.2 gm/dL (12-16) 08/12/18 20:55 Hct 37.1 % (41.0-60) L 08/12/18 20:55 MCV 74.0 fl (81-100) L 08/12/18 20:55 MCH 24.3 pg (27.0-31.0) L 08/12/18 20:55 MCHC Differential 32.8 pg (28.0-36.0) 08/12/18 20:55 RDW 18.2 % (11.5-20.0) 08/12/18 20:55 Plt Count 172 Th/cmm (150-400) 08/12/18 20:55 MPV 7.7 fl 08/12/18 20:55 Neutrophils % 64.7 % (40.0-80.0) 08/12/18 20:55 Lymphocytes % 23.5 % (20.0-50.0) 08/12/18 20:55 Monocytes % 8.1 % (2.0-10.0) 08/12/18 20:55 Eosinophils % 2.9 % (0.0-5.0) 08/12/18 20:55 Basophils % 0.8 % (0.0-2.0) 08/12/18 20:55 PT 10.7 SECONDS (9.5-11.5) 08/12/18 20:55 INR 1.03 (0.5-1.4) 08/12/18 20:55 PTT (Actin FS) 27.4 SECONDS (26.0-38.0) 08/12/18 20:55 Sodium 137 mEq/L (136-145) 08/12/18 20:55 Potassium 4.2 mEq/L (3.5-5.1) 08/12/18 20:55 Chloride 103 mEq/L (98-107) 08/12/18 20:55 Carbon Dioxide 24.3 mEq/L (21.0-31.0) 08/12/18 20:55 Anion Gap 13.9 (7.0-16.0) 08/12/18 20:55 BUN 28 mg/dL (7-25) H 08/12/18 20:55 Creatinine 1.0 mg/dL (0.6-1.2) 08/12/18 20:55 Est GFR ( Amer) TNP 08/12/18 20:55 Est GFR (Non-Af Amer) TNP 08/12/18 20:55 BUN/Creatinine Ratio 28.0 08/12/18 20:55 Glucose 165 mg/dL (70-105) H 08/12/18 20:55 Whole Bld Lactic Acid 1.10 mmol/L (0.60-1.99) 08/12/18 20:55 Calcium 10.6 mg/dL (8.6-10.3) H 08/12/18 20:55 Total Bilirubin 0.5 mg/dL (0.3-1.0) 08/12/18 20:55 AST 44 U/L (13-39) H 08/12/18 20:55 ALT 57 U/L (7-52) H 08/12/18 20:55 Alkaline Phosphatase 144 U/L (34-104) H 08/12/18 20:55 Total Protein 6.9 gm/dL (6.0-8.3) 08/12/18 20:55 Albumin 3.9 gm/dL (3.7-5.3) 08/12/18 20:55 Globulin 3.0 gm/dL 08/12/18 20:55 Albumin/Globulin Ratio 1.3 (1.0-1.8) 08/12/18 20:55 Urine Source [place] 08/12/18 21:30 Urine Color YELLOW 08/12/18 21:30 Urine Clarity CLEAR (CLEAR) 08/12/18 21:30 Urine pH 5.5 (4.6 - 8.0) 08/12/18 21:30 Ur Specific [place] 1.020 (1.005-1.030) 08/12/18 21:30 Urine Protein NEGATIVE mg/dL (NEGATIVE) 08/12/18 21:30 Urine Glucose (UA) NEGATIVE mg/dL (NEGATIVE) 08/12/18 21:30 Urine Ketones NEGATIVE mg/dL (NEGATIVE) 08/12/18 21:30 Urine Blood NEGATIVE (NEGATIVE) 08/12/18 21:30 Urine Nitrate NEGATIVE (NEGATIVE) 08/12/18 21:30 Urine Bilirubin NEGATIVE (NEGATIVE) 08/12/18 21:30 Urine Urobilinogen 0.2 E.U./dL (0.2 - 1.0) 08/12/18 21:30 Ur Leukocyte Esterase NEGATIVE (NEGATIVE) 08/12/18 21:30 Urine RBC 0 /hpf (0-5) 08/12/18 21:30 Urine WBC 2-5 /hpf (0-5) 08/12/18 21:30 Ur Epithelial Cells FEW /lpf (FEW) 08/12/18 21:30 Urine Bacteria FEW /hpf (NONE SEEN) 08/12/18 21:30 Coarse Granular Casts 0-2 /lpf (NONE SEEN) H 08/12/18 21:30 Urine Mucus FEW /lpf (FEW) 08/12/18 21:30 - Radiology Results Results: Right knee X ray: mild to moderate degenerative changes Left knee X ray: mild to moderate degenerative changes Pelvis X ray: degenerative changes, right worse than left Lumbar spine X ray: multi-level moderate degenerative changes ED Assessment - Assessment General Assessment: Chronic pain syndrome 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 Is Septic Shock (SBP<90, OR Lactate>4 mmol\L) present?: No - <6hrs of presentation: Vital Signs: Vital Signs - 8 hr 08/12/18 20:05 Temp 98.1 F HR 99 RR 18 BP 148/67 O2 Sat % 92 ED Reassessment (Disposition) - Reassessment Reassessment Condition:: Improved - Aftercare/Follow up Instructions Notes:: F/u PCP, physical therapy and possibly pain management Return to ER if symptoms worsen - Patient Disposition Discharge/Transfer:: [facility] - SNF
[2018-08-12 21:15] LABS: % BASOPHILS 0.8 % (0.0-2.0); % EOSINOPHILS 2.9 % (0.0-5.0); % LYMPHOCYTES 23.5 % (20.0-50.0); % MONOCYTES 8.1 % (2.0-10.0); % NEUTROPHILS 64.7 % (40.0-80.0); EOSINOPHILE ABSOLUTE 0.2 Th/cmm (0.1-0.4); HEMATOCRIT 37.1 % (41.0-60); HEMOGLOBIN 12.2 gm/dL (12-16); LYMPHOCYTE ABSOLUTE 1.4 Th/cmm (1.5-3.0); MEAN CORPUSCULAR HEMOGLOBIN 24.3 pg (27.0-31.0); MEAN CORPUSCULAR HGB CONC 32.8 pg (28.0-36.0); MONOCYTE ABSOLUTE 0.5 Th/cmm (0.3-1.0); NEUTROPHILE ABSOLUTE 3.7 Th/cmm (1.8-8.0); PLATELET COUNT 172 Th/cmm (150-400); RED BLOOD COUNT 5.02 Mil/cmm (3.80-5.20); RED CELL DISTRIBUTION WIDTH 18.2 % (11.5-20.0); WHITE BLOOD COUNT 5.8 Th/cmm (4.8-10.8)
[2018-08-12 21:20] LABS: ALB/GLOB RATIO 1.3 (1.0-1.8); ALBUMIN 3.9 gm/dL (3.7-5.3); ALKALINE PHOSPHATASE 144 U/L (34-104); ANION GAP 13.9 (7.0-16.0); BILIRUBIN,TOTAL 0.5 mg/dL (0.3-1.0); BUN - UREA NITROGEN 28 mg/dL (7-25); CALCIUM SERUM 10.6 mg/dL (8.6-10.3); CARBON DIOXIDE 24.3 mEq/L (21.0-31.0); CHLORIDE 103 mEq/L (98-107); GLUCOSE 165 mg/dL (70-105); INR 1.03 (0.5-1.4); POTASSIUM SERUM 4.2 mEq/L (3.5-5.1); SGOT 44 U/L (13-39); SGPT/ALT 57 U/L (7-52); SODIUM SERUM 137 mEq/L (136-145); TOTAL PROTEIN,SERUM 6.9 gm/dL (6.0-8.3)
[2018-08-12 21:45] LABS: URINE SOURCE MIDSTREAM
[2018-08-12 21:46] LABS: URINE BILIRUBIN NEGATIVE (NEGATIVE); URINE BLOOD NEGATIVE (NEGATIVE); URINE GLUCOSE (UA) NEGATIVE (NEGATIVE); URINE KETONE NEGATIVE (NEGATIVE); URINE LEUKOCYTE ESTERASE NEGATIVE (NEGATIVE); URINE NITRATE NEGATIVE (NEGATIVE); URINE PH 5.5 (4.6 - 8.0); URINE PROTEIN NEGATIVE (NEGATIVE); URINE UROBILINOGEN 0.2 E.U./dL (0.2 - 1.0)
[2018-08-12 21:48] LABS: URINE CLARITY CLEAR (CLEAR); URINE COLOR YELLOW
[2018-08-12 21:49] LABS: URINE MICROSCOPIC INDICATED? YES
[2018-08-12 21:51] LABS: URINE BACTERIA FEW /hpf (NONE SEEN); URINE EPITHELIAL CELLS FEW /lpf (FEW); URINE RBC 0 /hpf (0-5)
[2018-08-12 21:52] LABS: URINE COARSE GRANULAR CAST 0-2 /lpf (NONE SEEN)
--- NOTE | 2018-08-13 09:27 | Diagnostic Imaging Report ---
Exam: Left knee joint HISTORY: Pain Findings: Multiple views of the left knee joint reviewed, demonstrates severe degenerative osteoarthritis with narrowing of joint space. There is no evidence for acute fracture dislocation. The patella is intact. There is no evidence for joint effusion IMPRESSION: Severe degenerative osteoarthritis left knee joint.
--- NOTE | 2018-08-13 09:28 | Diagnostic Imaging Report ---
Exam: Right knee joint HISTORY: Pain Findings: Multiple views of right knee joint demonstrates moderate degenerative osteoarthritis. There is no evidence of acute fracture dislocation. The patella is intact there is no evidence for joint effusion IMPRESSION: Moderate osteoarthritis right knee joint.
--- NOTE | 2018-08-13 09:30 | Diagnostic Imaging Report ---
Exam: Lumbar sacral spine HISTORY: Pain Exam: None Findings: Multiple views lumbar cervical spine demonstrates degenerative osteoarthritis with narrowing of the intravertebral disc spaces lower lumbar spine. There is evidence for old compression fracture superior plate of L2 lumbar vertebra. There is no evidence spondylolysis and listhesis. Aorta is calcified. The visualized pedicles are intact. IMPRESSION: Degenerative osteoarthritis, narrowing of the lower intervertebral disc spaces throughout All compression fracture superior plate of L2 lumbar vertebra.
--- NOTE | 2018-08-13 09:31 | Diagnostic Imaging Report ---
Exam: Pelvis HISTORY pain Prior exam: None Findings: Frontal examination of pelvis demonstrate no evidence of fracture dislocation. The visualized sacroiliac joint pubic symphysis and hip joints are intact. Degenerative narrowing of the hip joint spaces bilaterally appreciated IMPRESSION: Essentially unremarkable examination or pelvis. Degenerative narrowing hip joints bilaterally.
== END 2018-08-12 23:10 ==
LOC: ER 20:05
DX: G89.29 Other chronic pain (principal); M17.0 Bilateral primary osteoarthritis of knee; M47.896 Other spondylosis, lumbar region; M16.0 Bilateral primary osteoarthritis of hip; E86.0 Dehydration; I10 Essential (primary) hypertension; E11.9 Type 2 diabetes mellitus without complications; J44.9 Chronic obstructive pulmonary disease, unspecified; E78.5 Hyperlipidemia, unspecified; Z87.891 Personal history of nicotine dependence; Z98.890 Other specified postprocedural states; Z88.0 Allergy status to penicillin
CPT/HCPCS: 99284; 96372; 72100; 72170; 73564 ×2; 36415; 83605; 85025; 85610; 81001; 80053; J1885; 73562-TC-LT; 73562-TC-RT

== ENCOUNTER 2018-09-12 18:17 | Inpatient (IN) | payer MEDICARE, MEDICAID ==
--- NOTE | 2018-09-12 18:51 | ED Physician Chart ---
ED Chief Complaint/HPI - Patient Information Date Seen:: 09/12/18 Time Seen:: 18:15 Chief Complaint:: Agitation History of Present Illness:: onset x 3 days of agitation and aggressive behavior; no report of trauma, H/As, neck pain, SIs, C/P, SOB, Abd. Pain, or urinary s/s Allergies:: Allergies Allergy/AdvReac Type Severity Reaction Status Date / Time Penicillins Allergy Verified 09/12/18 18:34 Historian:: Patient, EMS Review:: Nurse's Note Reviewed, Old Chart Reviewed, EMS run form Reviewed <Lisandro Mondragon - Last Filed: 09/12/18 18:45> - Patient Information Allergies:: Allergies Allergy/AdvReac Type Severity Reaction Status Date / Time Penicillins Allergy Verified 09/12/18 18:34 Vitals:: Vital Signs - 8 hr 09/12/18 18:43 Temp 99.1 F HR 97 RR 18 BP 138/72 O2 Sat % 94 <Garrick Cruz - Last Filed: 09/12/18 22:10> ED Review of Systems - Review of Systems General/Constitutional: No fever, No chills, No weight loss, No weakness, No diaphoresis, No edema, No loss of appetite Skin: No skin lesions, No rash, No bruising Head: No headache, No light-headedness Eyes: No loss of vision, No pain, No diplopia ENT: No earache, No nasal drainage, No sore throat, No tinnitus Neck: No neck pain, No swelling, No thyromegaly, No stiffness, No mass noted Cardio Vascular: No chest pain, No palpitations, No PND, No orthopnea, No edema Pulmonary: No SOB, No cough, No sputum, No wheezing GI: No nausea, No vomiting, No diarrhea, No pain, No melena, No hematochezia, No constipation, No hematemesis G/U: No dysuria, No frequency, No hematuria, No nacturia Facility Specialist: No vaginal discharge, No abnormal vaginal bleed, No contraction Musculoskeletal: No bone or joint pain, No back pain, No muscle pain Endocrine: No polyuria, No polydipsia Psychiatric: Prior psych history, Depression, Anxiety, No suicidal ideation, No homicidal ideation, No auditory hallucination, No visual hallucination Hematopoietic: No bruising, No lymphadenopathy Allergic/Immuno: No urticaria, No angioedema Neurological: No syncope, No focal symptoms, No weakness, No paresthesia, No headache, No seizure, No dizziness, Confusion, No vertigo <Lisandro Mondragon Filed: 09/12/18 18:45> ED Past Medical History - Past Medical History Obtainable: Yes Past Medical History: HTN, DM, Asthma/COPD, Dyslipidemia, Dementia Family History: Diabetes Melitus, HTN Social History: Non Smoker, No Alcohol, No Drug Use, Single, Care Facility Surgical History: None Psychiatricy History: Depression, Bipolar, Dementia Medication: Reviewed <Lisandro Mondragon Filed: 09/12/18 18:45> Family Medical History - Family Member Father History Unknown: Yes Ethnicity: Non- Living Status: Hx Family Cancer: No Hx Family Coronary Artery Disease: Yes Hx Family Congestive Heart Failure: Yes Hx Family Hypertension: Yes Hx Family Stroke: No Hx Family Diabetes: No Hx Family Seizures: No Hx Family Dementia: No Hx Family AIDS: No Hx Family HIV: No Hx Family COPD: No Hx Family Hepatitis: No Hx Family Psychiatric Problems: (migraines) Hx Family Tuberculosis: No Mother History Unknown: Yes Ethnicity: Non- Living Status: Hx Family Cancer: No Hx Family Coronary Artery Disease: No Hx Family Congestive Heart Failure: No Hx Family Hypertension: Yes Hx Family Stroke: No Hx Family Diabetes: No Hx Family Seizures: No Hx Family Dementia: No Hx Family AIDS: No Hx Family HIV: No Hx Family COPD: No Hx Family Hepatitis: No Hx Family Psychiatric Problems: No Hx Family Tuberculosis: No <Lisandro Mondragon Filed: 09/12/18 18:45> ED Physical Exam - Physical Examination General/Constitutional: Awake, Well-developed, well-nourished, Alert, No distress, GCS 15, Non-toxic appearing, Ambulatory Head: Atraumatic Eyes: Lids, conjuctiva normal, PERRL, EOMI Skin: Nl inspection, No rash, No skin lesions, No ecchymosis, Well hydrated, No lymphadenopathy ENMT: External ears, nose nl, TM canals nl, Nasal exam nl, Lips, teeth, gums nl , Oropharynx nl, Tonsils nl Neck: Nontender, Full ROM w/o pain, No JVD, No nuchal rigidity, No bruit, No mass, No stridor Respiratory: Nl effort/Exclusion, Clear to Auscultation, No Wheeze/Rhonchi/Rales Cardio Vascular: RRR, No murmur, gallop, rubs, NL S1 S2, Carotid/Femoral/Distal pulses equal bilaterally GI: No tenderness/rebounding/guarding, No organomegaly, No hernia, Normal BS's, Nondistended, No mass/bruits, No McBurney tenderness : No CVA tenderness Extremities: No tenderness or effusion, Full ROM, normal strength in all extremities, No edema, Normal digits & nails Neuro/Psych: Alert/oriented, DTR's symmetric, Normal sensory exam, Normal motor strength, Judgement/insight normal, Mood normal, Normal gait, No focal deficits Other Neuro/Psych comments:: + Psychomotor Agitation; no SIs; Mood/Affect: Labile Misc: Normal back, No paraspinal tenderness <Lisandro Mondragon - Last Filed: 09/12/18 18:45> ED Labs/Radiology/EKG Results - Lab Results Results: Laboratory Tests 09/12/18 09/12/18 20:10 20:10 WBC 7.4 RBC 4.74 Hgb 12.0 Hct 35.7 L MCV 75.4 L MCH 25.3 L MCHC Differential 33.6 RDW 17.0 Plt Count 267 MPV 6.8 Neutrophils % 72.2 Lymphocytes % 17.1 L Monocytes % 9.1 Eosinophils % 1.0 Basophils % 0.6 Sodium 132 L Potassium 4.3 Chloride 96 L Carbon Dioxide 23.8 Anion Gap 16.5 H BUN 25 Creatinine 0.8 Est GFR ( Amer) TNP Est GFR (Non-Af Amer) TNP BUN/Creatinine Ratio 31.3 Glucose 62 L Calcium 10.7 H Total Bilirubin 0.8 AST 74 H ALT 36 Alkaline Phosphatase 159 H Total Protein 5.9 L Albumin 3.5 L Globulin 2.4 Albumin/Globulin Ratio 1.5 Triglycerides 146 Cholesterol 112 LDL Cholesterol Direct 56 L HDL Cholesterol 32 <Garrick Cruz - Last Filed: 09/12/18 22:10> ED Assessment - Assessment General Assessment: Blood sugar on the [facility] was 62. Will give the patient glucose-containing solution and a sugar containing fluids and make sure her blood sugar is higher before she is transferred to [facility] <Garrick Cruz - Last Filed: 09/12/18 22:10> ED Septic Shock - . Is Septic Shock (SBP<90, OR Lactate>4 mmol\L) present?: No <Lisandro Mondragon - Last Filed: 09/12/18 18:45> - <6hrs of presentation: Vital Signs: Vital Signs - 8 hr 09/12/18 18:43 Temp 99.1 F HR 97 RR 18 BP 138/72 O2 Sat % 94 <Garrick Cruz - Last Filed: 09/12/18 22:10> ED Reassessment (Disposition) - Reassessment Reassessment Condition:: Improved - Diagnosis Diagnosis:: Agitation; Medical Clearance <Lisandro Mondragon - Last Filed: 09/12/18 18:45> - Patient Disposition Admitted to:: [facility] Admitting Medical Physician:: Leon Ch Admitting Psych Physician:: Kirit Carey Condition at Disposition:: Stable, Unchanged <Garrick Cruz - Last Filed: 09/12/18 22:10>
[2018-09-12 20:32] LABS: % BASOPHILS 0.6 % (0.0-2.0); % LYMPHOCYTES 17.1 % (20.0-50.0); % MONOCYTES 9.1 % (2.0-10.0); % NEUTROPHILS 72.2 % (40.0-80.0); EOSINOPHILE ABSOLUTE 0.1 Th/cmm (0.1-0.4); HEMATOCRIT 35.7 % (41.0-60); LYMPHOCYTE ABSOLUTE 1.3 Th/cmm (1.5-3.0); MEAN CELL VOLUME 75.4 fl (81-100); MEAN CORPUSCULAR HEMOGLOBIN 25.3 pg (27.0-31.0); MEAN CORPUSCULAR HGB CONC 33.6 pg (28.0-36.0); MONOCYTE ABSOLUTE 0.7 Th/cmm (0.3-1.0); NEUTROPHILE ABSOLUTE 5.3 Th/cmm (1.8-8.0); PLATELET COUNT 267 Th/cmm (150-400); RED BLOOD COUNT 4.74 Mil/cmm (3.80-5.20); WHITE BLOOD COUNT 7.4 Th/cmm (4.8-10.8)
[2018-09-12 20:56] LABS: ALB/GLOB RATIO 1.5 (1.0-1.8); ALBUMIN 3.5 gm/dL (3.7-5.3); ALKALINE PHOSPHATASE 159 U/L (34-104); ANION GAP 16.5 (7.0-16.0); BILIRUBIN,TOTAL 0.8 mg/dL (0.3-1.0); BUN - UREA NITROGEN 25 mg/dL (7-25); CALCIUM SERUM 10.7 mg/dL (8.6-10.3); CARBON DIOXIDE 23.8 mEq/L (21.0-31.0); CHLORIDE 96 mEq/L (98-107); CHOLESTEROL 112 mg/dL (<200); CREATININE - SERUM 0.8 mg/dL (0.6-1.2); GLUCOSE 62 mg/dL (70-105); HDL -HIGH DENSITY LIPOPROTEIN 32 mg/dL (23-92); POTASSIUM SERUM 4.3 mEq/L (3.5-5.1); SGOT 74 U/L (13-39); SGPT/ALT 36 U/L (7-52); SODIUM SERUM 132 mEq/L (136-145); TOTAL PROTEIN,SERUM 5.9 gm/dL (6.0-8.3); TRIGLYCERIDES 146 mg/dL (<150)
[2018-09-12] MEDS ORDERED: GLUCAGON HCl 1 MG KIT IM PRN (21:41)
--- NOTE | 2018-09-12 22:47 | History & Physical ---
ADMIT DATE: 09/13/2018 CHIEF COMPLAINT: Agitated behavior. HISTORY OF PRESENT ILLNESS: This is a 73-year-old female, under my service with history of hypertension, diabetes, COPD, psych disorder, dementia, admitted from nursing facility per Dr. Carey's order. The patient is agitated and denies chest pain and shortness of breath. PAST MEDICAL HISTORY: As mentioned in the history of present illness. PAST SURGICAL HISTORY: Denies surgeries in the past. ALLERGIES: PENICILLIN. MEDICATIONS: The patient is on Tylenol, losartan, apixaban, ascorbic acid, Lipitor, Colace, Donepezil, Flonase, glipizide, glucagon, olanzapine, multivitamin, Ditropan, and pantoprazole. FAMILY HISTORY: Noncontributory. SOCIAL HISTORY: The patient smokes. Denies alcohol, drinking or drugs. REVIEW OF SYSTEMS: GENERAL: The patient denies any general symptoms. HEENT: No blurred vision or pain. LUNGS: No diagnosis of asthma. The patient has COPD. HEART: The patient has hypertension and diabetes. ABDOMEN: No nausea, vomiting or pain. GENITOURINARY: The patient denies any increased frequency or dysuria. NEUROLOGIC: No headache, seizure, or syncope. PSYCHIATRIC: Stable. PHYSICAL EXAMINATION: VITAL SIGNS: Blood pressure 138/70, respirations 18, pulse 77, temperature 99.1. GENERAL: Elderly female, appears her stated age. NECK: Supple. LUNGS: Equal breath sounds, few rhonchi. HEART: Regular rate and rhythm with systolic ejection murmur. ABDOMEN: Soft, globular. EXTREMITIES: Positive excoriations. NEUROLOGIC: Limited. LABORATORY DATA: WBC 7, hemoglobin 12, platelets 267. Sodium 132, potassium 4.3, BUN 25, creatinine 0.8, glucose was 62 and 109. Albumin 3.5. ASSESSMENT AND PLAN: Hypertension, diabetes, chronic obstructive pulmonary disease, hypercholesterolemia, schizoaffective disorder/bipolar disorder, mild anemia, hyponatremia, episode of hypoglycemia. We will monitor platelet count. Continue the patient on ADA diet and insulin sliding scale. We will correct electrolyte abnormalities. Continue anticoagulation secondary to paroxysmal atrial fibrillation. We will continue the patient on antihypertensive medication. We will continue to follow with you, Dr. Carey. JOB# [id number]
[2018-09-13 02:47] VITALS: BP 144/79
[2018-09-13] MEDS ORDERED: Magnesium Hydroxide (MOM) 30 mL UDC PO PRN (02:50)
[2018-09-13] MEDS ORDERED: Maalox 30 mL Cup PO PRN (02:50)
[2018-09-13] MEDS: Pantoprazole 40 mg EC Tab PO SCH (07:21)
[2018-09-13] MEDS: Multivitamin Tab PO SCH (08:24)
[2018-09-13] MEDS ORDERED: Non-Formulary Item 1 EA (Fluticasone/Vilanterol [Breo Ellipta 100-25 Mcg Inh] 1 EACH) IH SCH (09:00)
--- NOTE | 2018-09-13 09:09 | Internal Medicine Prog Note ---
Internal Medicine Subjective - Subjective Patient seen and examined:: with staff, chart reviewed Patient is:: awake, verbal, interactive Per staff patient has:: no adverse event, no episodes of fall, tolerating meds Internal Medicine Objective - Results Result Diagrams: 09/12/18 20:10 09/12/18 20:10 Recent Labs: Laboratory Last Values WBC 7.4 Th/cmm (4.8-10.8) 09/12/18 20:10 RBC 4.74 Mil/cmm (3.80-5.20) 09/12/18 20:10 Hgb 12.0 gm/dL (12-16) 09/12/18 20:10 Hct 35.7 % (41.0-60) L 09/12/18 20:10 MCV 75.4 fl (81-100) L 09/12/18 20:10 MCH 25.3 pg (27.0-31.0) L 09/12/18 20:10 MCHC Differential 33.6 pg (28.0-36.0) 09/12/18 20:10 RDW 17.0 % (11.5-20.0) 09/12/18 20:10 Plt Count 267 Th/cmm (150-400) 09/12/18 20:10 MPV 6.8 fl 09/12/18 20:10 Neutrophils % 72.2 % (40.0-80.0) 09/12/18 20:10 Lymphocytes % 17.1 % (20.0-50.0) L 09/12/18 20:10 Monocytes % 9.1 % (2.0-10.0) 09/12/18 20:10 Eosinophils % 1.0 % (0.0-5.0) 09/12/18 20:10 Basophils % 0.6 % (0.0-2.0) 09/12/18 20:10 Sodium 132 mEq/L (136-145) L 09/12/18 20:10 Potassium 4.3 mEq/L (3.5-5.1) 09/12/18 20:10 Chloride 96 mEq/L (98-107) L 09/12/18 20:10 Carbon Dioxide 23.8 mEq/L (21.0-31.0) 09/12/18 20:10 Anion Gap 16.5 (7.0-16.0) H 09/12/18 20:10 BUN 25 mg/dL (7-25) 09/12/18 20:10 Creatinine 0.8 mg/dL (0.6-1.2) 09/12/18 20:10 Est GFR ( Amer) TNP 09/12/18 20:10 Est GFR (Non-Af Amer) TNP 09/12/18 20:10 BUN/Creatinine Ratio 31.3 09/12/18 20:10 Glucose 62 mg/dL (70-105) L 09/12/18 20:10 POC Glucose 109 MG/DL (70 - 105) H 09/12/18 21:38 Calcium 10.7 mg/dL (8.6-10.3) H 09/12/18 20:10 Total Bilirubin 0.8 mg/dL (0.3-1.0) 09/12/18 20:10 AST 74 U/L (13-39) H 09/12/18 20:10 ALT 36 U/L (7-52) 09/12/18 20:10 Alkaline Phosphatase 159 U/L (34-104) H 09/12/18 20:10 Total Protein 5.9 gm/dL (6.0-8.3) L 09/12/18 20:10 Albumin 3.5 gm/dL (3.7-5.3) L 09/12/18 20:10 Globulin 2.4 gm/dL 09/12/18 20:10 Albumin/Globulin Ratio 1.5 (1.0-1.8) 09/12/18 20:10 Triglycerides 146 mg/dL (<150) 09/12/18 20:10 Cholesterol 112 mg/dL (<200) 09/12/18 20:10 LDL Cholesterol Direct 56 mg/dL (75-193) L 09/12/18 20:10 HDL Cholesterol 32 mg/dL (23-92) 09/12/18 20:10 TSH 1.33 uIU/ml (0.34-5.60) 09/12/18 20:10 - Physical Exam Vitals and I&O: Vital Signs Temp 98.0 F 09/13/18 00:32 Pulse 99 09/13/18 08:23 Resp 19 09/13/18 00:32 BP 137/61 09/13/18 08:23 Pulse Ox 97 09/13/18 00:32 Intake & Output 09/12/18 09/13/18 09/13/18 18:59 06:59 18:59 Weight (lbs) 76.204 kg Other: Weight Source Estimated Active Medications: Current Medications Acetaminophen (Tylenol) 650 mg PO Q4HR PRN PRN Reason: Mild Pain / Temp above 100 Stop: 11/12/18 02:49 Last Admin: 09/13/18 05:06 Dose: 650 mg Al Hydrox/Mg Hydrox/Simethicone (Maalox) 30 ml PO Q4H PRN PRN Reason: GI DISTRESS Stop: 11/12/18 02:49 Albuterol Sulfate (Albuterol 2.5mg/3ml Neb Ud) 2.5 mg HHN Q6HRT [facility] Stop: 11/12/18 12:59 Ascorbic Acid (Vitamin C) 500 mg PO DAILY [facility] Stop: 11/12/18 08:59 Last Admin: 09/13/18 08:24 Dose: 500 mg Atorvastatin Calcium (Lipitor) 10 mg PO HS [facility]; Protocol Stop: 11/12/18 20:59 Budesonide (Pulmicort) 0.5 mg HHN BIDRT [facility] Stop: 11/12/18 18:59 Docusate Sodium (Colace) 200 mg PO DAILY [facility] Stop: 11/12/18 08:59 Last Admin: 09/13/18 08:23 Dose: 200 mg Donepezil HCl (Aricept) 10 mg PO HS [facility] Stop: 11/12/18 20:59 Glipizide (Glucotrol) 5 mg PO BID [facility] Stop: 11/12/18 08:59 Last Admin: 09/13/18 08:24 Dose: 5 mg Glucagon (Glucagen) 1 mg IM DAILY PRN PRN Reason: HYPOGLYCEMIA Stop: 11/11/18 21:40 Lorazepam (Ativan) 0.5 mg PO Q4HR PRN; Protocol PRN Reason: Anxiety Stop: 10/13/18 02:49 Last Admin: 09/13/18 05:32 Dose: 0.5 mg Losartan Potassium (Cozaar) 25 mg PO DAILY [facility] Stop: 11/12/18 08:59 Last Admin: 09/13/18 08:23 Dose: 25 mg Magnesium Hydroxide (Milk Of Magnesia) 30 ml PO HS PRN PRN Reason: Constipation Magnesium Oxide (Mag-Oxide) 400 mg PO BID [facility] Stop: 11/12/18 08:59 Last Admin: 09/13/18 08:23 Dose: 400 mg Multivitamins/Vitamin C (Theragran) 1 tab PO DAILY [facility] Stop: 11/12/18 08:59 Last Admin: 09/13/18 08:24 Dose: 1 tab Olanzapine (Zyprexa) 5 mg PO Q12HR [facility]; Protocol Stop: 11/12/18 08:59 Last Admin: 09/13/18 08:23 Dose: 5 mg Oxybutynin Chloride (Ditropan) 5 mg PO BID [facility] Stop: 11/12/18 08:59 Last Admin: 09/13/18 08:24 Dose: 5 mg Pantoprazole Sodium (Protonix) 40 mg PO QDAC [facility] Stop: 11/12/18 07:29 Last Admin: 09/13/18 07:21 Dose: 40 mg Zolpidem Tartrate (Ambien) 5 mg PO HS PRN PRN Reason: Insomnia Stop: 11/12/18 02:49 General: demented, appears older HEENT: NC/AT, PERRLA, EOMI Neck: Supple, No JVD Lungs: CTAB Cardiovascular: RRR, Normal S1, Normal S2, with murmur Abdomen: soft, non-tender, non-distended, positive bowel sound Extremities: excoriation Neurological: no change - Procedures Procedures: Procedures Procedure Code Date INDIVID PSYCHOTHERAP NEC 94.39 07/05/04 INJECT/INFUSE NEC 99.29 03/18/13 OTHER GROUP THERAPY 94.44 12/18/13 RECREATIONAL THERAPY 93.81 07/05/04 Internal Medicine Assmt/Plan - Assessment Assessment: ASSESSMENT AND PLAN: Hypertension, diabetes, chronic obstructive pulmonary disease, hypercholesterolemia, schizoaffective disorder/bipolar disorder, mild anemia, hyponatremia, episode of hypoglycemia. - Plan Plan: PLAN: We will monitor platelet count. Continue the patient on ADA diet and insulin sliding scale. We will correct electrolyte abnormalities. Continue anticoagulation secondary to paroxysmal atrial fibrillation. We will continue the patient on antihypertensive medication. We will continue to follow with you, Dr. Carey.
[2018-09-13] MEDS: Apixaban 2.5 MG TABLET PO SCH ×2 (09:23→16:52)
[2018-09-13] MEDS: Atorvastatin Calcium 10 MG TAB PO SCH (22:06)
[2018-09-14] MEDS: Pantoprazole 40 mg EC Tab PO SCH (06:36)
[2018-09-14 08:08] LABS: A1C 6.3 % (4.8-5.6)
[2018-09-14] MEDS: Apixaban 2.5 MG TABLET PO SCH ×2 (09:16→17:33)
[2018-09-14] MEDS: Multivitamin Tab PO SCH (09:18)
--- NOTE | 2018-09-14 09:43 | Psychiatric Evaluation ---
DATE OF SERVICE: INITIAL PSYCHIATRIC EVALUATION IDENTIFICATION: The patient was sent from her intermediate for agitation and now admitted to the hospital. HISTORY OF PRESENT ILLNESS: The patient is a 73-year-old female with a history of schizoaffective disorder and dementia, start become more agitated, anxious, angry, still was having yelling episodes that was sent for further stabilization. The patient with threatening others and become more depressed and isolating herself. PAST PSYCHIATRIC HISTORY: Multiple hospitalizations, chronic history of mental illness. PAST MEDICAL HISTORY: As per H and P per Dr. Ch. The patient has history of COPD, diabetes, hypertension and dementia. PSYCHOSOCIAL HISTORY: The patient resides in a intermediate and she requires complete care. SUBSTANCE ABUSE HISTORY: Denied. MENTAL STATUS EXAMINATION: Speech was not pressured, ____ becomes loud. Affect is dysphoric, anxious, labile. The patient appears to be somewhat paranoid and suspicious. Insight is poor. Judgment impaired. The patient is oriented to person, ____, not oriented to time and not sure about her age. PATIENT'S STRENGTHS: The patient is passively accepting treatment. The patient's weakness, lack of insight. ASSESSMENT: Schizoaffective disorder and dementia, Alzheimer's type. MEDICAL: As per medical history. PLAN: We will admit the patient for hospitalization. We will start individual and group therapy, assess psychopharmacological intervention. ESTIMATED LENGTH OF STAY: 7 days. CRITERIA FOR DISCHARGE: Improved condition. No psychosis. No agitation. No behavior issues, safe disposition, outpatient treatment plan. [facility]# [id number]
--- NOTE | 2018-09-14 11:36 | Internal Medicine Prog Note ---
Internal Medicine Subjective - Subjective Patient seen and examined:: with staff, chart reviewed Patient is:: awake, verbal, interactive Per staff patient has:: no adverse event, no episodes of fall, tolerating meds Internal Medicine Objective - Results Result Diagrams: 09/12/18 20:10 09/12/18 20:10 Recent Labs: Laboratory Last Values WBC 7.4 Th/cmm (4.8-10.8) 09/12/18 20:10 RBC 4.74 Mil/cmm (3.80-5.20) 09/12/18 20:10 Hgb 12.0 gm/dL (12-16) 09/12/18 20:10 Hct 35.7 % (41.0-60) L 09/12/18 20:10 MCV 75.4 fl (81-100) L 09/12/18 20:10 MCH 25.3 pg (27.0-31.0) L 09/12/18 20:10 MCHC Differential 33.6 pg (28.0-36.0) 09/12/18 20:10 RDW 17.0 % (11.5-20.0) 09/12/18 20:10 Plt Count 267 Th/cmm (150-400) 09/12/18 20:10 MPV 6.8 fl 09/12/18 20:10 Neutrophils % 72.2 % (40.0-80.0) 09/12/18 20:10 Lymphocytes % 17.1 % (20.0-50.0) L 09/12/18 20:10 Monocytes % 9.1 % (2.0-10.0) 09/12/18 20:10 Eosinophils % 1.0 % (0.0-5.0) 09/12/18 20:10 Basophils % 0.6 % (0.0-2.0) 09/12/18 20:10 Sodium 132 mEq/L (136-145) L 09/12/18 20:10 Potassium 4.3 mEq/L (3.5-5.1) 09/12/18 20:10 Chloride 96 mEq/L (98-107) L 09/12/18 20:10 Carbon Dioxide 23.8 mEq/L (21.0-31.0) 09/12/18 20:10 Anion Gap 16.5 (7.0-16.0) H 09/12/18 20:10 BUN 25 mg/dL (7-25) 09/12/18 20:10 Creatinine 0.8 mg/dL (0.6-1.2) 09/12/18 20:10 Est GFR ( Amer) TNP 09/12/18 20:10 Est GFR (Non-Af Amer) TNP 09/12/18 20:10 BUN/Creatinine Ratio 31.3 09/12/18 20:10 Glucose 62 mg/dL (70-105) L 09/12/18 20:10 POC Glucose 109 MG/DL (70 - 105) H 09/12/18 21:38 Calcium 10.7 mg/dL (8.6-10.3) H 09/12/18 20:10 Total Bilirubin 0.8 mg/dL (0.3-1.0) 09/12/18 20:10 AST 74 U/L (13-39) H 09/12/18 20:10 ALT 36 U/L (7-52) 09/12/18 20:10 Alkaline Phosphatase 159 U/L (34-104) H 09/12/18 20:10 Total Protein 5.9 gm/dL (6.0-8.3) L 09/12/18 20:10 Albumin 3.5 gm/dL (3.7-5.3) L 09/12/18 20:10 Globulin 2.4 gm/dL 09/12/18 20:10 Albumin/Globulin Ratio 1.5 (1.0-1.8) 09/12/18 20:10 Triglycerides 146 mg/dL (<150) 09/12/18 20:10 Cholesterol 112 mg/dL (<200) 09/12/18 20:10 LDL Cholesterol Direct 56 mg/dL (75-193) L 09/12/18 20:10 HDL Cholesterol 32 mg/dL (23-92) 09/12/18 20:10 TSH 1.33 uIU/ml (0.34-5.60) 09/12/18 20:10 RPR NONREACTIVE (NONREACTIVE) 09/12/18 20:10 - Physical Exam Vitals and I&O: Vital Signs Temp 98.0 F 09/14/18 04:48 Pulse 90 09/14/18 09:18 Resp 18 09/14/18 04:48 BP 129/69 07/28/19 09:18 Pulse Ox 93 09/14/18 04:48 Intake & Output 09/13/18 09/14/18 09/14/18 18:59 06:59 18:59 Intake Total 480 Balance 480 Intake: Oral 480 Other: # Voids 2 Active Medications: Current Medications Acetaminophen (Tylenol) 650 mg PO Q4HR PRN PRN Reason: Mild Pain / Temp above 100 Stop: 11/12/18 02:49 Last Admin: 09/13/18 22:06 Dose: 650 mg Al Hydrox/Mg Hydrox/Simethicone (Maalox) 30 ml PO Q4H PRN PRN Reason: GI DISTRESS Stop: 11/12/18 02:49 Albuterol Sulfate (Albuterol 2.5mg/3ml Neb Ud) 2.5 mg HHN Q6HRT [facility] Stop: 11/12/18 12:59 Ascorbic Acid (Vitamin C) 500 mg PO DAILY [facility] Stop: 11/12/18 08:59 Last Admin: 09/14/18 09:16 Dose: 500 mg Atorvastatin Calcium (Lipitor) 10 mg PO HS [facility]; Protocol Stop: 11/12/18 20:59 Last Admin: 09/13/18 22:06 Dose: 10 mg Budesonide (Pulmicort) 0.5 mg HHN BIDRT [facility] Stop: 11/12/18 18:59 Docusate Sodium (Colace) 200 mg PO DAILY [facility] Stop: 11/12/18 08:59 Last Admin: 09/14/18 09:16 Dose: 200 mg Donepezil HCl (Aricept) 10 mg PO HS [facility] Stop: 11/12/18 20:59 Last Admin: 09/13/18 22:05 Dose: 10 mg Glipizide (Glucotrol) 5 mg PO BID [facility] Stop: 11/12/18 08:59 Last Admin: 09/14/18 09:19 Dose: 5 mg Glucagon (Glucagen) 1 mg IM DAILY PRN PRN Reason: HYPOGLYCEMIA Stop: 11/11/18 21:40 Lorazepam (Ativan) 0.5 mg PO Q4HR PRN; Protocol PRN Reason: Anxiety Stop: 10/13/18 02:49 Last Admin: 09/13/18 22:05 Dose: 0.5 mg Losartan Potassium (Cozaar) 25 mg PO DAILY [facility] Stop: 11/12/18 08:59 Last Admin: 09/14/18 09:18 Dose: 25 mg Magnesium Hydroxide (Milk Of Magnesia) 30 ml PO HS PRN PRN Reason: Constipation Magnesium Oxide (Mag-Oxide) 400 mg PO BID [facility] Stop: 11/12/18 08:59 Last Admin: 09/14/18 09:19 Dose: 400 mg Multivitamins/Vitamin C (Theragran) 1 tab PO DAILY [facility] Stop: 11/12/18 08:59 Last Admin: 09/14/18 09:18 Dose: 1 tab Olanzapine (Zyprexa) 5 mg PO Q12HR [facility]; Protocol Stop: 11/12/18 08:59 Last Admin: 09/14/18 09:19 Dose: 5 mg Oxybutynin Chloride (Ditropan) 5 mg PO BID [facility] Stop: 11/12/18 08:59 Last Admin: 09/14/18 09:18 Dose: 5 mg Pantoprazole Sodium (Protonix) 40 mg PO QDAC [facility] Stop: 11/12/18 07:29 Last Admin: 09/14/18 06:36 Dose: 40 mg Zolpidem Tartrate (Ambien) 5 mg PO HS PRN PRN Reason: Insomnia Stop: 11/12/18 02:49 Last Admin: 09/13/18 22:06 Dose: 5 mg General: demented, appears older HEENT: NC/AT, PERRLA, EOMI Neck: Supple, No JVD Lungs: CTAB Cardiovascular: RRR, Normal S1, Normal S2, with murmur Abdomen: soft, non-tender, non-distended, positive bowel sound Extremities: excoriation Neurological: no change - Procedures Procedures: Procedures Procedure Code Date INDIVID PSYCHOTHERAP NEC 94.39 07/05/04 INJECT/INFUSE NEC 99.29 03/18/13 OTHER GROUP THERAPY 94.44 12/18/13 RECREATIONAL THERAPY 93.81 07/05/04 Internal Medicine Assmt/Plan - Assessment Assessment: ASSESSMENT AND PLAN: Hypertension, diabetes, chronic obstructive pulmonary disease, hypercholesterolemia, schizoaffective disorder/bipolar disorder, mild anemia, hyponatremia, episode of hypoglycemia. - Plan Plan: PLAN: We will monitor platelet count. Continue the patient on ADA diet and insulin sliding scale. We will correct electrolyte abnormalities. Continue anticoagulation secondary to paroxysmal atrial fibrillation. We will continue the patient on antihypertensive medication. We will continue to follow with you, Dr. Carey.
[2018-09-14] MEDS ORDERED: Dextrose 50% 50 mL Abboject IVP PRN (12:16)
[2018-09-14] MEDS ORDERED: GLUCAGON HCl 1 MG KIT IM PRN (12:16)
[2018-09-14] MEDS: INSULIN LISPRO SLIDING SCALE 100 UNITS/ML UNIT SUBQ SCH ×2 (17:00→21:23)
[2018-09-14] MEDS: Budesonide 0.5 Mg/2 mL Ud HHN SCH (19:56)
[2018-09-14] MEDS: Albuterol Nebulizer 2.5mg/3mL HHN SCH (19:56)
[2018-09-14] MEDS: Atorvastatin Calcium 10 MG TAB PO SCH (21:22)
--- NOTE | 2018-09-14 21:29 | Progress Notes ---
DATE: 09/14/2018 SUBJECTIVE: The patient was seen, remains anxious, still irritable, still having the yelling episodes, anger outbursts. Her insight is poor and judgment is impaired. ASSESSMENT: The patient still in psychotic phase, still agitated. PLAN: Continue stabilization. add Seroquel to 25 mg p.o. qhs and stop Zyprexa p.o. at bedtime. [facility]# [id number] [facility]
--- NOTE | 2018-09-14 21:34 | Progress Notes ---
DATE: SUBJECTIVE: The patient was seen, still anxious, angry, still irritable, and is having yelling episodes. The patient is taking her medications. Her insight remains poor. Judgment impaired. ASSESSMENT: The patient has shown a little or no response with Zyprexa, so this medication will be discontinued. She is on sufficient dose 5 mg twice a day. Dose can be increased, but she did better in the past when she took Seroquel. We will start Seroquel 25 mg p.o. q.h.s., b.i.d., increase dose gradually. [facility]# [id number]
[2018-09-15] MEDS: Albuterol Nebulizer 2.5mg/3mL HHN SCH ×4 (01:02→18:35)
[2018-09-15] MEDS: Budesonide 0.5 Mg/2 mL Ud HHN SCH ×2 (06:38→18:35)
[2018-09-15] MEDS: Pantoprazole 40 mg EC Tab PO SCH (06:43)
[2018-09-15] MEDS: Apixaban 2.5 MG TABLET PO SCH ×2 (09:24→17:00)
[2018-09-15] MEDS: Multivitamin Tab PO SCH (09:26)
[2018-09-15] MEDS: INSULIN LISPRO SLIDING SCALE 100 UNITS/ML UNIT SUBQ SCH ×3 (12:15→20:48)
--- NOTE | 2018-09-15 13:14 | Internal Medicine Prog Note ---
Internal Medicine Subjective - Subjective Patient seen and examined:: with staff, chart reviewed Patient is:: awake, verbal, interactive Per staff patient has:: no adverse event, no episodes of fall, tolerating meds Internal Medicine Objective - Results Result Diagrams: 09/12/18 20:10 09/12/18 20:10 Recent Labs: Laboratory Last Values WBC 7.4 Th/cmm (4.8-10.8) 09/12/18 20:10 RBC 4.74 Mil/cmm (3.80-5.20) 09/12/18 20:10 Hgb 12.0 gm/dL (12-16) 09/12/18 20:10 Hct 35.7 % (41.0-60) L 09/12/18 20:10 MCV 75.4 fl (81-100) L 09/12/18 20:10 MCH 25.3 pg (27.0-31.0) L 09/12/18 20:10 MCHC Differential 33.6 pg (28.0-36.0) 09/12/18 20:10 RDW 17.0 % (11.5-20.0) 09/12/18 20:10 Plt Count 267 Th/cmm (150-400) 09/12/18 20:10 MPV 6.8 fl 09/12/18 20:10 Neutrophils % 72.2 % (40.0-80.0) 09/12/18 20:10 Lymphocytes % 17.1 % (20.0-50.0) L 09/12/18 20:10 Monocytes % 9.1 % (2.0-10.0) 09/12/18 20:10 Eosinophils % 1.0 % (0.0-5.0) 09/12/18 20:10 Basophils % 0.6 % (0.0-2.0) 09/12/18 20:10 Sodium 132 mEq/L (136-145) L 09/12/18 20:10 Potassium 4.3 mEq/L (3.5-5.1) 09/12/18 20:10 Chloride 96 mEq/L (98-107) L 09/12/18 20:10 Carbon Dioxide 23.8 mEq/L (21.0-31.0) 09/12/18 20:10 Anion Gap 16.5 (7.0-16.0) H 09/12/18 20:10 BUN 25 mg/dL (7-25) 09/12/18 20:10 Creatinine 0.8 mg/dL (0.6-1.2) 09/12/18 20:10 Est GFR ( Amer) TNP 09/12/18 20:10 Est GFR (Non-Af Amer) TNP 09/12/18 20:10 BUN/Creatinine Ratio 31.3 09/12/18 20:10 Glucose 62 mg/dL (70-105) L 09/12/18 20:10 POC Glucose 84 MG/DL (70 - 105) 09/15/18 12:11 Calcium 10.7 mg/dL (8.6-10.3) H 09/12/18 20:10 Total Bilirubin 0.8 mg/dL (0.3-1.0) 09/12/18 20:10 AST 74 U/L (13-39) H 09/12/18 20:10 ALT 36 U/L (7-52) 09/12/18 20:10 Alkaline Phosphatase 159 U/L (34-104) H 09/12/18 20:10 Total Protein 5.9 gm/dL (6.0-8.3) L 09/12/18 20:10 Albumin 3.5 gm/dL (3.7-5.3) L 09/12/18 20:10 Globulin 2.4 gm/dL 09/12/18 20:10 Albumin/Globulin Ratio 1.5 (1.0-1.8) 09/12/18 20:10 Triglycerides 146 mg/dL (<150) 09/12/18 20:10 Cholesterol 112 mg/dL (<200) 09/12/18 20:10 LDL Cholesterol Direct 56 mg/dL (75-193) L 09/12/18 20:10 HDL Cholesterol 32 mg/dL (23-92) 09/12/18 20:10 TSH 1.33 uIU/ml (0.34-5.60) 09/12/18 20:10 RPR NONREACTIVE (NONREACTIVE) 09/12/18 20:10 - Physical Exam Vitals and I&O: Vital Signs Temp 97.8 F 09/15/18 05:15 Pulse 100 09/15/18 12:52 Resp 16 09/15/18 12:52 BP 123/65 09/15/18 09:25 Pulse Ox 95 09/15/18 12:52 Intake & Output 09/14/18 09/15/18 09/15/18 18:59 06:59 18:59 Intake Total 1250 480 Balance 1250 480 Intake: Oral 1250 480 Other: # Voids 2 # Bowel Movements 1 Active Medications: Current Medications Acetaminophen (Tylenol) 650 mg PO Q4HR PRN PRN Reason: Mild Pain / Temp above 100 Stop: 11/12/18 02:49 Last Admin: 09/15/18 12:47 Dose: 650 mg Al Hydrox/Mg Hydrox/Simethicone (Maalox) 30 ml PO Q4H PRN PRN Reason: GI DISTRESS Stop: 11/12/18 02:49 Albuterol Sulfate (Albuterol 2.5mg/3ml Neb Ud) 2.5 mg HHN Q6HRT [facility] Stop: 11/12/18 12:59 Last Admin: 09/15/18 12:49 Dose: 2.5 mg Ascorbic Acid (Vitamin C) 500 mg PO DAILY [facility] Stop: 11/12/18 08:59 Last Admin: 09/15/18 09:24 Dose: 500 mg Atorvastatin Calcium (Lipitor) 10 mg PO [facility]; Protocol Stop: 11/12/18 20:59 Last Admin: 09/14/18 21:22 Dose: 10 mg Budesonide (Pulmicort) 0.5 mg HHN BIDRT [facility] Stop: 11/12/18 18:59 Last Admin: 09/15/18 06:38 Dose: 0.5 mg Dextrose (D50w) 50 ml IVP PRN PRN PRN Reason: Blood Glucose less than 70 Stop: 11/13/18 12:15 Dextrose (Glutose 40%) 18.75 gm PO PRN PRN PRN Reason: Blood Glucose less than 70 Stop: 11/13/18 12:15 Docusate Sodium (Colace) 200 mg PO DAILY [facility] Stop: 11/12/18 08:59 Last Admin: 09/15/18 09:24 Dose: 200 mg Donepezil HCl (Aricept) 10 mg PO [facility] Stop: 11/12/18 20:59 Last Admin: 09/14/18 21:22 Dose: 10 mg Glipizide (Glucotrol) 5 mg PO BID [facility] Stop: 11/12/18 08:59 Last Admin: 09/15/18 09:25 Dose: 5 mg Glucagon (Glucagen) 1 mg IM DAILY PRN PRN Reason: HYPOGLYCEMIA Stop: 11/11/18 21:40 Glucagon (Glucagen) 1 mg IM PRN PRN PRN Reason: Blood Glucose less than 70 Stop: 11/13/18 12:15 Insulin Human Lispro (Humalog Insulin Sliding Scale) 0 units SUBQ ACHS [facility]; Protocol Stop: 11/13/18 16:29 Last Admin: 09/15/18 12:15 Dose: Not Given Lorazepam (Ativan) 0.5 mg PO Q4HR [facility]; Protocol PRN Reason: Anxiety Stop: 10/13/18 02:49 Last Admin: 09/15/18 01:20 Dose: 0.5 mg Losartan Potassium (Cozaar) 25 mg PO DAILY [facility] Stop: 11/12/18 08:59 Last Admin: 09/15/18 09:25 Dose: 25 mg Magnesium Hydroxide (Milk Of Magnesia) 30 ml PO HS PRN PRN Reason: Constipation Magnesium Oxide (Mag-Oxide) 400 mg PO BID [facility] Stop: 11/12/18 08:59 Last Admin: 09/15/18 09:26 Dose: 400 mg Multivitamins/Vitamin C (Theragran) 1 tab PO DAILY [facility] Stop: 11/12/18 08:59 Last Admin: 09/15/18 09:26 Dose: 1 tab Oxybutynin Chloride (Ditropan) 5 mg PO BID [facility] Stop: 11/12/18 08:59 Last Admin: 09/15/18 09:24 Dose: 5 mg Pantoprazole Sodium (Protonix) 40 mg PO QDAC [facility] Stop: 11/12/18 07:29 Last Admin: 09/15/18 06:43 Dose: 40 mg Quetiapine Fumarate (Seroquel) 25 mg PO HS [facility]; Protocol Stop: 11/13/18 20:59 Last Admin: 09/14/18 21:22 Dose: 25 mg Zolpidem Tartrate (Ambien) 5 mg PO HS PRN PRN Reason: Insomnia Stop: 11/12/18 02:49 Last Admin: 09/14/18 21:22 Dose: 5 mg General: demented, appears older HEENT: NC/AT, PERRLA, EOMI Neck: Supple, No JVD Lungs: CTAB Cardiovascular: RRR, Normal S1, Normal S2, with murmur Abdomen: soft, non-tender, non-distended, positive bowel sound Extremities: excoriation Neurological: no change - Procedures Procedures: Procedures Procedure Code Date INDIVID PSYCHOTHERAP NEC 94.39 07/05/04 INJECT/INFUSE NEC 99.29 03/18/13 OTHER GROUP THERAPY 94.44 12/18/13 RECREATIONAL THERAPY 93.81 07/05/04 Internal Medicine Assmt/Plan - Assessment Assessment: ASSESSMENT AND PLAN: Hypertension, diabetes, chronic obstructive pulmonary disease, hypercholesterolemia, schizoaffective disorder/bipolar disorder, mild anemia, hyponatremia, episode of hypoglycemia. - Plan Plan: PLAN: We will monitor platelet count. Continue the patient on ADA diet and insulin sliding scale. We will correct electrolyte abnormalities. Continue anticoagulation secondary to paroxysmal atrial fibrillation. We will continue the patient on antihypertensive medication. We will continue to follow with you, Dr. Carey.
[2018-09-15] MEDS: Eucerin Cream 16 oz Jar TP SCH (16:59)
--- NOTE | 2018-09-15 21:10 | Consultation ---
DATE OF CONSULTATION: 09/14/2018 REFERRING PHYSICIAN: Kirit Carey M.D. TYPE OF CONSULTATION: Psychology. HISTORY OF PRESENT ILLNESS: The patient is a 73-year-old female who is known to this scenario writer from a previous hospitalization. The following is by record review and by the patient's self report. The patient is being admitted due to increased agitation as well as anger episodes. The staff at the patient's facility reported the patient has been having yelling episodes with heightened anxiety and has been difficult to deescalate and redirect. Therefore, the patient was sent here for stabilization. Staff also reports the patient had been verbally threatening other residents at her placement. Upon interview, the patient is guarded and suspicious and easily irritated. PAST MEDICAL HISTORY: Please see history and physical by Dr. Ch. PAST PSYCHIATRIC HISTORY: The patient has a history of multiple previous psychiatric hospitalizations. The patient has a long history of dementia as well as schizoaffective disorder. The patient is under the care of a psychiatrist at her placement. SUBSTANCE ABUSE HISTORY: The patient did not answer these questions. PSYCHOSOCIAL HISTORY The patient did not answer questions about occupational or educational history. The patient is a resident of [facility]. 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 The patient is single with no specific baptism affiliation. The patient did not answer questions about experiencing any history of physical or sexual abuse. The patient did not answer questions about current legal problems. MENTAL STATUS EXAMINATION: The patient appears to be her stated age. The patient's attitude is guarded and minimally cooperative. Eye contact is avoidant. Speech is loud at times with verbal outbursts. Mood is anxious and labile with some dysphoria. Affect is mood congruent and animated. Thought process is confused. The patient's thought content includes possible paranoid ideation. The patient is suspicious of others as well as the medical staff on the unit. The patient denied any auditory or visual hallucinations. The patient denies any persecutory or command type of delusion. The patient's behavior has been difficult to redirect and to deescalate. Impulse control is inadequate. Concentration is poor. The patient was unable to provide relevant answers to the clinical questions at times. The patient has poor insight and is not making much sense. Sensorium is alert and oriented to self and place only. The patient was unable to give her correct age or correct date of . The patient did not participate in the other part of the memory assessment. Memory is most likely impaired for short term and exterminator termite dimensions. The patient did not participate in the interpretation of proverbs. Insight is poor. Judgment is impaired. DIAGNOSTIC IMPRESSION: AXIS I: 1. History of schizoaffective disorder. 2. History of dementia, Alzheimer's type with behavioral disturbance. AXIS II: Deferred. AXIS III: Per Dr. Ch. TREATMENT PLAN: The patient has been seen by Dr. Carey for psychiatric evaluation and for the management of the patient's psychotropic medications. We will provide individual, supportive psychotherapy to include reality orientation, differentiation and integration. We will provide coping strategies for phase of life issues as well as for chronic severe mental illness. We will encourage the patient to demonstrate emotional and self-regulation by verbalizing her concerns versus acting out. We will provide de-escalation and limit setting along with cognitive and behavioral redirection. We will provide boundary construction to include boundary definitions and limits and awareness. We will continue to provide motivational enhancement for the patient to become compliant and stay compliant with all aspects of her care during the course of her hospital stay. Thank you, Dr. Carey for this consult and the opportunity to participate in this patient's care. [facility]# [id number] BREANA
[2018-09-15] MEDS: Atorvastatin Calcium 10 MG TAB PO SCH (21:36)
--- NOTE | 2018-09-15 22:16 | Progress Notes ---
DATE: 09/15/2018 SUBJECTIVE: The patient was seen, discussed with staff. Still anxious, irritable, having yelling episodes, but less. She slept better since started on Seroquel. The patient has no side effects. The patient was asking to go home. ASSESSMENT: The patient is still confused and easily agitated, but less today. PLAN: Continue hospitalization supportive measures. Consider increasing Seroquel further more over the next 1-2 days. [facility]# [id number]
[2018-09-16] MEDS: Albuterol Nebulizer 2.5mg/3mL HHN SCH ×4 (00:44→19:28)
[2018-09-16] MEDS: Pantoprazole 40 mg EC Tab PO SCH (06:39)
[2018-09-16] MEDS: INSULIN LISPRO SLIDING SCALE 100 UNITS/ML UNIT SUBQ SCH ×4 (06:39→20:55)
[2018-09-16] MEDS: Budesonide 0.5 Mg/2 mL Ud HHN SCH ×2 (08:07→19:28)
[2018-09-16] MEDS: Eucerin Cream 16 oz Jar TP SCH ×2 (08:45→16:45)
[2018-09-16] MEDS: Apixaban 2.5 MG TABLET PO SCH ×2 (08:45→16:45)
[2018-09-16] MEDS: Multivitamin Tab PO SCH (08:46)
--- NOTE | 2018-09-16 12:20 | Internal Medicine Prog Note ---
Internal Medicine Subjective - Subjective Patient seen and examined:: with staff, chart reviewed Patient is:: awake, verbal, interactive Per staff patient has:: no adverse event, no episodes of fall, tolerating meds Internal Medicine Objective - Results Result Diagrams: 09/12/18 20:10 09/12/18 20:10 Recent Labs: Laboratory Last Values WBC 7.4 Th/cmm (4.8-10.8) 09/12/18 20:10 RBC 4.74 Mil/cmm (3.80-5.20) 09/12/18 20:10 Hgb 12.0 gm/dL (12-16) 09/12/18 20:10 Hct 35.7 % (41.0-60) L 09/12/18 20:10 MCV 75.4 fl (81-100) L 09/12/18 20:10 MCH 25.3 pg (27.0-31.0) L 09/12/18 20:10 MCHC Differential 33.6 pg (28.0-36.0) 09/12/18 20:10 RDW 17.0 % (11.5-20.0) 09/12/18 20:10 Plt Count 267 Th/cmm (150-400) 09/12/18 20:10 MPV 6.8 fl 09/12/18 20:10 Neutrophils % 72.2 % (40.0-80.0) 09/12/18 20:10 Lymphocytes % 17.1 % (20.0-50.0) L 09/12/18 20:10 Monocytes % 9.1 % (2.0-10.0) 09/12/18 20:10 Eosinophils % 1.0 % (0.0-5.0) 09/12/18 20:10 Basophils % 0.6 % (0.0-2.0) 09/12/18 20:10 Sodium 132 mEq/L (136-145) L 09/12/18 20:10 Potassium 4.3 mEq/L (3.5-5.1) 09/12/18 20:10 Chloride 96 mEq/L (98-107) L 09/12/18 20:10 Carbon Dioxide 23.8 mEq/L (21.0-31.0) 09/12/18 20:10 Anion Gap 16.5 (7.0-16.0) H 09/12/18 20:10 BUN 25 mg/dL (7-25) 09/12/18 20:10 Creatinine 0.8 mg/dL (0.6-1.2) 09/12/18 20:10 Est GFR ( Amer) TNP 09/12/18 20:10 Est GFR (Non-Af Amer) TNP 09/12/18 20:10 BUN/Creatinine Ratio 31.3 09/12/18 20:10 Glucose 62 mg/dL (70-105) L 09/12/18 20:10 POC Glucose 89 MG/DL (70 - 105) 09/16/18 06:00 Calcium 10.7 mg/dL (8.6-10.3) H 09/12/18 20:10 Total Bilirubin 0.8 mg/dL (0.3-1.0) 09/12/18 20:10 AST 74 U/L (13-39) H 09/12/18 20:10 ALT 36 U/L (7-52) 09/12/18 20:10 Alkaline Phosphatase 159 U/L (34-104) H 09/12/18 20:10 Total Protein 5.9 gm/dL (6.0-8.3) L 09/12/18 20:10 Albumin 3.5 gm/dL (3.7-5.3) L 09/12/18 20:10 Globulin 2.4 gm/dL 09/12/18 20:10 Albumin/Globulin Ratio 1.5 (1.0-1.8) 09/12/18 20:10 Triglycerides 146 mg/dL (<150) 09/12/18 20:10 Cholesterol 112 mg/dL (<200) 09/12/18 20:10 LDL Cholesterol Direct 56 mg/dL (75-193) L 09/12/18 20:10 HDL Cholesterol 32 mg/dL (23-92) 09/12/18 20:10 TSH 1.33 uIU/ml (0.34-5.60) 09/12/18 20:10 RPR NONREACTIVE (NONREACTIVE) 09/12/18 20:10 - Physical Exam Vitals and I&O: Vital Signs Temp 98.0 F 09/15/18 20:36 Pulse 79 09/16/18 08:45 Resp 18 07/30/19 08:08 BP 128/62 09/16/18 08:45 Pulse Ox 97 09/16/18 08:08 Intake & Output 09/15/18 09/16/18 09/16/18 18:59 06:59 18:59 Intake Total 800 120 Balance 800 120 Intake: Oral 800 120 Other: # Voids 5 2 # Bowel Movements 1 1 Active Medications: Current Medications Acetaminophen (Tylenol) 650 mg PO Q4HR PRN PRN Reason: Mild Pain / Temp above 100 Stop: 11/12/18 02:49 Last Admin: 09/15/18 12:47 Dose: 650 mg Al Hydrox/Mg Hydrox/Simethicone (Maalox) 30 ml PO Q4H PRN PRN Reason: GI DISTRESS Stop: 11/12/18 02:49 Albuterol Sulfate (Albuterol 2.5mg/3ml Neb Ud) 2.5 mg HHN Q6HRT [facility] Stop: 11/12/18 12:59 Last Admin: 09/16/18 08:07 Dose: Not Given Ascorbic Acid (Vitamin C) 500 mg PO DAILY [facility] Stop: 11/12/18 08:59 Last Admin: 09/16/18 08:45 Dose: 500 mg Atorvastatin Calcium (Lipitor) 10 mg PO [facility]; Protocol Stop: 11/12/18 20:59 Last Admin: 09/15/18 21:36 Dose: 10 mg Budesonide (Pulmicort) 0.5 mg HHN BIDRT [facility] Stop: 11/12/18 18:59 Last Admin: 09/16/18 08:07 Dose: 0.5 mg Dextrose (D50w) 50 ml IVP PRN PRN PRN Reason: Blood Glucose less than 70 Stop: 11/13/18 12:15 Dextrose (Glutose 40%) 18.75 gm PO PRN PRN PRN Reason: Blood Glucose less than 70 Stop: 11/13/18 12:15 Docusate Sodium (Colace) 200 mg PO DAILY [facility] Stop: 11/12/18 08:59 Last Admin: 09/16/18 08:45 Dose: 200 mg Donepezil HCl (Aricept) 10 mg PO HS [facility] Stop: 11/12/18 20:59 Last Admin: 09/15/18 21:36 Dose: 10 mg Glipizide (Glucotrol) 5 mg PO BID [facility] Stop: 11/12/18 08:59 Last Admin: 09/16/18 08:45 Dose: 5 mg Glucagon (Glucagen) 1 mg IM DAILY PRN PRN Reason: HYPOGLYCEMIA Stop: 11/11/18 21:40 Glucagon (Glucagen) 1 mg IM PRN PRN PRN Reason: Blood Glucose less than 70 Stop: 11/13/18 12:15 Insulin Human Lispro (Humalog Insulin Sliding Scale) 0 units SUBQ ACHS [facility]; Protocol Stop: 11/13/18 16:29 Last Admin: 09/16/18 11:14 Dose: Not Given Lorazepam (Ativan) 0.5 mg PO Q4HR PRN; Protocol PRN Reason: Anxiety Stop: 10/13/18 02:49 Last Admin: 09/15/18 21:36 Dose: 0.5 mg Losartan Potassium (Cozaar) 25 mg PO DAILY [facility] Stop: 11/12/18 08:59 Last Admin: 09/16/18 08:45 Dose: 25 mg Magnesium Hydroxide (Milk Of Magnesia) 30 ml PO HS PRN PRN Reason: Constipation Magnesium Oxide (Mag-Oxide) 400 mg PO BID [facility] Stop: 11/12/18 08:59 Last Admin: 09/16/18 08:46 Dose: 400 mg Multi-Ingredient Cream (Eucerin Cream) 1 appl TP BID [facility] Stop: 11/14/18 16:59 Last Admin: 09/16/18 08:45 Dose: 1 appl Multivitamins/Vitamin C (Theragran) 1 tab PO DAILY [facility] Stop: 11/12/18 08:59 Last Admin: 09/16/18 08:46 Dose: 1 tab Oxybutynin Chloride (Ditropan) 5 mg PO BID [facility] Stop: 11/12/18 08:59 Last Admin: 09/16/18 08:46 Dose: 5 mg Pantoprazole Sodium (Protonix) 40 mg PO QDAC [facility] Stop: 11/12/18 07:29 Last Admin: 09/16/18 06:39 Dose: 40 mg Quetiapine Fumarate (Seroquel) 25 mg PO HS [facility]; Protocol Stop: 11/13/18 20:59 Last Admin: 09/15/18 21:36 Dose: 25 mg Zolpidem Tartrate (Ambien) 5 mg PO HS PRN PRN Reason: Insomnia Stop: 11/12/18 02:49 Last Admin: 09/15/18 21:36 Dose: 5 mg General: demented, appears older HEENT: NC/AT, PERRLA, EOMI Neck: Supple, No JVD Lungs: CTAB Cardiovascular: RRR, Normal S1, Normal S2, with murmur Abdomen: soft, non-tender, non-distended, positive bowel sound Extremities: excoriation Neurological: no change - Procedures Procedures: Procedures Procedure Code Date INDIVID PSYCHOTHERAP NEC 94.39 07/05/04 INJECT/INFUSE NEC 99.29 03/18/13 OTHER GROUP THERAPY 94.44 12/18/13 RECREATIONAL THERAPY 93.81 07/05/04 Internal Medicine Assmt/Plan - Assessment Assessment: ASSESSMENT AND PLAN: Hypertension, diabetes, chronic obstructive pulmonary disease, hypercholesterolemia, schizoaffective disorder/bipolar disorder, mild anemia, hyponatremia, episode of hypoglycemia. - Plan Plan: PLAN: We will monitor platelet count. Continue the patient on ADA diet and insulin sliding scale. We will correct electrolyte abnormalities. Continue anticoagulation secondary to paroxysmal atrial fibrillation. We will continue the patient on antihypertensive medication. We will continue to follow with you, Dr. Carey.
[2018-09-16] MEDS: Atorvastatin Calcium 10 MG TAB PO SCH (20:58)
--- NOTE | 2018-09-16 21:58 | Progress Notes ---
DATE: 09/16/2018 SUBJECTIVE: The patient was seen, remains forgetful, confused, still irritable, still having episodes of anger outbursts. The patient, however, is taking her medication. Sleep has improved and appetite is fair. MENTAL STATUS EXAM: Speech fluent, not pressured, short sentences. Affect constricted. The patient remains paranoid. Insight is limited. She is oriented to person, place and the hospital, not oriented to time. PLAN: We will continue stabilization. Continue supportive measures. The patient was switched from Zyprexa to Seroquel, and so far she appears to be a little bit calmer. JOB# [id number]
[2018-09-17] MEDS: Albuterol Nebulizer 2.5mg/3mL HHN SCH ×5 (01:05→18:38)
[2018-09-17] MEDS: INSULIN LISPRO SLIDING SCALE 100 UNITS/ML UNIT SUBQ SCH ×4 (06:36→20:40)
[2018-09-17] MEDS: Pantoprazole 40 mg EC Tab PO SCH (06:39)
[2018-09-17] MEDS: Multivitamin Tab PO SCH (08:36)
[2018-09-17] MEDS: Apixaban 2.5 MG TABLET PO SCH ×2 (09:12→16:20)
[2018-09-17] MEDS: Eucerin Cream 16 oz Jar TP SCH ×2 (09:14→16:21)
[2018-09-17] MEDS: Budesonide 0.5 Mg/2 mL Ud HHN SCH ×2 (12:02→18:39)
--- NOTE | 2018-09-17 12:42 | Internal Medicine Prog Note ---
Internal Medicine Subjective - Subjective Patient seen and examined:: with staff, chart reviewed Patient is:: awake, verbal, interactive Per staff patient has:: no adverse event, no episodes of fall, tolerating meds Internal Medicine Objective - Results Result Diagrams: 09/12/18 20:10 09/12/18 20:10 Recent Labs: Laboratory Last Values WBC 7.4 Th/cmm (4.8-10.8) 09/12/18 20:10 RBC 4.74 Mil/cmm (3.80-5.20) 09/12/18 20:10 Hgb 12.0 gm/dL (12-16) 09/12/18 20:10 Hct 35.7 % (41.0-60) L 09/12/18 20:10 MCV 75.4 fl (81-100) L 09/12/18 20:10 MCH 25.3 pg (27.0-31.0) L 09/12/18 20:10 MCHC Differential 33.6 pg (28.0-36.0) 09/12/18 20:10 RDW 17.0 % (11.5-20.0) 09/12/18 20:10 Plt Count 267 Th/cmm (150-400) 09/12/18 20:10 MPV 6.8 fl 09/12/18 20:10 Neutrophils % 72.2 % (40.0-80.0) 09/12/18 20:10 Lymphocytes % 17.1 % (20.0-50.0) L 09/12/18 20:10 Monocytes % 9.1 % (2.0-10.0) 09/12/18 20:10 Eosinophils % 1.0 % (0.0-5.0) 09/12/18 20:10 Basophils % 0.6 % (0.0-2.0) 09/12/18 20:10 Sodium 132 mEq/L (136-145) L 09/12/18 20:10 Potassium 4.3 mEq/L (3.5-5.1) 09/12/18 20:10 Chloride 96 mEq/L (98-107) L 09/12/18 20:10 Carbon Dioxide 23.8 mEq/L (21.0-31.0) 09/12/18 20:10 Anion Gap 16.5 (7.0-16.0) H 09/12/18 20:10 BUN 25 mg/dL (7-25) 09/12/18 20:10 Creatinine 0.8 mg/dL (0.6-1.2) 09/12/18 20:10 Est GFR ( Amer) TNP 09/12/18 20:10 Est GFR (Non-Af Amer) TNP 09/12/18 20:10 BUN/Creatinine Ratio 31.3 09/12/18 20:10 Glucose 62 mg/dL (70-105) L 09/12/18 20:10 POC Glucose 84 MG/DL (70 - 105) 09/17/18 12:00 Calcium 10.7 mg/dL (8.6-10.3) H 09/12/18 20:10 Total Bilirubin 0.8 mg/dL (0.3-1.0) 09/12/18 20:10 AST 74 U/L (13-39) H 09/12/18 20:10 ALT 36 U/L (7-52) 09/12/18 20:10 Alkaline Phosphatase 159 U/L (34-104) H 09/12/18 20:10 Total Protein 5.9 gm/dL (6.0-8.3) L 09/12/18 20:10 Albumin 3.5 gm/dL (3.7-5.3) L 09/12/18 20:10 Globulin 2.4 gm/dL 09/12/18 20:10 Albumin/Globulin Ratio 1.5 (1.0-1.8) 09/12/18 20:10 Triglycerides 146 mg/dL (<150) 09/12/18 20:10 Cholesterol 112 mg/dL (<200) 09/12/18 20:10 LDL Cholesterol Direct 56 mg/dL (75-193) L 09/12/18 20:10 HDL Cholesterol 32 mg/dL (23-92) 09/12/18 20:10 TSH 1.33 uIU/ml (0.34-5.60) 09/12/18 20:10 RPR NONREACTIVE (NONREACTIVE) 09/12/18 20:10 - Physical Exam Vitals and I&O: Vital Signs Temp 97.9 F 09/17/18 05:28 Pulse 81 09/17/18 08:37 Resp 18 07/31/19 07:52 BP 116/58 09/17/18 08:37 Pulse Ox 94 09/17/18 07:52 Intake & Output 09/16/18 09/17/18 09/17/18 18:59 06:59 18:59 Intake Total 360 Balance 360 Intake: Oral 360 Other: # Voids 3 # Bowel Movements 0 Active Medications: Current Medications Acetaminophen (Tylenol) 650 mg PO Q4HR PRN PRN Reason: Mild Pain / Temp above 100 Stop: 11/12/18 02:49 Last Admin: 09/15/18 12:47 Dose: 650 mg Al Hydrox/Mg Hydrox/Simethicone (Maalox) 30 ml PO Q4H PRN PRN Reason: GI DISTRESS Stop: 11/12/18 02:49 Albuterol Sulfate (Albuterol 2.5mg/3ml Neb Ud) 2.5 mg HHN Q6HRT [facility] Stop: 11/12/18 12:59 Last Admin: 09/17/18 12:01 Dose: Not Given Ascorbic Acid (Vitamin C) 500 mg PO DAILY [facility] Stop: 11/12/18 08:59 Last Admin: 09/17/18 08:36 Dose: 500 mg Atorvastatin Calcium (Lipitor) 10 mg PO HS [facility]; Protocol Stop: 11/12/18 20:59 Last Admin: 09/16/18 20:58 Dose: 10 mg Budesonide (Pulmicort) 0.5 mg HHN BIDRT [facility] Stop: 11/12/18 18:59 Last Admin: 09/17/18 12:02 Dose: Not Given Dextrose (D50w) 50 ml IVP PRN PRN PRN Reason: Blood Glucose less than 70 Stop: 11/13/18 12:15 Dextrose (Glutose 40%) 18.75 gm PO PRN PRN PRN Reason: Blood Glucose less than 70 Stop: 11/13/18 12:15 Docusate Sodium (Colace) 200 mg PO DAILY [facility] Stop: 11/12/18 08:59 Last Admin: 09/17/18 08:36 Dose: 200 mg Donepezil HCl (Aricept) 10 mg PO HS [facility] Stop: 11/12/18 20:59 Last Admin: 09/16/18 20:59 Dose: 10 mg Glipizide (Glucotrol) 5 mg PO BID [facility] Stop: 11/12/18 08:59 Last Admin: 09/17/18 08:37 Dose: 5 mg Glucagon (Glucagen) 1 mg IM DAILY PRN PRN Reason: HYPOGLYCEMIA Stop: 11/11/18 21:40 Glucagon (Glucagen) 1 mg IM PRN PRN PRN Reason: Blood Glucose less than 70 Stop: 11/13/18 12:15 Insulin Human Lispro (Humalog Insulin Sliding Scale) 0 units SUBQ ACHS [facility]; Protocol Stop: 11/13/18 16:29 Last Admin: 09/17/18 12:20 Dose: Not Given Lorazepam (Ativan) 0.5 mg PO Q4HR PRN; Protocol PRN Reason: Anxiety Stop: 10/13/18 02:49 Last Admin: 09/16/18 21:00 Dose: 0.5 mg Losartan Potassium (Cozaar) 25 mg PO DAILY [facility] Stop: 11/12/18 08:59 Last Admin: 09/17/18 08:37 Dose: 25 mg Magnesium Hydroxide (Milk Of Magnesia) 30 ml PO HS PRN PRN Reason: Constipation Magnesium Oxide (Mag-Oxide) 400 mg PO BID [facility] Stop: 11/12/18 08:59 Last Admin: 09/17/18 08:36 Dose: 400 mg Multi-Ingredient Cream (Eucerin Cream) 1 appl TP BID [facility] Stop: 11/14/18 16:59 Last Admin: 09/17/18 09:14 Dose: 1 appl Multivitamins/Vitamin C (Theragran) 1 tab PO DAILY [facility] Stop: 11/12/18 08:59 Last Admin: 09/17/18 08:36 Dose: 1 tab Oxybutynin Chloride (Ditropan) 5 mg PO BID [facility] Stop: 11/12/18 08:59 Last Admin: 09/17/18 08:37 Dose: 5 mg Pantoprazole Sodium (Protonix) 40 mg PO QDAC [facility] Stop: 11/12/18 07:29 Last Admin: 09/17/18 06:39 Dose: 40 mg Quetiapine Fumarate (Seroquel) 25 mg PO HS [facility]; Protocol Stop: 11/13/18 20:59 Last Admin: 09/16/18 20:59 Dose: 25 mg Zolpidem Tartrate (Ambien) 5 mg PO HS PRN PRN Reason: Insomnia Stop: 11/12/18 02:49 Last Admin: 09/16/18 21:00 Dose: 5 mg General: demented, appears older HEENT: NC/AT, PERRLA, EOMI Neck: Supple, No JVD Lungs: CTAB Cardiovascular: RRR, Normal S1, Normal S2, with murmur Abdomen: soft, non-tender, non-distended, positive bowel sound Extremities: excoriation Neurological: no change - Procedures Procedures: Procedures Procedure Code Date INDIVID PSYCHOTHERAP NEC 94.39 07/05/04 INJECT/INFUSE NEC 99.29 03/18/13 OTHER GROUP THERAPY 94.44 12/18/13 RECREATIONAL THERAPY 93.81 07/05/04 Internal Medicine Assmt/Plan - Assessment Assessment: ASSESSMENT AND PLAN: Hypertension, diabetes, chronic obstructive pulmonary disease, hypercholesterolemia, schizoaffective disorder/bipolar disorder, mild anemia, hyponatremia, episode of hypoglycemia. - Plan Plan: PLAN: We will monitor platelet count. Continue the patient on ADA diet and insulin sliding scale. We will correct electrolyte abnormalities. Continue anticoagulation secondary to paroxysmal atrial fibrillation. We will continue the patient on antihypertensive medication. We will continue to follow with you, Dr. Carey. Nutritional Asmnt/Malnutr-PDOC - Dietary Evaluation Malnutrition Findings (Please click <Entered> for more info): Nutritional Asmnt/Malnutrition Start: 09/17/18 09: 42 Text: Status: Complete Freq: Protocol: Document 09/17/18 09:42 WERO (Rec: 09/17/18 09:45 [email or web address] [email or web address]) Nutritional Asmnt/Malnutrition Patient General Information Nutritional Screening Moderate Risk Diagnosis Psychosis Pertinent Medical Hx/Surgical Hx HTN, DM, Asthma/COPD, Dyslipidemia, Dementia, Bipolar disorder, Depression Subjective Information Pt is a 73-year-old female admitted on 09/12 d/t onset of agitation and aggressive behavior x3 days. Pt seems to be eating well, estimated 70% x3 days, this is adequate to meet nutritional needs. HT: 52 WT: 168 LB (76.36 kg) ABW: 125 LB (56.59 kg) BMI: 30.73 (Obese) GI: WNL, Soft, non-tender BM: 09/16 x1 I/O: 360/Not Noted Skin: LT hand atopic dermatitis, dryness Jordan: 14 Diet Order: Mechanical Soft, NCS, CAMELIA, Glucerna Shake TID Estimated Energy Needs: ( Geriatric, ABW) 5590-0841 kcals (25-30 kcals/ kg) 57-68g Pro (1.0-1.2 g/kg) 9175-9021 ml (25-30 ml/kg) Pt is eating an estimated 70% of meals Per Meal/Nutrition Activity Record. Dietary is currently providing an estimated 1980 kcals and 117 gm Pro, per Pt PO intake this is providing an estimated 1386 kcals and 82gm Pro to meet 99 % kcal and 100+% Pro needs- adequate. Current Diet Order/ Nutrition Support Mechanical Soft, NCS, CAMELIA, Glucerna Shake TID Pertinent Medications Maalox (PRN), Albuterol (PRN), Vitamin C, Lipitor, D50w (PRN ), Glutose 40% (PRN), Colace, Glucotrol, Glucagen (PRN), INS -SS, Cozaar, MOM (PRN), Mag-Ox , Theregran, Protonix Pertinent Labs 09/12: Hgb/Hct 12.0/35.7 POC Glucose (09/15-09/17): 84, 54, 82, 89, 109, 86 Nutritional Hx/Data Height 1.57 m Height (Calculated Centimeters) 157.5 Current Weight (lbs) 76.204 kg Weight (Calculated Kilograms) 76.2 Weight (Calculated Grams) 84126.5 [place] Body Weight 110lb (50kg) % [place] Body Weight 153 Body Mass Index (BMI) 30.7 Weight Status Obese GI Symptoms GI Symptoms None Last BM 09/16 x1 Skin Integrity/Comment: LT hand atopic dermatitis, dryness Jordan: 14 Current %PO Fair (50-74%) Estimated Nutritional Goals BEE in Kcals: Adj wt of IBW Calories/Kcals/Kg 25-30 Kcals Calculated 6150-3604 Protein: Adj wt of IBW Protein g/k.0-1.2 Protein Calculated 57-68 Fluid: ml 1432-3595 ml (25-30 ml/kg) Nutritional Problem 1. Problem Problem Altered nutrition related labs Etiology r/t endocrine dysfunction Signs/Symptoms: aeb POC Glucose (09/15-09/17): 84, 54, 82, 89, 109, 86 Malnutrition Related to Morbid Obesity Malnutrition related to morbid obesity No Intervention/Recommendation Comments 1. Continue with Mechanical Soft, NCS, CAMELIA, Glucerna Shake TID diet as ordered. 2. Continue with antihyperglycemic medications for glucose control per MD order. Expected Outcomes/Goals Expected Outcomes/Goals 1. PO intake to continue to meet 75% of nutritional needs. 2. Monitor PO intake, wt, nutrition related labs, and skin integrity. 3. F/U as low risk in 7 days, 09/24
--- NOTE | 2018-09-17 20:29 | Progress Notes ---
DATE: 09/17/2018 SUBJECTIVE: The patient was seen, less anxious, less irritable, but still have some episodes of anxiety at night time, some episodes of yelling. The patient is taking her medication. Her sleep and appetite are fair. ASSESSMENT: The patient still in psychotic phase. PLAN: Continue hospitalization, stabilization. Continue supportive measures, increase Seroquel dose to 50 mg p.o. at bedtime. ESTIMATED LENGTH OF STAY: Review progress through daily assessment. [facility]# [id number]
[2018-09-17] MEDS: Atorvastatin Calcium 10 MG TAB PO SCH (20:41)
--- NOTE | 2018-09-17 21:23 | Progress Notes ---
DATE: 09/17/2018 PSYCHOLOGY PROGRESS NOTE SUBJECTIVE: The patient is seen in her room. The patient is somnolent, but arousable verbally. The patient is less irritable this visit. The patient states that she gets anxious, mostly at nighttime. Staff reports that patient has had episodes of yelling and screaming, but they are lessening. The patient states that she just wants to be discharged. She stated her sleep and appetite are okay. OBJECTIVE: Mood is anxious. Affect is constricted. Thought process shows to be confused and impoverished. The patient has poor insight into her illness with poor fund of knowledge. The patient denied any auditory or visual hallucinations or delusions. The patient is taking her p.o. medications. ASSESSMENT AND PLAN: The patient's psychosis persists; however, the patient has been less agitated with less verbal outbursts. We provided positive reinforcement for the patient to follow through with staff direction. We provided remotivation for the patient to stay compliant with her care and treatment. We provided reality differentiation and integration. We provided coping strategies for phase of life issues as well. We will follow up in 2 days to continue the present treatment if the patient remains on the unit. JOB# [id number] BREANA
[2018-09-18] MEDS: Pantoprazole 40 mg EC Tab PO SCH (06:29)
[2018-09-18] MEDS: INSULIN LISPRO SLIDING SCALE 100 UNITS/ML UNIT SUBQ SCH ×4 (06:30→21:20)
[2018-09-18] MEDS: Albuterol Nebulizer 2.5mg/3mL HHN SCH ×3 (08:06→19:02)
[2018-09-18] MEDS: Budesonide 0.5 Mg/2 mL Ud HHN SCH ×2 (08:10→19:02)
[2018-09-18] MEDS: Apixaban 2.5 MG TABLET PO SCH ×2 (08:59→16:32)
[2018-09-18] MEDS: Multivitamin Tab PO SCH (09:00)
[2018-09-18] MEDS: Eucerin Cream 16 oz Jar TP SCH ×2 (09:11→16:33)
--- NOTE | 2018-09-18 13:11 | Internal Medicine Prog Note ---
Internal Medicine Subjective - Subjective Patient seen and examined:: with staff, chart reviewed Patient is:: awake, verbal, interactive Per staff patient has:: no adverse event, no episodes of fall, tolerating meds Internal Medicine Objective - Results Result Diagrams: 09/12/18 20:10 09/12/18 20:10 Recent Labs: Laboratory Last Values WBC 7.4 Th/cmm (4.8-10.8) 09/12/18 20:10 RBC 4.74 Mil/cmm (3.80-5.20) 09/12/18 20:10 Hgb 12.0 gm/dL (12-16) 09/12/18 20:10 Hct 35.7 % (41.0-60) L 09/12/18 20:10 MCV 75.4 fl (81-100) L 09/12/18 20:10 MCH 25.3 pg (27.0-31.0) L 09/12/18 20:10 MCHC Differential 33.6 pg (28.0-36.0) 09/12/18 20:10 RDW 17.0 % (11.5-20.0) 09/12/18 20:10 Plt Count 267 Th/cmm (150-400) 09/12/18 20:10 MPV 6.8 fl 09/12/18 20:10 Neutrophils % 72.2 % (40.0-80.0) 09/12/18 20:10 Lymphocytes % 17.1 % (20.0-50.0) L 09/12/18 20:10 Monocytes % 9.1 % (2.0-10.0) 09/12/18 20:10 Eosinophils % 1.0 % (0.0-5.0) 09/12/18 20:10 Basophils % 0.6 % (0.0-2.0) 09/12/18 20:10 Sodium 132 mEq/L (136-145) L 09/12/18 20:10 Potassium 4.3 mEq/L (3.5-5.1) 09/12/18 20:10 Chloride 96 mEq/L (98-107) L 09/12/18 20:10 Carbon Dioxide 23.8 mEq/L (21.0-31.0) 09/12/18 20:10 Anion Gap 16.5 (7.0-16.0) H 09/12/18 20:10 BUN 25 mg/dL (7-25) 09/12/18 20:10 Creatinine 0.8 mg/dL (0.6-1.2) 09/12/18 20:10 Est GFR ( Amer) TNP 09/12/18 20:10 Est GFR (Non-Af Amer) TNP 09/12/18 20:10 BUN/Creatinine Ratio 31.3 09/12/18 20:10 Glucose 62 mg/dL (70-105) L 09/12/18 20:10 POC Glucose 112 MG/DL (70 - 105) H 09/18/18 11:34 Calcium 10.7 mg/dL (8.6-10.3) H 09/12/18 20:10 Total Bilirubin 0.8 mg/dL (0.3-1.0) 09/12/18 20:10 AST 74 U/L (13-39) H 09/12/18 20:10 ALT 36 U/L (7-52) 09/12/18 20:10 Alkaline Phosphatase 159 U/L (34-104) H 09/12/18 20:10 Total Protein 5.9 gm/dL (6.0-8.3) L 09/12/18 20:10 Albumin 3.5 gm/dL (3.7-5.3) L 09/12/18 20:10 Globulin 2.4 gm/dL 09/12/18 20:10 Albumin/Globulin Ratio 1.5 (1.0-1.8) 09/12/18 20:10 Triglycerides 146 mg/dL (<150) 09/12/18 20:10 Cholesterol 112 mg/dL (<200) 09/12/18 20:10 LDL Cholesterol Direct 56 mg/dL (75-193) L 09/12/18 20:10 HDL Cholesterol 32 mg/dL (23-92) 09/12/18 20:10 TSH 1.33 uIU/ml (0.34-5.60) 09/12/18 20:10 RPR NONREACTIVE (NONREACTIVE) 09/12/18 20:10 - Physical Exam Vitals and I&O: Vital Signs Temp 97.9 F 09/17/18 05:28 Pulse 90 09/18/18 13:02 Resp 18 09/18/18 13:02 BP 130/69 08/01/19 09:00 Pulse Ox 95 09/18/18 13:02 Active Medications: Current Medications Acetaminophen (Tylenol) 650 mg PO Q4HR PRN PRN Reason: Mild Pain / Temp above 100 Stop: 11/12/18 02:49 Last Admin: 09/18/18 12:26 Dose: 650 mg Al Hydrox/Mg Hydrox/Simethicone (Maalox) 30 ml PO Q4H PRN PRN Reason: GI DISTRESS Stop: 11/12/18 02:49 Albuterol Sulfate (Albuterol 2.5mg/3ml Neb Ud) 2.5 mg HHN Q6HRT [facility] Stop: 11/12/18 12:59 Last Admin: 09/18/18 12:58 Dose: Not Given Ascorbic Acid (Vitamin C) 500 mg PO DAILY [facility] Stop: 11/12/18 08:59 Last Admin: 09/18/18 09:00 Dose: 500 mg Atorvastatin Calcium (Lipitor) 10 mg PO HS [facility]; Protocol Stop: 11/12/18 20:59 Last Admin: 09/17/18 20:41 Dose: 10 mg Budesonide (Pulmicort) 0.5 mg HHN BIDRT [facility] Stop: 11/12/18 18:59 Last Admin: 09/18/18 08:10 Dose: Not Given Dextrose (D50w) 50 ml IVP PRN PRN PRN Reason: Blood Glucose less than 70 Stop: 11/13/18 12:15 Dextrose (Glutose 40%) 18.75 gm PO PRN PRN PRN Reason: Blood Glucose less than 70 Stop: 11/13/18 12:15 Docusate Sodium (Colace) 200 mg PO DAILY [facility] Stop: 11/12/18 08:59 Last Admin: 09/18/18 09:00 Dose: 200 mg Donepezil HCl (Aricept) 10 mg PO HS [facility] Stop: 11/12/18 20:59 Last Admin: 09/17/18 20:41 Dose: 10 mg Glipizide (Glucotrol) 5 mg PO BID [facility] Stop: 11/12/18 08:59 Last Admin: 09/18/18 09:00 Dose: 5 mg Glucagon (Glucagen) 1 mg IM DAILY PRN PRN Reason: HYPOGLYCEMIA Stop: 11/11/18 21:40 Glucagon (Glucagen) 1 mg IM PRN PRN PRN Reason: Blood Glucose less than 70 Stop: 11/13/18 12:15 Insulin Human Lispro (Humalog Insulin Sliding Scale) 0 units SUBQ ACHS [facility]; Protocol Stop: 11/13/18 16:29 Last Admin: 09/18/18 11:39 Dose: Not Given Lorazepam (Ativan) 0.5 mg PO Q4HR PRN; Protocol PRN Reason: Anxiety Stop: 10/13/18 02:49 Last Admin: 09/16/18 21:00 Dose: 0.5 mg Losartan Potassium (Cozaar) 25 mg PO DAILY [facility] Stop: 11/12/18 08:59 Last Admin: 09/18/18 09:00 Dose: 25 mg Magnesium Hydroxide (Milk Of Magnesia) 30 ml PO HS PRN PRN Reason: Constipation Magnesium Oxide (Mag-Oxide) 400 mg PO BID [facility] Stop: 11/12/18 08:59 Last Admin: 09/18/18 08:59 Dose: 400 mg Multi-Ingredient Cream (Eucerin Cream) 1 appl TP BID [facility] Stop: 11/14/18 16:59 Last Admin: 09/18/18 09:11 Dose: 1 appl Multivitamins/Vitamin C (Theragran) 1 tab PO DAILY [facility] Stop: 11/12/18 08:59 Last Admin: 09/18/18 09:00 Dose: 1 tab Oxybutynin Chloride (Ditropan) 5 mg PO BID [facility] Stop: 11/12/18 08:59 Last Admin: 09/18/18 09:00 Dose: 5 mg Pantoprazole Sodium (Protonix) 40 mg PO QDAC [facility] Stop: 11/12/18 07:29 Last Admin: 09/18/18 06:29 Dose: 40 mg Quetiapine Fumarate (Seroquel) 50 mg PO HS [facility]; Protocol Stop: 11/16/18 20:59 Last Admin: 09/17/18 20:41 Dose: 50 mg Zolpidem Tartrate (Ambien) 5 mg PO HS PRN PRN Reason: Insomnia Stop: 11/12/18 02:49 Last Admin: 09/17/18 20:43 Dose: 5 mg General: demented, appears older HEENT: NC/AT, PERRLA, EOMI Neck: Supple, No JVD Lungs: CTAB Cardiovascular: RRR, Normal S1, Normal S2, with murmur Abdomen: soft, non-tender, non-distended, positive bowel sound Extremities: excoriation Neurological: no change - Procedures Procedures: Procedures Procedure Code Date INDIVID PSYCHOTHERAP NEC 94.39 07/05/04 INJECT/INFUSE NEC 99.29 03/18/13 OTHER GROUP THERAPY 94.44 12/18/13 RECREATIONAL THERAPY 93.81 07/05/04 Internal Medicine Assmt/Plan - Assessment Assessment: ASSESSMENT AND PLAN: Hypertension, diabetes, chronic obstructive pulmonary disease, hypercholesterolemia, schizoaffective disorder/bipolar disorder, mild anemia, hyponatremia, episode of hypoglycemia. - Plan Plan: PLAN: We will monitor platelet count. Continue the patient on ADA diet and insulin sliding scale. We will correct electrolyte abnormalities. Continue anticoagulation secondary to paroxysmal atrial fibrillation. We will continue the patient on antihypertensive medication. We will continue to follow with you, Dr. Carey. Nutritional Asmnt/Malnutr-PDOC - Dietary Evaluation Malnutrition Findings (Please click <Entered> for more info): Nutritional Asmnt/Malnutrition Start: 09/17/18 09: 42 Text: Status: Complete Freq: Protocol: Document 09/17/18 09:42 WERO (Rec: 09/17/18 09:45 WERO [email or web address]) Nutritional Asmnt/Malnutrition Patient General Information Nutritional Screening Moderate Risk Diagnosis Psychosis Pertinent Medical Hx/Surgical Hx HTN, DM, Asthma/COPD, Dyslipidemia, Dementia, Bipolar disorder, Depression Subjective Information Pt is a 73-year-old female admitted on 09/12 d/t onset of agitation and aggressive behavior x3 days. Pt seems to be eating well, estimated 70% x3 days, this is adequate to meet nutritional needs. HT: 52 WT: 168 LB (76.36 kg) ABW: 125 LB (56.59 kg) BMI: 30.73 (Obese) GI: WNL, Soft, non-tender BM: 09/16 x1 I/O: 360/Not Noted Skin: LT hand atopic dermatitis, dryness Jordan: 14 Diet Order: Mechanical Soft, NCS, CAMELIA, Glucerna Shake TID Estimated Energy Needs: ( Geriatric, ABW) 3109-8696 kcals (25-30 kcals/ kg) 57-68g Pro (1.0-1.2 g/kg) 4969-7061 ml (25-30 ml/kg) Pt is eating an estimated 70% of meals Per Meal/Nutrition Activity Record. Dietary is currently providing an estimated 1980 kcals and 117 gm Pro, per Pt PO intake this is providing an estimated 1386 kcals and 82gm Pro to meet 99 % kcal and 100+% Pro needs- adequate. Current Diet Order/ Nutrition Support Mechanical Soft, NCS, CAMELIA, Glucerna Shake TID Pertinent Medications Maalox (PRN), Albuterol (PRN), Vitamin C, Lipitor, D50w (PRN ), Glutose 40% (PRN), Colace, Glucotrol, Glucagen (PRN), INS -SS, Cozaar, MOM (PRN), Mag-Ox , Theregran, Protonix Pertinent Labs 09/12: Hgb/Hct 12.0/35.7 POC Glucose (09/15-09/17): 84, 54, 82, 89, 109, 86 Nutritional Hx/Data Height 1.57 m Height (Calculated Centimeters) 157.5 Current Weight (lbs) 76.204 kg Weight (Calculated Kilograms) 76.2 Weight (Calculated Grams) 44843.5 [place] Body Weight 110lb (50kg) % [place] Body Weight 153 Body Mass Index (BMI) 30.7 Weight Status Obese GI Symptoms GI Symptoms None Last BM 09/16 x1 Skin Integrity/Comment: LT hand atopic dermatitis, dryness Jordan: 14 Current %PO Fair (50-74%) Estimated Nutritional Goals BEE in Kcals: Adj wt of IBW Calories/Kcals/Kg 25-30 Kcals Calculated 1245-6730 Protein: Adj wt of IBW Protein g/k.0-1.2 Protein Calculated 57-68 Fluid: ml 7168-0102 ml (25-30 ml/kg) Nutritional Problem 1. Problem Problem Altered nutrition related labs Etiology r/t endocrine dysfunction Signs/Symptoms: aeb POC Glucose (09/15-09/17): 84, 54, 82, 89, 109, 86 Malnutrition Related to Morbid Obesity Malnutrition related to morbid obesity No Intervention/Recommendation Comments 1. Continue with Mechanical Soft, NCS, CAMELIA, Glucerna Shake TID diet as ordered. 2. Continue with antihyperglycemic medications for glucose control per MD order. Expected Outcomes/Goals Expected Outcomes/Goals 1. PO intake to continue to meet 75% of nutritional needs. 2. Monitor PO intake, wt, nutrition related labs, and skin integrity. 3. F/U as low risk in 7 days, 09/24
--- NOTE | 2018-09-18 21:06 | Progress Notes ---
DATE: 09/18/2018 SUBJECTIVE: She was asking when she is going back to her place. The patient continues to have some episodes of irritability, anger outbursts, but less. The patient is taking the medication. Appetite and sleep are fair. MENTAL STATUS EXAM: Speech is loud at times. Affect is dysphoric, intermittent paranoia. The patient's insight is still limited. She is oriented to person and being in the hospital and does not know her age. ASSESSMENT: Agitation is decreasing. PLAN: Continue hospitalization. Continue Seroquel 50 mg p.o. at bedtime. ESTIMATED LENGTH OF STAY: 1-2 more days. [facility]# [id number]
[2018-09-18] MEDS: Atorvastatin Calcium 10 MG TAB PO SCH (21:18)
[2018-09-19] MEDS: Albuterol Nebulizer 2.5mg/3mL HHN SCH ×3 (01:27→13:48)
[2018-09-19] MEDS: Pantoprazole 40 mg EC Tab PO SCH (06:52)
[2018-09-19] MEDS: INSULIN LISPRO SLIDING SCALE 100 UNITS/ML UNIT SUBQ SCH ×2 (06:53→11:33)
[2018-09-19] MEDS: Budesonide 0.5 Mg/2 mL Ud HHN SCH (07:31)
[2018-09-19] MEDS: Multivitamin Tab PO SCH (08:34)
[2018-09-19] MEDS: Apixaban 2.5 MG TABLET PO SCH (08:34)
[2018-09-19] MEDS: Eucerin Cream 16 oz Jar TP SCH (09:19)
--- NOTE | 2018-09-19 12:23 | Discharge Summary ---
DATE OF DISCHARGE: 09/19/2018 REASON FOR HOSPITALIZATION: Schizoaffective disorder in psychotic phase and dementia, Alzheimer's type. HISTORY OF PRESENT ILLNESS: The patient is a 73-year-old female who was sent from her correction facility for increased anxiety, anger outburst, episodes of yelling, scratching herself. The patient was very restless. She was evaluated and was admitted. HOSPITALIZATION COURSE: Medications were evaluated. The patient was taken off Zyprexa and was started on Seroquel. Anger outburst and paranoia started to decrease and sleep has improved. The patient had a physical exam by Dr. Ch. The patient's condition further stabilized over time. On 09/19/2018, patient was no longer angry or agitated. She was oriented to person, knew she was in the hospital. The patient is not oriented to time. The patient has no suicidal or homicidal thoughts. Her appetite and sleep are fair. The patient was discharged back to her facility. FINAL DIAGNOSES: Schizoaffective disorder and dementia. PAST MEDICAL HISTORY: Hypertension, diabetes, COPD, hypercholesterolemia. DISPOSITION: The patient was discharged to [facility]. CONDITION UPON DISCHARGE: Fair sleep and appetite. No agitation, no aggressive behavior. EXPECTED COURSE OF RECOVERY: The patient with chronic condition. [facility]# [id number]
--- NOTE | 2018-09-19 12:47 | Internal Medicine Prog Note ---
Internal Medicine Subjective - Subjective Patient seen and examined:: with staff, chart reviewed Patient is:: awake, verbal, interactive Per staff patient has:: no adverse event, no episodes of fall, tolerating meds Internal Medicine Objective - Results Result Diagrams: 09/12/18 20:10 09/12/18 20:10 Recent Labs: Laboratory Last Values WBC 7.4 Th/cmm (4.8-10.8) 09/12/18 20:10 RBC 4.74 Mil/cmm (3.80-5.20) 09/12/18 20:10 Hgb 12.0 gm/dL (12-16) 09/12/18 20:10 Hct 35.7 % (41.0-60) L 09/12/18 20:10 MCV 75.4 fl (81-100) L 09/12/18 20:10 MCH 25.3 pg (27.0-31.0) L 09/12/18 20:10 MCHC Differential 33.6 pg (28.0-36.0) 09/12/18 20:10 RDW 17.0 % (11.5-20.0) 09/12/18 20:10 Plt Count 267 Th/cmm (150-400) 09/12/18 20:10 MPV 6.8 fl 09/12/18 20:10 Neutrophils % 72.2 % (40.0-80.0) 09/12/18 20:10 Lymphocytes % 17.1 % (20.0-50.0) L 09/12/18 20:10 Monocytes % 9.1 % (2.0-10.0) 09/12/18 20:10 Eosinophils % 1.0 % (0.0-5.0) 09/12/18 20:10 Basophils % 0.6 % (0.0-2.0) 09/12/18 20:10 Sodium 132 mEq/L (136-145) L 09/12/18 20:10 Potassium 4.3 mEq/L (3.5-5.1) 09/12/18 20:10 Chloride 96 mEq/L (98-107) L 09/12/18 20:10 Carbon Dioxide 23.8 mEq/L (21.0-31.0) 09/12/18 20:10 Anion Gap 16.5 (7.0-16.0) H 09/12/18 20:10 BUN 25 mg/dL (7-25) 09/12/18 20:10 Creatinine 0.8 mg/dL (0.6-1.2) 09/12/18 20:10 Est GFR ( Amer) TNP 09/12/18 20:10 Est GFR (Non-Af Amer) TNP 09/12/18 20:10 BUN/Creatinine Ratio 31.3 09/12/18 20:10 Glucose 62 mg/dL (70-105) L 09/12/18 20:10 POC Glucose 83 MG/DL (70 - 105) 09/19/18 11:16 Calcium 10.7 mg/dL (8.6-10.3) H 09/12/18 20:10 Total Bilirubin 0.8 mg/dL (0.3-1.0) 09/12/18 20:10 AST 74 U/L (13-39) H 09/12/18 20:10 ALT 36 U/L (7-52) 09/12/18 20:10 Alkaline Phosphatase 159 U/L (34-104) H 09/12/18 20:10 Total Protein 5.9 gm/dL (6.0-8.3) L 09/12/18 20:10 Albumin 3.5 gm/dL (3.7-5.3) L 09/12/18 20:10 Globulin 2.4 gm/dL 09/12/18 20:10 Albumin/Globulin Ratio 1.5 (1.0-1.8) 09/12/18 20:10 Triglycerides 146 mg/dL (<150) 09/12/18 20:10 Cholesterol 112 mg/dL (<200) 09/12/18 20:10 LDL Cholesterol Direct 56 mg/dL (75-193) L 09/12/18 20:10 HDL Cholesterol 32 mg/dL (23-92) 09/12/18 20:10 TSH 1.33 uIU/ml (0.34-5.60) 09/12/18 20:10 RPR NONREACTIVE (NONREACTIVE) 09/12/18 20:10 - Physical Exam Vitals and I&O: Vital Signs Temp 97.7 F 09/18/18 19:55 Pulse 87 09/19/18 08:33 Resp 18 08/02/19 08:00 BP 121/63 09/19/18 08:33 Pulse Ox 97 09/19/18 07:31 Intake & Output 09/18/18 09/19/18 09/19/18 18:59 06:59 18:59 Intake Total 240 240 Balance 240 240 Intake: Oral 240 240 Other: # Voids 2 2 # Bowel Movements 0 Active Medications: Current Medications Acetaminophen (Tylenol) 650 mg PO Q4HR PRN PRN Reason: Mild Pain / Temp above 100 Stop: 11/12/18 02:49 Last Admin: 09/18/18 12:26 Dose: 650 mg Al Hydrox/Mg Hydrox/Simethicone (Maalox) 30 ml PO Q4H PRN PRN Reason: GI DISTRESS Stop: 11/12/18 02:49 Albuterol Sulfate (Albuterol 2.5mg/3ml Neb Ud) 2.5 mg HHN Q6HRT [facility] Stop: 11/12/18 12:59 Last Admin: 09/19/18 07:31 Dose: Not Given Ascorbic Acid (Vitamin C) 500 mg PO DAILY [facility] Stop: 11/12/18 08:59 Last Admin: 09/19/18 08:32 Dose: 500 mg Atorvastatin Calcium (Lipitor) 10 mg PO HS [facility]; Protocol Stop: 11/12/18 20:59 Last Admin: 09/18/18 21:18 Dose: 10 mg Budesonide (Pulmicort) 0.5 mg HHN BIDRT [facility] Stop: 11/12/18 18:59 Last Admin: 09/19/18 07:31 Dose: Not Given Dextrose (D50w) 50 ml IVP PRN PRN PRN Reason: Blood Glucose less than 70 Stop: 11/13/18 12:15 Dextrose (Glutose 40%) 18.75 gm PO PRN PRN PRN Reason: Blood Glucose less than 70 Stop: 11/13/18 12:15 Docusate Sodium (Colace) 200 mg PO DAILY [facility] Stop: 11/12/18 08:59 Last Admin: 09/19/18 08:33 Dose: 200 mg Donepezil HCl (Aricept) 10 mg PO HS [facility] Stop: 11/12/18 20:59 Last Admin: 09/18/18 21:18 Dose: 10 mg Glipizide (Glucotrol) 5 mg PO BID [facility] Stop: 11/12/18 08:59 Last Admin: 09/19/18 08:34 Dose: Not Given Glucagon (Glucagen) 1 mg IM DAILY PRN PRN Reason: HYPOGLYCEMIA Stop: 11/11/18 21:40 Glucagon (Glucagen) 1 mg IM PRN PRN PRN Reason: Blood Glucose less than 70 Stop: 11/13/18 12:15 Insulin Human Lispro (Humalog Insulin Sliding Scale) 0 units SUBQ ACHS [facility]; Protocol Stop: 11/13/18 16:29 Last Admin: 09/19/18 11:33 Dose: Not Given Lorazepam (Ativan) 0.5 mg PO Q4HR PRN; Protocol PRN Reason: Anxiety Stop: 10/13/18 02:49 Last Admin: 09/16/18 21:00 Dose: 0.5 mg Losartan Potassium (Cozaar) 25 mg PO DAILY [facility] Stop: 11/12/18 08:59 Last Admin: 09/19/18 08:33 Dose: 25 mg Magnesium Hydroxide (Milk Of Magnesia) 30 ml PO HS PRN PRN Reason: Constipation Magnesium Oxide (Mag-Oxide) 400 mg PO BID [facility] Stop: 11/12/18 08:59 Last Admin: 09/19/18 08:34 Dose: 400 mg Multi-Ingredient Cream (Eucerin Cream) 1 appl TP BID [facility] Stop: 11/14/18 16:59 Last Admin: 09/19/18 09:19 Dose: 1 appl Multivitamins/Vitamin C (Theragran) 1 tab PO DAILY [facility] Stop: 11/12/18 08:59 Last Admin: 09/19/18 08:34 Dose: 1 tab Oxybutynin Chloride (Ditropan) 5 mg PO BID [facility] Stop: 11/12/18 08:59 Last Admin: 09/19/18 08:32 Dose: 5 mg Pantoprazole Sodium (Protonix) 40 mg PO QDAC [facility] Stop: 11/12/18 07:29 Last Admin: 09/19/18 06:52 Dose: 40 mg Quetiapine Fumarate (Seroquel) 50 mg PO HS [facility]; Protocol Stop: 11/16/18 20:59 Last Admin: 09/18/18 21:18 Dose: 50 mg Zolpidem Tartrate (Ambien) 5 mg PO HS PRN PRN Reason: Insomnia Stop: 11/12/18 02:49 Last Admin: 09/18/18 21:18 Dose: 5 mg General: demented, appears older HEENT: NC/AT, PERRLA, EOMI Neck: Supple, No JVD Lungs: CTAB Cardiovascular: RRR, Normal S1, Normal S2, with murmur Abdomen: soft, non-tender, non-distended, positive bowel sound Extremities: excoriation Neurological: no change - Procedures Procedures: Procedures Procedure Code Date INDIVID PSYCHOTHERAP NEC 94.39 07/05/04 INJECT/INFUSE NEC 99.29 03/18/13 OTHER GROUP THERAPY 94.44 12/18/13 RECREATIONAL THERAPY 93.81 07/05/04 Internal Medicine Assmt/Plan - Assessment Assessment: ASSESSMENT AND PLAN: Hypertension, diabetes, chronic obstructive pulmonary disease, hypercholesterolemia, schizoaffective disorder/bipolar disorder, mild anemia, hyponatremia, episode of hypoglycemia. - Plan Plan: PLAN: We will monitor platelet count. Continue the patient on ADA diet and insulin sliding scale. We will correct electrolyte abnormalities. Continue anticoagulation secondary to paroxysmal atrial fibrillation. We will continue the patient on antihypertensive medication. We will continue to follow with you, Dr. Carey. Nutritional Asmnt/Malnutr-PDOC - Dietary Evaluation Malnutrition Findings (Please click <Entered> for more info): Nutritional Asmnt/Malnutrition Start: 09/17/18 09: 42 Text: Status: Complete Freq: Protocol: Document 09/17/18 09:42 WERO (Rec: 09/17/18 09:45 WERO [email or web address]) Nutritional Asmnt/Malnutrition Patient General Information Nutritional Screening Moderate Risk Diagnosis Psychosis Pertinent Medical Hx/Surgical Hx HTN, DM, Asthma/COPD, Dyslipidemia, Dementia, Bipolar disorder, Depression Subjective Information Pt is a 73-year-old female admitted on 09/12 d/t onset of agitation and aggressive behavior x3 days. Pt seems to be eating well, estimated 70% x3 days, this is adequate to meet nutritional needs. HT: 52 WT: 168 LB (76.36 kg) ABW: 125 LB (56.59 kg) BMI: 30.73 (Obese) GI: WNL, Soft, non-tender BM: 09/16 x1 I/O: 360/Not Noted Skin: LT hand atopic dermatitis, dryness Jordan: 14 Diet Order: Mechanical Soft, NCS, CAMELIA, Glucerna Shake TID Estimated Energy Needs: ( Geriatric, ABW) 1024-6477 kcals (25-30 kcals/ kg) 57-68g Pro (1.0-1.2 g/kg) 0765-2439 ml (25-30 ml/kg) Pt is eating an estimated 70% of meals Per Meal/Nutrition Activity Record. Dietary is currently providing an estimated 1980 kcals and 117 gm Pro, per Pt PO intake this is providing an estimated 1386 kcals and 82gm Pro to meet 99 % kcal and 100+% Pro needs- adequate. Current Diet Order/ Nutrition Support Mechanical Soft, NCS, CAMELIA, Glucerna Shake TID Pertinent Medications Maalox (PRN), Albuterol (PRN), Vitamin C, Lipitor, D50w (PRN ), Glutose 40% (PRN), Colace, Glucotrol, Glucagen (PRN), INS -SS, Cozaar, MOM (PRN), Mag-Ox , Theregran, Protonix Pertinent Labs 09/12: Hgb/Hct 12.0/35.7 POC Glucose (09/15-09/17): 84, 54, 82, 89, 109, 86 Nutritional Hx/Data Height 1.57 m Height (Calculated Centimeters) 157.5 Current Weight (lbs) 76.204 kg Weight (Calculated Kilograms) 76.2 Weight (Calculated Grams) 42569.5 [place] Body Weight 110lb (50kg) % [place] Body Weight 153 Body Mass Index (BMI) 30.7 Weight Status Obese GI Symptoms GI Symptoms None Last BM 09/16 x1 Skin Integrity/Comment: LT hand atopic dermatitis, dryness Jordan: 14 Current %PO Fair (50-74%) Estimated Nutritional Goals BEE in Kcals: Adj wt of IBW Calories/Kcals/Kg 25-30 Kcals Calculated 3392-5359 Protein: Adj wt of IBW Protein g/k.0-1.2 Protein Calculated 57-68 Fluid: ml 5950-4898 ml (25-30 ml/kg) Nutritional Problem 1. Problem Problem Altered nutrition related labs Etiology r/t endocrine dysfunction Signs/Symptoms: aeb POC Glucose (09/15-09/17): 84, 54, 82, 89, 109, 86 Malnutrition Related to Morbid Obesity Malnutrition related to morbid obesity No Intervention/Recommendation Comments 1. Continue with Mechanical Soft, NCS, CAMELIA, Glucerna Shake TID diet as ordered. 2. Continue with antihyperglycemic medications for glucose control per MD order. Expected Outcomes/Goals Expected Outcomes/Goals 1. PO intake to continue to meet 75% of nutritional needs. 2. Monitor PO intake, wt, nutrition related labs, and skin integrity. 3. F/U as low risk in 7 days, 09/24
--- NOTE | 2018-09-20 11:28 | Progress Notes ---
DATE: 09/19/2018 PSYCHOLOGY PROGRESS NOTE SUBJECTIVE: The patient is seen in her room. The patient is repeatedly asking when she is going to be discharged. Staff reports the patient's emotional volatility and anger outbursts have lessened. The patient has been compliant with her medications. The patient seems to be improving slightly. OBJECTIVE: Mood is mildly irritable. Affect is constricted. Thought process shows to be confused with perseveration on discharge. The patient denied any hallucinations or delusions. The patient has been compliant with her care and treatment. The patient's insight is limited. Suspiciousness is to be noted here; however lessening. ASSESSMENT AND PLAN: The patient's agitation is lessening. We provided positive reinforcement for the patient to stay compliant with all aspects of her care and treatment. We provided reality differentiation and integration. We provided coping strategies for phase of life issues. We encouraged the patient to demonstrate emotional and self-regulation by verbalizing her concerns versus acting out. No follow up is indicated. The staff reports the patient is most likely discharging today. JOB# [id number] BREANA
== END 2018-09-19 15:20 | DRG 885 ==
LOC: ER 18:17 → GERO2 21:55
DX: F25.9 Schizoaffective disorder, unspecified (principal); E87.1 Hypo-osmolality and hyponatremia; F02.81 Dementia in other diseases classified elsewhere, unspecified severity, with behavioral disturbance; E11.65 Type 2 diabetes mellitus with hyperglycemia; I10 Essential (primary) hypertension; J44.9 Chronic obstructive pulmonary disease, unspecified; G30.9 Alzheimer's disease, unspecified; E78.5 Hyperlipidemia, unspecified; E78.00 Pure hypercholesterolemia, unspecified; D64.9 Anemia, unspecified; F31.9 Bipolar disorder, unspecified; Z83.3 Family history of diabetes mellitus; Z82.49 Family history of ischemic heart disease and other diseases of the circulatory system; Z79.899 Other long term (current) drug therapy
CPT/HCPCS: 36415-UA; 80053-TC; 80061-TC; 82948-90; 83036-90; 84443-TC; 85025-TC; 86592-TC; 93005; 94760; J7051; J7613; Z7610

== ENCOUNTER 2018-10-11 16:23 | Inpatient (IN) | payer MEDICARE, MEDICAID ==
[2018-10-11 17:15] LABS: HEMOGLOBIN 10.7 gm/dL (12-16); MONOCYTE ABSOLUTE 0.5 Th/cmm (0.3-1.0)
[2018-10-11 17:20] LABS: % BASOPHILS 0.9 % (0.0-2.0); % EOSINOPHILS 0.8 % (0.0-5.0); % LYMPHOCYTES 21.1 % (20.0-50.0); % MONOCYTES 8.7 % (2.0-10.0); % NEUTROPHILS 68.5 % (40.0-80.0); BASOPHILE ABSOLUTE 0.1 Th/cumm (0-0.2); HEMATOCRIT 31.6 % (41.0-60); LYMPHOCYTE ABSOLUTE 1.3 Th/cmm (1.5-3.0); MEAN CELL VOLUME 77.2 fl (81-100); MEAN CORPUSCULAR HEMOGLOBIN 26.1 pg (27.0-31.0); MEAN CORPUSCULAR HGB CONC 33.8 pg (28.0-36.0); NEUTROPHILE ABSOLUTE 4.3 Th/cmm (1.8-8.0); PLATELET COUNT 251 Th/cmm (150-400); RED CELL DISTRIBUTION WIDTH 18.3 % (11.5-20.0); WHITE BLOOD COUNT 6.2 Th/cmm (4.8-10.8)
[2018-10-11 17:30] LABS: ALB/GLOB RATIO 1.5 (1.0-1.8); ALBUMIN 3.2 gm/dL (3.7-5.3); ALKALINE PHOSPHATASE 274 U/L (34-104); ANION GAP 14.2 (7.0-16.0); BILIRUBIN,TOTAL 0.7 mg/dL (0.3-1.0); BUN - UREA NITROGEN 34 mg/dL (7-25); CALCIUM SERUM 11.8 mg/dL (8.6-10.3); CARBON DIOXIDE 27.3 mEq/L (21.0-31.0); CHLORIDE 97 mEq/L (98-107); GLUCOSE 83 mg/dL (70-105); MAGNESIUM 2.4 mg/dL (1.9-2.7); POTASSIUM SERUM 4.5 mEq/L (3.5-5.1); SGOT 128 U/L (13-39); SGPT/ALT 34 U/L (7-52); SODIUM SERUM 134 mEq/L (136-145); TOTAL PROTEIN,SERUM 5.3 gm/dL (6.0-8.3)
[2018-10-11 17:34] LABS: INR 1.32 (0.5-1.4)
--- NOTE | 2018-10-11 17:34 | ED Physician Chart ---
ED Chief Complaint/HPI - Patient Information Date Seen:: 10/11/18 Time Seen:: 17:00 Chief Complaint:: leg pain History of Present Illness:: this is a 73 yo female sent from the care home for evaluation and treatment of her leg condition. she was recently hospitalize here for the same problem. Allergies:: Allergies Allergy/AdvReac Type Severity Reaction Status Date / Time Penicillins Allergy Verified 09/12/18 18:34 Vitals:: Vital Signs - 8 hr 10/11/18 16:37 Temp 98.8 F HR 88 RR 16 BP 122/38 O2 Sat % 95 Historian:: Medical Records Review:: Nurse's Note Reviewed, Old Chart Reviewed ED Review of Systems - Review of Systems General/Constitutional: No fever, No chills, No weight loss, No weakness, No diaphoresis, No edema, No loss of appetite, Other (this patient is unable to give a review of systems.) Skin: No skin lesions, No rash, No bruising Head: No headache, No light-headedness Eyes: No loss of vision, No pain, No diplopia ENT: No earache, No nasal drainage, No sore throat, No tinnitus Neck: No neck pain, No swelling, No thyromegaly, No stiffness, No mass noted Cardio Vascular: No chest pain, No palpitations, No PND, No orthopnea, No edema Pulmonary: No SOB, No cough, No sputum, No wheezing GI: No nausea, No vomiting, No diarrhea, No pain, No melena, No hematochezia, No constipation, No hematemesis G/U: No dysuria, No frequency, No hematuria Musculoskeletal: No bone or joint pain, No back pain, No muscle pain Endocrine: No polyuria, No polydipsia Psychiatric: No prior psych history, No depression, No anxiety, No suicidal ideation Hematopoietic: No bruising, No lymphadenopathy Allergic/Immuno: No urticaria, No angioedema Neurological: No syncope, No focal symptoms, No weakness, No paresthesia, No headache, No seizure, No dizziness, No confusion, No vertigo ED Past Medical History - Past Medical History Obtainable: Yes Past Medical History: HTN, DM, CAD, Asthma/COPD, Dyslipidemia, PUD/GERD, Arthritis, Dementia Family History: None Social History: Non Smoker, No Alcohol, No Drug Use, Care Facility Surgical History: other (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) Family Medical History - Family Member Father History Unknown: Yes Ethnicity: Non- Living Status: Unknown Hx Family Cancer: No Hx Family Coronary Artery Disease: Yes Hx Family Congestive Heart Failure: Yes Hx Family Hypertension: Yes Hx Family Stroke: No Hx Family Diabetes: No Hx Family Seizures: No Hx Family Dementia: No Hx Family AIDS: No Hx Family HIV: No Hx Family COPD: No Hx Family Hepatitis: No Hx Family Psychiatric Problems: (migraines) Hx Family Tuberculosis: No Mother History Unknown: Yes Ethnicity: Non- Living Status: Unknown Hx Family Cancer: No Hx Family Coronary Artery Disease: No Hx Family Congestive Heart Failure: No Hx Family Hypertension: Yes Hx Family Stroke: No Hx Family Diabetes: No Hx Family Seizures: No Hx Family Dementia: No Hx Family AIDS: No Hx Family HIV: No Hx Family COPD: No Hx Family Hepatitis: No Hx Family Psychiatric Problems: No Hx Family Tuberculosis: No ED Physical Exam - Physical Examination General/Constitutional: Awake, Well-developed, well-nourished, Alert, No distress, GCS 15, Non-toxic appearing, Ambulatory Other Gen/Cons comments:: lethargic and demented and disoriented Head: Atraumatic Eyes: Lids, conjuctiva normal, PERRL, EOMI Skin: Nl inspection, No rash, No skin lesions, No ecchymosis, Well hydrated, No lymphadenopathy ENMT: External ears, nose nl, Nasal exam nl, Lips, teeth, gums nl (poor dental hygiene) Neck: Nontender, Full ROM w/o pain, No JVD, No nuchal rigidity, No bruit, No mass, No stridor Respiratory: Nl effort/Exclusion, Clear to Auscultation, No Wheeze/Rhonchi/Rales Cardio Vascular: RRR, No murmur, gallop, rubs, NL S1 S2 GI: No tenderness/rebounding/guarding, No organomegaly, No hernia, Normal BS's, Nondistended (abdomen large distented but soft.), No mass/bruits, No McBurney tenderness : No CVA tenderness Extremities: No tenderness or effusion (left wrist resolving infection.), Full ROM, normal strength in all extremities, No edema, Normal digits & nails Neuro/Psych: Alert/oriented, DTR's symmetric, Normal sensory exam, Normal motor strength, Judgement/insight normal, Mood normal, Normal gait, No focal deficits Misc: Normal back, No paraspinal tenderness ED Labs/Radiology/EKG Results - Lab Results Results: Laboratory Tests 10/11/18 17:00 WBC 6.2 RBC 4.10 Hgb 10.7 L Hct 31.6 L MCV 77.2 L MCH 26.1 L MCHC Differential 33.8 RDW 18.3 Plt Count 251 MPV 6.8 Neutrophils % 68.5 Lymphocytes % 21.1 Monocytes % 8.7 Eosinophils % 0.8 Basophils % 0.9 - Radiology Results Results: chest x-ray = nad - EKG Interpretations EKG Time:: 17:14 Rate & Rhythm: rate = 83, sinus [place]: right ED Assessment - Assessment General Assessment: bilateral leg pain right lower extremity dvt elevated d-dimer. ED Septic Shock - . Is Septic Shock (SBP<90, OR Lactate>4 mmol\L) present?: No - <6hrs of presentation: Vital Signs: Vital Signs - 8 hr 10/11/18 16:37 Temp 98.8 F HR 88 RR 16 BP 122/38 O2 Sat % 95 ED Reassessment (Disposition) - Reassessment Reassessment Condition:: Improved - Diagnosis Diagnosis:: right leg dvt elevated d-dimer - Patient Disposition Discharge/Transfer:: Acute Care w/in this hosp Admitted to:: Med/Surg Admitting Medical Physician:: Leon Ch Condition at Disposition:: Improved
[2018-10-11] MEDS ORDERED: Magnesium Hydroxide (MOM) 30 mL UDC PO PRN (20:59)
[2018-10-11] MEDS ORDERED: Maalox 30 mL Cup PO PRN (20:59)
[2018-10-11] MEDS ORDERED: GLUCAGON HCl 1 MG KIT IM PRN (20:59)
[2018-10-11] MEDS ORDERED: Albuterol Nebulizer 2.5mg/3mL HHN PRN (21:04)
[2018-10-11] MEDS ORDERED: Ipratropium Neb 0.5 mg/2.5 mL UD HHN PRN (21:04)
[2018-10-11] MEDS: Atorvastatin Calcium 10 MG TAB PO SCH (21:30)
--- NOTE | 2018-10-11 21:51 | History & Physical ---
ADMIT DATE: 10/11/2018 INTERNAL MEDICINE HISTORY AND PHYSICAL CHIEF COMPLAINT: Right leg pain. HISTORY OF PRESENT ILLNESS: This is a 73-year-old female with history of hypertension, diabetes, CAD, COPD, high cholesterol, arthritis, dementia, admitted from nursing facility secondary to right leg pain with swelling and redness. The patient denies shortness of breath. The patient had elevated D-dimer. The patient admitted for further management. PAST MEDICAL HISTORY: As mentioned in history of present illness. PAST SURGICAL HISTORY: Denies surgeries in the past. ALLERGIES: PENICILLIN. MEDICATIONS: The patient is on insulin sliding scale, glipizide, atorvastatin, Pulmicort, Eucerin cream, Colace, Eliquis, Aricept, Ativan, losartan, magnesium, multivitamin, Ditropan, Seroquel, Ambien. FAMILY HISTORY: Noncontributory. SOCIAL HISTORY: The patient is a retirement patient, requiring 24-hour total care. REVIEW OF SYSTEMS: This is limited secondary to pain, comatose state. We will try to obtain more detailed review of system at a later date by talking to family members as well as the staff of [facility], . PHYSICAL EXAMINATION: VITAL SIGNS: Blood pressure 118/45, respiration 19, pulse 94, temperature 97.4. GENERAL: Elderly female, mildly obese. NECK: Supple. LUNGS: Equal breath sounds, few rhonchi. HEART: Regular with systolic ejection murmur. ABDOMEN: Soft, globular. EXTREMITIES: Positive for as above leg swelling, redness in the right lower extremity. NEUROLOGIC: Limited. LABORATORY DATA: WBC 6, hemoglobin 10, platelets 251. INR 1.3. D-dimer 2600. Sodium 134, potassium 4.5, BUN 34, creatinine 1.0, calcium 11.8, albumin 3.2. ASSESSMENT AND PLAN: Right lower extremity cellulitis, acute right leg deep venous thrombosis, anemia, hyponatremia, hypercalcemia, renal insufficiency, low albumin, diabetes, dementia, coronary artery disease, hypertension, hypercholesterolemia, paroxysmal atrial fibrillation. Continue the patient on oxygen, bronchodilator treatments. Continue on anticoagulation. We will place the patient on Lovenox 1 mg/kg. We will follow the patient's leg ultrasound. We will monitor for any bleeding. We will empirically start the patient on IV antibiotic. We will follow the patient's blood culture. We will follow consult and recommendations. JOB# [id number]
[2018-10-11 22:27] VITALS: BP 148/58
[2018-10-11] MEDS: Levofloxacin 500mg/100mL 500 MG/100 ML BAG IV SCH (22:35)
[2018-10-11] MEDS: Enoxaparin 80 mg/0.8 mL 0.8mL Syr SUBQ SCH (22:44)
[2018-10-11] MEDS: INSULIN LISPRO SLIDING SCALE 100 UNITS/ML UNIT SUBQ SCH (22:50)
[2018-10-12 05:21] LABS: % BASOPHILS 0.4 % (0.0-2.0); % EOSINOPHILS 0.8 % (0.0-5.0); % LYMPHOCYTES 22.4 % (20.0-50.0); % MONOCYTES 9.6 % (2.0-10.0); % NEUTROPHILS 66.8 % (40.0-80.0); HEMATOCRIT 29.4 % (41.0-60); HEMOGLOBIN 9.9 gm/dL (12-16); LYMPHOCYTE ABSOLUTE 1.3 Th/cmm (1.5-3.0); MEAN CELL VOLUME 77.3 fl (81-100); MEAN CORPUSCULAR HEMOGLOBIN 26.1 pg (27.0-31.0); MEAN CORPUSCULAR HGB CONC 33.7 pg (28.0-36.0); MONOCYTE ABSOLUTE 0.6 Th/cmm (0.3-1.0); PLATELET COUNT 229 Th/cmm (150-400); RED CELL DISTRIBUTION WIDTH 18.6 % (11.5-20.0); WHITE BLOOD COUNT 5.9 Th/cmm (4.8-10.8)
[2018-10-12 05:35] LABS: ALB/GLOB RATIO 1.5 (1.0-1.8); ALBUMIN 2.9 gm/dL (3.7-5.3); ALKALINE PHOSPHATASE 247 U/L (34-104); BILIRUBIN,TOTAL 0.6 mg/dL (0.3-1.0); BUN - UREA NITROGEN 36 mg/dL (7-25); CALCIUM SERUM 11.8 mg/dL (8.6-10.3); CARBON DIOXIDE 25.7 mEq/L (21.0-31.0); CHLORIDE 94 mEq/L (98-107); CREATININE - SERUM 1.2 mg/dL (0.6-1.2); GLUCOSE 67 mg/dL (70-105); POTASSIUM SERUM 4.7 mEq/L (3.5-5.1); SGOT 106 U/L (13-39); SGPT/ALT 28 U/L (7-52); SODIUM SERUM 129 mEq/L (136-145); TOTAL PROTEIN,SERUM 4.8 gm/dL (6.0-8.3)
[2018-10-12] MEDS: Pantoprazole 40 mg EC Tab PO SCH (06:49)
[2018-10-12] MEDS ORDERED: Budesonide 0.5 Mg/2 mL Ud HHN SCH (07:00)
--- NOTE | 2018-10-12 08:04 | Diagnostic Imaging Report ---
Exam: Portable chest x-ray HISTORY: Shortness of breath Prior exam: 12/17/2017 FINDINGS: Portable upright examination of the chest at 1753 was reviewed. The study demonstrates no acute pulmonic infiltrates or effusions. The costophrenic angles are clear. Bony thorax demonstrates a ill-defined lucency of the proximal right humerus question of nondisplaced fracture. Clinical correlation and detail views of the right humerus recommended. IMPRESSION: No acute disease. Fracture proximal right humerus. The emergency room was notified of findings.
[2018-10-12] MEDS ORDERED: Enoxaparin 40 mg/0.4 mL 0.4mL Syr SUBQ SCH (09:00)
[2018-10-12] MEDS ORDERED: Non-Formulary Item 1 EA (Fluticasone/Vilanterol [Breo Ellipta 100-25 Mcg Inh] 1 EACH) IH SCH (09:00)
[2018-10-12] MEDS: INSULIN LISPRO SLIDING SCALE 100 UNITS/ML UNIT SUBQ SCH ×3 (09:14→16:21)
[2018-10-12] MEDS: Enoxaparin 80 mg/0.8 mL 0.8mL Syr SUBQ SCH ×2 (09:15→22:20)
[2018-10-12] MEDS: Multivitamin Tab PO SCH (09:15)
[2018-10-12] MEDS: Eucerin Cream 16 oz Jar TP SCH ×2 (09:28→16:21)
--- NOTE | 2018-10-12 14:04 | Internal Medicine Prog Note ---
Internal Medicine Subjective - Subjective Patient seen and examined:: with staff, chart reviewed Patient is:: awake, verbal, in bed, agitated, confused Patient Complaints of:: congestion Per staff patient has:: no adverse event, no episodes of fall, agitated Internal Medicine Objective - Results Result Diagrams: 10/12/18 05:05 10/12/18 05:05 Recent Labs: Laboratory Last Values WBC 5.9 Th/cmm (4.8-10.8) 10/12/18 05:05 RBC 3.80 Mil/cmm (3.80-5.20) 10/12/18 05:05 Hgb 9.9 gm/dL (12-16) L 10/12/18 05:05 Hct 29.4 % (41.0-60) L 10/12/18 05:05 MCV 77.3 fl (81-100) L 10/12/18 05:05 MCH 26.1 pg (27.0-31.0) L 10/12/18 05:05 MCHC Differential 33.7 pg (28.0-36.0) 10/12/18 05:05 RDW 18.6 % (11.5-20.0) 10/12/18 05:05 Plt Count 229 Th/cmm (150-400) 10/12/18 05:05 MPV 6.9 fl 10/12/18 05:05 Neutrophils % 66.8 % (40.0-80.0) 10/12/18 05:05 Lymphocytes % 22.4 % (20.0-50.0) 10/12/18 05:05 Monocytes % 9.6 % (2.0-10.0) 10/12/18 05:05 Eosinophils % 0.8 % (0.0-5.0) 10/12/18 05:05 Basophils % 0.4 % (0.0-2.0) 10/12/18 05:05 PT 13.5 SECONDS (9.5-11.5) H 10/11/18 17:00 INR 1.32 (0.5-1.4) 10/11/18 17:00 D-Dimer 2660 ng/mL (100-400) H 10/11/18 17:00 Sodium 129 mEq/L (136-145) L 10/12/18 05:05 Potassium 4.7 mEq/L (3.5-5.1) 10/12/18 05:05 Chloride 94 mEq/L (98-107) L 10/12/18 05:05 Carbon Dioxide 25.7 mEq/L (21.0-31.0) 10/12/18 05:05 Anion Gap 14.0 (7.0-16.0) 10/12/18 05:05 BUN 36 mg/dL (7-25) H 10/12/18 05:05 Creatinine 1.2 mg/dL (0.6-1.2) 10/12/18 05:05 Est GFR ( Amer) TNP 10/12/18 05:05 Est GFR (Non-Af Amer) TNP 10/12/18 05:05 BUN/Creatinine Ratio 30.0 10/12/18 05:05 Glucose 67 mg/dL (70-105) L 10/12/18 05:05 POC Glucose 85 MG/DL (70 - 105) 10/12/18 06:25 Calcium 11.8 mg/dL (8.6-10.3) H 10/12/18 05:05 Magnesium 2.4 mg/dL (1.9-2.7) 10/11/18 17:00 Total Bilirubin 0.6 mg/dL (0.3-1.0) 10/12/18 05:05 AST 106 U/L (13-39) H 10/12/18 05:05 ALT 28 U/L (7-52) 10/12/18 05:05 Alkaline Phosphatase 247 U/L (34-104) H 10/12/18 05:05 Troponin I 0.02 ng/mL (0.01-0.05) 10/11/18 17:00 Total Protein 4.8 gm/dL (6.0-8.3) L 10/12/18 05:05 Albumin 2.9 gm/dL (3.7-5.3) L 10/12/18 05:05 Globulin 1.9 gm/dL 10/12/18 05:05 Albumin/Globulin Ratio 1.5 (1.0-1.8) 10/12/18 05:05 TSH 1.29 uIU/ml (0.34-5.60) 10/11/18 17:00 - Physical Exam Vitals and I&O: Vital Signs Temp 97.1 F 10/12/18 12:00 Pulse 99 10/12/18 12:00 Resp 19 10/12/18 12:00 BP 96/39 10/12/18 09:30 Pulse Ox 96 10/12/18 12:00 Intake & Output 10/11/18 10/12/18 10/12/18 18:59 06:59 18:59 Intake Total 500 200 Balance 500 200 Weight (lbs) 76.204 kg 70.76 kg 71.214 kg Intake: Intake, IV Amount 100 Levofloxacin 500mg/100mL 100 500 mg In 100 ml @ 100 mls/hr IV Q24HR [facility] Rx#: [id number] Oral 400 200 Other: # Voids 3 # Bowel Movements 0 Weight Source Bedscale Bedscale Bedscale Active Medications: Current Medications Acetaminophen (Tylenol) 650 mg PO Q4HR PRN PRN Reason: Mild Pain / Temp above 100 Stop: 12/10/18 20:58 Last Admin: 10/12/18 05:37 Dose: 650 mg Al Hydrox/Mg Hydrox/Simethicone (Maalox) 30 ml PO Q4H PRN PRN Reason: GI DISTRESS Stop: 12/10/18 20:58 Albuterol Sulfate (Albuterol 2.5mg/3ml Neb Ud) 2.5 mg HHN Q2HRT PRN PRN Reason: Shortness of Breath or Wheeze Stop: 12/10/18 21:03 Last Admin: 10/12/18 07:09 Dose: 2.5 mg Albuterol Sulfate (Albuterol 2.5mg/3ml Neb Ud) 2.5 mg [facility] Q6HRT [facility] Stop: 12/11/18 12:59 Ascorbic Acid (Vitamin C) 500 mg PO DAILY [facility] Stop: 12/11/18 08:59 Last Admin: 10/12/18 09:15 Dose: 500 mg Atorvastatin Calcium (Lipitor) 10 mg PO HS [place]INA; Protocol Stop: 12/10/18 20:59 Last Admin: 10/11/18 21:30 Dose: 10 mg Budesonide (Pulmicort) 0.5 mg HHN BIDRT [facility] Stop: 12/11/18 18:59 Dextrose (D50w) 50 ml IVP PRN PRN PRN Reason: Blood Glucose less than 70 Stop: 12/10/18 20:58 Docusate Sodium (Colace) 200 mg PO DAILY [facility] Stop: 12/11/18 08:59 Last Admin: 10/12/18 09:15 Dose: 200 mg Donepezil HCl (Aricept) 10 mg PO HS [facility] Stop: 12/10/18 20:59 Last Admin: 10/11/18 21:30 Dose: 10 mg Enoxaparin Sodium (Lovenox) 70 mg SUBQ Q12HR [facility] Stop: 12/10/18 22:29 Last Admin: 10/12/18 09:15 Dose: 70 mg Glipizide (Glucotrol) 5 mg PO BID [facility] Stop: 12/11/18 08:59 Last Admin: 10/12/18 09:28 Dose: Not Given Glucagon (Glucagen) 1 mg IM PRN PRN PRN Reason: Blood Glucose less than 70 Stop: 12/10/18 20:58 Levofloxacin (Levaquin Pb) 500 mg in 100 mls @ 100 mls/hr IV Q24HR [facility] Stop: 12/10/18 21:59 Last Infusion: 10/11/18 23:35 Dose: Infused Sodium Chloride (Nacl 0.9%) 1,000 mls @ 80 mls/hr IV .[id number] [facility] Stop: 12/11/18 13:59 Insulin Human Lispro (Humalog Insulin Sliding Scale) 0 units SUBQ ACHS [facility]; Protocol Stop: 12/10/18 20:59 Last Admin: 10/12/18 12:40 Dose: Not Given Ipratropium [place] (Atrovent Neb 0.5mg/2.5ml) 0.5 mg HHN Q2HRT PRN PRN Reason: Shortness of Breath or Wheeze Stop: 12/10/18 21:03 Last Admin: 10/12/18 07:09 Dose: 0.5 mg Lorazepam (Ativan) 0.5 mg PO Q4HR PRN; Protocol PRN Reason: Anxiety Stop: 12/10/18 20:58 Last Admin: 10/11/18 22:58 Dose: 0.5 mg Magnesium Hydroxide (Milk Of Magnesia) 30 ml PO HS PRN PRN Reason: Constipation Stop: 12/10/18 20:58 Magnesium Oxide (Mag-Oxide) 400 mg PO BID [facility] Stop: 12/11/18 08:59 Last Admin: 10/12/18 09:15 Dose: 400 mg Multi-Ingredient Cream (Eucerin Cream) 1 appl TP BID [place] Stop: 12/11/18 08:59 Last Admin: 10/12/18 09:28 Dose: Not Given Multivitamins/Vitamin C (Theragran) 1 tab PO DAILY [place] Stop: 12/11/18 08:59 Last Admin: 10/12/18 09:15 Dose: 1 tab Oxybutynin Chloride (Ditropan) 5 mg PO BID [facility] Stop: 12/11/18 08:59 Last Admin: 10/12/18 09:15 Dose: 5 mg Pantoprazole Sodium (Protonix) 40 mg PO QDAC [facility] Stop: 12/11/18 07:29 Last Admin: 10/12/18 06:49 Dose: 40 mg Quetiapine Fumarate (Seroquel) 75 mg PO HS [place]; Protocol Stop: 12/10/18 20:59 Last Admin: 10/11/18 21:30 Dose: 75 mg Zolpidem Tartrate (Ambien) 5 mg PO HS PRN PRN Reason: Insomnia Stop: 12/10/18 20:58 General: demented HEENT: NC/AT, PERRLA, EOMI Neck: Supple, No JVD Lungs: rales Cardiovascular: RRR, Normal S1, Normal S2, with murmur Abdomen: soft, globular, positive bowel sound Extremities: excoriation, contracture Neurological: no change, disorganized - Procedures Procedures: Procedures Procedure Code Date INDIVID PSYCHOTHERAP NEC 94.39 07/05/04 INJECT/INFUSE NEC 99.29 03/18/13 OTHER GROUP THERAPY 94.44 12/18/13 RECREATIONAL THERAPY 93.81 07/05/04 Internal Medicine Assmt/Plan - Assessment Assessment: ASSESSMENT AND PLAN: Right lower extremity cellulitis, acute right leg deep venous thrombosis, anemia, hyponatremia, hypercalcemia, renal insufficiency, low albumin, diabetes, dementia, coronary artery disease, hypertension, hypercholesterolemia, paroxysmal atrial fibrillation. - Plan Plan: PLAN: Continue the patient on oxygen, bronchodilator treatments. Continue on anticoagulation. We will place the patient on Lovenox 1 mg/kg. We will follow the patient's leg ultrasound. We will monitor for any bleeding. We will empirically start the patient on IV antibiotic. We will follow the patient's blood culture. We will follow consult and recommendations. Nutritional Asmnt/Malnutr-PDOC - Dietary Evaluation Malnutrition Findings (Please click <Entered> for more info): Nutritional Asmnt/Malnutrition Start: 10/12/18 11: 27 Text: Status: Complete Freq: Protocol: Document 10/12/18 11:28 WERO (Rec: 10/12/18 11:31 [id number]) Nutritional Asmnt/Malnutrition Patient General Information Nutritional Screening High Risk Diagnosis Cellulitis Pertinent Medical Hx/Surgical Hx HTN, DM, CAD, Asthma/COPD, Dyslipidemia, PUD/GERD, Arthritis, Dementia Subjective Information Consult: Jordan scale 12 Pt is a 73-year-old female admitted on 10/11 from [facility] c/o cellulitis of the leg . Nurse was in room repositioning Pt as I was checking wound notes/pictures. Spoke with RN, Edu, concerning Pt wounds and provided him with Rufus to support wound healing. Pt was unable to comprehend/answer questions pertaining to diet. HT: 52 WT: 156 LB (70.91 kg) BMI: 28.53 (Overweight) GI: WNL, Soft, Non-tender, Large BM: not Noted I/O: 500/Not Noted Skin: Pale, Warm, Dry, Loose, Area of Concern: reddened Lt/ Re heel Wound: reddened, unstageable sacral, Dry wound, reddened Lt hand Jordan: 12 Diet Order: Mechanical Soft, chopped Estimated Energy Needs: ( Geriatric, CBW) 3515-6165 kcals (25-30 kcals/ kg) 71-85g Pro (1.0-1.2 g/kg) 1519-7252 ml (25-30 ml/kg) Current Diet Order/ Nutrition Support Mechanical Soft, chopped Pertinent Medications Maalox (PRN), Albuterol (PRN), Vitamin C, Lipitor, D50W (PRN ), Colace, Glucotrol, Glucagen (PRN), INS-SS, Cozaar, MOM ( PRN), Mag-Oxide, Theragran, Protonix Pertinent Labs 10/12: Hgb/Hct 9.9/29.4, Na 129 , BUN/Cr 36/1.2, Glucose 67, Ca 11.8, AST 106, Alk Phos 247 , T Pro 4.8, Alb 2.9 POC Glucose (last 24 hours): 67, 90, 85 Nutritional Hx/Data Height 1.57 m Height (Calculated Centimeters) 157.5 Current Weight (lbs) 70.76 kg Weight (Calculated Kilograms) 70.8 Weight (Calculated Grams) 23444.4 [place] Body Weight 110 LB (50 kg) % [place] Body Weight 142 Body Mass Index (BMI) 28.5 Weight Status Overweight GI Symptoms Last BM Not Noted Skin Integrity/Comment: Skin: Pale, Warm, Dry, Loose, Area of Concern: reddened Lt/ Re heel Wound: reddened, unstageable sacral, Dry wound, reddened Lt hand Jordan: 12 Estimated Nutritional Goals BEE in Kcals: Using Current wt Calories/Kcals/Kg 25-30 Kcals Calculated 2667-0519 Protein: Using Current wt Protein g/k.0-1.2 Protein Calculated 71-85 Fluid: ml 9999-9642 ml (25-30 ml/kg) Nutritional Problem 1. Problem Problem Altered nutrition related labs Etiology r/t pathophysiological causes Signs/Symptoms: aeb Hgb/Hct 9.9/29.4, Na 129, BUN/Cr 36/1.2, Glucose 67, Ca 11.8, AST 106, Alk Phos 247, T Pro 4.8, Alb 2.9 Intervention/Recommendation Comments 1. Continue with Mechanical Soft, chopped diet as ordered. 2. Provide Pt with Rufus BID for wound healing (completed). Expected Outcomes/Goals Expected Outcomes/Goals 1. PO intake to meet 75% of nutritional needs. 2. Monitor PO intake, wt, nutrition related labs, and skin integrity to trend WNL. 3. F/U as moderate risk in 3-5 days, 10/15-10/17
[2018-10-12] MEDS: Sodium Chloride 0.9% 1,000 ML IV SCH (14:46)
[2018-10-12] MEDS: Albuterol Nebulizer 2.5mg/3mL HHN SCH (19:16)
[2018-10-12] MEDS: Budesonide 0.5 Mg/2 mL Ud HHN SCH (19:16)
[2018-10-12] MEDS: Atorvastatin Calcium 10 MG TAB PO SCH (22:23)
[2018-10-12] MEDS: Levofloxacin 500mg/100mL 500 MG/100 ML BAG IV SCH (22:24)
[2018-10-13] MEDS: Albuterol Nebulizer 2.5mg/3mL HHN SCH ×4 (00:11→19:01)
[2018-10-13] MEDS: INSULIN LISPRO SLIDING SCALE 100 UNITS/ML UNIT SUBQ SCH ×5 (02:21→21:06)
[2018-10-13] MEDS: Sodium Chloride 0.9% 1,000 ML IV SCH ×2 (04:00→17:49)
[2018-10-13 04:39] LABS: HEMATOCRIT 28.9 % (41.0-60); HEMOGLOBIN 9.8 gm/dL (12-16); MEAN CELL VOLUME 77.1 fl (81-100); MEAN CORPUSCULAR HEMOGLOBIN 26.1 pg (27.0-31.0); MEAN CORPUSCULAR HGB CONC 33.8 pg (28.0-36.0); PLATELET COUNT 209 Th/cmm (150-400); RED BLOOD COUNT 3.75 Mil/cmm (3.80-5.20); RED CELL DISTRIBUTION WIDTH 18.8 % (11.5-20.0); WHITE BLOOD COUNT 5.3 Th/cmm (4.8-10.8)
[2018-10-13 04:53] LABS: ANION GAP 15.1 (7.0-16.0); BUN - UREA NITROGEN 43 mg/dL (7-25); CALCIUM SERUM 12.3 mg/dL (8.6-10.3); CARBON DIOXIDE 25.4 mEq/L (21.0-31.0); CHLORIDE 98 mEq/L (98-107); CREATININE - SERUM 1.5 mg/dL (0.6-1.2); GLUCOSE 71 mg/dL (70-105); POTASSIUM SERUM 4.5 mEq/L (3.5-5.1); SODIUM SERUM 134 mEq/L (136-145)
[2018-10-13] MEDS: Pantoprazole 40 mg EC Tab PO SCH ×3 (05:57→12:03)
[2018-10-13] MEDS: Budesonide 0.5 Mg/2 mL Ud HHN SCH ×2 (06:20→19:13)
[2018-10-13] MEDS: Multivitamin Tab PO SCH (09:13)
[2018-10-13] MEDS: Enoxaparin 80 mg/0.8 mL 0.8mL Syr SUBQ SCH (09:13)
--- NOTE | 2018-10-13 09:24 | Diagnostic Imaging Report ---
Right lower extremity DVT study HISTORY: Pain, rule out DVT COMPARISON: None Technique: Longitudinal and transverse sonographic images of the right lower extremity veins were obtained with doppler analysis. FINDINGS: There is normal compressibility, augmentation and phasicity of the right common femoral, superficial femoral, popliteal, and posterior tibial veins. No thrombus is visualized. IMPRESSION: No evidence of thrombus within the right lower extremity veins.
--- NOTE | 2018-10-13 09:28 | Diagnostic Imaging Report ---
Right lower extremity arterial Doppler study HISTORY: Pain COMPARISON: None Technique: Longitudinal and transverse sonographic images of the right lower extremity arteries were obtained with doppler analysis. FINDINGS: Exam of the right side demonstrates primarily monophasic and biphasic waveforms. Mild atherosclerotic vascular disease is suspected. No sonographic evidence of occlusion. Right PALOMA 1.0 Left PALOMA 1.0. IMPRESSION: Findings suggestive of mild generalized atherosclerotic vascular disease. No sonographic evidence of occlusion.
--- NOTE | 2018-10-13 09:34 | Diagnostic Imaging Report ---
Right humerus 2 views Indication: Pain rule out fracture Comparison: none Findings: There is ill-defined lucency seen within the proximal one third of the humeral shaft along the cortex with periosteal reaction noted. A subtle fracture/pathologic fracture cannot be excluded. Mild to moderate degenerative changes of the shoulder noted. Punctate calcifications are seen within the soft tissues of the mid humerus. There appears to be deformity of the elbow with previous fracture of the mid radius. There is possible right midlung infiltrate. Impression: Ill-defined lucency within the shaft of the proximal one third of the humerus with periosteal reaction noted. Subtle pathological fracture cannot be excluded. Recommend clinical motion follow-up with preferably CT or MRI examination. Deformity of the elbow noted with previous possible chronic fracture of the mid radial shaft. Consider additional views if indicated. Possible right midlung infiltrate recommend chest x-ray. In the setting of trauma, if clinical symptoms persist and there is continued concern for an occult fracture, follow up exams in 5-7 days is suggested.
--- NOTE | 2018-10-13 09:37 | Diagnostic Imaging Report ---
Pelvis and bilateral hips 3 views Indication: pain Comparison: Pelvis x-ray on 08/12/2018 Findings: There is a markedly displaced fracture of the intertrochanteric region of the left proximal femur with areas of callus formation. There is appears to be additional age-indeterminate fractures involving the right and right inferior pubic rami. There is a lucent lesion along the left superior acetabulum measuring 2.6 x 2.8 cm. Degenerative changes of the lower lumbar spine are noted. No dislocation. There is distal fecal impaction. Impression: Markedly displaced fracture of the intertrochanteric region of the left femur which may be subacute as there is a callus formation in this region. Please correlate clinically. Additional age indeterminate fractures of the right superior and inferior pubic rami. Large cystic lesion measuring 2.6 x 2.8 cm of the superolateral left acetabulum which may be a subchondral cyst or other etiology such as a metastatic lesion. If necessary nuclear medicine bone scan may be obtained for further assessment. Degenerative changes Distal fecal impaction. In the setting of trauma, if clinical symptoms persist and there is continued concern for an occult fracture, follow up exams in 5-7 days is suggested.
--- NOTE | 2018-10-13 12:28 | Internal Medicine Prog Note ---
Internal Medicine Subjective - Subjective Patient seen and examined:: with staff, chart reviewed Patient is:: awake, verbal, in bed, agitated, confused Patient Complaints of:: congestion Per staff patient has:: no adverse event, no episodes of fall, agitated Internal Medicine Objective - Results Result Diagrams: 10/13/18 04:25 10/13/18 04:25 Recent Labs: Laboratory Last Values WBC 5.3 Th/cmm (4.8-10.8) 10/13/18 04:25 RBC 3.75 Mil/cmm (3.80-5.20) L 10/13/18 04:25 Hgb 9.8 gm/dL (12-16) L 10/13/18 04:25 Hct 28.9 % (41.0-60) L 10/13/18 04:25 MCV 77.1 fl (81-100) L 10/13/18 04:25 MCH 26.1 pg (27.0-31.0) L 10/13/18 04:25 MCHC Differential 33.8 pg (28.0-36.0) 10/13/18 04:25 RDW 18.8 % (11.5-20.0) 10/13/18 04:25 Plt Count 209 Th/cmm (150-400) 10/13/18 04:25 MPV 6.6 fl 10/13/18 04:25 Add Manual Diff YES 10/13/18 04:25 Neutrophils % DINING ROOM HELPER 10/13/18 04:25 Lymphocytes % D[employer]ING ROOM HELPER 10/13/18 04:25 Monocytes % D[employer]ING ROOM HELPER 10/13/18 04:25 Eosinophils % D[employer]ING ROOM HELPER 10/13/18 04:25 Basophils % D[employer]ING ROOM HELPER 10/13/18 04:25 PT 13.5 SECONDS (9.5-11.5) H 10/11/18 17:00 INR 1.32 (0.5-1.4) 10/11/18 17:00 D-Dimer 2660 ng/mL (100-400) H 10/11/18 17:00 Sodium 134 mEq/L (136-145) L 10/13/18 04:25 Potassium 4.5 mEq/L (3.5-5.1) 10/13/18 04:25 Chloride 98 mEq/L (98-107) 10/13/18 04:25 Carbon Dioxide 25.4 mEq/L (21.0-31.0) 10/13/18 04:25 Anion Gap 15.1 (7.0-16.0) 10/13/18 04:25 BUN 43 mg/dL (7-25) H 10/13/18 04:25 Creatinine 1.5 mg/dL (0.6-1.2) H 10/13/18 04:25 Est GFR ( Amer) TNP 10/13/18 04:25 Est GFR (Non-Af Amer) TNP 10/13/18 04:25 BUN/Creatinine Ratio 28.7 10/13/18 04:25 Glucose 71 mg/dL (70-105) 10/13/18 04:25 POC Glucose 100 MG/DL (70 - 105) 10/13/18 11:24 Calcium 12.3 mg/dL (8.6-10.3) H 10/13/18 04:25 Magnesium 2.4 mg/dL (1.9-2.7) 10/11/18 17:00 Total Bilirubin 0.6 mg/dL (0.3-1.0) 10/12/18 05:05 AST 106 U/L (13-39) H 10/12/18 05:05 ALT 28 U/L (7-52) 10/12/18 05:05 Alkaline Phosphatase 247 U/L (34-104) H 10/12/18 05:05 Troponin I 0.02 ng/mL (0.01-0.05) 10/11/18 17:00 B-Natriuretic Peptide 31.6 pg/mL (5.0-100.0) 10/13/18 04:25 Total Protein 4.8 gm/dL (6.0-8.3) L 10/12/18 05:05 Albumin 2.9 gm/dL (3.7-5.3) L 10/12/18 05:05 Globulin 1.9 gm/dL 10/12/18 05:05 Albumin/Globulin Ratio 1.5 (1.0-1.8) 10/12/18 05:05 TSH 1.29 uIU/ml (0.34-5.60) 10/11/18 17:00 - Physical Exam Vitals and I&O: Vital Signs Temp 98.3 F 10/13/18 11:50 Pulse 95 10/13/18 12:19 Resp 28 10/13/18 12:19 BP 101/56 10/13/18 11:50 Pulse Ox 94 10/13/18 12:19 Intake & Output 10/12/18 10/13/18 10/13/18 18:59 06:59 18:59 Intake Total 200 1300 Output Total 450 Balance 200 850 Weight (lbs) 71.214 kg 71.441 kg Intake: Intake, IV Amount 1000 Sodium Chloride 0.9% 1, 1000 000 ml @ 80 mls/hr IV . [id number] [facility] Rx#:[id number] Oral 200 200 Other 100 Output: Urine 450 Other: # Bowel Movements 0 Weight Source Bedscale Bedscale Active Medications: Current Medications Acetaminophen (Tylenol) 650 mg PO Q4HR PRN PRN Reason: Mild Pain / Temp above 100 Stop: 12/10/18 20:58 Last Admin: 10/13/18 09:24 Dose: 650 mg Al Hydrox/Mg Hydrox/Simethicone (Maalox) 30 ml PO Q4H PRN PRN Reason: GI DISTRESS Stop: 12/10/18 20:58 Albuterol Sulfate (Albuterol 2.5mg/3ml Neb Ud) 2.5 mg HHN Q2HRT PRN PRN Reason: Shortness of Breath or Wheeze Stop: 12/10/18 21:03 Last Admin: 10/12/18 07:09 Dose: 2.5 mg Albuterol Sulfate (Albuterol 2.5mg/3ml Neb Ud) 2.5 mg HHN Q6HRT [facility] Stop: 12/11/18 12:59 Last Admin: 10/13/18 12:16 Dose: 2.5 mg Ascorbic Acid (Vitamin C) 500 mg PO DAILY [facility] Stop: 12/11/18 08:59 Last Admin: 10/13/18 09:13 Dose: 500 mg Atorvastatin Calcium (Lipitor) 10 mg PO HS [facility]; Protocol Stop: 12/10/18 20:59 Last Admin: 10/12/18 22:23 Dose: 10 mg Budesonide (Pulmicort) 0.5 mg HHN BIDRT [facility] Stop: 12/11/18 18:59 Last Admin: 10/13/18 06:20 Dose: 0.5 mg Dextrose (D50w) 50 ml IVP PRN PRN PRN Reason: Blood Glucose less than 70 Stop: 12/10/18 20:58 Docusate Sodium (Colace) 200 mg PO DAILY [facility] Stop: 12/11/18 08:59 Last Admin: 10/13/18 09:13 Dose: 200 mg Donepezil HCl (Aricept) 10 mg PO HS [facility] Stop: 12/10/18 20:59 Last Admin: 10/12/18 22:22 Dose: 10 mg Enoxaparin Sodium (Lovenox) 30 mg SUBQ DAILY [facility] Stop: 12/13/18 08:59 Glipizide (Glucotrol) 5 mg PO BID [facility] Stop: 12/11/18 08:59 Last Admin: 10/13/18 09:20 Dose: Not Given Glucagon (Glucagen) 1 mg IM PRN PRN PRN Reason: Blood Glucose less than 70 Stop: 12/10/18 20:58 Levofloxacin (Levaquin Pb) 500 mg in 100 mls @ 100 mls/hr IV Q24HR [facility] Stop: 12/10/18 21:59 Last Admin: 10/12/18 22:24 Dose: 100 mls/hr Sodium Chloride (Nacl 0.9%) 1,000 mls @ 80 mls/hr IV .[id number] [facility] Stop: 12/11/18 13:59 Last Admin: 10/13/18 04:00 Dose: 80 mls/hr Ibuprofen (Motrin) 400 mg PO Q4HR PRN PRN Reason: Pain (Moderate) Stop: 12/11/18 15:28 Last Admin: 10/12/18 17:03 Dose: 400 mg Insulin Human Lispro (Humalog Insulin Sliding Scale) 0 units SUBQ ACHS [facility]; Protocol Stop: 12/10/18 20:59 Last Admin: 10/13/18 12:03 Dose: Not Given Ipratropium [place] (Atrovent Neb 0.5mg/2.5ml) 0.5 mg HHN Q2HRT PRN PRN Reason: Shortness of Breath or Wheeze Stop: 12/10/18 21:03 Last Admin: 10/12/18 07:09 Dose: 0.5 mg Lorazepam (Ativan) 0.5 mg PO Q4HR PRN; Protocol PRN Reason: Anxiety Stop: 12/10/18 20:58 Last Admin: 10/12/18 22:24 Dose: 0.5 mg Magnesium Hydroxide (Milk Of Magnesia) 30 ml PO HS PRN PRN Reason: Constipation Stop: 12/10/18 20:58 Magnesium Oxide (Mag-Oxide) 400 mg PO BID [facility] Stop: 12/11/18 08:59 Last Admin: 10/13/18 09:13 Dose: 400 mg Multi-Ingredient Cream (Eucerin Cream) 1 appl TP BID [facility] Stop: 12/11/18 08:59 Last Admin: 10/12/18 16:21 Dose: Not Given Multivitamins/Vitamin C (Theragran) 1 tab PO DAILY [facility] Stop: 12/11/18 08:59 Last Admin: 10/13/18 09:13 Dose: 1 tab Mupirocin (Bactroban Oint) 1 appl NS BID [facility] Stop: 10/17/18 09:01 Last Admin: 10/13/18 09:14 Dose: 1 appl Oxybutynin Chloride (Ditropan) 5 mg PO BID [facility] Stop: 12/11/18 08:59 Last Admin: 10/13/18 09:13 Dose: 5 mg Pantoprazole Sodium (Protonix) 40 mg PO QDAC [facility] Stop: 12/11/18 07:29 Last Admin: 10/13/18 12:03 Dose: Not Given Quetiapine Fumarate (Seroquel) 75 mg PO HS [facility]; Protocol Stop: 12/10/18 20:59 Last Admin: 10/12/18 22:21 Dose: 75 mg Zolpidem Tartrate (Ambien) 5 mg PO HS PRN PRN Reason: Insomnia Stop: 12/10/18 20:58 General: demented HEENT: NC/AT, PERRLA, EOMI Neck: Supple, No JVD Lungs: rales Cardiovascular: RRR, Normal S1, Normal S2, with murmur Abdomen: soft, globular, positive bowel sound Extremities: excoriation, contracture Neurological: no change, disorganized - Procedures Procedures: Procedures Procedure Code Date INDIVID PSYCHOTHERAP NEC 94.39 07/05/04 INJECT/INFUSE NEC 99.29 03/18/13 OTHER GROUP THERAPY 94.44 12/18/13 RECREATIONAL THERAPY 93.81 07/05/04 Internal Medicine Assmt/Plan - Assessment Assessment: ASSESSMENT AND PLAN: Right lower extremity cellulitis, acute right leg deep venous thrombosis, anemia, hyponatremia, hypercalcemia, renal insufficiency, low albumin, diabetes, dementia, coronary artery disease, hypertension, hypercholesterolemia, paroxysmal atrial fibrillation. - Plan Plan: PLAN: Continue the patient on oxygen, bronchodilator treatments. Continue on anticoagulation. We will place the patient on Lovenox 1 mg/kg. We will follow the patient's leg ultrasound. We will monitor for any bleeding. We will empirically start the patient on IV antibiotic. We will follow the patient's blood culture. We will follow consult and recommendations. will work pt up for multiple myeloma Nutritional Asmnt/Malnutr-PDOC - Dietary Evaluation Malnutrition Findings (Please click <Entered> for more info): Nutritional Asmnt/Malnutrition Start: 10/12/18 11: 27 Text: Status: Complete Freq: Protocol: Document 10/12/18 11:28 WERO (Rec: 10/12/18 11:31 [email or web address]) Nutritional Asmnt/Malnutrition Patient General Information Nutritional Screening High Risk Diagnosis Cellulitis Pertinent Medical Hx/Surgical Hx HTN, DM, CAD, Asthma/COPD, Dyslipidemia, PUD/GERD, Arthritis, Dementia Subjective Information Consult: Jordan scale 12 Pt is a 73-year-old female [facility] of the leg . Nurse was in room repositioning Pt as I was checking wound notes/pictures. Spoke with RN, Edu, concerning Pt wounds and provided him with Rufus to support wound healing. Pt was unable to comprehend/answer questions pertaining to diet. HT: 52 WT: 156 LB (70.91 kg) BMI: 28.53 (Overweight) GI: WNL, Soft, Non-tender, Large BM: not Noted I/O: 500/Not Noted Skin: Pale, Warm, Dry, Loose, Area of Concern: reddened Lt/ Re heel Wound: reddened, unstageable sacral, Dry wound, reddened Lt hand Jordan: 12 Diet Order: Mechanical Soft, chopped Estimated Energy Needs: ( Geriatric, CBW) 3379-3613 kcals (25-30 kcals/ kg) 71-85g Pro (1.0-1.2 g/kg) 6347-2718 ml (25-30 ml/kg) Current Diet Order/ Nutrition Support Mechanical Soft, chopped Pertinent Medications Maalox (PRN), Albuterol (PRN), Vitamin C, Lipitor, D50W (PRN ), Colace, Glucotrol, Glucagen (PRN), INS-SS, Cozaar, MOM ( PRN), Mag-Oxide, Theragran, Protonix Pertinent Labs 10/12: Hgb/Hct 9.9/29.4, Na 129 , BUN/Cr 36/1.2, Glucose 67, Ca 11.8, AST 106, Alk Phos 247 , T Pro 4.8, Alb 2.9 POC Glucose (last 24 hours): 67, 90, 85 Nutritional Hx/Data Height 1.57 m Height (Calculated Centimeters) 157.5 Current Weight (lbs) 70.76 kg Weight (Calculated Kilograms) 70.8 Weight (Calculated Grams) 81273.4 [place] Body Weight 110 LB (50 kg) % [place] Body Weight 142 Body Mass Index (BMI) 28.5 Weight Status Overweight GI Symptoms Last BM Not Noted Skin Integrity/Comment: Skin: Pale, Warm, Dry, Loose, Area of Concern: reddened Lt/ Re heel Wound: reddened, unstageable sacral, Dry wound, reddened Lt hand Jordan: 12 Estimated Nutritional Goals BEE in Kcals: Using Current wt Calories/Kcals/Kg 25-30 Kcals Calculated 8930-3678 Protein: Using Current wt Protein g/k.0-1.2 Protein Calculated 71-85 Fluid: ml 3184-2367 ml (25-30 ml/kg) Nutritional Problem 1. Problem Problem Altered nutrition related labs Etiology r/t pathophysiological causes Signs/Symptoms: aeb Hgb/Hct 9.9/29.4, Na 129, BUN/Cr 36/1.2, Glucose 67, Ca 11.8, AST 106, Alk Phos 247, T Pro 4.8, Alb 2.9 Intervention/Recommendation Comments 1. Continue with Mechanical Soft, chopped diet as ordered. 2. Provide Pt with Rufus BID for wound healing (completed). Expected Outcomes/Goals Expected Outcomes/Goals 1. PO intake to meet 75% of nutritional needs. 2. Monitor PO intake, wt, nutrition related labs, and skin integrity to trend WNL. 3. F/U as moderate risk in 3-5 days, 10/15-10/17
[2018-10-13 14:14] LABS: BAND NEUTROPHILE 0 % (0-10); BASOPHIL 0 % (0-3); EOSINOPHIL 0 % (0-5); LYMPHOCYTE 32 % (20-50); MONOCYTE 7 % (2-10); NEUTROPHILS 61 % (40-80); PLATELET ESTIMATE ADEQUATE (NORMAL)
[2018-10-13] MEDS: Eucerin Cream 16 oz Jar TP SCH ×2 (14:45→16:48)
[2018-10-13] MEDS: Venelex 60gm Tube TP SCH (17:03)
[2018-10-13] MEDS: Atorvastatin Calcium 10 MG TAB PO SCH (20:52)
[2018-10-13] MEDS: Levofloxacin 500mg/100mL 500 MG/100 ML BAG IV SCH (22:15)
[2018-10-14] MEDS: Albuterol Nebulizer 2.5mg/3mL HHN SCH ×4 (00:29→18:42)
[2018-10-14] MEDS: INSULIN LISPRO SLIDING SCALE 100 UNITS/ML UNIT SUBQ SCH ×4 (06:38→21:00)
[2018-10-14] MEDS: Pantoprazole 40 mg EC Tab PO SCH (06:41)
[2018-10-14] MEDS: Budesonide 0.5 Mg/2 mL Ud HHN SCH ×2 (06:56→18:43)
[2018-10-14] MEDS: Multivitamin Tab PO SCH (08:12)
[2018-10-14] MEDS: Sodium Chloride 0.9% 1,000 ML IV SCH (08:12)
[2018-10-14] MEDS: Eucerin Cream 16 oz Jar TP SCH ×2 (08:13→16:09)
[2018-10-14] MEDS: Venelex 60gm Tube TP SCH (08:13)
[2018-10-14] MEDS: Enoxaparin 30 mg/0.3 mL 0.3mL Syr SUBQ SCH (08:14)
--- NOTE | 2018-10-14 12:11 | Internal Medicine Prog Note ---
Internal Medicine Subjective - Subjective Patient seen and examined:: with staff, chart reviewed, other (not eating much per palletizer) Patient is:: awake, verbal, in bed, agitated, confused Patient Complaints of:: congestion Per staff patient has:: no adverse event, no episodes of fall, agitated Internal Medicine Objective - Results Result Diagrams: 10/13/18 04:25 10/13/18 04:25 Recent Labs: Laboratory Last Values WBC 5.3 Th/cmm (4.8-10.8) 10/13/18 04:25 RBC 3.75 Mil/cmm (3.80-5.20) L 10/13/18 04:25 Hgb 9.8 gm/dL (12-16) L 10/13/18 04:25 Hct 28.9 % (41.0-60) L 10/13/18 04:25 MCV 77.1 fl (81-100) L 10/13/18 04:25 MCH 26.1 pg (27.0-31.0) L 10/13/18 04:25 MCHC Differential 33.8 pg (28.0-36.0) 10/13/18 04:25 RDW 18.8 % (11.5-20.0) 10/13/18 04:25 Plt Count 209 Th/cmm (150-400) 10/13/18 04:25 MPV 6.6 fl 10/13/18 04:25 Add Manual Diff YES 10/13/18 04:25 Neutrophils % [employer] COUNSELOR 10/13/18 04:25 Band Neutrophils % 0 % (0-10) 10/13/18 04:25 Lymphocytes % [employer]CIAL COUNSELOR 10/13/18 04:25 Monocytes % [employer]CIAL COUNSELOR 10/13/18 04:25 Eosinophils % [employer] FIN[employer]CIAL COUNSELOR 10/13/18 04:25 Basophils % [employer] FIN[employer]CIAL COUNSELOR 10/13/18 04:25 Neutrophils (Manual) 61 % (40-80) 10/13/18 04:25 Lymphocytes 32 % (20-50) 10/13/18 04:25 Monocytes 7 % (2-10) 10/13/18 04:25 Eosinophils 0 % (0-5) 10/13/18 04:25 Basophils 0 % (0-3) 10/13/18 04:25 Platelet Estimate ADEQUATE (NORMAL) 10/13/18 04:25 Microcytosis 1+ 10/13/18 04:25 PT 13.5 SECONDS (9.5-11.5) H 10/11/18 17:00 INR 1.32 (0.5-1.4) 10/11/18 17:00 D-Dimer 2660 ng/mL (100-400) H 10/11/18 17:00 Sodium 134 mEq/L (136-145) L 10/13/18 04:25 Potassium 4.5 mEq/L (3.5-5.1) 10/13/18 04:25 Chloride 98 mEq/L (98-107) 10/13/18 04:25 Carbon Dioxide 25.4 mEq/L (21.0-31.0) 10/13/18 04:25 Anion Gap 15.1 (7.0-16.0) 10/13/18 04:25 BUN 43 mg/dL (7-25) H 10/13/18 04:25 Creatinine 1.5 mg/dL (0.6-1.2) H 10/13/18 04:25 Est GFR ( Amer) TNP 10/13/18 04:25 Est GFR (Non-Af Amer) TNP 10/13/18 04:25 BUN/Creatinine Ratio 28.7 10/13/18 04:25 Glucose 71 mg/dL (70-105) 10/13/18 04:25 POC Glucose 94 MG/DL (70 - 105) 10/14/18 11:18 Calcium 12.3 mg/dL (8.6-10.3) H 10/13/18 04:25 Magnesium 2.4 mg/dL (1.9-2.7) 10/11/18 17:00 Total Bilirubin 0.6 mg/dL (0.3-1.0) 10/12/18 05:05 AST 106 U/L (13-39) H 10/12/18 05:05 ALT 28 U/L (7-52) 10/12/18 05:05 Alkaline Phosphatase 247 U/L (34-104) H 10/12/18 05:05 Troponin I 0.02 ng/mL (0.01-0.05) 10/11/18 17:00 B-Natriuretic Peptide 31.6 pg/mL (5.0-100.0) 10/13/18 04:25 Total Protein 4.8 gm/dL (6.0-8.3) L 10/12/18 05:05 Albumin 2.9 gm/dL (3.7-5.3) L 10/12/18 05:05 Globulin 1.9 gm/dL 10/12/18 05:05 Albumin/Globulin Ratio 1.5 (1.0-1.8) 10/12/18 05:05 TSH 1.29 uIU/ml (0.34-5.60) 10/11/18 17:00 - Physical Exam Vitals and I&O: Vital Signs Temp 97.0 F 10/14/18 08:00 Pulse 96 10/14/18 12:03 Resp 20 10/14/18 12:03 BP 96/61 10/14/18 08:00 Pulse Ox 97 10/14/18 12:03 Intake & Output 10/13/18 10/14/18 10/14/18 18:59 06:59 18:59 Intake Total 1000 1700 Output Total 1500 Balance 1000 200 Weight (lbs) 72.32 kg Intake: Intake, IV Amount 1000 1000 Sodium Chloride 0.9% 1, 1000 1000 000 ml @ 80 mls/hr IV . [id number] [facility] Rx#:[id number] Oral 700 Output: Urine 1500 Other: Weight Source Bedscale Active Medications: Current Medications Acetaminophen (Tylenol) 650 mg PO Q4HR PRN PRN Reason: Mild Pain / Temp above 100 Stop: 12/10/18 20:58 Last Admin: 10/14/18 11:23 Dose: 650 mg Al Hydrox/Mg Hydrox/Simethicone (Maalox) 30 ml PO Q4H PRN PRN Reason: GI DISTRESS Stop: 12/10/18 20:58 Albuterol Sulfate (Albuterol 2.5mg/3ml Neb Ud) 2.5 mg HHN Q2HRT PRN PRN Reason: Shortness of Breath or Wheeze Stop: 12/10/18 21:03 Last Admin: 10/12/18 07:09 Dose: 2.5 mg Albuterol Sulfate (Albuterol 2.5mg/3ml Neb Ud) 2.5 mg HHN Q6HRT [facility] Stop: 12/11/18 12:59 Last Admin: 10/14/18 12:03 Dose: 2.5 mg Ascorbic Acid (Vitamin C) 500 mg PO DAILY [facility] Stop: 12/11/18 08:59 Last Admin: 10/14/18 08:13 Dose: 500 mg Atorvastatin Calcium (Lipitor) 10 mg PO HS [facility]; Protocol Stop: 12/10/18 20:59 Last Admin: 10/13/18 20:52 Dose: 10 mg Budesonide (Pulmicort) 0.5 mg HHN BIDRT [facility] Stop: 12/11/18 18:59 Last Admin: 10/14/18 06:56 Dose: 0.5 mg [place] Oil/[place] Balsam/Trypsin (Venelex) 1 appl TP DAILY [facility] Stop: 12/12/18 16:59 Last Admin: 10/14/18 08:13 Dose: 1 appl Dextrose (D50w) 50 ml IVP PRN PRN PRN Reason: Blood Glucose less than 70 Stop: 12/10/18 20:58 Docusate Sodium (Colace) 200 mg PO DAILY [facility] Stop: 12/11/18 08:59 Last Admin: 10/14/18 08:12 Dose: 200 mg Donepezil HCl (Aricept) 10 mg PO HS [facility] Stop: 12/10/18 20:59 Last Admin: 10/13/18 20:52 Dose: 10 mg Enoxaparin Sodium (Lovenox) 30 mg SUBQ DAILY [facility] Stop: 12/13/18 08:59 Last Admin: 10/14/18 08:14 Dose: 30 mg Glipizide (Glucotrol) 5 mg PO BID [facility] Stop: 12/11/18 08:59 Last Admin: 10/14/18 08:15 Dose: Not Given Glucagon (Glucagen) 1 mg IM PRN PRN PRN Reason: Blood Glucose less than 70 Stop: 12/10/18 20:58 Levofloxacin (Levaquin Pb) 500 mg in 100 mls @ 100 mls/hr IV Q24HR [facility] Stop: 12/10/18 21:59 Last Admin: 10/13/18 22:15 Dose: 100 mls/hr Sodium Chloride (Nacl 0.9%) 1,000 mls @ 80 mls/hr IV .[id number] [facility] Stop: 12/11/18 13:59 Last Admin: 10/14/18 08:12 Dose: 80 mls/hr Ibuprofen (Motrin) 400 mg PO Q4HR PRN PRN Reason: Pain (Moderate) Stop: 12/11/18 15:28 Last Admin: 10/14/18 03:14 Dose: 400 mg Insulin Human Lispro (Humalog Insulin Sliding Scale) 0 units SUBQ ACHS [facility]; Protocol Stop: 12/10/18 20:59 Last Admin: 10/14/18 11:26 Dose: Not Given Ipratropium [place] (Atrovent Neb 0.5mg/2.5ml) 0.5 mg HHN Q2HRT PRN PRN Reason: Shortness of Breath or Wheeze Stop: 12/10/18 21:03 Last Admin: 10/12/18 07:09 Dose: 0.5 mg Lorazepam (Ativan) 0.5 mg PO Q4HR PRN; Protocol PRN Reason: Anxiety Stop: 12/10/18 20:58 Last Admin: 10/12/18 22:24 Dose: 0.5 mg Magnesium Hydroxide (Milk Of Magnesia) 30 ml PO HS PRN PRN Reason: Constipation Stop: 12/10/18 20:58 Magnesium Oxide (Mag-Oxide) 400 mg PO BID [facility] Stop: 12/11/18 08:59 Last Admin: 10/14/18 08:12 Dose: 400 mg Multi-Ingredient Cream (Eucerin Cream) 1 appl TP BID [facility] Stop: 12/11/18 08:59 Last Admin: 10/14/18 08:13 Dose: 1 appl Multivitamins/Vitamin C (Theragran) 1 tab PO DAILY [facility] Stop: 12/11/18 08:59 Last Admin: 10/14/18 08:12 Dose: 1 tab Mupirocin (Bactroban Oint) 1 appl NS BID [facility] Stop: 10/17/18 09:01 Last Admin: 10/14/18 08:14 Dose: 1 appl Oxybutynin Chloride (Ditropan) 5 mg PO BID [facility] Stop: 12/11/18 08:59 Last Admin: 10/14/18 08:13 Dose: 5 mg Pantoprazole Sodium (Protonix) 40 mg PO QDAC [facility] Stop: 12/11/18 07:29 Last Admin: 10/14/18 06:41 Dose: 40 mg Quetiapine Fumarate (Seroquel) 75 mg PO HS [facility]; Protocol Stop: 12/10/18 20:59 Last Admin: 10/13/18 20:52 Dose: 75 mg Zolpidem Tartrate (Ambien) 5 mg PO HS PRN PRN Reason: Insomnia Stop: 12/10/18 20:58 Last Admin: 10/14/18 01:44 Dose: 5 mg General: demented HEENT: NC/AT, PERRLA, EOMI Neck: Supple, No JVD Lungs: rales Cardiovascular: RRR, Normal S1, Normal S2, with murmur Abdomen: soft, globular, positive bowel sound Extremities: excoriation, contracture Neurological: no change, disorganized - Procedures Procedures: Procedures Procedure Code Date INDIVID PSYCHOTHERAP NEC 94.39 07/05/04 INJECT/INFUSE NEC 99.29 03/18/13 OTHER GROUP THERAPY 94.44 12/18/13 RECREATIONAL THERAPY 93.81 07/05/04 Internal Medicine Assmt/Plan - Assessment Assessment: ASSESSMENT AND PLAN: Right lower extremity cellulitis, acute right leg deep venous thrombosis, anemia, hyponatremia, hypercalcemia, renal insufficiency, low albumin, diabetes, dementia, coronary artery disease, hypertension, hypercholesterolemia, paroxysmal atrial fibrillation. - Plan Plan: PLAN: Continue the patient on oxygen, bronchodilator treatments. Continue on anticoagulation. We will place the patient on Lovenox 1 mg/kg. We will follow the patient's leg ultrasound. We will monitor for any bleeding. We will empirically start the patient on IV antibiotic. We will follow the patient's blood culture. We will follow consult and recommendations. will work pt up for multiple myeloma Nutritional Asmnt/Malnutr-PDOC - Dietary Evaluation Malnutrition Findings (Please click <Entered> for more info): Nutritional Asmnt/Malnutrition Start: 10/12/18 11: 27 Text: Status: Complete Freq: Protocol: Document 10/12/18 11:28 WERO (Rec: 10/12/18 11:31 WERO [email or web address]) Nutritional Asmnt/Malnutrition Patient General Information Nutritional Screening High Risk Diagnosis Cellulitis Pertinent Medical Hx/Surgical Hx HTN, DM, CAD, Asthma/COPD, Dyslipidemia, PUD/GERD, Arthritis, Dementia Subjective Information Consult: Jordan scale 12 Pt is a 73-year-old female admitted on [facility] from [facility]/o cellulitis of the leg . Nurse was in room repositioning Pt as I was checking wound notes/pictures. Spoke with RN, Edu, concerning Pt wounds and provided him with Rufus to support wound healing. Pt was unable to comprehend/answer questions pertaining to diet. HT: 52 WT: 156 LB (70.91 kg) BMI: 28.53 (Overweight) GI: WNL, Soft, Non-tender, Large BM: not Noted I/O: 500/Not Noted Skin: Pale, Warm, Dry, Loose, Area of Concern: reddened Lt/ Re heel Wound: reddened, unstageable sacral, Dry wound, reddened Lt hand Jordan: 12 Diet Order: Mechanical Soft, chopped Estimated Energy Needs: ( Geriatric, CBW) 4025-0597 kcals (25-30 kcals/ kg) 71-85g Pro (1.0-1.2 g/kg) 2545-0893 ml (25-30 ml/kg) Current Diet Order/ Nutrition Support Mechanical Soft, chopped Pertinent Medications Maalox (PRN), Albuterol (PRN), Vitamin C, Lipitor, D50W (PRN ), Colace, Glucotrol, Glucagen (PRN), INS-SS, Cozaar, MOM ( PRN), Mag-Oxide, Theragran, Protonix Pertinent Labs 10/12: Hgb/Hct 9.9/29.4, Na 129 , BUN/Cr 36/1.2, Glucose 67, Ca 11.8, AST 106, Alk Phos 247 , T Pro 4.8, Alb 2.9 POC Glucose (last 24 hours): 67, 90, 85 Nutritional Hx/Data Height 1.57 m Height (Calculated Centimeters) 157.5 Current Weight (lbs) 70.76 kg Weight (Calculated Kilograms) 70.8 Weight (Calculated Grams) 32657.4 [place] Body Weight 110 LB (50 kg) % [place] Body Weight 142 Body Mass Index (BMI) 28.5 Weight Status Overweight GI Symptoms Last BM Not Noted Skin Integrity/Comment: Skin: Pale, Warm, Dry, Loose, Area of Concern: reddened Lt/ Re heel Wound: reddened, unstageable sacral, Dry wound, reddened Lt hand Jordan: 12 Estimated Nutritional Goals BEE in Kcals: Using Current wt Calories/Kcals/Kg 25-30 Kcals Calculated 8032-1314 Protein: Using Current wt Protein g/k.0-1.2 Protein Calculated 71-85 Fluid: ml 5563-5714 ml (25-30 ml/kg) Nutritional Problem 1. Problem Problem Altered nutrition related labs Etiology r/t pathophysiological causes Signs/Symptoms: aeb Hgb/Hct 9.9/29.4, Na 129, BUN/Cr 36/1.2, Glucose 67, Ca 11.8, AST 106, Alk Phos 247, T Pro 4.8, Alb 2.9 Intervention/Recommendation Comments 1. Continue with Mechanical Soft, chopped diet as ordered. 2. Provide Pt with Rufus BID for wound healing (completed). Expected Outcomes/Goals Expected Outcomes/Goals 1. PO intake to meet 75% of nutritional needs. 2. Monitor PO intake, wt, nutrition related labs, and skin integrity to trend WNL. 3. F/U as moderate risk in 3-5 days, 10/15-10/17
[2018-10-14 12:14] LABS: ALPHA-1-GLOBULIN 0.2 g/dL (0.0-0.4); ALPHA-2-GLOBULIN 0.8 g/dL (0.4-1.0); BETA GLOBULIN 1.3 g/dL (0.7-1.3); GAMMA GLOBULIN 1.2 g/dL (0.4-1.8); GLOBULIN, TOTAL 3.6 g/dL (2.2-3.9); M-SPIKE Not Observed g/dL (Not Observed); PROTEIN, TOTAL, SERUM 7.6 g/dL (6.0-8.5)
--- NOTE | 2018-10-14 19:41 | Consultation ---
DATE OF CONSULTATION: 10/14/2018 PSCYCHIATRIC CONSULTATION REQUESTING PHYSICIAN: Dr. Ch. REASON FOR CONSULTATION: Psychosis. HISTORY OF PRESENT ILLNESS: This patient is a 73-year-old woman, resident of [facility]. Information obtained by directly interviewing the patient as well as reviewing the admission papers and they are reliable. The patient has been admitted over here for cellulitis and the patient has been reported to have been diagnosed to have schizoaffective disorder and is being followed up by Dr. Carey on an outpatient basis. At the time of the evaluation, the patient has been on Seroquel and has been able to tolerate ____. The patient is also on donepezil. Chart is reviewed. The patient is interviewed. The patient continues to be screaming and yelling, when she does not get her way and her sleep is noted to be fair. Appetite is noted to be fair at this time. The patient; however, has been having difficult time to cope with the pain. PAST PSYCHIATRIC HISTORY: The patient is treated for some schizoaffective disorder and currently on Seroquel and Aricept. MEDICAL HISTORY: Significant for the patient having history of hypertension, diabetes mellitus, coronary artery disease, COPD, hypercholesterolemia, arthritis and now cellulitis of the lower extremities. PAST PSYCHIATRIC HISTORY: The patient was hospitalized at [facility] in the past. SOCIAL HISTORY: The patient is a resident of [facility]. At this time, the patient seems to be a total care patient. SUBSTANCE ABUSE HISTORY: None. PHYSICAL OR SEXUAL ABUSE HISTORY: None. LEGAL PROBLEMS: None at this time. MENTAL STATUS EXAMINATION: The patient is a 73-year-old, looking her stated age, superficially cooperative. Eye contact is poor. Mood is noted to be irritable. Affect is constricted. The patient has paranoia, but denies any command hallucinations. Insight and judgment are noted to be fair at this time. Impulse control seems to be poor. The patient tends to scream and yell when she does not get her way. No side effects of the Seroquel are noted at this time. The patient has short-term memory deficits, but long-term memory seems to be fair. DIAGNOSTIC IMPRESSION: AXIS I: Schizoaffective disorder. PLAN: To continue the patient with the supportive therapy. I encouraged the patient to verbalize the concerns rather than to act out. Thank you, Dr. Ch for allowing me to participate in the care of the patient. JOB# [id number]
[2018-10-14] MEDS ORDERED: Pamidronate 90 MG in Sodium Chloride 0.9% 250 ML IV SCH (20:30)
--- NOTE | 2018-10-14 20:55 | Consultation ---
DATE OF CONSULTATION: 10/14/2018 HEMATOLOGY-ONCOLOGY CONSULTATION The patient is referred by Dr. Ch. REASON FOR CONSULTATION: Hypercalcemia, multiple fractures, high creatinine and possible myeloma. HISTORY OF PRESENT ILLNESS: The patient is a 73-year-old female with history of dementia. She presented with leg pain and she was found to have fracture in the pelvis and right femur. She was also found to have fracture in the arm. The calcium level is rising and she has renal insufficiency and anemia. The question is whether the patient has myeloma. She also has had elevated D-dimer and evidence of deep vein thrombosis. PAST MEDICAL HISTORY: COPD, coronary artery disease, diabetes, hypertension, dyslipidemia, arthritis and dementia. PAST SURGICAL HISTORY: No recent surgeries. MEDICATIONS: Lipitor, vitamin C, Aricept, Lovenox, glipizide, Motrin, insulin, Levaquin. Ativan, magnesium oxide, Ditropan, Protonix, Seroquel, and Ambien. PHYSICAL EXAMINATION: GENERAL: She is awake, screaming, agitated. VITAL SIGNS: Stable. Blood pressure 105/67, temperature 97. HEENT: Atraumatic. NECK: No lymphadenopathy. CHEST: Equal air entry. ABDOMEN: Obese, soft. EXTREMITIES: The patient is hurting in lower extremities. No bleeding. LABORATORY DATA: Creatinine 1.5, calcium 12.3, bilirubin 0.6, hemoglobin 9.8, MCV 77. PT, PTT normal. D-dimer 2600. A venous duplex lower extremity negative. X-ray of the right humerus, lucencies within the shaft of the proximal one third of the humerus, cannot rule out subtle, subpathological fracture and x-ray of the pelvis and hip showed cystic lesion in the superolateral left acetabulum in addition to a displaced fracture of the intertrochanteric region of the left femur. ASSESSMENT AND PLAN: The constellation of hypercalcemia, renal insufficiency, anemia, and multiple fracture is raising strong suspicion of multiple myeloma. The serum protein electrophoresis did not show any M-spike; however, that does not rule out myeloma and further workup will be done including quantitative immunoglobulin free light chains, immunofixation of the urine and protein electrophoresis of the urine. I will administer pamidronate because of the lack of Zometa in our hospital and then full one dose of pamidronate 90 mg will be administered. Also, anemia workup will be obtained. Further management will be addressed accordingly and the patient will likely need a bone marrow biopsy for further management. Thank you, Dr. Ch for the opportunity to participate in the care of this interesting case. JOB# [id number]
[2018-10-14] MEDS: Atorvastatin Calcium 10 MG TAB PO SCH (21:18)
[2018-10-14] MEDS: Levofloxacin 500mg/100mL 500 MG/100 ML BAG IV SCH (22:12)
[2018-10-15] MEDS: Albuterol Nebulizer 2.5mg/3mL HHN SCH ×4 (00:28→18:02)
[2018-10-15] MEDS: INSULIN LISPRO SLIDING SCALE 100 UNITS/ML UNIT SUBQ SCH ×4 (06:40→20:40)
[2018-10-15 07:32] LABS: HEMATOCRIT 28.1 % (41.0-60); HEMOGLOBIN 9.5 gm/dL (12-16); MEAN CELL VOLUME 78.3 fl (81-100); MEAN CORPUSCULAR HEMOGLOBIN 26.4 pg (27.0-31.0); MEAN CORPUSCULAR HGB CONC 33.7 pg (28.0-36.0); PLATELET COUNT 153 Th/cmm (150-400); RED BLOOD COUNT 3.59 Mil/cmm (3.80-5.20); RED CELL DISTRIBUTION WIDTH 18.3 % (11.5-20.0); WHITE BLOOD COUNT 4.3 Th/cmm (4.8-10.8)
[2018-10-15 07:34] LABS: ALB/GLOB RATIO 1.2 (1.0-1.8); ALBUMIN 2.7 gm/dL (3.7-5.3); ALKALINE PHOSPHATASE 244 U/L (34-104); ANION GAP 10.1 (7.0-16.0); BILIRUBIN,TOTAL 0.5 mg/dL (0.3-1.0); BUN - UREA NITROGEN 30 mg/dL (7-25); CALCIUM SERUM 11.1 mg/dL (8.6-10.3); CARBON DIOXIDE 25.7 mEq/L (21.0-31.0); CHLORIDE 101 mEq/L (98-107); CREATININE - SERUM 0.9 mg/dL (0.6-1.2); GLUCOSE 86 mg/dL (70-105); POTASSIUM SERUM 3.8 mEq/L (3.5-5.1); SGOT 103 U/L (13-39); SGPT/ALT 26 U/L (7-52); SODIUM SERUM 133 mEq/L (136-145)
[2018-10-15] MEDS: Budesonide 0.5 Mg/2 mL Ud HHN SCH (07:35)
[2018-10-15] MEDS: Multivitamin Tab PO SCH (08:13)
[2018-10-15] MEDS: Pantoprazole 40 mg EC Tab PO SCH (08:14)
[2018-10-15] MEDS: Enoxaparin 30 mg/0.3 mL 0.3mL Syr SUBQ SCH (08:14)
[2018-10-15] MEDS: Eucerin Cream 16 oz Jar TP SCH ×2 (08:20→16:53)
[2018-10-15] MEDS: Sodium Chloride 0.9% 1,000 ML IV SCH (08:29)
[2018-10-15 08:48] LABS: BAND NEUTROPHILE 0 % (0-10); EOSINOPHIL 0 % (0-5); LYMPHOCYTE 24 % (20-50); MONOCYTE 10 % (2-10); NEUTROPHILS 66 % (40-80)
[2018-10-15] MEDS: Venelex 60gm Tube TP SCH (09:17)
[2018-10-15] MEDS ORDERED: SODIUM CHLORIDE 0.45% IV ONE (10:00)
[2018-10-15] MEDS ORDERED: PAMIDRONATE IV ONE (10:00)
[2018-10-15] MEDS: Dextrose 50% 50 mL Abboject IVP PRN ×2 (11:50→17:04)
--- NOTE | 2018-10-15 12:46 | Internal Medicine Prog Note ---
Internal Medicine Subjective - Subjective Patient seen and examined:: with staff, chart reviewed, other (seen by consultants) Patient is:: awake, verbal, in bed, agitated, confused Patient Complaints of:: congestion Per staff patient has:: no adverse event, no episodes of fall, agitated Internal Medicine Objective - Results Result Diagrams: 10/15/18 06:30 10/15/18 06:30 Recent Labs: Laboratory Last Values WBC 4.3 Th/cmm (4.8-10.8) L 10/15/18 06:30 RBC 3.59 Mil/cmm (3.80-5.20) L 10/15/18 06:30 Hgb 9.5 gm/dL (12-16) L 10/15/18 06:30 Hct 28.1 % (41.0-60) L 10/15/18 06:30 MCV 78.3 fl (81-100) L 10/15/18 06:30 MCH 26.4 pg (27.0-31.0) L 10/15/18 06:30 MCHC Differential 33.7 pg (28.0-36.0) 10/15/18 06:30 RDW 18.3 % (11.5-20.0) 10/15/18 06:30 Plt Count 153 Th/cmm (150-400) 10/15/18 06:30 MPV 6.9 fl 10/15/18 06:30 Add Manual Diff YES 10/15/18 06:30 Neutrophils % LEVER MILLER 10/13/18 04:25 Band Neutrophils % 0 % (0-10) 10/15/18 06:30 Lymphocytes % LEVER MILLER 10/13/18 04:25 Monocytes % LEVER MILLER 10/13/18 04:25 Eosinophils % LEVER MILLER 10/13/18 04:25 Basophils % LEVER MILLER 10/13/18 04:25 Neutrophils (Manual) 66 % (40-80) 10/15/18 06:30 Lymphocytes 24 % (20-50) 10/15/18 06:30 Monocytes 10 % (2-10) 10/15/18 06:30 Eosinophils 0 % (0-5) 10/15/18 06:30 Basophils 0 % (0-3) 10/13/18 04:25 Platelet Estimate ADEQUATE (NORMAL) 10/13/18 04:25 Microcytosis 1+ 10/13/18 04:25 PT 13.5 SECONDS (9.5-11.5) H 10/11/18 17:00 INR 1.32 (0.5-1.4) 10/11/18 17:00 D-Dimer 2660 ng/mL (100-400) H 10/11/18 17:00 Sodium 133 mEq/L (136-145) L 10/15/18 06:30 Potassium 3.8 mEq/L (3.5-5.1) 10/15/18 06:30 Chloride 101 mEq/L (98-107) 10/15/18 06:30 Carbon Dioxide 25.7 mEq/L (21.0-31.0) 10/15/18 06:30 Anion Gap 10.1 (7.0-16.0) 10/15/18 06:30 BUN 30 mg/dL (7-25) H 10/15/18 06:30 Creatinine 0.9 mg/dL (0.6-1.2) 10/15/18 06:30 Est GFR ( Amer) TNP 10/15/18 06:30 Est GFR (Non-Af Amer) TNP 10/15/18 06:30 BUN/Creatinine Ratio 33.3 10/15/18 06:30 Glucose 86 mg/dL (70-105) 10/15/18 06:30 POC Glucose 84 MG/DL (70 - 105) 10/15/18 06:07 Calcium 11.1 mg/dL (8.6-10.3) H 10/15/18 06:30 Magnesium 2.4 mg/dL (1.9-2.7) 10/11/18 17:00 Total Bilirubin 0.5 mg/dL (0.3-1.0) 10/15/18 06:30 AST 103 U/L (13-39) H 10/15/18 06:30 ALT 26 U/L (7-52) 10/15/18 06:30 Alkaline Phosphatase 244 U/L (34-104) H 10/15/18 06:30 Ammonia 37 umol/L (16-53) 10/15/18 06:30 Troponin I 0.02 ng/mL (0.01-0.05) 10/11/18 17:00 B-Natriuretic Peptide 31.6 pg/mL (5.0-100.0) 10/13/18 04:25 Total Protein 5.0 gm/dL (6.0-8.3) L 10/15/18 06:30 Albumin 2.7 gm/dL (3.7-5.3) L 10/15/18 06:30 Globulin 2.3 gm/dL 10/15/18 06:30 Albumin/Globulin Ratio 1.2 (1.0-1.8) 10/15/18 06:30 Tybyy-5-Anayihkai 0.2 g/dL (0.0-0.4) 10/13/18 13:59 Xeobq-7-Thkoovgee 0.8 g/dL (0.4-1.0) 10/13/18 13:59 Beta Globulins 1.3 g/dL (0.7-1.3) 10/13/18 13:59 Gamma Globulins 1.2 g/dL (0.4-1.8) 10/13/18 13:59 M-Jeffrey Not Observed g/dL (Not Observed) 10/13/18 13:59 PEP Note 10/13/18 13:59 TSH 1.29 uIU/ml (0.34-5.60) 10/11/18 17:00 - Physical Exam Vitals and I&O: Vital Signs Temp 97.5 F 10/15/18 04:00 Pulse 94 10/15/18 07:50 Resp 20 10/15/18 12:00 BP 143/68 10/15/18 04:00 Pulse Ox 96 10/15/18 07:50 Intake & Output 10/14/18 10/15/18 10/15/18 18:59 06:59 18:59 Intake Total 1250 2080 253.333 Output Total 1101 1100 1100 Balance 149 980 -846.667 Weight (lbs) 72.32 kg 72.32 kg 72.03 kg Intake: Intake, IV Amount 1000 133.333 Sodium Chloride 0.9% 1, 1000 133.333 000 ml @ 80 mls/hr IV . [id number] ON LICENSE OF [facility] Rx#:[id number] Oral 1250 1080 120 Output: Urine 1100 1100 1100 Stool 1 Other: Weight Source Bedscale Bedscale Bedscale Active Medications: Current Medications Acetaminophen (Tylenol) 650 mg PO Q4HR PRN PRN Reason: Mild Pain / Temp above 100 Stop: 12/10/18 20:58 Last Admin: 10/15/18 12:31 Dose: 650 mg Al Hydrox/Mg Hydrox/Simethicone (Maalox) 30 ml PO Q4H PRN PRN Reason: GI DISTRESS Stop: 12/10/18 20:58 Albuterol Sulfate (Albuterol 2.5mg/3ml Neb Ud) 2.5 mg HHN Q2HRT PRN PRN Reason: Shortness of Breath or Wheeze Stop: 12/10/18 21:03 Last Admin: 10/12/18 07:09 Dose: 2.5 mg Albuterol Sulfate (Albuterol 2.5mg/3ml Neb Ud) 2.5 mg HHN Q6HRT CORINA Stop: 12/11/18 12:59 Last Admin: 10/15/18 07:36 Dose: 2.5 mg Ascorbic Acid (Vitamin C) 500 mg PO DAILY CORINA Stop: 12/11/18 08:59 Last Admin: 10/15/18 08:13 Dose: 500 mg Atorvastatin Calcium (Lipitor) 10 mg PO HS CORINA; Protocol Stop: 12/10/18 20:59 Last Admin: 10/14/18 21:18 Dose: 10 mg Budesonide (Pulmicort) 0.5 mg HHN BIDRT CORINA Stop: 12/11/18 18:59 Last Admin: 10/15/18 07:35 Dose: 0.5 mg [place] Oil/[place]ian Balsam/Trypsin (Venelex) 1 appl TP DAILY CORINA Stop: 12/12/18 16:59 Last Admin: 10/15/18 09:17 Dose: 1 appl Dextrose (D50w) 50 ml IVP PRN PRN PRN Reason: Blood Glucose less than 70 Stop: 12/10/18 20:58 Last Admin: 10/15/18 11:50 Dose: 50 ml Docusate Sodium (Colace) 200 mg PO DAILY CORINA Stop: 12/11/18 08:59 Last Admin: 10/15/18 08:13 Dose: 200 mg Donepezil HCl (Aricept) 10 mg PO HS CORINA Stop: 12/10/18 20:59 Last Admin: 10/14/18 21:18 Dose: 10 mg Enoxaparin Sodium (Lovenox) 30 mg SUBQ DAILY CORINA Stop: 12/13/18 08:59 Last Admin: 10/15/18 08:14 Dose: 30 mg Glipizide (Glucotrol) 5 mg PO BID ON LICENSE OF [facility] Stop: 12/11/18 08:59 Last Admin: 10/15/18 08:13 Dose: 5 mg Glucagon (Glucagen) 1 mg IM PRN PRN PRN Reason: BS Below 70&dextrose ineffecti Stop: 12/10/18 20:58 Levofloxacin (Levaquin Pb) 500 mg in 100 mls @ 100 mls/hr IV Q24HR ON LICENSE OF [facility] Stop: 12/10/18 21:59 Last Admin: 10/14/18 22:12 Dose: 100 mls/hr Sodium Chloride (Nacl 0.9%) 1,000 mls @ 80 mls/hr IV .[id number] ON LICENSE OF [facility] Stop: 12/11/18 13:59 Last Infusion: 10/15/18 10:09 Dose: 0 mls/hr Pamidronate Disodium 90 mg/ (Sodium Chloride) 530 mls @ 125 mls/hr IV ONCE ONE Stop: 10/15/18 14:14 Last Admin: 10/15/18 10:09 Dose: 125 mls/hr Ibuprofen (Motrin) 400 mg PO Q4HR PRN PRN Reason: Pain (Moderate) Stop: 12/11/18 15:28 Last Admin: 10/14/18 21:17 Dose: 400 mg Insulin Human Lispro (Humalog Insulin Sliding Scale) 0 units SUBQ ACHS ON LICENSE OF [facility]; Protocol Stop: 12/10/18 20:59 Last Admin: 10/15/18 12:30 Dose: Not Given Ipratropium [place] (Atrovent Neb 0.5mg/2.5ml) 0.5 mg HHN Q2HRT PRN PRN Reason: Shortness of Breath or Wheeze Stop: 12/10/18 21:03 Last Admin: 10/12/18 07:09 Dose: 0.5 mg Lorazepam (Ativan) 0.5 mg PO Q4HR PRN; Protocol PRN Reason: Anxiety Stop: 12/10/18 20:58 Last Admin: 10/14/18 21:21 Dose: 0.5 mg Magnesium Hydroxide (Milk Of Magnesia) 30 ml PO HS PRN PRN Reason: Constipation Stop: 12/10/18 20:58 Magnesium Oxide (Mag-Oxide) 400 mg PO BID CORINA Stop: 12/11/18 08:59 Last Admin: 10/15/18 08:13 Dose: 400 mg Multi-Ingredient Cream (Eucerin Cream) 1 appl TP BID CORINA Stop: 12/11/18 08:59 Last Admin: 10/15/18 08:20 Dose: 1 appl Multivitamins/Vitamin C (Theragran) 1 tab PO DAILY CORINA Stop: 12/11/18 08:59 Last Admin: 10/15/18 08:13 Dose: 1 tab Mupirocin (Bactroban Oint) 1 appl NS BID CORINA Stop: 10/17/18 09:01 Last Admin: 10/15/18 08:32 Dose: 1 appl Oxybutynin Chloride (Ditropan) 5 mg PO BID CORINA Stop: 12/11/18 08:59 Last Admin: 10/15/18 08:13 Dose: 5 mg Pantoprazole Sodium (Protonix) 40 mg PO QDAC CORINA Stop: 12/11/18 07:29 Last Admin: 10/15/18 08:14 Dose: 40 mg Quetiapine Fumarate (Seroquel) 75 mg PO HS CORINA; Protocol Stop: 12/10/18 20:59 Last Admin: 10/14/18 21:17 Dose: 75 mg Zolpidem Tartrate (Ambien) 5 mg PO HS PRN PRN Reason: Insomnia Stop: 12/10/18 20:58 Last Admin: 10/14/18 01:44 Dose: 5 mg General: demented HEENT: NC/AT, PERRLA, EOMI Neck: Supple, No JVD Lungs: rales Cardiovascular: RRR, Normal S1, Normal S2, with murmur Abdomen: soft, globular, positive bowel sound Extremities: excoriation, contracture Neurological: no change, disorganized - Procedures Procedures: Procedures Procedure Code Date INDIVID PSYCHOTHERAP NEC 94.39 07/05/04 INJECT/INFUSE NEC 99.29 03/18/13 OTHER GROUP THERAPY 94.44 12/18/13 RECREATIONAL THERAPY 93.81 07/05/04 Internal Medicine Assmt/Plan - Assessment Assessment: ASSESSMENT AND PLAN: Right lower extremity cellulitis, acute right leg deep venous thrombosis, anemia, hyponatremia, hypercalcemia, renal insufficiency, low albumin, diabetes, dementia, coronary artery disease, hypertension, hypercholesterolemia, paroxysmal atrial fibrillation. - Plan Plan: PLAN: Continue the patient on oxygen, bronchodilator treatments. Continue on anticoagulation. We will place the patient on Lovenox 1 mg/kg. We will follow the patient's leg ultrasound. We will monitor for any bleeding. We will empirically start the patient on IV antibiotic. We will follow the patient's blood culture. We will follow consult and recommendations. will work pt up for multiple myeloma giiven pamidronate Nutritional Asmnt/Malnutr-PDOC - Dietary Evaluation Malnutrition Findings (Please click <Entered> for more info): Nutritional Asmnt/Malnutrition Start: 10/12/18 11: 27 Text: Status: Complete Freq: Protocol: Document 10/12/18 11:28 ALISHAMERNA (Rec: 10/12/18 11:31 WERO [id number]) Nutritional Asmnt/Malnutrition Patient General Information Nutritional Screening High Risk Diagnosis Cellulitis Pertinent Medical Hx/Surgical Hx HTN, DM, CAD, Asthma/COPD, Dyslipidemia, PUD/GERD, Arthritis, Dementia Subjective Information Consult: Jordan scale 12 Pt is a 73-year-old female [facility] c/o cellulitis of the leg . Nurse was in room repositioning Pt as I was checking wound notes/pictures. Spoke with RN, Edu, concerning Pt wounds and provided him with Rufus to support wound healing. Pt was unable to comprehend/answer questions pertaining to diet. HT: 52 WT: 156 LB (70.91 kg) BMI: 28.53 (Overweight) GI: WNL, Soft, Non-tender, Large BM: not Noted I/O: 500/Not Noted Skin: Pale, Warm, Dry, Loose, Area of Concern: reddened Lt/ Re heel Wound: reddened, unstageable sacral, Dry wound, reddened Lt hand Jordan: 12 Diet Order: Mechanical Soft, chopped Estimated Energy Needs: ( Geriatric, CBW) 0700-3945 kcals (25-30 kcals/ kg) 71-85g Pro (1.0-1.2 g/kg) 9814-1739 ml (25-30 ml/kg) Current Diet Order/ Nutrition Support Mechanical Soft, chopped Pertinent Medications Maalox (PRN), Albuterol (PRN), Vitamin C, Lipitor, D50W (PRN ), Colace, Glucotrol, Glucagen (PRN), INS-SS, Cozaar, MOM ( PRN), Mag-Oxide, Theragran, Protonix Pertinent Labs 10/12: Hgb/Hct 9.9/29.4, Na 129 , BUN/Cr 36/1.2, Glucose 67, Ca 11.8, AST 106, Alk Phos 247 , T Pro 4.8, Alb 2.9 POC Glucose (last 24 hours): 67, 90, 85 Nutritional Hx/Data Height 1.57 m Height (Calculated Centimeters) 157.5 Current Weight (lbs) 70.76 kg Weight (Calculated Kilograms) 70.8 Weight (Calculated Grams) 29915.4 [place] Body Weight 110 LB (50 kg) % [place] Body Weight 142 Body Mass Index (BMI) 28.5 Weight Status Overweight GI Symptoms Last BM Not Noted Skin Integrity/Comment: Skin: Pale, Warm, Dry, Loose, Area of Concern: reddened Lt/ Re heel Wound: reddened, unstageable sacral, Dry wound, reddened Lt hand Jordan: 12 Estimated Nutritional Goals BEE in Kcals: Using Current wt Calories/Kcals/Kg 25-30 Kcals Calculated 1684-8633 Protein: Using Current wt Protein g/k.0-1.2 Protein Calculated 71-85 Fluid: ml 0060-9720 ml (25-30 ml/kg) Nutritional Problem 1. Problem Problem Altered nutrition related labs Etiology r/t pathophysiological causes Signs/Symptoms: aeb Hgb/Hct 9.9/29.4, Na 129, BUN/Cr 36/1.2, Glucose 67, Ca 11.8, AST 106, Alk Phos 247, T Pro 4.8, Alb 2.9 Intervention/Recommendation Comments 1. Continue with Mechanical Soft, chopped diet as ordered. 2. Provide Pt with Rufus BID for wound healing (completed). Expected Outcomes/Goals Expected Outcomes/Goals 1. PO intake to meet 75% of nutritional needs. 2. Monitor PO intake, wt, nutrition related labs, and skin integrity to trend WNL. 3. F/U as moderate risk in 3-5 days, 10/15-10/17
[2018-10-15] MEDS: D5-0.45NS 1,000 ML IV SCH (17:56)
[2018-10-15] MEDS: Atorvastatin Calcium 10 MG TAB PO SCH (20:36)
[2018-10-15] MEDS: Levofloxacin 500mg/100mL 500 MG/100 ML BAG IV SCH (22:00)
--- NOTE | 2018-10-16 01:02 | Progress Notes ---
DATE: 10/15/2018 PSYCHIATRIC PROGRESS NOTE SUBJECTIVE: Staff was spoken to. The patient is interviewed. Chart is reviewed. The patient continues to be paranoid. Insight and judgment are noted to be still impaired. Impulse control is noted to be limited. The patient tends to scream and yell when she does not get her way. No major side effects to the Seroquel are noted at this time. ASSESSMENT: The patient is still psychotic and impulsive. PLAN: To continue the patient with the supportive therapy and followup. [facility]# [id number]
[2018-10-16] MEDS: D5-0.45NS 1,000 ML IV SCH ×2 (01:38→06:35)
[2018-10-16 05:12] LABS: % BASOPHILS 0.1 % (0.0-2.0); % EOSINOPHILS 1.5 % (0.0-5.0); % LYMPHOCYTES 21.5 % (20.0-50.0); % MONOCYTES 9.4 % (2.0-10.0); % NEUTROPHILS 67.5 % (40.0-80.0); EOSINOPHILE ABSOLUTE 0.1 Th/cmm (0.1-0.4); HEMATOCRIT 30.5 % (41.0-60); LYMPHOCYTE ABSOLUTE 1.1 Th/cmm (1.5-3.0); MEAN CELL VOLUME 78.2 fl (81-100); MEAN CORPUSCULAR HEMOGLOBIN 25.5 pg (27.0-31.0); MEAN CORPUSCULAR HGB CONC 32.7 pg (28.0-36.0); MONOCYTE ABSOLUTE 0.5 Th/cmm (0.3-1.0); NEUTROPHILE ABSOLUTE 3.5 Th/cmm (1.8-8.0); PLATELET COUNT 133 Th/cmm (150-400)
[2018-10-16 05:17] LABS: WHITE BLOOD COUNT 5.2 Th/cmm (4.8-10.8)
[2018-10-16 05:25] LABS: ALB/GLOB RATIO 1.2 (1.0-1.8); ALBUMIN 2.7 gm/dL (3.7-5.3); ALKALINE PHOSPHATASE 239 U/L (34-104); BILIRUBIN,TOTAL 0.4 mg/dL (0.3-1.0); BUN - UREA NITROGEN 27 mg/dL (7-25); CALCIUM SERUM 10.5 mg/dL (8.6-10.3); CHLORIDE 106 mEq/L (98-107); GLUCOSE 88 mg/dL (70-105); POTASSIUM SERUM 4.4 mEq/L (3.5-5.1); SGOT 87 U/L (13-39); SGPT/ALT 24 U/L (7-52); SODIUM SERUM 137 mEq/L (136-145); TOTAL PROTEIN,SERUM 4.9 gm/dL (6.0-8.3)
[2018-10-16 05:59] LABS: ANION GAP 12.2 (7.0-16.0); CARBON DIOXIDE 23.2 mEq/L (21.0-31.0); CREATININE - SERUM 0.8 mg/dL (0.6-1.2)
[2018-10-16] MEDS: INSULIN LISPRO SLIDING SCALE 100 UNITS/ML UNIT SUBQ SCH ×2 (06:31→12:16)
[2018-10-16] MEDS: Albuterol Nebulizer 2.5mg/3mL HHN SCH ×2 (07:50→12:24)
[2018-10-16] MEDS: Budesonide 0.5 Mg/2 mL Ud HHN SCH (07:51)
[2018-10-16] MEDS: Enoxaparin 30 mg/0.3 mL 0.3mL Syr SUBQ SCH (08:20)
[2018-10-16] MEDS: Multivitamin Tab PO SCH (08:21)
[2018-10-16] MEDS: Pantoprazole 40 mg EC Tab PO SCH (08:21)
[2018-10-16] MEDS: Eucerin Cream 16 oz Jar TP SCH (08:23)
[2018-10-16] MEDS: Venelex 60gm Tube TP SCH (08:23)
--- NOTE | 2018-10-16 11:11 | General Progress Note ---
Subjective - Review of Systems Service Date: 10/16/18 Subjective: screaming, awake, non coherent Objective - Results Result Diagrams: 10/16/18 05:00 10/16/18 05:00 Recent Labs: Laboratory Last Values WBC 5.2 Th/cmm (4.8-10.8) D 10/16/18 05:00 RBC 3.90 Mil/cmm (3.80-5.20) 10/16/18 05:00 Hgb 10.0 gm/dL (12-16) L 10/16/18 05:00 Hct 30.5 % (41.0-60) L 10/16/18 05:00 MCV 78.2 fl (81-100) L 10/16/18 05:00 MCH 25.5 pg (27.0-31.0) L 10/16/18 05:00 MCHC Differential 32.7 pg (28.0-36.0) 10/16/18 05:00 RDW 19.0 % (11.5-20.0) 10/16/18 05:00 Plt Count 133 Th/cmm (150-400) L 10/16/18 05:00 MPV 6.5 fl 10/16/18 05:00 Add Manual Diff YES 10/15/18 06:30 Neutrophils % 67.5 % (40.0-80.0) 10/16/18 05:00 Band Neutrophils % 0 % (0-10) 10/15/18 06:30 Lymphocytes % 21.5 % (20.0-50.0) 10/16/18 05:00 Monocytes % 9.4 % (2.0-10.0) 10/16/18 05:00 Eosinophils % 1.5 % (0.0-5.0) 10/16/18 05:00 Basophils % 0.1 % (0.0-2.0) 10/16/18 05:00 Neutrophils (Manual) 66 % (40-80) 10/15/18 06:30 Lymphocytes 24 % (20-50) 10/15/18 06:30 Monocytes 10 % (2-10) 10/15/18 06:30 Eosinophils 0 % (0-5) 10/15/18 06:30 Basophils 0 % (0-3) 10/13/18 04:25 Platelet Estimate ADEQUATE (NORMAL) 10/13/18 04:25 Microcytosis 1+ 10/13/18 04:25 PT 13.5 SECONDS (9.5-11.5) H 10/11/18 17:00 INR 1.32 (0.5-1.4) 10/11/18 17:00 D-Dimer 2660 ng/mL (100-400) H 10/11/18 17:00 Sodium 137 mEq/L (136-145) 10/16/18 05:00 Potassium 4.4 mEq/L (3.5-5.1) 10/16/18 05:00 Chloride 106 mEq/L (98-107) 10/16/18 05:00 Carbon Dioxide 23.2 mEq/L (21.0-31.0) 10/16/18 05:00 Anion Gap 12.2 (7.0-16.0) 10/16/18 05:00 BUN 27 mg/dL (7-25) H 10/16/18 05:00 Creatinine 0.8 mg/dL (0.6-1.2) 10/16/18 05:00 Est GFR ( Amer) TNP 10/16/18 05:00 Est GFR (Non-Af Amer) TNP 10/16/18 05:00 BUN/Creatinine Ratio 33.8 10/16/18 05:00 Glucose 88 mg/dL (70-105) 10/16/18 05:00 POC Glucose 78 MG/DL (70 - 105) 10/16/18 05:30 Calcium 10.5 mg/dL (8.6-10.3) H 10/16/18 05:00 Magnesium 2.4 mg/dL (1.9-2.7) 10/11/18 17:00 Total Bilirubin 0.4 mg/dL (0.3-1.0) 10/16/18 05:00 AST 87 U/L (13-39) H 10/16/18 05:00 ALT 24 U/L (7-52) 10/16/18 05:00 Alkaline Phosphatase 239 U/L (34-104) H 10/16/18 05:00 Ammonia 37 umol/L (16-53) 10/15/18 06:30 Troponin I 0.02 ng/mL (0.01-0.05) 10/11/18 17:00 B-Natriuretic Peptide 31.6 pg/mL (5.0-100.0) 10/13/18 04:25 Total Protein 4.9 gm/dL (6.0-8.3) L 10/16/18 05:00 Albumin 2.7 gm/dL (3.7-5.3) L 10/16/18 05:00 Globulin 2.2 gm/dL 10/16/18 05:00 Albumin/Globulin Ratio 1.2 (1.0-1.8) 10/16/18 05:00 Eotew-6-Oipdzvxzu 0.2 g/dL (0.0-0.4) 10/13/18 13:59 Vgwgq-4-Olvmgoaai 0.8 g/dL (0.4-1.0) 10/13/18 13:59 Beta Globulins 1.3 g/dL (0.7-1.3) 10/13/18 13:59 Gamma Globulins 1.2 g/dL (0.4-1.8) 10/13/18 13:59 M-Jeffrey Not Observed g/dL (Not Observed) 10/13/18 13:59 PEP Note 10/13/18 13:59 TSH 1.29 uIU/ml (0.34-5.60) 10/11/18 17:00 U Protein Electrophores SEE SEPARATE REPORT 10/14/18 15:30 Serum Immunofixation 684 mg/dL (700-1600) L 10/15/18 06:30 - Physical Exam Vitals and I&O: Vital Signs Temp 97.0 F 10/16/18 08:00 Pulse 110 10/16/18 08:00 Resp 20 10/16/18 08:00 BP 168/63 10/16/18 08:00 Pulse Ox 97 10/16/18 08:00 Intake & Output 10/15/18 10/16/18 10/16/18 18:59 06:59 18:59 Intake Total 1067.333 956 Output Total 2500 1300 Balance -1432.667 -344 Weight (lbs) 72.03 kg 71.668 kg Intake: Intake, IV Amount 947.333 716 D5-0.45NS 1,000 ml @ 80 616 mls/hr IV .[id number] [facility] Rx #:[id number] Levofloxacin 500mg/100mL 100 500 mg In 100 ml @ 100 mls/hr IV Q24HR [facility] Rx#: [id number] Pamidronate 90 mg In 530 Sodium Chloride 0.9% 500 ml @ 125 mls/hr IV ONCE ONE Rx#:[id number] Sodium Chloride 0.9% 1, 417.333 000 ml @ 80 mls/hr IV . [id number] [facility] Rx#:[id number] Oral 120 240 Output: Urine 2500 1300 Other: Weight Source Bedscale Bedscale Active Medications: Current Medications Acetaminophen (Tylenol) 650 mg PO Q4HR PRN PRN Reason: Mild Pain / Temp above 100 Stop: 12/10/18 20:58 Last Admin: 10/16/18 11:04 Dose: 650 mg Al Hydrox/Mg Hydrox/Simethicone (Maalox) 30 ml PO Q4H PRN PRN Reason: GI DISTRESS Stop: 12/10/18 20:58 Albuterol Sulfate (Albuterol 2.5mg/3ml Neb Ud) 2.5 mg HHN Q2HRT PRN PRN Reason: Shortness of Breath or Wheeze Stop: 12/10/18 21:03 Last Admin: 10/12/18 07:09 Dose: 2.5 mg Albuterol Sulfate (Albuterol 2.5mg/3ml Neb Ud) 2.5 mg HHN Q6HRT [facility] Stop: 12/11/18 12:59 Last Admin: 10/16/18 07:50 Dose: Not Given Ascorbic Acid (Vitamin C) 500 mg PO DAILY [facility] Stop: 12/11/18 08:59 Last Admin: 10/16/18 08:21 Dose: 500 mg Atorvastatin Calcium (Lipitor) 10 mg PO HS [facility]; Protocol Stop: 12/10/18 20:59 Last Admin: 10/15/18 20:36 Dose: 10 mg Budesonide (Pulmicort) 0.5 mg HHN BIDRT [facility] Stop: 12/11/18 18:59 Last Admin: 10/16/18 07:51 Dose: Not Given [place] Oil/[place] Balsam/Trypsin (Venelex) 1 appl TP DAILY [facility] Stop: 12/12/18 16:59 Last Admin: 10/16/18 08:23 Dose: 1 appl Dextrose (D50w) 50 ml IVP PRN PRN PRN Reason: Blood Glucose less than 70 Stop: 12/10/18 20:58 Last Admin: 10/15/18 17:04 Dose: 50 ml Docusate Sodium (Colace) 200 mg PO DAILY [facility] Stop: 12/11/18 08:59 Last Admin: 10/16/18 08:23 Dose: 200 mg Donepezil HCl (Aricept) 10 mg PO HS [facility] Stop: 12/10/18 20:59 Last Admin: 10/15/18 20:36 Dose: 10 mg Enoxaparin Sodium (Lovenox) 30 mg SUBQ DAILY [facility] Stop: 12/13/18 08:59 Last Admin: 10/16/18 08:20 Dose: 30 mg Glipizide (Glucotrol) 5 mg PO BID [facility] Stop: 12/11/18 08:59 Last Admin: 10/16/18 08:24 Dose: Not Given Glucagon (Glucagen) 1 mg IM PRN PRN PRN Reason: BS Below 70&dextrose ineffecti Stop: 12/10/18 20:58 Levofloxacin (Levaquin Pb) 500 mg in 100 mls @ 100 mls/hr IV Q24HR [facility] Stop: 12/10/18 21:59 Last Infusion: 10/15/18 23:00 Dose: Infused Dextrose/Sodium Chloride (D5-0.45ns) 1,000 mls @ 80 mls/hr IV .[id number] [facility] Stop: 12/14/18 17:59 Last Admin: 10/16/18 06:35 Dose: 80 mls/hr Ibuprofen (Motrin) 400 mg PO Q4HR PRN PRN Reason: Pain (Moderate) Stop: 12/11/18 15:28 Last Admin: 10/15/18 13:45 Dose: 400 mg Insulin Human Lispro (Humalog Insulin Sliding Scale) 0 units SUBQ ACHS [facility]; Protocol Stop: 12/10/18 20:59 Last Admin: 10/16/18 06:31 Dose: Not Given Ipratropium [place] (Atrovent Neb 0.5mg/2.5ml) 0.5 mg HHN Q2HRT PRN PRN Reason: Shortness of Breath or Wheeze Stop: 12/10/18 21:03 Last Admin: 10/12/18 07:09 Dose: 0.5 mg Lorazepam (Ativan) 0.5 mg PO Q4HR PRN; Protocol PRN Reason: Anxiety Stop: 12/10/18 20:58 Last Admin: 10/16/18 01:38 Dose: 0.5 mg Magnesium Hydroxide (Milk Of Magnesia) 30 ml PO HS PRN PRN Reason: Constipation Stop: 12/10/18 20:58 Magnesium Oxide (Mag-Oxide) 400 mg PO BID [facility] Stop: 12/11/18 08:59 Last Admin: 10/16/18 08:20 Dose: 400 mg Multi-Ingredient Cream (Eucerin Cream) 1 appl TP BID [facility] Stop: 12/11/18 08:59 Last Admin: 10/16/18 08:23 Dose: 1 appl Multivitamins/Vitamin C (Theragran) 1 tab PO DAILY [facility] Stop: 12/11/18 08:59 Last Admin: 10/16/18 08:21 Dose: 1 tab Mupirocin (Bactroban Oint) 1 appl NS BID [facility] Stop: 10/17/18 09:01 Last Admin: 10/16/18 08:20 Dose: 1 appl Oxybutynin Chloride (Ditropan) 5 mg PO BID [facility] Stop: 12/11/18 08:59 Last Admin: 10/16/18 08:21 Dose: 5 mg Pantoprazole Sodium (Protonix) 40 mg PO QDAC [facility] Stop: 12/11/18 07:29 Last Admin: 10/16/18 08:21 Dose: 40 mg Quetiapine Fumarate (Seroquel) 75 mg PO HS [facility]; Protocol Stop: 12/10/18 20:59 Last Admin: 10/15/18 20:36 Dose: 75 mg Zolpidem Tartrate (Ambien) 5 mg PO HS PRN PRN Reason: Insomnia Stop: 12/10/18 20:58 Last Admin: 10/14/18 01:44 Dose: 5 mg - Procedures Procedures: Procedures Procedure Code Date INDIVID PSYCHOTHERAP NEC 94.39 07/05/04 INJECT/INFUSE NEC 99.29 03/18/13 OTHER GROUP THERAPY 94.44 12/18/13 RECREATIONAL THERAPY 93.81 07/05/04 Assessment/Plan - Assessment Assessment: * Hypercalcemia improving with hydration and s/p pamidronate * multiple fx, anemia, ckd suspect myeloma * psychosis * pelvic and femoral fx Myeloma rivas is pending, will need bone marrow biopsy and ortho eval. Suggest transfere to another facility to complete rivas expeditiously Nutritional Asmnt/Malnutr-PDOC - Dietary Evaluation Malnutrition Findings (Please click <Entered> for more info): Nutritional Asmnt/Malnutrition Start: 10/12/18 11: 27 Text: Status: Complete Freq: Protocol: Document 10/12/18 11:28 WERO (Rec: 10/12/18 11:31 WERO [email or web address]) Nutritional Asmnt/Malnutrition Patient General Information Nutritional Screening High Risk Diagnosis Cellulitis Pertinent Medical Hx/Surgical Hx HTN, DM, CAD, Asthma/COPD, Dyslipidemia, PUD/GERD, Arthritis, Dementia Subjective Information Consult: Jordan scale 12 Pt is a 73-year-old female admitted on 10/11 from long-term c/o cellulitis of the leg . Nurse was in room repositioning Pt as I was checking wound notes/pictures. Spoke with RN, Edu, concerning Pt wounds and provided him with Rufus to support wound healing. Pt was unable to comprehend/answer questions pertaining to diet. HT: 52 WT: 156 LB (70.91 kg) BMI: 28.53 (Overweight) GI: WNL, Soft, Non-tender, Large BM: not Noted I/O: 500/Not Noted Skin: Pale, Warm, Dry, Loose, Area of Concern: reddened Lt/ Re heel Wound: reddened, unstageable sacral, Dry wound, reddened Lt hand Jordan: 12 Diet Order: Mechanical Soft, chopped Estimated Energy Needs: ( Geriatric, CBW) 8090-3478 kcals (25-30 kcals/ kg) 71-85g Pro (1.0-1.2 g/kg) 8251-1108 ml (25-30 ml/kg) Current Diet Order/ Nutrition Support Mechanical Soft, chopped Pertinent Medications Maalox (PRN), Albuterol (PRN), Vitamin C, Lipitor, D50W (PRN ), Colace, Glucotrol, Glucagen (PRN), INS-SS, Cozaar, MOM ( PRN), Mag-Oxide, Theragran, Protonix Pertinent Labs 10/12: Hgb/Hct 9.9/29.4, Na 129 , BUN/Cr 36/1.2, Glucose 67, Ca 11.8, AST 106, Alk Phos 247 , T Pro 4.8, Alb 2.9 POC Glucose (last 24 hours): 67, 90, 85 Nutritional Hx/Data Height 1.57 m Height (Calculated Centimeters) 157.5 Current Weight (lbs) 70.76 kg Weight (Calculated Kilograms) 70.8 Weight (Calculated Grams) 28489.4 [place] Body Weight 110 LB (50 kg) % [place] Body Weight 142 Body Mass Index (BMI) 28.5 Weight Status Overweight GI Symptoms Last BM Not Noted Skin Integrity/Comment: Skin: Pale, Warm, Dry, Loose, Area of Concern: reddened Lt/ Re heel Wound: reddened, unstageable sacral, Dry wound, reddened Lt hand Jordan: 12 Estimated Nutritional Goals BEE in Kcals: Using Current wt Calories/Kcals/Kg 25-30 Kcals Calculated 9780-0038 Protein: Using Current wt Protein g/k.0-1.2 Protein Calculated 71-85 Fluid: ml 8186-6766 ml (25-30 ml/kg) Nutritional Problem 1. Problem Problem Altered nutrition related labs Etiology r/t pathophysiological causes Signs/Symptoms: aeb Hgb/Hct 9.9/29.4, Na 129, BUN/Cr 36/1.2, Glucose 67, Ca 11.8, AST 106, Alk Phos 247, T Pro 4.8, Alb 2.9 Intervention/Recommendation Comments 1. Continue with Mechanical Soft, chopped diet as ordered. 2. Provide Pt with Rufus BID for wound healing (completed). Expected Outcomes/Goals Expected Outcomes/Goals 1. PO intake to meet 75% of nutritional needs. 2. Monitor PO intake, wt, nutrition related labs, and skin integrity to trend WNL. 3. F/U as moderate risk in 3-5 days, 10/15-10/17
--- NOTE | 2018-10-16 11:44 | Internal Medicine Prog Note ---
Internal Medicine Subjective - Subjective Patient seen and examined:: with staff, chart reviewed Patient is:: awake, verbal, in bed, agitated, confused Patient Complaints of:: congestion Per staff patient has:: no adverse event, no episodes of fall, agitated Internal Medicine Objective - Results Result Diagrams: 10/16/18 05:00 10/16/18 05:00 Recent Labs: Laboratory Last Values WBC 5.2 Th/cmm (4.8-10.8) D 10/16/18 05:00 RBC 3.90 Mil/cmm (3.80-5.20) 10/16/18 05:00 Hgb 10.0 gm/dL (12-16) L 10/16/18 05:00 Hct 30.5 % (41.0-60) L 10/16/18 05:00 MCV 78.2 fl (81-100) L 10/16/18 05:00 MCH 25.5 pg (27.0-31.0) L 10/16/18 05:00 MCHC Differential 32.7 pg (28.0-36.0) 10/16/18 05:00 RDW 19.0 % (11.5-20.0) 10/16/18 05:00 Plt Count 133 Th/cmm (150-400) L 10/16/18 05:00 MPV 6.5 fl 10/16/18 05:00 Add Manual Diff YES 10/15/18 06:30 Neutrophils % 67.5 % (40.0-80.0) 10/16/18 05:00 Band Neutrophils % 0 % (0-10) 10/15/18 06:30 Lymphocytes % 21.5 % (20.0-50.0) 10/16/18 05:00 Monocytes % 9.4 % (2.0-10.0) 10/16/18 05:00 Eosinophils % 1.5 % (0.0-5.0) 10/16/18 05:00 Basophils % 0.1 % (0.0-2.0) 10/16/18 05:00 Neutrophils (Manual) 66 % (40-80) 10/15/18 06:30 Lymphocytes 24 % (20-50) 10/15/18 06:30 Monocytes 10 % (2-10) 10/15/18 06:30 Eosinophils 0 % (0-5) 10/15/18 06:30 Basophils 0 % (0-3) 10/13/18 04:25 Platelet Estimate ADEQUATE (NORMAL) 10/13/18 04:25 Microcytosis 1+ 10/13/18 04:25 PT 13.5 SECONDS (9.5-11.5) H 10/11/18 17:00 INR 1.32 (0.5-1.4) 10/11/18 17:00 D-Dimer 2660 ng/mL (100-400) H 10/11/18 17:00 Sodium 137 mEq/L (136-145) 10/16/18 05:00 Potassium 4.4 mEq/L (3.5-5.1) 10/16/18 05:00 Chloride 106 mEq/L (98-107) 10/16/18 05:00 Carbon Dioxide 23.2 mEq/L (21.0-31.0) 10/16/18 05:00 Anion Gap 12.2 (7.0-16.0) 10/16/18 05:00 BUN 27 mg/dL (7-25) H 10/16/18 05:00 Creatinine 0.8 mg/dL (0.6-1.2) 10/16/18 05:00 Est GFR ( Amer) TNP 10/16/18 05:00 Est GFR (Non-Af Amer) TNP 10/16/18 05:00 BUN/Creatinine Ratio 33.8 10/16/18 05:00 Glucose 88 mg/dL (70-105) 10/16/18 05:00 POC Glucose 78 MG/DL (70 - 105) 10/16/18 05:30 Calcium 10.5 mg/dL (8.6-10.3) H 10/16/18 05:00 Magnesium 2.4 mg/dL (1.9-2.7) 10/11/18 17:00 Total Bilirubin 0.4 mg/dL (0.3-1.0) 10/16/18 05:00 AST 87 U/L (13-39) H 10/16/18 05:00 ALT 24 U/L (7-52) 10/16/18 05:00 Alkaline Phosphatase 239 U/L (34-104) H 10/16/18 05:00 Ammonia 37 umol/L (16-53) 10/15/18 06:30 Troponin I 0.02 ng/mL (0.01-0.05) 10/11/18 17:00 B-Natriuretic Peptide 31.6 pg/mL (5.0-100.0) 10/13/18 04:25 Total Protein 4.9 gm/dL (6.0-8.3) L 10/16/18 05:00 Albumin 2.7 gm/dL (3.7-5.3) L 10/16/18 05:00 Globulin 2.2 gm/dL 10/16/18 05:00 Albumin/Globulin Ratio 1.2 (1.0-1.8) 10/16/18 05:00 Lirpu-9-Sjmudbtqg 0.2 g/dL (0.0-0.4) 10/13/18 13:59 Fxvqw-6-Pvgajvgvk 0.8 g/dL (0.4-1.0) 10/13/18 13:59 Beta Globulins 1.3 g/dL (0.7-1.3) 10/13/18 13:59 Gamma Globulins 1.2 g/dL (0.4-1.8) 10/13/18 13:59 M-Jeffrey Not Observed g/dL (Not Observed) 10/13/18 13:59 PEP Note 10/13/18 13:59 TSH 1.29 uIU/ml (0.34-5.60) 10/11/18 17:00 U Protein Electrophores SEE SEPARATE REPORT 10/14/18 15:30 Serum Immunofixation 684 mg/dL (700-1600) L 10/15/18 06:30 - Physical Exam Vitals and I&O: Vital Signs Temp 97.0 F 10/16/18 08:00 Pulse 110 10/16/18 08:00 Resp 20 10/16/18 08:00 BP 168/63 10/16/18 08:00 Pulse Ox 97 10/16/18 08:00 Intake & Output 10/15/18 10/16/18 10/16/18 18:59 06:59 18:59 Intake Total 1067.333 956 Output Total 2500 1300 Balance -1432.667 -344 Weight (lbs) 72.03 kg 71.668 kg Intake: Intake, IV Amount 947.333 716 D5-0.45NS 1,000 ml @ 80 616 mls/hr IV .[id number] [facility] Rx #:[id number] Levofloxacin 500mg/100mL 100 500 mg In 100 ml @ 100 mls/hr IV Q24HR [facility] Rx#: [id number] Pamidronate 90 mg In 530 Sodium Chloride 0.9% 500 ml @ 125 mls/hr IV ONCE ONE Rx#:[id number] Sodium Chloride 0.9% 1, 417.333 000 ml @ 80 mls/hr IV . [id number] [facility] Rx#:[id number] Oral 120 240 Output: Urine 2500 1300 Other: Weight Source Bedscale Bedscale Active Medications: Current Medications Acetaminophen (Tylenol) 650 mg PO Q4HR PRN PRN Reason: Mild Pain / Temp above 100 Stop: 12/10/18 20:58 Last Admin: 10/16/18 11:04 Dose: 650 mg Al Hydrox/Mg Hydrox/Simethicone (Maalox) 30 ml PO Q4H PRN PRN Reason: GI DISTRESS Stop: 12/10/18 20:58 Albuterol Sulfate (Albuterol 2.5mg/3ml Neb Ud) 2.5 mg HHN Q2HRT PRN PRN Reason: Shortness of Breath or Wheeze Stop: 12/10/18 21:03 Last Admin: 10/12/18 07:09 Dose: 2.5 mg Albuterol Sulfate (Albuterol 2.5mg/3ml Neb Ud) 2.5 mg HHN Q6HRT [facility] Stop: 12/11/18 12:59 Last Admin: 10/16/18 07:50 Dose: Not Given Ascorbic Acid (Vitamin C) 500 mg PO DAILY [facility] Stop: 12/11/18 08:59 Last Admin: 10/16/18 08:21 Dose: 500 mg Atorvastatin Calcium (Lipitor) 10 mg PO HS [facility]; Protocol Stop: 12/10/18 20:59 Last Admin: 10/15/18 20:36 Dose: 10 mg Budesonide (Pulmicort) 0.5 mg HHN BIDRT [facility] Stop: 12/11/18 18:59 Last Admin: 10/16/18 07:51 Dose: Not Given [place] Oil/[place] Balsam/Trypsin (Venelex) 1 appl TP DAILY [facility] Stop: 12/12/18 16:59 Last Admin: 10/16/18 08:23 Dose: 1 appl Dextrose (D50w) 50 ml IVP PRN PRN PRN Reason: Blood Glucose less than 70 Stop: 12/10/18 20:58 Last Admin: 10/15/18 17:04 Dose: 50 ml Docusate Sodium (Colace) 200 mg PO DAILY [facility] Stop: 12/11/18 08:59 Last Admin: 10/16/18 08:23 Dose: 200 mg Donepezil HCl (Aricept) 10 mg PO HS [facility] Stop: 12/10/18 20:59 Last Admin: 10/15/18 20:36 Dose: 10 mg Enoxaparin Sodium (Lovenox) 30 mg SUBQ DAILY [facility] Stop: 12/13/18 08:59 Last Admin: 10/16/18 08:20 Dose: 30 mg Glipizide (Glucotrol) 5 mg PO BID [facility] Stop: 12/11/18 08:59 Last Admin: 10/16/18 08:24 Dose: Not Given Glucagon (Glucagen) 1 mg IM PRN PRN PRN Reason: BS Below 70&dextrose ineffecti Stop: 12/10/18 20:58 Levofloxacin (Levaquin Pb) 500 mg in 100 mls @ 100 mls/hr IV Q24HR [facility] Stop: 12/10/18 21:59 Last Infusion: 10/15/18 23:00 Dose: Infused Dextrose/Sodium Chloride (D5-0.45ns) 1,000 mls @ 80 mls/hr IV .[id number] [facility] Stop: 12/14/18 17:59 Last Admin: 10/16/18 06:35 Dose: 80 mls/hr Ibuprofen (Motrin) 400 mg PO Q4HR PRN PRN Reason: Pain (Moderate) Stop: 12/11/18 15:28 Last Admin: 10/15/18 13:45 Dose: 400 mg Insulin Human Lispro (Humalog Insulin Sliding Scale) 0 units SUBQ ACHS [facility]; Protocol Stop: 12/10/18 20:59 Last Admin: 10/16/18 06:31 Dose: Not Given Ipratropium [place] (Atrovent Neb 0.5mg/2.5ml) 0.5 mg HHN Q2HRT PRN PRN Reason: Shortness of Breath or Wheeze Stop: 12/10/18 21:03 Last Admin: 10/12/18 07:09 Dose: 0.5 mg Lorazepam (Ativan) 0.5 mg PO Q4HR PRN; Protocol PRN Reason: Anxiety Stop: 12/10/18 20:58 Last Admin: 10/16/18 01:38 Dose: 0.5 mg Magnesium Hydroxide (Milk Of Magnesia) 30 ml PO HS PRN PRN Reason: Constipation Stop: 12/10/18 20:58 Magnesium Oxide (Mag-Oxide) 400 mg PO BID [facility] Stop: 12/11/18 08:59 Last Admin: 10/16/18 08:20 Dose: 400 mg Multi-Ingredient Cream (Eucerin Cream) 1 appl TP BID [facility] Stop: 12/11/18 08:59 Last Admin: 10/16/18 08:23 Dose: 1 appl Multivitamins/Vitamin C (Theragran) 1 tab PO DAILY [facility] Stop: 12/11/18 08:59 Last Admin: 10/16/18 08:21 Dose: 1 tab Mupirocin (Bactroban Oint) 1 appl NS BID [facility] Stop: 10/17/18 09:01 Last Admin: 10/16/18 08:20 Dose: 1 appl Oxybutynin Chloride (Ditropan) 5 mg PO BID [facility] Stop: 12/11/18 08:59 Last Admin: 10/16/18 08:21 Dose: 5 mg Pantoprazole Sodium (Protonix) 40 mg PO QDAC [facility] Stop: 12/11/18 07:29 Last Admin: 10/16/18 08:21 Dose: 40 mg Quetiapine Fumarate (Seroquel) 75 mg PO HS [facility]; Protocol Stop: 12/10/18 20:59 Last Admin: 10/15/18 20:36 Dose: 75 mg Zolpidem Tartrate (Ambien) 5 mg PO HS PRN PRN Reason: Insomnia Stop: 12/10/18 20:58 Last Admin: 10/14/18 01:44 Dose: 5 mg General: demented HEENT: NC/AT, PERRLA, EOMI Neck: Supple, No JVD Lungs: rales Cardiovascular: RRR, Normal S1, Normal S2, with murmur Abdomen: soft, globular, positive bowel sound Extremities: excoriation, contracture Neurological: no change, disorganized - Procedures Procedures: Procedures Procedure Code Date INDIVID PSYCHOTHERAP NEC 94.39 07/05/04 INJECT/INFUSE NEC 99.29 03/18/13 OTHER GROUP THERAPY 94.44 12/18/13 RECREATIONAL THERAPY 93.81 07/05/04 Internal Medicine Assmt/Plan - Assessment Assessment: ASSESSMENT AND PLAN: Right lower extremity cellulitis, acute right leg deep venous thrombosis, anemia, hyponatremia, hypercalcemia, renal insufficiency, low albumin, diabetes, dementia, coronary artery disease, hypertension, hypercholesterolemia, paroxysmal atrial fibrillation. - Plan Plan: PLAN: Continue the patient on oxygen, bronchodilator treatments. Continue on anticoagulation. We will place the patient on Lovenox 1 mg/kg. We will follow the patient's leg ultrasound. We will monitor for any bleeding. We will empirically start the patient on IV antibiotic. We will follow the patient's blood culture. We will follow consult and recommendations. will work pt up for multiple myeloma giiven pamidronate will transfer for ortho eval and for possible bmbx Nutritional Asmnt/Malnutr-PDOC - Dietary Evaluation Malnutrition Findings (Please click <Entered> for more info): Nutritional Asmnt/Malnutrition Start: 10/12/18 11: 27 Text: Status: Complete Freq: Protocol: Document 10/12/18 11:28 WERO (Rec: 10/12/18 11:31 [id number]) Nutritional Asmnt/Malnutrition Patient General Information Nutritional Screening High Risk Diagnosis Cellulitis Pertinent Medical Hx/Surgical Hx HTN, DM, CAD, Asthma/COPD, Dyslipidemia, PUD/GERD, Arthritis, Dementia Subjective Information Consult: Jordan scale 12 Pt is a 73-year-old female [facility] c/o cellulitis of the leg . Nurse was in room repositioning Pt as I was checking wound notes/pictures. Spoke with RN, Edu, concerning Pt wounds and provided him with Rufus to support wound healing. Pt was unable to comprehend/answer questions pertaining to diet. HT: 52 WT: 156 LB (70.91 kg) BMI: 28.53 (Overweight) GI: WNL, Soft, Non-tender, Large BM: not Noted I/O: 500/Not Noted Skin: Pale, Warm, Dry, Loose, Area of Concern: reddened Lt/ Re heel Wound: reddened, unstageable sacral, Dry wound, reddened Lt hand Jordan: 12 Diet Order: Mechanical Soft, chopped Estimated Energy Needs: ( Geriatric, CBW) 4212-7210 kcals (25-30 kcals/ kg) 71-85g Pro (1.0-1.2 g/kg) 1122-6009 ml (25-30 ml/kg) Current Diet Order/ Nutrition Support Mechanical Soft, chopped Pertinent Medications Maalox (PRN), Albuterol (PRN), Vitamin C, Lipitor, D50W (PRN ), Colace, Glucotrol, Glucagen (PRN), INS-SS, Cozaar, MOM ( PRN), Mag-Oxide, Theragran, Protonix Pertinent Labs 10/12: Hgb/Hct 9.9/29.4, Na 129 , BUN/Cr 36/1.2, Glucose 67, Ca 11.8, AST 106, Alk Phos 247 , T Pro 4.8, Alb 2.9 POC Glucose (last 24 hours): 67, 90, 85 Nutritional Hx/Data Height 1.57 m Height (Calculated Centimeters) 157.5 Current Weight (lbs) 70.76 kg Weight (Calculated Kilograms) 70.8 Weight (Calculated Grams) 84143.4 [place] Body Weight 110 LB (50 kg) % [place] Body Weight 142 Body Mass Index (BMI) 28.5 Weight Status Overweight GI Symptoms Last BM Not Noted Skin Integrity/Comment: Skin: Pale, Warm, Dry, Loose, Area of Concern: reddened Lt/ Re heel Wound: reddened, unstageable sacral, Dry wound, reddened Lt hand Jordan: 12 Estimated Nutritional Goals BEE in Kcals: Using Current wt Calories/Kcals/Kg 25-30 Kcals Calculated 3183-7363 Protein: Using Current wt Protein g/k.0-1.2 Protein Calculated 71-85 Fluid: ml 4466-6039 ml (25-30 ml/kg) Nutritional Problem 1. Problem Problem Altered nutrition related labs Etiology r/t pathophysiological causes Signs/Symptoms: aeb Hgb/Hct 9.9/29.4, Na 129, BUN/Cr 36/1.2, Glucose 67, Ca 11.8, AST 106, Alk Phos 247, T Pro 4.8, Alb 2.9 Intervention/Recommendation Comments 1. Continue with Mechanical Soft, chopped diet as ordered. 2. Provide Pt with Rufus BID for wound healing (completed). Expected Outcomes/Goals Expected Outcomes/Goals 1. PO intake to meet 75% of nutritional needs. 2. Monitor PO intake, wt, nutrition related labs, and skin integrity to trend WNL. 3. F/U as moderate risk in 3-5 days, 10/15-10/17
[2018-10-17 06:50] LABS: FERRITIN 2108 ng/mL (15-150); IGA SERUM - IMMUNOGLOBULIN A 144 mg/dL (64-422); IGG - IMMUNOGLOBULIN G SERUM 677 mg/dL (700-1600); IGM - IMMUNOGLOBULIN M SERUM 32 mg/dL (26-217); IRON LC 56 ug/dL (27-139); TIBC (LC) 150 ug/dL (250-450); UIBC 94 ug/dL (118-369)
[2018-10-23 08:23] LABS: KAPPA/LAMBDA LIGHT CHAIN RATIO SEE REF. LAB REPORT
== END 2018-10-16 16:06 | disposition short-term general hospital (02) | DRG 603 ==
LOC: ER 16:23 → MSI 18:50 → TELE 10-12 19:09
PROVIDERS: ADMIT Internal Medicine; ATTEND Internal Medicine
DX: L03.115 Cellulitis of right lower limb (principal); E87.1 Hypo-osmolality and hyponatremia; I82.491 Acute embolism and thrombosis of other specified deep vein of right lower extremity; E44.0 Moderate protein-calorie malnutrition; E83.52 Hypercalcemia; D64.9 Anemia, unspecified; F03.90 Unspecified dementia, unspecified severity, without behavioral disturbance, psychotic disturbance, mood disturbance, and anxiety; I25.10 Atherosclerotic heart disease of native coronary artery without angina pectoris; I48.0 Paroxysmal atrial fibrillation; J44.9 Chronic obstructive pulmonary disease, unspecified; E78.5 Hyperlipidemia, unspecified; K21.9 Gastro-esophageal reflux disease without esophagitis; M19.90 Unspecified osteoarthritis, unspecified site; E78.00 Pure hypercholesterolemia, unspecified; F25.9 Schizoaffective disorder, unspecified; N18.9 Chronic kidney disease, unspecified; I12.9 Hypertensive chronic kidney disease with stage 1 through stage 4 chronic kidney disease, or unspecified chronic kidney disease; E11.22 Type 2 diabetes mellitus with diabetic chronic kidney disease; F29 Unspecified psychosis not due to a substance or known physiological condition; Z79.4 Long term (current) use of insulin; Z68.28 Body mass index [BMI] 28.0-28.9, adult; Z88.0 Allergy status to penicillin
CPT/HCPCS: 36415-UA; 71045-TC; 73060-TC-RT; 73521; 80048-TC; 80053-TC; 81050-TC; 82140-TC; 82728-90; 82784-90; 82948-90; 83540-90; 83550-90; 83735-TC; 83880-TC; 83970-90; 84165-90; 84443-TC; 84484-TC; 85007-TC; 85025-TC; 85379-TC; 85610-TC; 86325-90; 86334-90; 90779; 93005; 93926-RT-TC; 93971-TC-RT; 94640; 94760; 96374; J1650; J1956; J2060; J2430; J3370; J7030; J7040; J7613; J7799; Z7610